=== PATIENT | male | born 1940 | race Caucasian/White ===

== ENCOUNTER 2023-10-25 20:20 | Inpatient (IN) ==
[2023-10-25 21:14] LABS: Basophils # (auto) 0.01 K/uL (0.00-0.20); Basophils % (auto) 0.2 %; Eosinophils # (auto) 0.01 K/uL (0.00-0.50); Eosinophils % (auto) 0.2 %; Hematocrit (blood only) 31.2 % (42.0-52.0); Hemoglobin 10.2 g/dl (14.0-18.0); Immature Granulocytes # (auto) 0.02 K/uL (0.01-0.20); Immature Granulocytes % (auto) 0.4 %; Lymphocytes # (auto) 0.16 K/uL (1.20-3.40); Lymphocytes % (auto) 3.1 %; Mean Corpuscular Hemoglobin 27.6 pg (25.0-34.0); Mean Corpuscular Hgb Conc 32.7 g/dL (32.0-36.0); Mean Corpuscular Volume 84.6 fL (80.0-100.0); Mean Platelet Volume 9.1 fL (9.4-12.4); Monocytes # (auto) 0.36 K/uL (0.11-0.59); Monocytes % (auto) 7.1 %; Neutrophils # (auto) 4.54 K/uL (1.40-6.50); Platelet Count 143 K/uL (130-400); RDW Coefficient of Variation 15.5 % (11.5-14.5); RDW Standard Deviation 48.1 fL (36.4-46.3); Red Blood Count 3.69 M/uL (4.70-6.10)
[2023-10-25 21:24] LABS: Base Excess VBG 3.4 mEq/L; HCO3 VBG 30 mmol/L; Oxygen Saturation VBG < 60.0 %; PCO2 VBG 50 mmHg (38-50); PO2 VBG 34 mmHg; pH VBG 7.38 (7.36-7.41)
[2023-10-25 21:31] LABS: Albumin Globulin Ratio 1.3 (0.9-2); Albumin Level 3.2 gm/dl (3.4-5.0); BUN Creatinine Ratio 23.8 (10-20); Bilirubin,Total 0.4 mg/dl (0.2-1.0); Calcium 7.8 mg/dl (8.6-10.3); Creatinine Clr Calc Pharmacy 32.1 ml/min; Est GFR (African American) 45.2 ml/min; Globulin 2.4 gm/dl (2.5-4.0); Magnesium 2.1 mg/dl (1.7-2.4); Potassium 4.7 mmol/L (3.5-5.1); Total Protein 5.6 gm/dl (6.0-8.3)
[2023-10-25 21:38] LABS: Troponin I High Sensitivity 35.2 pg/ml (0-20)
[2023-10-25 21:39] LABS: Adenovirus PCR Not Detected (NotDetected); Bordetella parapertussis PCR Not Detected (NotDetected); Bordetella pertussis PCR Not Detected (NotDetected); Chlamydia pneumoniae PCR Not Detected (NotDetected); Coronavirus 229E PCR Not Detected (NotDetected); Coronavirus CoV-2 (COVID19)PCR Not Detected (NotDetected); Coronavirus HKU1 PCR Not Detected (NotDetected); Coronavirus NL63 PCR Not Detected (NotDetected); Coronavirus OC43PCR Not Detected (NotDetected); Human Metapneumovirus PCR Not Detected (NotDetected); Influenza A PCR Not Detected (NotDetected); Influenza B PCR Not Detected (NotDetected); Mycoplasma pneumoniae PCR Not Detected (NotDetected); Parainfluenza Virus 1 PCR DETECTED (NotDetected); Parainfluenza Virus 2 PCR Not Detected (NotDetected); Parainfluenza Virus 3 PCR Not Detected (NotDetected); Parainfluenza Virus 4 PCR Not Detected (NotDetected); Respiratory Syncytial VirusPCR Not Detected (NotDetected); Rhinovirus/Enterovirus PCR Not Detected (NotDetected)
[2023-10-25 21:42] LABS: INR 1.1 (0.9-1.1); Prothrombin Time 11.6 Seconds (9.0-12.0)
--- NOTE | 2023-10-25 21:44 | Emergency Department Note ---
Impression & Plan Acute dyspnea, Non-ST elevation VT (NSTEMI), Elevated brain natriuretic peptide (BNP) level, Fever ED Provider Note HISTORY OF PRESENT ILLNESS: Patient is an 83-year-old male presenting with shortness of breath. Patient has history of lung cancer and is currently undergoing immunotherapy. He gets his immunotherapy every month and is scheduled for his next dose in 2 days. He denies any recent fevers. He uses his at home oxygen level as needed, but states that his oxygen level got into the low 80s earlier today and he has been wearing it for a couple hours. Reports a cough productive of white sputum. He has had a chronic cough. Denies any DVT or PE history. He is on Eliquis for history of A-fib. No reported recent sick contact exposures. Patient denies any significant chest pain. ROS: as above PHYSICAL EXAM: Constitutional: Patient appears in no acute distress. HENT: Head: Normocephalic and atraumatic. Eyes: EOMI, PERRL Mouth/Throat: Mucous membranes moist. Neck: Trachea midline. Neck supple. Cardiovascular: Irregular rhythm. No murmurs, rubs or gallops. Intact distal pulses. Pulmonary/Chest: No respiratory distress. Breath sounds clear and equal bilaterally. Coarse breath sounds bilaterally. Abdominal: Abdomen soft, no tenderness, rebound or guarding. Musculoskeletal: No tenderness or deformity noted. +2 edema bilaterally Skin: Warm and dry. No rash, erythema, pallor or cyanosis Psychiatric: Appropriate mood and affect for situation. Neurological: Alert and keenly responsive. CN II-XII grossly intact, moving all extremities equally and fully. MDM: - Vitals signs showed hypertension, fever and hypoxia. - History obtained via patient. History as above. - Chronic conditions affecting care: metastatic lung cancer; COPD; Afib - Differential diagnoses include, but are not limited to: Congestive heart failure; acute coronary syndrome; COPD/asthma exacerbation; pulmonary edema; pulmonary embolism; pneumonia; pneumothorax; viral syndrome - Order placed for continuous cardiac monitoring. At this time, monitor showed rate of 82 bpm with irregular rhythm, per my interpretation. - External medical records reviewed. Discharge summary dated 08/10/2023 was reviewed. Patient was admitted at that time for right-sided pleural effusion and thoracentesis was performed - EKG interpreted by myself showed atrial fibrillation. Rate 82 bpm. QT 382. Noted to have some ST depressions in V5 and V6. - Laboratory workup interpreted by myself showed normal WBC; anemia (Hgb 10.2); normal PT/INR; hyponatremia (Na 132); normal lactate; EL (Cr 1.6); elevated troponin (35.2); elevated BNP (282); normal procalcionin - Repeat troponin rising (53.6) - Viral respiratory panel positive for parainfluenza type 1. - CXR shows what appears to be a right lower lobe pneumonia, per my interpretation - Patient given 1g IV tylenol, as he developed a fever in the ER. - Blood cultures obtained. - Given 2g IV cefepime in ER. - Discussion was had with counter caser about patient's case and need for admission - Hospitalist consulted for admission - [facility] ASSESSMENT AND PLAN: Diagnosis: acute dyspnea; NSTEMI; elevated BNP; fever Plan: admit Past Med/Surg History Problem List (Updated 10/25/23 @ 23:17 by Rihannon Perez MD) Fever (Acute) Elevated brain natriuretic peptide (BNP) level (Acute) Non-ST elevation VT (NSTEMI) (Acute) Acute dyspnea (Acute) Palliative care by specialist Advanced care planning/counseling discussion Small cell lung cancer, right upper lobe Weakness generalized Dyspnea and respiratory abnormalities Shortness of breath on exertion Leg swelling (Acute) A-fib (Acute) COPD (chronic obstructive pulmonary disease) (Acute) Pleural effusion (Acute) Breathlessness (Acute) Primary cancer of right upper lobe of lung (Chronic 02/10/23) Metastatic primary lung cancer NSCC Lumbar stenosis with neurogenic claudication Medical History (Updated 10/25/23 @ 23:17 by Rhiannon Perez MD) Acute hypoxic respiratory failure Chronic kidney disease Atrial fibrillation Insomnia Diastolic CHF COPD (chronic obstructive pulmonary disease) Carotid artery stenosis Hypertension BPH (benign prostatic hyperplasia) Coronary artery disease DDD (degenerative disc disease), lumbar Edema, lower extremity Dyslipidemia Hyponatremia Hypothyroidism Lumbar radiculopathy Osteoarthritis Peripheral vascular disease Surgical History (Updated 03/11/23 @ 10:47 by Arin Aparicio RN) History of surgery Right ankle surgery History of carpal tunnel surgery Left History of surgery Lumbar spine surgery History of cataract surgery Bilateral S/P CABG x 5 S/P bronchoscopy 02/10/23 Family History (Updated 03/11/23 @ 10:15 by Arin Aparicio RN) Mother , in her 50s MVA (motor vehicle accident) Depression Anxiety Father , 46yo Myocardial infarction Brother Heart disease during stress test Sister No problems noted. Sister Diabetes Sister Diabetes Sister Heart disease Son No problems noted. Son Stroke Son No problems noted. 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 How many Children do You have: 3 Feels Safe at Home: Yes Diet: regular caffeine: Yes (4 cups/day) during the past year weight has: remained stable Assistive Devices: Cane and Walker Allergies Allergies Allergy/AdvReac Type Severity Reaction Status Date / Time No Known Allergies Allergy Unverified 08/06/23 19:19 Home Meds Home Medications Medication Instructions Recorded Confirmed albuterol sulfate 90 mcg/actuation 2 puff inhalation Q6H PRN 03/11/23 08/06/23 aerosol inhaler Shortness Of Breath Or Wheezing dutasteride 0.5 mg capsule 0.5 mg PO DAILY 03/11/23 08/06/23 ferrous sulfate 325 mg (65 mg 325 mg PO DAILY 03/11/23 08/06/23 iron) tablet (FeroSul) ipratropium 0.5 mg-albuterol 3 mg 3 ml inhalation Q6H PRN Shortness 03/11/23 08/06/23 (2.5 mg base)/3 mL nebulization Of Breath Or Wheezing soln levothyroxine 112 mcg capsule 112 mcg PO DAILY 03/11/23 08/06/23 mecobalamin (vitamin B12) 10,000 1,000 mcg IM MONTHLY 03/11/23 08/06/23 mcg solution for injection ondansetron HCl 8 mg tablet 8 mg PO Q8H PRN Nausea 03/11/23 08/06/23 prochlorperazine maleate 10 mg 10 mg PO Q6H PRN Nausea 03/11/23 08/06/23 tablet (Compazine) tamsulosin 0.4 mg capsule 0.4 mg PO BID 03/11/23 08/06/23 torsemide 20 mg tablet 20 mg PO DAILY 03/11/23 08/06/23 amlodipine 5 mg tablet 5 mg PO [facility] 08/06/23 08/06/23 apixaban 2.5 mg tablet (Eliquis) 2.5 mg PO BID 08/06/23 08/06/23 aspirin 81 mg tablet,delayed 81 mg PO MOWEFR 08/06/23 08/06/23 release baclofen 10 mg tablet 10 mg PO HS 08/06/23 08/06/23 hydrocodone 10 mg-acetaminophen 1 tab PO Q4 PRN .severe pain 08/06/23 08/06/23 325 mg tablet mirtazapine 30 mg tablet 30 mg PO HS 08/06/23 08/06/23 nitroglycerin 0.4 mg sublingual 0.4 mg sublingual DIRECTED PRN 08/06/23 08/06/23 tablet (Nitrostat) .Ccest pain ropinirole 0.5 mg tablet 0.5 mg PO HS 08/06/23 08/06/23 sennosides 8.6 mg-docusate sodium 1 tab-cap PO 08/06/23 08/06/23 50 mg tablet (Senna with Docusate Sodium) simvastatin 40 mg tablet 40 mg PO DAILY 08/06/23 08/06/23 umeclidinium 62.5 mcg/actuation 1 inh inhalation [facility] 08/06/23 08/06/23 blister powder for inhalation (Incruse Ellipta) Results & Data (ED) Vital Signs Vital Signs - 24 hr 10/25/23 20:29 10/25/23 20:34 10/25/23 20:36 Temperature 39.4 C H Temperature Source Oral Pulse Rate 78 81 Pulse Rhythm Irregular Respiratory Rate 20 20 Respiratory Effort / Characteristics Pursed Lip Short of Breath SOB on Exertion Pursed Lip Short of Breath SOB on Exertion Respiratory Depth Normal Respiratory Pattern Tachypnea Blood Pressure 166/61 H Blood Pressure Mean 96 Pulse Oximetry 90 90 Oxygen Delivery Method Nasal Cannula Nasal Cannula Nasal Cannula Oxygen Flow Rate 2 2 2 Sepsis Recent Fever Within 48 Hours Yes Sepsis New/Unexplained Change in Mental Status N/A Sepsis Action Taken by Nursing No Action Required 10/25/23 20:36 10/25/23 21:53 Temperature 37.0 C Temperature Source Oral Pulse Rate 82 Pulse Rhythm Respiratory Rate Respiratory Effort / Characteristics Respiratory Depth Respiratory Pattern Blood Pressure Blood Pressure Mean Pulse Oximetry Oxygen Delivery Method Oxygen Flow Rate Sepsis Recent Fever Within 48 Hours Sepsis New/Unexplained Change in Mental Status Sepsis Action Taken by Nursing Laboratory Data 10/25/23 20:40 10/25/23 20:40 Lab Results 10/25/23 10/25/23 10/25/23 Range/Units 20:40 21:12 22:31 WBC 5.10 (4.8-10.8) K/ul RBC 3.69 L (4.70-6.10) M/uL Hgb 10.2 L (14.0-18.0) g/dl Hct 31.2 L (42.0-52.0) % MCV 84.6 (80.0-100.0) fL MCH 27.6 (25.0-34.0) pg MCHC 32.7 (32.0-36.0) g/dL RDW Std Deviation 48.1 H (36.4-46.3) fL RDW Coeff of [place] 15.5 H (11.5-14.5) % Plt Count 143 (130-400) K/uL MPV 9.1 L (9.4-12.4) fL Immature Gran % (Auto) 0.4 % Neut % (Auto) 89.0 % Lymph % (Auto) 3.1 % [place] % (Auto) 7.1 % Eos % (Auto) 0.2 % Baso % (Auto) 0.2 % Neut # (Auto) 4.54 (1.40-6.50) K/uL Lymph # (Auto) 0.16 L (1.20-3.40) K/uL [place] # (Auto) 0.36 (0.11-0.59) K/uL Eos # (Auto) 0.01 (0.00-0.50) K/uL Baso # (Auto) 0.01 (0.00-0.20) K/uL Immature Gran # (Auto) 0.02 (0.01-0.20) K/uL PT 11.6 (9.0-12.0) Seconds INR 1.1 (0.9-1.1) VBG pH 7.38 (7.36-7.41) VBG pCO2 50 (38-50) mmHg VBG pO2 34 mmHg VBG HCO3 30 mmol/L VBG O2 Saturation < 60.0 % VBG Base Excess 3.4 mEq/L Sodium 132 L (136-145) mmol/L Potassium 4.7 (3.5-5.1) mmol/L Chloride 98 (98-107) mmol/L Carbon Dioxide 29 (21-32) mmol/L Anion Gap 5 (3-11) BUN 38 H (6-23) mg/dl Creatinine 1.60 H (0.6-1.4) mg/dl Est Cr Clr Drug Dosing 32.1 ml/min Est GFR ( Amer) 45.2 ml/min Est GFR (Non-Af Amer) 39.0 ml/min BUN/Creatinine Ratio 23.8 H (10-20) Glucose 125 H (70-99(Fasting)) mg/dl Lactate 0.9 (0.4-2.0) mmol/L Calcium 7.8 L (8.6-10.3) mg/dl Magnesium 2.1 (1.7-2.4) mg/dl Total Bilirubin 0.4 (0.2-1.0) mg/dl AST 19 (13-39) U/L ALT 13 (7-52) U/L Alkaline Phosphatase 83 (34-104) U/L Troponin I High Sens 35.2 H 53.6 H* D (0-20) pg/ml B-Natriuretic Peptide 282 H (0-100) pg/ml Total Protein 5.6 L (6.0-8.3) gm/dl Albumin 3.2 L (3.4-5.0) gm/dl Globulin 2.4 L (2.5-4.0) gm/dl Albumin/Globulin Ratio 1.3 (0.9-2) Procalcitonin 0.33 (0-0.5) ng/ml Adenovirus (PCR) (NotDetected) B. pertussis DNA (PCR) (NotDetected) B.parapertussis DNA PCR (NotDetected) C. pneumoniae DNA (PCR) (NotDetected) Coronavirus OC43 (PCR) (NotDetected) Coronavirus HKU1 (PCR) (NotDetected) Coronavirus 229E (PCR) (NotDetected) SARS-CoV-2 (PCR) (NotDetected) Coronavirus NL63 (PCR) (NotDetected) Human Metapneumovir PCR (NotDetected) Influenza Type A (PCR) (NotDetected) Influenza Type B (PCR) (NotDetected) M. pneumoniae (PCR) (NotDetected) Parainfluenza 1 (PCR) (NotDetected) Parainfluenza 2 (PCR) (NotDetected) Parainfluenza 3 (PCR) (NotDetected) Parainfluenza 4 (PCR) (NotDetected) RSV (PCR) (NotDetected) Entero/Rhino (PCR) (NotDetected) 10/25/23 Range/Units Unknown WBC (4.8-10.8) K/ul RBC (4.70-6.10) M/uL Hgb (14.0-18.0) g/dl Hct (42.0-52.0) % MCV (80.0-100.0) fL MCH (25.0-34.0) pg MCHC (32.0-36.0) g/dL RDW Std Deviation (36.4-46.3) fL RDW Coeff of [place] (11.5-14.5) % Plt Count (130-400) K/uL MPV (9.4-12.4) fL Immature Gran % (Auto) % Neut % (Auto) % Lymph % (Auto) % [place] % (Auto) % Eos % (Auto) % Baso % (Auto) % Neut # (Auto) (1.40-6.50) K/uL Lymph # (Auto) (1.20-3.40) K/uL [place] # (Auto) (0.11-0.59) K/uL Eos # (Auto) (0.00-0.50) K/uL Baso # (Auto) (0.00-0.20) K/uL Immature Gran # (Auto) (0.01-0.20) K/uL PT (9.0-12.0) Seconds INR (0.9-1.1) VBG pH (7.36-7.41) VBG pCO2 (38-50) mmHg VBG pO2 mmHg VBG HCO3 mmol/L VBG O2 Saturation % VBG Base Excess mEq/L Sodium (136-145) mmol/L Potassium (3.5-5.1) mmol/L Chloride (98-107) mmol/L Carbon Dioxide (21-32) mmol/L Anion Gap (3-11) BUN (6-23) mg/dl Creatinine (0.6-1.4) mg/dl Est Cr Clr Drug Dosing ml/min Est GFR ( Amer) ml/min Est GFR (Non-Af Amer) ml/min BUN/Creatinine Ratio (10-20) Glucose (70-99(Fasting)) mg/dl Lactate (0.4-2.0) mmol/L Calcium (8.6-10.3) mg/dl Magnesium (1.7-2.4) mg/dl Total Bilirubin (0.2-1.0) mg/dl AST (13-39) U/L ALT (7-52) U/L Alkaline Phosphatase (34-104) U/L Troponin I High Sens (0-20) pg/ml B-Natriuretic Peptide (0-100) pg/ml Total Protein (6.0-8.3) gm/dl Albumin (3.4-5.0) gm/dl Globulin (2.5-4.0) gm/dl Albumin/Globulin Ratio (0.9-2) Procalcitonin (0-0.5) ng/ml Adenovirus (PCR) Not Detected (NotDetected) B. pertussis DNA (PCR) Not Detected (NotDetected) B.parapertussis DNA PCR Not Detected (NotDetected) C. pneumoniae DNA (PCR) Not Detected (NotDetected) Coronavirus OC43 (PCR) Not Detected (NotDetected) Coronavirus HKU1 (PCR) Not Detected (NotDetected) Coronavirus 229E (PCR) Not Detected (NotDetected) SARS-CoV-2 (PCR) Not Detected (NotDetected) Coronavirus NL63 (PCR) Not Detected (NotDetected) Human Metapneumovir PCR Not Detected (NotDetected) Influenza Type A (PCR) Not Detected (NotDetected) Influenza Type B (PCR) Not Detected (NotDetected) M. pneumoniae (PCR) Not Detected (NotDetected) Parainfluenza 1 (PCR) DETECTED A (NotDetected) Parainfluenza 2 (PCR) Not Detected (NotDetected) Parainfluenza 3 (PCR) Not Detected (NotDetected) Parainfluenza 4 (PCR) Not Detected (NotDetected) RSV (PCR) Not Detected (NotDetected) Entero/Rhino (PCR) Not Detected (NotDetected) Administered Medications Discontinued Medications Cefepime HCl (Maxipime) 2,000 mg in 20 mls @ 5 mls/min IV NOW STA; Protocol Stop: 10/25/23 21:47 Last Admin: 10/25/23 22:56 Dose: 5 mls/min Documented By: HERMAN Acetaminophen (Ofirmev) 1,000 mg in 100 mls @ 400 mls/hr IV NOW STA Stop: 10/25/23 21:58 Last Infusion: 10/25/23 22:15 Dose: Infused Documented By: Admin: 10/25/23 22:00 Dose: 400 mls/hr Documented By: HERMAN Discharge Plan Visit Data Chief Complaint: Shortness of Breath/Dyspnea Stated Complaint: SHORTNESS OF BREATH ED Provider: Rhiannon Perez Discharge Problem: Acute dyspnea, Non-ST elevation VT (NSTEMI), Elevated brain natriuretic peptide (BNP) level, Fever Forms Stand Alone Forms: My [facility] Prescriptions Prescriptions: No Action levothyroxine 112 mcg capsule 112 mcg PO DAILY albuterol sulfate 90 mcg/actuation HFA aerosol inhaler 2 puff inhalation Q6H PRN (Reason: Shortness Of Breath Or Wheezing) tamsulosin 0.4 mg capsule 0.4 mg PO BID torsemide 20 mg tablet 20 mg PO DAILY ferrous sulfate [FeroSul] 325 mg (65 mg iron) tablet 325 mg PO DAILY dutasteride 0.5 mg capsule 0.5 mg PO DAILY ipratropium-albuterol 0.5 mg-3 mg(2.5 mg base)/3 mL solution for nebulization 3 ml inhalation Q6H PRN (Reason: Shortness Of Breath Or Wheezing) mecobalamin (vitamin B12) 10,000 mcg recon soln 1,000 mcg IM MONTHLY prochlorperazine maleate [Compazine] 10 mg tablet 10 mg PO Q6H PRN (Reason: Nausea) ondansetron HCl 8 mg tablet 8 mg PO Q8H PRN (Reason: Nausea) sennosides-docusate sodium [Senna with Docusate Sodium] 8.6-50 mg Tablet 1 tab-cap PO HS hydrocodone-acetaminophen 10-325 mg tablet 1 tab PO Q4 PRN (Reason: .severe pain) aspirin 81 mg Tablet,Delayed Release (Dr/Ec) 81 mg PO MOWEFR simvastatin 40 mg tablet 40 mg PO DAILY mirtazapine 30 mg tablet 30 mg PO HS nitroglycerin [Nitrostat] 0.4 mg Tablet, Sublingual 0.4 mg sublingual DIRECTED PRN (Reason: .Ccest pain) Incruse Ellipta 62.5 mcg/actuation blister with device 1 inh INHALATION QAM amlodipine 5 mg tablet 5 mg PO QAM ropinirole 0.5 mg tablet 0.5 mg PO HS Eliquis 2.5 mg tablet 2.5 mg PO BID baclofen 10 mg tablet 10 mg PO HS Referrals Referrals: Pepe Chiang MD [Primary Care Provider] -
[2023-10-25] MEDS: ACETAMINOPHEN 1,000 MG/100 ML VIAL IV STA (22:00)
[2023-10-25] MEDS: CEFEPIME 2,000 MG/20 ML VIAL IV STA (22:56)
[2023-10-25 23:10] LABS: Troponin I High Sensitivity 53.6 pg/ml (0-20)
[2023-10-26] MEDS: DOXYCYCLINE HYCLATE 100 MG in DEXTROSE 5% MINI-B 100 ML IV STA (00:06)
[2023-10-26] MEDS: SODIUM CHLORIDE 0.9% 1,000 ML IV ONE (00:08)
--- NOTE | 2023-10-26 01:20 | History & Physical Report ---
Date of Service October 26, 2023 Assessment & Plan (1) Acute hypoxemic respiratory failure: Plan: Secondary to COPD/RLD exacerbation secondary to HCAP History recurrent right pleural effusion Underlying pulm hypertension Immunocompromised patient hx NSCLC sp chemoradiation ongoing immunotherapy No sepsis for now Asymptomatic bradycardia noted at the ER Slow A-fib, on Eliquis Troponin elevation secondary to illness Hyponatremia, ARF secondary to illness chronic diastolic heart failure, equivocal volume status, some congestion on x- ray, patient clinically dry hx CAD status post CABG valvular heart disease (moderate to severe MR, mild to moderate MR, TTE 2021) hx PVD status post surgery hyperlipidemia on statin Rx hypothyroidism, TSH elevated with normal free T4 chronic anemia, hemoglobin at baseline Hyperglycemia ro DM past tobacco abuse PCU given bradycardic episode Atropine as needed symptomatic bradycardia Cardiology consult if with recurrence CS, cefepime, doxycycline for HCAP Nebs RTC, prednisone Rx for COPD exacerbation Pulmonary consult if without improvement Hyponatremia workup Baseline UA, monitor creatinine response to IVF Hold losartan and home diuretic until creatinine back to baseline Check hemoglobin A1c DVT prophylaxis with Eliquis Full code Total critical care time was 45 minutes. Text document was generated using [employer] voice recognition software. It may contain grammatical or spelling errors. Kindly contact undersigned for clarification of any documentation item in question. History of Present Illness Chief Complaint: Cough, shortness of breath Primary Care Provider: Pepe Chiang MD History obtained from patient and records. Medical history significant for chronic diastolic heart failure (55 to 59%, TTE 2021), CAD status post CABG, valvular heart disease (moderate to severe MR, mild to moderate MR, TTE 2021), PVD status post surgery, A-fib on Eliquis, pulmonary hypertension, hyperlipidemia, COPD/RLD as per records, non-small cell lung cancer status post chemoradiation ongoing immunotherapy, recurrent right pleural effusion, pancreatic tumor, hypothyroidism, BPH, chronic anemia (baseline hemoglobin 9-10), mood disorder, past tobacco abuse. Recent confinement August 2023 for right pleural effusion status post th oracentesis. Pleural fluid negative for malignancy. Few days history of worsening junky cough symptoms with shortness of breath. Denies aspiration. Not sure about sick contacts. Denies fluid retention. No headache or abdominal pain. Patient brought by family to ER. IV cefepime administered at the ER. Bradycardic episode noted at the ER. Heart rate 30s. Patient asymptomatic during event. 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 Allergies Allergy/AdvReac Type Severity Reaction Status Date / Time No Known Allergies Allergy Unverified 10/26/23 00:36 Home Medications Medication Instructions Recorded Confirmed Type albuterol sulfate 90 mcg/actuation 2 puff inhalation Q6H PRN 03/11/23 10/26/23 History aerosol inhaler Shortness Of Breath Or Wheezing dutasteride 0.5 mg capsule 0.5 mg PO DAILY 03/11/23 10/26/23 History ipratropium 0.5 mg-albuterol 3 mg 3 ml inhalation Q6H PRN Shortness 03/11/23 10/26/23 History (2.5 mg base)/3 mL nebulization Of Breath Or Wheezing soln levothyroxine 112 mcg capsule 112 mcg PO DAILY 03/11/23 10/26/23 History mecobalamin (vitamin B12) 10,000 1,000 mcg IM MONTHLY 03/11/23 10/26/23 History mcg solution for injection ondansetron HCl 8 mg tablet 8 mg PO Q8H PRN Nausea 03/11/23 10/26/23 History prochlorperazine maleate 10 mg 10 mg PO Q6H PRN Nausea 03/11/23 10/26/23 History tablet (Compazine) tamsulosin 0.4 mg capsule 0.4 mg PO BID 03/11/23 10/26/23 History torsemide 20 mg tablet 20 mg PO DAILY 03/11/23 10/26/23 History amlodipine 5 mg tablet 5 mg PO QAM 08/06/23 10/26/23 History apixaban 2.5 mg tablet (Eliquis) 2.5 mg PO BID 08/06/23 10/26/23 History aspirin 81 mg tablet,delayed 81 mg PO MOWEFR 08/06/23 10/26/23 History release baclofen 10 mg tablet 10 mg PO HS 08/06/23 10/26/23 History mirtazapine 30 mg tablet 45 mg PO HS 08/06/23 10/26/23 History nitroglycerin 0.4 mg sublingual 0.4 mg sublingual DIRECTED PRN 08/06/23 10/26/23 History tablet (Nitrostat) .Ccest pain ropinirole 0.5 mg tablet 0.5 mg PO HS 08/06/23 10/26/23 History sennosides 8.6 mg-docusate sodium 1 tab-cap PO HS 08/06/23 10/26/23 History 50 mg tablet (Senna with Docusate Sodium) umeclidinium 62.5 mcg/actuation 1 inh inhalation QAM 08/06/23 10/26/23 History blister powder for inhalation (Incruse Ellipta) dexamethasone 4 mg tablet 4 mg PO DIRECTED .when gets 10/26/23 10/26/23 History chemo duloxetine 30 mg capsule,delayed 30 mg PO QAM 10/26/23 10/26/23 History release losartan 50 mg tablet 50 mg PO QAM 10/26/23 10/26/23 History oxycodone 5 mg tablet 5 mg PO Q4 PRN .severe pain 10/26/23 10/26/23 History pantoprazole 40 mg tablet,delayed 40 mg PO DAILY 10/26/23 10/26/23 History release rosuvastatin 20 mg tablet 20 mg PO QAM 10/26/23 10/26/23 History Past Med/Surg History Problem List (Updated 10/26/23 @ 10:01 by Neeraj Camacho MD) Acute hypoxemic respiratory failure Fever (Acute) Elevated brain natriuretic peptide (BNP) level (Acute) Non-ST elevation [place] (NSTEMI) (Acute) Acute dyspnea (Acute) Palliative care by specialist Advanced care planning/counseling discussion Small cell lung cancer, right upper lobe Weakness generalized Dyspnea and respiratory abnormalities Shortness of breath on exertion Leg swelling (Acute) A-fib (Acute) COPD (chronic obstructive pulmonary disease) (Acute) Pleural effusion (Acute) Breathlessness (Acute) Primary cancer of right upper lobe of lung (Chronic 02/10/23) Metastatic primary lung cancer NSCC Lumbar stenosis with neurogenic claudication Medical History (Updated 10/26/23 @ 10:01 by Neeraj Camacho MD) Acute hypoxic respiratory failure Chronic kidney disease Atrial fibrillation Insomnia Diastolic CHF COPD (chronic obstructive pulmonary disease) Carotid artery stenosis Hypertension BPH (benign prostatic hyperplasia) Coronary artery disease DDD (degenerative disc disease), lumbar Edema, lower extremity Dyslipidemia Hyponatremia Hypothyroidism Lumbar radiculopathy Osteoarthritis Peripheral vascular disease Surgical History (Updated 03/11/23 @ 10:47 by Arin Aparicio RN) History of surgery Right ankle surgery History of carpal tunnel surgery Left History of surgery Lumbar spine surgery History of cataract surgery Bilateral S/P CABG x 5 S/P bronchoscopy 02/10/23 Family History (Updated 03/11/23 @ 10:15 by Arin Aparicio RN) Mother , in her 50s MVA (motor vehicle accident) Depression Anxiety Father , 46yo Myocardial infarction Brother Heart disease during stress test Sister No problems noted. Sister Diabetes Sister Diabetes Sister Heart disease Son No problems noted. Son Stroke Son No problems noted. 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 How many Children do You have: 3 Feels Safe at Home: Yes Safety Concerns: Feels Safe At This Time Diet: regular caffeine: Yes (4 cups/day) during the past year weight has: remained stable Assistive Devices: Cane, Denture - Upper and Denture - Lower Review of Systems Review of Systems: As per HPI, all other systems reviewed and negative Physical Exam Physical Exam: GENERAL: Comfortable, slightly hard of hearing, no respiratory distress SKIN: Pallor, warm HEENT: Alopecia, pale palpebral conjunctivae, no ptosis, dry buccal mucosa, nasal cannula in place NECK : Supple, no tenderness CHEST : Decreased breath sounds, scattered expiratory wheezes, no tenderness HEART : Bradycardic, irregular, systolic murmur ABDOMEN: Some distention, nontender EXTREMITIES : Minimal LE swelling, no LE tenderness, no other conspicuous deformities noted NEUROLOGIC : Coherent, no facial asymmetry, slightly hard of hearing, gait and stance not assessed Results & Data Results & Data Vital Signs (Past 12 Hours) Vital Signs Temp Pulse Resp BP Pulse Ox O2 Del Method O2 Flow Rate 10/26/23 00:30 117/48 L 93 Nasal Cannula 1 10/26/23 00:00 14 112/46 L 93 Nasal Cannula 1 10/26/23 00:00 92 Nasal Cannula 2 10/25/23 21:53 37.0 C 10/25/23 20:36 82 10/25/23 20:36 81 20 90 Nasal Cannula 2 10/25/23 20:34 Nasal Cannula 2 10/25/23 20:29 39.4 C H 78 20 166/61 H 90 Nasal Cannula 2 Laboratory Results Laboratory Results WBC 5.10 K/ul (4.8-10.8) 10/25/23 20:40 RBC 3.69 M/uL (4.70-6.10) L 10/25/23 20:40 Hgb 10.2 g/dl (14.0-18.0) L 10/25/23 20:40 Hct 31.2 % (42.0-52.0) L 10/25/23 20:40 MCV 84.6 fL (80.0-100.0) 10/25/23 20:40 MCH 27.6 pg (25.0-34.0) 10/25/23 20:40 MCHC 32.7 g/dL (32.0-36.0) 10/25/23 20:40 RDW Std Deviation 48.1 fL (36.4-46.3) H 10/25/23 20:40 RDW Coeff of Carlitos 15.5 % (11.5-14.5) H 10/25/23 20:40 Plt Count 143 K/uL (130-400) 10/25/23 20:40 MPV 9.1 fL (9.4-12.4) L 10/25/23 20:40 Immature Gran % (Auto) 0.4 % 10/25/23 20:40 Neut % (Auto) 89.0 % 10/25/23 20:40 Lymph % (Auto) 3.1 % 10/25/23 20:40 [place] % (Auto) 7.1 % 10/25/23 20:40 Eos % (Auto) 0.2 % 10/25/23 20:40 Baso % (Auto) 0.2 % 10/25/23 20:40 Neut # (Auto) 4.54 K/uL (1.40-6.50) 10/25/23 20:40 Lymph # (Auto) 0.16 K/uL (1.20-3.40) L 10/25/23 20:40 [place] # (Auto) 0.36 K/uL (0.11-0.59) 10/25/23 20:40 Eos # (Auto) 0.01 K/uL (0.00-0.50) 10/25/23 20:40 Baso # (Auto) 0.01 K/uL (0.00-0.20) 10/25/23 20:40 Immature Gran # (Auto) 0.02 K/uL (0.01-0.20) 10/25/23 20:40 PT 11.6 Seconds (9.0-12.0) 10/25/23 20:40 INR 1.1 (0.9-1.1) 10/25/23 20:40 VBG pH 7.38 (7.36-7.41) 10/25/23 21:12 VBG pCO2 50 mmHg (38-50) 10/25/23 21:12 VBG pO2 34 mmHg 10/25/23 21:12 VBG HCO3 30 mmol/L 10/25/23 21:12 VBG O2 Saturation < 60.0 % 10/25/23 21:12 VBG Base Excess 3.4 mEq/L 10/25/23 21:12 Sodium 132 mmol/L (136-145) L 10/25/23 20:40 Potassium 4.7 mmol/L (3.5-5.1) 10/25/23 20:40 Chloride 98 mmol/L (98-107) 10/25/23 20:40 Carbon Dioxide 29 mmol/L (21-32) 10/25/23 20:40 Anion Gap 5 (3-11) 10/25/23 20:40 BUN 38 mg/dl (6-23) H 10/25/23 20:40 Creatinine 1.60 mg/dl (0.6-1.4) H 10/25/23 20:40 Est Cr Clr Drug Dosing 32.1 ml/min 10/25/23 20:40 Est GFR ( Amer) 45.2 ml/min 10/25/23 20:40 Est GFR (Non-Af Amer) 39.0 ml/min 10/25/23 20:40 BUN/Creatinine Ratio 23.8 (10-20) H 10/25/23 20:40 Glucose 125 mg/dl (70-99(Fasting)) H 10/25/23 20:40 Lactate 0.9 mmol/L (0.4-2.0) 10/25/23 22:31 Calcium 7.8 mg/dl (8.6-10.3) L 10/25/23 20:40 Magnesium 2.1 mg/dl (1.7-2.4) 10/25/23 20:40 Total Bilirubin 0.4 mg/dl (0.2-1.0) 10/25/23 20:40 AST 19 U/L (13-39) 10/25/23 20:40 ALT 13 U/L (7-52) 10/25/23 20:40 Alkaline Phosphatase 83 U/L (34-104) 10/25/23 20:40 Troponin I High Sens 53.6 pg/ml (0-20) H* D 10/25/23 22:31 B-Natriuretic Peptide 282 pg/ml (0-100) H 10/25/23 20:40 Total Protein 5.6 gm/dl (6.0-8.3) L 10/25/23 20:40 Albumin 3.2 gm/dl (3.4-5.0) L 10/25/23 20:40 Globulin 2.4 gm/dl (2.5-4.0) L 10/25/23 20:40 Albumin/Globulin Ratio 1.3 (0.9-2) 10/25/23 20:40 Procalcitonin 0.33 ng/ml (0-0.5) 10/25/23 20:40 Adenovirus (PCR) Not Detected (NotDetected) 10/25/23 Unknown B. pertussis DNA (PCR) Not Detected (NotDetected) 10/25/23 Unknown B.parapertussis DNA PCR Not Detected (NotDetected) 10/25/23 Unknown C. pneumoniae DNA (PCR) Not Detected (NotDetected) 10/25/23 Unknown Coronavirus OC43 (PCR) Not Detected (NotDetected) 10/25/23 Unknown Coronavirus HKU1 (PCR) Not Detected (NotDetected) 10/25/23 Unknown Coronavirus 229E (PCR) Not Detected (NotDetected) 10/25/23 Unknown SARS-CoV-2 (PCR) Not Detected (NotDetected) 10/25/23 Unknown Coronavirus NL63 (PCR) Not Detected (NotDetected) 10/25/23 Unknown Human Metapneumovir PCR Not Detected (NotDetected) 10/25/23 Unknown Influenza Type A (PCR) Not Detected (NotDetected) 10/25/23 Unknown Influenza Type B (PCR) Not Detected (NotDetected) 10/25/23 Unknown M. pneumoniae (PCR) Not Detected (NotDetected) 10/25/23 Unknown Parainfluenza 1 (PCR) DETECTED (NotDetected) A 10/25/23 Unknown Parainfluenza 2 (PCR) Not Detected (NotDetected) 10/25/23 Unknown Parainfluenza 3 (PCR) Not Detected (NotDetected) 10/25/23 Unknown Parainfluenza 4 (PCR) Not Detected (NotDetected) 10/25/23 Unknown RSV (PCR) Not Detected (NotDetected) 10/25/23 Unknown Entero/Rhino (PCR) Not Detected (NotDetected) 10/25/23 Unknown Diagnostic Findings Chest x-ray as per my interpretation cardiomegaly, minimal congestion, infi ltrates right greater than the left EKG as per my interpretation : Rate 80, A-fib, normal axis, T wave inversion lateral leads
[2023-10-26] MEDS ORDERED: ATROPINE SULFATE 0.1 MG/ML 10ML SYR IV PRN (01:35)
[2023-10-26] MEDS: amLODIPine BESYLATE 5 MG TAB PO ONE (01:36)
[2023-10-26] MEDS: methylPREDNISolone 125 MG/2 ML VIAL IV STA (01:38)
[2023-10-26] MEDS: ALBUT/IPRATROP 3MG/0.5MG NEB 3 ML VIAL NEB STA (01:39)
[2023-10-26 02:14] LABS: Thyroid Stimulating Hormone 16.1 uIu/ml (0.300-4.500)
[2023-10-26 03:12] LABS: T4 Free Thyroxine 0.93 ng/dl (0.61-1.60)
[2023-10-26] MEDS: LEVOTHYROXINE SODIUM 125 MCG TABLET PO SCH (06:29)
--- NOTE | 2023-10-26 06:49 | XRay Report ---
XR chest 1V portable CLINICAL HISTORY: Dyspnea. COMPARISON STUDY: Chest CT August 06, 2023. Chest radiograph August 10, 2023. FINDINGS: There are median sternotomy wires. An irregular opacity within the right upper lobe with vo lume loss is again noted. Bilateral mid and lower lung airspace opacities have developed. Cardiomegal y is unchanged. There is mild interstitial thickening. No pneumothorax. There is a small right pleura l effusion. IMPRESSION: 1. Interval development of bilateral mid and lower lung airspace opacities which favor pneumonia or a spiration pneumonitis. 2. Cardiomegaly with mild interstitial pulmonary edema. 3. Irregular right upper lobe masslike opacity, as shown on prior exams. 4. Small right pleural effusion. ACT 112: Negative or not required by law. Electronically signed by: Inocencio Villareal M.D. 10/26/2023 6:48 AM
[2023-10-26] MEDS: ALBUT/IPRATROP 3MG/0.5MG NEB 3 ML VIAL NEB SCH (07:06)
[2023-10-26 07:10] LABS: Hematocrit (blood only) 29.4 % (42.0-52.0); Hemoglobin 9.4 g/dl (14.0-18.0); Mean Corpuscular Hemoglobin 27.4 pg (25.0-34.0); Mean Corpuscular Volume 85.7 fL (80.0-100.0); Mean Platelet Volume 9.5 fL (9.4-12.4); Platelet Count 114 K/uL (130-400); RDW Coefficient of Variation 15.8 % (11.5-14.5); RDW Standard Deviation 49.3 fL (36.4-46.3); Red Blood Count 3.43 M/uL (4.70-6.10); White Blood Count 7.47 K/ul (4.8-10.8)
[2023-10-26 07:27] LABS: Calcium 7.9 mg/dl (8.6-10.3); Est GFR (African American) 46.6 ml/min; Est GFR (Non-African American) 40.2 ml/min; Potassium 4.6 mmol/L (3.5-5.1)
[2023-10-26 07:45] LABS: Basophils # (auto) 0.01 K/uL (0.00-0.20); Basophils % (auto) 0.1 %; Immature Granulocytes # (auto) 0.06 K/uL (0.01-0.20); Immature Granulocytes % (auto) 0.8 %; Lymphocytes # (auto) 0.28 K/uL (1.20-3.40); Lymphocytes % (auto) 3.7 %; Monocytes # (auto) 0.28 K/uL (0.11-0.59); Monocytes % (auto) 3.7 %; Neutrophils # (auto) 6.84 K/uL (1.40-6.50); Neutrophils % (auto) 91.7 %; Ovalocytes 1+
[2023-10-26 07:48] LABS: Estimated Average Glucose 111 mg/dl; Hemoglobin A1C 5.5 % (4.5-5.6)
[2023-10-26] MEDS: FINASTERIDE 5 MG TAB PO SCH (09:05)
[2023-10-26] MEDS: TAMSULOSIN HCL 0.4 MG CAP PO SCH (09:05)
[2023-10-26] MEDS: APIXABAN 2.5 MG TAB PO SCH (09:05)
[2023-10-26] MEDS: DULoxetine HCL 30 MG CAP PO SCH (09:05)
[2023-10-26] MEDS: amLODIPine BESYLATE 5 MG TAB PO SCH (09:05)
[2023-10-26] MEDS: PANTOprazole 40 MG TAB PO SCH (09:05)
[2023-10-26] MEDS: ROSUVASTATIN CALCIUM 20 MG TAB PO SCH (09:05)
--- OUTSIDE RECORDS SUMMARY | 2023-10-26 09:50 | External Medical Summary | Summary of Care ---
Author Name Unknown Organization [facility] Address [address] [place] [address] Phone [phone] Care Team Providers Care [employer] Name Role Phone Pepe Beck MD Primary Care P rovider Reason for Visit * Reason Onset Date Comments Test Results Imaging Study 10/19/2023 Encounter Details Date Type Department Care Team (Late st Contact Info) Description 10/19/2023 Telephone Hematology/Oncology [facility] [address] [facility] [place] [place] [address] Pearl Oviedo CRNP [address] [place] [address] Test Results Imaging Study Allergies No known active allergiesdocumented as of this encounter (statuses as of 10/20/2023) Medications Medication Sig Dispensed Refills Start Date End Date Status Aspirin 81 MG Oral Tablet Delayed Release Take 1 Tablet by mouth every other day. 0 Active Albuterol Sulfate HFA 108 (90 Base) MCG/ACT Inhalation Aerosol Solution INHALE 2 PUFFS BY MOUTH EVERY 6 HOURS NEEDED 18 g 3 12/18/2021 Active Torsemide 20 MG Oral Tablet (Demadex)Indications :Atherosclerosis of kiowa tribe artery of right lower extremity with intermittent claudication (HCC),Persistent atrial fibrillation (HCC),BROWNE (dyspnea on exertion) TAKE 1 TABLET BY MOUTH ONCE DAILY IN THE MORNING 34 Tablet 11 12/10/2022 Active Dutasteride 0.5 MG Oral Capsule (Avodart) Take 1 Capsule by mouth in the morning. 90 Capsule 3 01/15/2023 Active Ondansetron HCl 8 MG Oral Tablet (Zofran)Indications: Cancer of upper lobe of right lung (HCC) Take 1 Tablet by mouth every 8 hours as needed for Nausea. 30 Tablet 2 03/02/2023 Active Prochlorperazine Maleate 10 MG Oral Tablet (Compazine)Indicatio ns:Cancer of upper lobe of right lung (HCC) Take 1 Tablet by mouth every 6 hours as needed for Nausea. 30 Tablet 2 03/02/2023 Active Tamsulosin HCl 0.4 MG Oral Capsule (Flomax) TAKE 1 CAPSULE BY MOUTH TWICE DAILY 180 Capsule 1 03/17/2023 Active dexAMETHasone 4 MG Oral Tablet (Decadron)Indication s:Cancer of upper lobe of right lung (HCC) Take 12mg (3 tablets) the night before and morning of each chemotherapy appointment 6 Tablet 0 05/07/2023 Active Pantoprazole Sodium 40 MG Oral Tablet Delayed Release (Protonix) Take 1 Tablet by mouth in the morning and 1 Tablet before bedtime. 60 Tablet 3 05/18/2023 Active Rosuvastatin Calcium 20 MG Oral Tablet (Crestor)Indications :Dyslipidemia, goal LDL below 70 Take 1 Tablet by mouth in the morning. 90 Tablet 3 05/28/2023 Active Losartan Potassium 100 MG Oral Tablet (Cozaar)Indications: Coronary artery disease involving kiowa tribe coronary artery of kiowa tribe heart without angina pectoris Take 0.5 Tablets by mouth in the morning. 0 06/04/2023 Active Apixaban 2.5 MG Oral Tablet (Eliquis)Indications :Persistent atrial fibrillation (HCC) Take 1 Tablet by mouth in the morning and 1 Tablet before bedtime. 60 Tablet 5 06/04/2023 Active Vitamin B-12 1000 MCG Sublingual Tablet Sublingual every 30 days. 0 03/11/2023 Act keely amLODIPine Besylate 5 MG Oral Tablet (Norvasc)Indications :HTN, goal below 140/90 Take 1 Tablet by mouth in the morning. 30 Tablet 5 07/08/2023 Active rOPINIRole HCl 0.5 MG Oral Tablet (Requip) TAKE 1 TABLET BY MOUTH ONCE DAILY AT BEDTIME 90 Tablet 1 07/12/2023 Active Nitroglycerin 0.4 MG Sublingual Tablet Sublingual (Nitrostat) 1 Tablet. 0 08/06/2023 Active Sennosides-Docusate Sodium 8.6-50 MG Oral Tablet (Senokot-S) at bedtime. 0 08/06/2023 Active Incruse Ellipta 62.5 MCG/ACT Inhalation Aerosol Powder Breath ActivatedIndications :COPD, group C, by GOLD 2017 classification ([facility]) Inhale 1 Puff by mouth every evening. 30 Each 2 08/23/2023 Active Ipratropium-Albutero l 0.5-2.5 (3) MG/3ML Inhalation Solution (Duoneb) Inhale 3 mL via nebulizer every 6 hours as needed for Cough, Shortness of Breath or Wheezing. 360 mL 5 08/26/2023 Active Mirtazapine 45 MG Oral Tablet (Remeron)Indications :Insomnia due to medical condition Take 1 Tablet by mouth at bedtime. 30 Tablet 5 09/03/2023 Active HYDROcodone-Acetamin ophen 10-325 MG Oral TabletIndications:Ac rodney left-sided low back pain without sciatica,Cancer of upper lobe of right lung ([facility]) Take 1 Tablet by mouth every 4 hours as needed for Pain, Severe. 60 Tablet 0 09/09/2023 Active Levothyroxine Sodium 112 MCG Oral Tablet (Levoxyl) TAKE 1 TABLET BY MOUTH ONCE DAILY AT LEAST 30 MINUTES PRIOR TO BREAKFAST AND OTHER MEDS 90 Tablet 1 09/13/2023 Active Baclofen 10 MG Oral Tablet (Lioresal)Indication s:Acute left-sided low back pain without sciatica TAKE 1 TABLET BY MOUTH ONCE DAILY AT BEDTIME 30 Tablet 2 09/29/2023 Active Clotrimazole 10 MG Mouth/Throat Amilcar (Mycelex Amilcar)Indications:T hrush Take 1 Lozenge by mouth 5 times a day. 70 Lozenge 0 09/29/2023 Active Hospital, Clinic, or Other Facility Administered Medication Ordered Dose Route Frequency Start Date End Date Status vitamin b-12 (Cyanocobalamin) inj 1,000 mcgIndications:B12 deficiency 1000 mcg IM [id number] 05/06/2023 04/06/2024 Active sodium chloride 0.9 % flush/inj 10 mL 10 mL IV PUSH ONCE 10/19/2023 10/19/2023 Ended documented as of this encounter (statuses as of 10/20/2023) Active Problems Problem Noted Date Diagnosed Date Moderate episode of recurrent major depressive d isorder 08/11/2023 Hypertensive kidney disease with stage 3a chronic kidney disease 08/11/2023 Pancytopenia 08/11/2023 Metastatic primary lung cancer 06/04/2023 Lumbar stenosis with neurogenic claudication Bradycardia 05/17/2023 PVC (premature ventricular contraction) 05/17/20 Metabolic encephalopathy 05/14/2023 Neutropenic fever 05/13/2023 Immunocompromised 05/13/2023 Infectious encephalopathy 05/13/2023 Cancer of upper lobe of right lung 03/02/2023 Encounter for antineoplastic chemotherapy 2022 B12 deficiency 02/05/2023 AAA (abdominal aortic aneurysm) 02/04/2023 Overview: 3.3 cm AAA noted on CT Chest 02/02/23 Restrictive lung disease 07/06/2022 Chronic kidney disease, stage 3a 03/16/2022 Overview: Per CKD protocol Osteoarthritis of acromioclavicular joint 2021 Chronic diastolic congestive heart failure 12/11 Persistent atrial fibrillation 12/11/2021 HTN, goal below 140/90 12/11/2021 Sleep disorder 12/09/2021 COPD, group C, by GOLD 2017 classification 11/17 Overview: Per COPD GOLD Classification 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 Atherosclerosis of kiowa tribe ar erick of right lower extremity with intermittent claudication 10/23/2019 Hypothyroidism 03/28/2018 Hyponatremia 03/28/2018 Dyslipidemia, goal LDL below 70 03/28/2018 Edema of lower extremity 03/28/2018 Degeneration of lumbar intervertebral disc 03/28 Coronary artery disease invo lving kiowa tribe coronary artery of kiowa tribe heart without angina pectoris 03/28/2018 Benign prostatic hyperplasia 03/28/2018 Benign essential hypertension 03/28/2018 Carotid artery stenosis 03/28/2018 Osteoarthritis of ankle 03/29/2017 Peripheral vascular disease 11/03/2016 documented as of this encounter (statuses as of 10/20/2023) Resolved Problems Problem Noted Date Diagnosed Date Resolved Date EL (acute kidney injury) 05/17/2023 Lumbar radiculopathy 03/28/2018 023 Chronic obstructive pulmonary disease 03/28/2018 11/20/2021 Overview: Per COPD GOLD Classification documented as of this encounter (statuses as of 10/20/2023) Immunizations Name Administration Dates Next Due COVID-19 mRNA, LNP-s, No Pre serve, 2-Dose Series ([employer] [place]) 05/05/2021,08/28/2020,08/07/2020 Covid-19, Mrna, Lnp-s, Pf, B ivalent, 30 Mcg, IM, 12 yrs and above ([employer] [place]) 02/24/2022 Pneumococcal Conjugate Vacci ne, 20-valent ([id number]) 09/03/2023,12/09/2021(Deferred: Had Clinical Disease) Pneumococcal Polysaccharide PPV23 (Pneumovax) 02/15/2020 Seasonal Influenza, Quadriva lent Hd (Fluzone Hd) 02/05/2023,03/04/2022 Seasonal Influenza, Recombin ant, RIV4, PF, (Flublock) 04/07/2021 Seasonal Influenza, Split, I IV3, With Preserve, Inj 03/13/2020,04/12/2019,03/21/2018,03/29,03/31/2016,04/30/2014,03/13/2013 ,05/14/2012,05/11/2012,04/24/2008,06/2005 documented as of this encounter Social History Tobacco Use Types Packs/Day Years Used Date Smoking Tobacco: Every Day Cigarettes 1 37.4 Started: 06/07/1986 Smokeless Tobacco: Never Alcohol Use Standard Drinks/Week Comments Never 0 (1 standard drink = 0.6 oz pur e alcohol) PHQ-2 Answer Date Recorded PHQ Adult Total Score 1 05/10/2023 Sex and Gender Information Value Date Recorded Sex Assigned at Not on file Gender Identity Not on file Sexual Orientation Not on file Job Start Date Occupation Industry Not on file Not on file Not on file documented as of this encounter Functional Status Functional Status Response Date of Assess ment Are you deaf or do you have serious difficulty h earing? No 05/13/2023 Are you blind or do you have serious difficulty seeing, even when wearing glasses? No 05/13/2023 Do you have serious difficul ty walking or climbing stairs? (5 years old or older) No 05/13/2023 Do you have difficulty dress ing or bathing? (5 years old or older) No 05/13/2023 Because of a physical, menta l, or emotional condition, do you have difficulty doing errands alone such as visiting a doctor s office or shopping? (15 years old or older) No 05/13/20 23 Cognitive Status Response Date of Assessm ent Because of a physical, menta l, or emotional condition, do you have serious difficulty concentrating, remembering, or making decisions? (5 years old or older) No 05/13/2023 documented as of this encounter Miscellaneous Notes * Telephone Encounter - Kendra Aden OSA - 10/20/2023 12:18 PM EDT Reason for call: Returning call from staff to schedule appts Caller was transferred to Cielo at the clinic. * Telephone Encounter - Cielo Rene OSA - 10/20/2023 9:37 AM EDT Left message * Telephone Encounter - Keiko Garcia RN - 10/20/2023 7:49 AM EDT Scheduling: please call patient to schedule - labs "CBCd, CMP, TSH/ T4"- ok to do day prior if patient prefers - 2 hour appt "[id number] imfinzi" (Ivan) Thanks! * Telephone Encounter - Pearl Oviedo CRNP - 10/19/2023 4:[address] Chest 10/19/23: IMPRESSION 1. Previously reported right perihilar/suprahilar mass is not well delineated due to adjacent consolidative changes but appears to measure approximately 3.0 x 2.2 cm, difficult to compare to the mostrecent noncontrast exam but slightly decreased in size compared to 08/06/2023 when it measured 3.2 x 2.6 cm. 2. Previously occluded right upper lobe bronchus is now patent. There is associated overall improved aeration of the right upper lobe compared to the prior exam, with mild residual right upper lobe ground-glass densities and mild interlobular septal thickening in the aerated portion of the right upper lobe. Additionally, there is persistent consolidation in the anterior right upper lobe. 3. Bandlike consolidative changes in the right upper and lower lobes with associated bronchiectasisare similar to the prior exam, likely reflecting post treatment changes per in 4. A few sub 6 mm pulmonary nodules are not significantly changed compared to the prior exam. 5. Small to moderate partially loculated right pleural effusion, decreased in size compared to the prior exam. 6. A few prominent to mildly enlarged right upper paratracheal lymph nodes measure up to 12 millimeters in short axis, not significantly changed. 7. A cystic pancreatic neck lesion measures 1 cm, not significantly changed dating back to 05/13/2023 when it measured approximately 0.8 cm. 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 Follow-up pancreas protocol CT or MR abdomen with and without contrast is recommended in 2 years for further evaluation. Patient feeling overall well. Does have upcoming appointment with PCP to discuss increased arthritis pain in his shoulders. Has previously received injections. Reviewed with Dr. Love. Ok to resume Durvalumab. Please reach out to patient to reschedule. documented in this encounter Plan of Treatment Upcoming Encounters Date Type Department Care Team ([facility] st Contact Info) Description 10/21/2023 11:10 AM EDT Office Visit [address] [place] [phone] Pepe Beck MD [address] [place], [place] [address] [id number] 10/29/2023 10:00 AM EDT Nurse Only Ancillary [address] [place] [phone] Alysia, Nurse [address] [address] 12/02/2023 9:15 AM EDT Office Visit Hematology/Oncology [facility] [address] [place] [address] Bear Love MD [address] [place] [address] 12/20/2023 10:00 AM EDT Office Visit [facility] [address] [place] [phone] Pepe Beck MD [address] [place] [address] 12/23/2023 10:00 AM EDT Office Visit Pulmonary Medicine, [facility] [address] [facility] [place] [phone] Vu [facility] [address] [facility] [phone] Health Maintenance Due Date Last Done Comments DTaP,Tdap,and Td Vaccines (1 - Tdap) 08[birth year]08/1959 Zoster Vaccines (1 of 2) 08/08/1959 *ADVANCE DIRECTIVE NOT ON FILE 03/13/2022 COVID-19 Vaccine ( season) 2023 02/24/2022, 05/05/2021, 08/28/2020, Additional history exists O2 ASSESSMENT COMPLETED IN PAST YEAR FOR COPD 02/11/2024 02/10/2023 GFR 04/12/2024 10/11/2023, 040 01/2024, 08/16/2023, Additional history exists Albumin/Creatinine Ratio 06/01/2024 06/01/2023, 02/06 CKD PHOS USE SMARTSET 84870 06/01/2024 06/01/2023, 0 03/04/2022 DISCUSS TOBACCO CESSATION (REFER TO SMARTSET #1101) 09/02/2024 09/03/2023 CKD HGB USE SMARTSET 77530 10/10/202410/10, 10/11/2023, 09/13/2023, Additional history exists TSH 10/10/2024 10/11/2023, 04/0 01/2024, 08/16/2023, Additional history exists Alpha-1 Antitrypsin Completed 03/04/2022 Influenza Vaccine (FLU shot) Completed 06/2022, 03/04/2022, 04/07/2021, Additional history exists Pneumococcal Vaccine: 65+ Years Completed 09/03/2023, 02/15/2020 GARDASIL-HPV IMMUNIZATION SERIES Aged Out No longer eligible based on patient's age to complete this topic Hepatitis B Aged Out No longer eligi ble based on patient's age to complete this topic MENINGOCOCCAL (MENACTRA/MENVEO) Aged Out No longer eligible based on patient's age to complete this topic documented as of this encounter Medical Devices Not on filedocumented as of this encounter Advance Directives Latest Code Status on File Code Status Date Activated Date Inactivated Comments Full Code 05/13/2023 2:31 PM 05/18/2023 6:24 PM This order reflects the patients wishes and were consensually agreed upon. Question Answer Comments Discussion of Advance Directives occurred with: Patient Does the patient have a Living Will? No Does the patient have Health Care Power of Rabies Inspector? No Care Teams [employer] Relationship Specialty Start Date End Date Pepe Beck MD [address] [place] [id number] PCP - General Family Medicine 11/07/21 documented as of this encounter
--- OUTSIDE RECORDS SUMMARY | 2023-10-26 09:50 | External Medical Summary | Summary of Care ---
Author Name Unknown Organization [facility] Address [address] [place] [facility] [place] [address] Phone [phone] Care Team Providers Care Kaitara Taraka Name Role Phone Pepe Beck MD Primary Care P rovider Reason for Visit * Reason Onset Date Comments Medication Refill 10/22/2023 Encounter Details Date Type Department Care Team ([facility] Contact Info) Description 07/15/2023 Refill Family Practice [address] [phone] Pepe Beck MD [address] [place] [phone] Acute left-sided low back pain without sciatica; Cancer of upper lobe of right lung (HCC) Allergies No known active allergiesdocumented as of this encounter (statuses as of 10/22/2023) Medications Medication Sig Dispensed Refills Start Date End Date Status Aspirin 81 MG Oral Tablet Delayed Release Take 1 Tablet by mouth every other day. 0 Active Albuterol Sulfate HFA 108 (90 Base) MCG/ACT Inhalation Aerosol Solution INHALE 2 PUFFS BY MOUTH EVERY 6 HOURS NEEDED 18 g 3 2 Active Torsemide 20 MG Oral Tablet (Demadex)Indicat ions:Atheroscler osis of kashia artery of right lower extremity with intermittent claudication (HCC),Persistent atrial fibrillation (HCC),BROWNE (dyspnea on exertion) TAKE 1 TABLET BY MOUTH ONCE DAILY IN THE MORNING 34 Tablet 11 3 Active Dutasteride 0.5 MG Oral Capsule (Avodart) Take 1 Capsule by mouth in the morning. 90 Capsule 3 3 Active Ondansetron HCl 8 MG Oral Tablet (Zofran)Indicati ons:Cancer of upper lobe of right lung (HCC) Take 1 Tablet by mouth every 8 hours as needed for Nausea. 30 Tablet 2 3 Active Prochlorperazine Maleate 10 MG Oral Tablet (Compazine)Indic ations:Cancer of upper lobe of right lung (HCC) Take 1 Tablet by mouth every 6 hours as needed for Nausea. 30 Tablet 2 3 Active Tamsulosin HCl 0.4 MG Oral Capsule (Flomax) TAKE 1 CAPSULE BY MOUTH TWICE DAILY 180 Capsule 1 3 Active dexAMETHasone 4 MG Oral Tablet (Decadron)Indica tions:Cancer of upper lobe of right lung (HCC) Take 12mg (3 tablets) the night before and morning of each chemotherapy appointment 6 Tablet 0 3 Active Pantoprazole Sodium 40 MG Oral Tablet Delayed Release (Protonix) Take 1 Tablet by mouth in the morning and 1 Tablet before bedtime. 60 Tablet 3 3 Active Apixaban 2.5 MG Oral Tablet (Eliquis)Indicat ions:Persistent atrial fibrillation (HCC) Take 1 Tablet by mouth in the morning and 1 Tablet before bedtime. 60 Tablet 5 3 Active Vitamin B-12 1000 MCG Sublingual Tablet Sublingual every 30 days. 0 3 Active amLODIPine Besylate 5 MG Oral Tablet (Norvasc)Indicat ions:HTN, goal below 140/90 Take 1 Tablet by mouth in the morning. 30 Tablet 5 4 Active rOPINIRole HCl 0.5 MG Oral Tablet (Requip) TAKE 1 TABLET BY MOUTH ONCE DAILY AT BEDTIME 90 Tablet 1 4 Active Rosuvastatin Calcium 20 MG Oral Tablet (Crestor)Indicat ions:Dyslipidemi a, goal LDL below 70 Take 1 Tablet by mouth in the morning. 90 Tablet 3 3 10/21/19 24 Discontinued(Re fill) Losartan Potassium 100 MG Oral Tablet (Cozaar)Indicati ons:Coronary artery disease involving kashia coronary artery of kashia heart without angina pectoris Take 0.5 Tablets by mouth in the morning. 0 3 10/21/19 24 Discontinued(Me dication/Dose Changed) Baclofen 10 MG Oral Tablet (Lioresal)Indica tions:Acute left-sided low back pain without sciatica Take 1 Tablet by mouth every night at bedtime. 30 Tablet 2 4 09/29/19 24 Discontinued Clotrimazole 10 MG Mouth/Throat Amilcar (Mycelex Amilcar)Indicatio ns:Thrush Take 1 Lozenge by mouth 5 times a day for 14 days. 70 Lozenge 0 4 09/29/19 24 Discontinued(Re fill) Hospital, Clinic, or Other Facility Administered Medication Ordered Dose Route Frequency Start Date End Date Status vitamin b-12 (Cyanocobalamin) inj 1,000 mcgIndications:B12 deficiency 1000 mcg IM [id number] 05/06/2023 04/06/2024 Active documented as of this encounter (statuses as of 10/22/2023) Active Problems Problem Noted Date Diagnosed Date Moderate episode of recurrent major depressive d isorder 08/11/2023 Hypertensive kidney disease with stage 3a chronic kidney disease 08/11/2023 Metastatic primary lung cancer 06/04/2023 Lumbar stenosis with neurogenic claudication Bradycardia 05/17/2023 PVC (premature ventricular contraction) 05/17/20 Neutropenic fever 05/13/2023 Immunocompromised 05/13/2023 Infectious encephalopathy [...] 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 Atherosclerosis of kashia ar erick of right lower extremity with intermittent claudication 10/23/2019 Hypothyroidism 03/28/2018 Dyslipidemia, goal LDL below 70 03/28/2018 Edema of lower extremity 03/28/2018 Degeneration of lumbar intervertebral disc 03/28 Coronary artery disease invo lving kashia coronary artery of kashia heart without angina pectoris 03/28/2018 Benign prostatic hyperplasia 03/28/2018 Benign essential hypertension 03/28/2018 Carotid artery stenosis 03/28/2018 Osteoarthritis of ankle 03/29/2017 Peripheral vascular disease 11/03/2016 documented as of this encounter (statuses as of 10/22/2023) Resolved Problems Problem Noted Date Diagnosed Date Resolved Date Pancytopenia 08/11/2023 10/21/2023 EL (acute kidney injury) 05/17/2023 Metabolic encephalopathy 05/14/2023 Lumbar radiculopathy 03/28/2018 023 Hyponatremia 03/28/2018 10/21/2023 Chronic obstructive pulmonary disease 03/28/2018 11/20/2021 Overview: Per COPD GOLD Classification documented as of this encounter (statuses as of 10/22/2023) Immunizations Name Administration Dates Next Due COVID-19 mRNA, LNP-s, No Pre serve, 2-Dose Series ([employer] 05/05/2021,08/28/2020,08/07/2020 Covid-19, Mrna, Lnp-s, Pf, B ivalent, 30 Mcg, IM, 12 yrs and above ([employer] 02/24/2022 Pneumococcal Conjugate Vacci ne, 20-valent ([id number]) 12/09/2021(Deferred: Had Clinical Disease) Pneumococcal Polysaccharide PPV23 (Pneumovax) 02/15/2020 Seasonal Influenza, Quadriva lent Hd (Fluzone Hd) 02/05/2023,03/04/2022 Seasonal Influenza, Recombin ant, RIV4, PF, (Flublock) 04/07/2021 Seasonal Influenza, Split, I IV3, With Preserve, Inj 03/13/2020,04/12/2019,03/21/2018,03/29,03/31/2016,04/30/2014,03/13/2013 ,05/14/2012,05/11/2012,04/24/2008,06/2005 documented as of this encounter Social History Tobacco Use Types Packs/Day Years Used Date Smoking Tobacco: Former Cigarettes 1 45 1 942 - 1987 Smokeless Tobacco: Never Alcohol Use Standard Drinks/Week [...] (15 years old or older) No 05/13/20 Cognitive Status Response Date of Assessm ent Because of a physical, menta l, or emotional condition, do you have serious difficulty concentrating, remembering, or making decisions? (5 years old or older) No 05/13/2023 documented as of this encounter Miscellaneous Notes * Telephone Encounter - Ramon Renee LPN - 07/15/2023 10:44 AM EST Pending Prescriptions: Disp Refills HYDROcodone-Acetaminophen 10-325 MG Oral *60 Tab*0 Sig: Take 1 Tablet by mouth every 4 hours as needed for Pain, Severe. 06/04/2023 (in office), Visit date not found (telemedicine) 08/11/2023 documented in this encounter Plan of Treatment Upcoming Encounters Date Type Department Care Team ([facility] st Contact Info) Description 10/27/2023 9:50 AM EDT Laboratory Laboratory [facility] Juliet [place] [address] [place] [phone] [place], Lab [facility] [address] [place] [address] 10/27/2023 11:00 AM EDT Hem/Onc Treatment Hematology/Oncology Treatment, [place] [address] [place] [phone] [place], Chair 5 Hem Onc [facility] [address] [facility] [place] [address] 10/29/2023 10:00 AM EDT Nurse Only Ancillary [address] [phone] [place], Nurse [address] [address] 11/17/2023 11:10 AM EDT Office Visit [address] [phone] Pepe Bekc MD [address] [place] [id number] 12/02/2023 9:15 AM EDT Office Visit Hematology/Oncology [facility] [place] [address] [place] [phone] Bear Love MD [address] [place], [place] [address] 12/20/2023 10:00 AM EDT Office Visit [address] [phone] Pepe Beck MD [address] [place] [address] 12/23/2023 10:00 AM EDT Office Visit Pulmonary Medicine, [facility] [address] [place] [address] Vu Tapia MD [address] [place] [phone] Health Maintenance Due Date Last Done Comments DTaP,Tdap,and Td Vaccines (1 - Tdap) [birth year]08/1959 Zoster Vaccines (1 of 2) 08/08/1959 *ADVANCE DIRECTIVE NOT ON FILE 03/13/2022 COVID-19 Vaccine ( season) 2023 02/24/2022, 05/05/2021, 08/28/2020, Additional history exists O2 ASSESSMENT COMPLETED IN PAST YEAR FOR COPD 02/11/2024 02/10/2023 GFR 04/12/2024 10/11/2023, 04/0 01/2024, 08/16/2023, Additional history exists Albumin/Creatinine Ratio 06/01/2024 06/01/2023, 02/06 CKD PHOS USE SMARTSET 32525 06/01/2024 06/01/2023, 0 03/04/2022 DISCUSS TOBACCO CESSATION (REFER TO SMARTSET #3291) 09/02/2024 09/03/2023 CKD HGB USE SMARTSET 89387 10/10/202410/10, 10/11/2023, 09/13/2023, Additional history exists TSH [...] Not on filedocumented as of this encounter Visit Diagnoses Diagnosis Acute left-sided low back pain without sciatica Cancer of upper lobe of right lung (HCC) documented in this encounter Advance Directives Latest Code Status on File Code Status Date Activated Date Inactivated Comments Full Code 05/13/2023 2:31 PM 05/18/2023 6:24 PM This order reflects the patients wishes and were consensually agreed upon. Question Answer Comments Discussion of Advance Directives occurred with: Patient Does the patient have a Living Will? No Does the patient have Health Care Power of Supervisor Coil Winding? No Care Teams Kaitara Taraka Relationship Specialty Start Date End Date Pepe Beck MD [address] [place] [phone] PCP - General Family Medicine 11/07/21 documented as of this encounter
--- OUTSIDE RECORDS SUMMARY | 2023-10-26 09:50 | External Medical Summary | Summary of Care ---
Author Name Unknown Organization [facility] Address [address] [place] [facility] [place] [address] Phone [phone] Care Team Providers Care Framing Manager Name Role Phone Pepe Beck MD Primary Care P rovider Reason for Visit * Reason Onset Date Comments Test Results Imaging Study 10/19/2023 Encounter Details Date Type Department Care Team (Late st Contact Info) Description 10/19/2023 Telephone Hematology/Oncology [facility] [address] [facility] [place] [address] Pearl Oviedo CRNP [address] [place] [address] Test Results Imaging Study Allergies [...] 20 MG Oral Tablet (Demadex)Indications :Atherosclerosis of mi'kmaq artery of right lower extremity with intermittent [...] Oral Tablet (Cozaar)Indications: Coronary artery disease involving mi'kmaq coronary artery of mi'kmaq heart without angina pectoris Take 0.5 Tablets [...] :COPD, group C, by GOLD 2017 classification ([facility]) Inhale 1 Puff by mouth every evening. 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 10/23/2019 Hypothyroidism 03/28/2018 Hyponatremia 03/28/2018 Dyslipidemia, goal LDL below 70 03/28/2018 Edema of lower extremity 03/28/2018 Degeneration of lumbar intervertebral disc 03/28 Coronary artery disease invo lving mi'kmaq coronary artery of mi'kmaq heart without angina pectoris 03/28/2018 Benign prostatic [...] mRNA, LNP-s, No Pre serve, 2-Dose Series ([employer]) 05/05/2021,08/28/2020,08/07/2020 Covid-19, Mrna, Lnp-s, Pf, B ivalent, 30 Mcg, IM, 12 yrs and above ([employer]) 02/24/2022 Pneumococcal Conjugate Vacci ne, 20-valent ([id number]) 09/03/2023,12/09/2021(Deferred: Had Clinical Disease) Pneumococcal Polysaccharide PPV23 [...] encounter Miscellaneous Notes * Telephone Encounter - Cielo Rene OSA - 10/20/2023 1:01 PM EDT Pt is scheduled and aware * Telephone Encounter - Kendra Aden OSA [...] Upcoming Encounters Date Type Department Care Team ([facility] st Contact Info) Description 10/21/2023 11:10 AM EDT Office Visit [address] [phone] Pepe Beck MD [address] [place] [phone] 10/27/2023 9:50 AM EDT Laboratory Laboratory [facility] [address] [place] [phone] [place], Lab [address] [place] [id number] 10/27/2023 11:00 AM EDT Hem/Onc Treatment Hematology/Oncology Treatment, [place] [address] [place] [address] [place], Chair 5 Hem Onc [facility] [address] [facility] [place] [phone] 10/29/2023 10:00 AM EDT Nurse Only Ancillary [address] [phone] [place], Nurse [address] [address] 12/02/2023 9:15 AM EDT Office Visit Hematology/Oncology [facility] [address] [place], [place] [phone] Bear Love MD [address] [place], [place] [address] 12/20/2023 10:00 AM EDT Office Visit [facility] [address] [place] [phone] Pepe Beck MD [address] [place] [address] 12/23/2023 10:00 AM EDT Office Visit Pulmonary Medicine, [facility] [address] [facility] [place] [address] Vu Tapia MD [address] [facility] [place] [phone] Health Maintenance Due Date Last Done Comments DTaP,Tdap,and Td Vaccines (1 - Tdap) 08[birth year]08/1959 Zoster Vaccines (1 of 2) 08/08/1959 *ADVANCE DIRECTIVE NOT ON FILE 03/13/2022 COVID-19 Vaccine (5 - season) 2023 02/24/2022, 05/05/2021, 08/28/2020, Additional history exists O2 ASSESSMENT COMPLETED IN PAST YEAR FOR COPD 02/11/2024 02/10/2023 GFR 04/12/2024 10/11/2023, 04/0 01/2024, 08/16/2023, Additional history exists Albumin/Creatinine Ratio 06/01/2024 06/01/2023, 02/06 CKD PHOS USE SMARTSET 97736 06/01/2024 06/01/2023, 0 03/04/2022 DISCUSS TOBACCO CESSATION (REFER TO SMARTSET #3291) 09/02/2024 09/03/2023 CKD HGB USE SMARTSET 88180 10/10/202410/10, 10/11/2023, 09/13/2023, Additional history exists TSH [...] the patient have Health Care Power of Public Affairs Specialist? No Care Teams Framing Manager Relationship Specialty Start Date End Date Pepe Beck MD [address] [place] [phone] PCP - General Family Medicine 11/07/21 documented as of this encounter
--- OUTSIDE RECORDS SUMMARY | 2023-10-26 09:50 | External Medical Summary | Summary of Care ---
Author Name Unknown Organization [facility] Address [address] [place] [address] Phone [phone] Care Team Providers Care Medical Superintendent Name Role Phone Pepe Beck MD Primary Care P rovider Reason for Visit * Reason Comments Acute Joint Pain Pt is present today with son for bilateral shoulder pain that radiates down arms into hands. Pt states he is getting numbness and tingling in fingers. Pt is having neck pain as well. Pt has been seen for this before. Encounter Details Date Type Department Care Team (Late st Contact Info) Description 10/21/2023 11:10 AM EDT Office Visit [address] [phone] Pepe Beck MD [address] [place] [phone] Chronic neck pain*; Cervical spinal stenosis; Dyslipidemia, goal LDL below 70; Coronary artery disease involving table mountain coronary artery of table mountain heart without angina pectoris; Benign essential hypertension; Cancer of upper lobe of right lung (HCC); IPMN (intraductal papillary mucinous neoplasm) Allergies No known active allergiesdocumented as of this encounter (statuses as of 10/21/2023) Medications Medication Sig Dispensed Refills Start Date End Date Status Aspirin 81 MG Oral Tablet Delayed Release Take 1 Tablet by mouth every other day. 0 Active Albuterol Sulfate HFA 108 (90 Base) MCG/ACT Inhalation Aerosol Solution INHALE 2 PUFFS BY MOUTH EVERY 6 HOURS NEEDED 18 g 3 2 Active Torsemide 20 MG Oral Tablet (Demadex)Indication s:Atherosclerosis of table mountain artery of right lower extremity with intermittent claudication (HCC),Persistent atrial fibrillation (HCC),BROWNE (dyspnea on exertion) TAKE 1 TABLET BY MOUTH ONCE DAILY IN THE MORNING 34 Tablet 11 3 Active Dutasteride 0.5 MG Oral Capsule (Avodart) Take 1 Capsule by mouth in the morning. 90 Capsule 3 3 Active Ondansetron HCl 8 MG Oral Tablet (Zofran)Indications :Cancer of upper lobe of right lung (HCC) Take 1 Tablet by mouth every 8 hours as needed for Nausea. 30 Tablet 2 3 Active Prochlorperazine Maleate 10 MG Oral Tablet (Compazine)Indicati ons:Cancer of upper lobe of right lung (HCC) Take 1 Tablet by mouth every 6 hours as needed for Nausea. 30 Tablet 2 3 Active Tamsulosin HCl 0.4 MG Oral Capsule (Flomax) TAKE 1 CAPSULE BY MOUTH TWICE DAILY 180 Capsule 1 3 Active dexAMETHasone 4 MG Oral Tablet (Decadron)Indicatio ns:Cancer of upper lobe of right lung (HCC) Take 12mg (3 tablets) the night before and morning of each chemotherapy appointment 6 Tablet 0 3 Active Pantoprazole Sodium 40 MG Oral Tablet Delayed Release (Protonix) Take 1 Tablet by mouth in the morning and 1 Tablet before bedtime. 60 Tablet 3 3 Active Apixaban 2.5 MG Oral Tablet (Eliquis)Indication s:Persistent atrial fibrillation (HCC) Take 1 Tablet by mouth in the morning and 1 Tablet before bedtime. 60 Tablet 5 3 Active Vitamin B-12 1000 MCG Sublingual Tablet Sublingual every 30 days. 0 3 Active amLODIPine Besylate 5 MG Oral Tablet (Norvasc)Indication s:HTN, goal below 140/90 Take 1 Tablet by mouth in the morning. 30 Tablet 5 4 Active rOPINIRole HCl 0.5 MG Oral Tablet (Requip) TAKE 1 TABLET BY MOUTH ONCE DAILY AT BEDTIME 90 Tablet 1 4 Active Nitroglycerin 0.4 MG Sublingual Tablet Sublingual (Nitrostat) 1 Tablet. 0 4 Active Sennosides-Docusate Sodium 8.6-50 MG Oral Tablet (Senokot-S) at bedtime. 0 4 Active Incruse Ellipta 62.5 MCG/ACT Inhalation Aerosol Powder Breath ActivatedIndication s:COPD, group C, by GOLD 2017 classification ([facility]) Inhale 1 Puff by mouth every evening. 30 Each 2 4 11/21/19 24 Active Ipratropium-Albuter ol 0.5-2.5 (3) MG/3ML Inhalation Solution (Duoneb) Inhale 3 mL via nebulizer every 6 hours as needed for Cough, Shortness of Breath or Wheezing. 360 mL 5 4 Active Mirtazapine 45 MG Oral Tablet (Remeron)Indication s:Insomnia due to medical condition Take 1 Tablet by mouth at bedtime. 30 Tablet 5 4 Active HYDROcodone-Acetami nophen 10-325 MG Oral TabletIndications:A cute left-sided low back pain without sciatica,Cancer of upper lobe of right lung ([facility]) Take 1 Tablet by mouth every 4 hours as needed for Pain, Severe. 60 Tablet 0 4 Active Levothyroxine Sodium 112 MCG Oral Tablet (Levoxyl) TAKE 1 TABLET BY MOUTH ONCE DAILY AT LEAST 30 MINUTES PRIOR TO BREAKFAST AND OTHER MEDS 90 Tablet 1 4 Active Baclofen 10 MG Oral Tablet (Lioresal)Indicatio ns:Acute left-sided low back pain without sciatica TAKE 1 TABLET BY MOUTH ONCE DAILY AT BEDTIME 30 Tablet 2 4 Active Clotrimazole 10 MG Mouth/Throat Amilcar (Mycelex Amilcar)Indications: Thrush Take 1 Lozenge by mouth 5 times a day. 70 Lozenge 0 4 Active Rosuvastatin Calcium 20 MG Oral Tablet (Crestor)Indication s:Dyslipidemia, goal LDL below 70 Take 1 Tablet by mouth in the morning. 90 Tablet 3 4 Active Losartan Potassium 50 MG Oral Tablet (Cozaar)Indications :Coronary artery disease involving table [place] coronary artery of table [place] heart without angina pectoris,Benign essential hypertension Take 1 Tablet by mouth in the morning. 90 Tablet 3 4 Active DULoxetine HCl 30 MG Oral Capsule Delayed Release Particles (Cymbalta)Indicatio ns:Chronic neck pain Take 1 Capsule by mouth in the morning. Do not cut, crush or chew. 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 90 Tablet 0 4 Active Rosuvastatin Calcium 20 MG Oral Tablet (Crestor)Indication s:Dyslipidemia, goal LDL below 70 Take 1 Tablet by mouth in the morning. 90 Tablet 3 3 10/21/19 24 Discontinu ed(Refill) Losartan Potassium 100 MG Oral Tablet (Cozaar)Indications :Coronary artery disease involving table mountain coronary artery of table [place] heart without angina pectoris Take 0.5 Tablets by mouth in the morning. 0 3 10/21/19 24 Discontinu ed(Medicat ion/Dose Changed) Hospital, Clinic, or Other Facility Administered Medication Ordered Dose Route Frequency Start Date End Date Status vitamin b-12 (Cyanocobalamin) inj 1,000 mcgIndications:B12 deficiency 1000 mcg IM [id number] 05/06/2023 04/06/2024 Active documented as of this encounter (statuses as of 10/21/2023) Active Problems Problem Noted Date Diagnosed Date [...] 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 Atherosclerosis of table [place] ar erick of right lower extremity with intermittent claudication 10/23/2019 Hypothyroidism 03/28/2018 Dyslipidemia, goal LDL below 70 03/28/2018 Edema of lower extremity 03/28/2018 Degeneration of lumbar intervertebral disc 03/28 Coronary artery disease invo lving table mountain coronary artery of table [place] heart without angina pectoris 03/28/2018 Benign prostatic hyperplasia 03/28/2018 Benign essential hypertension 03/28/2018 Carotid artery stenosis 03/28/2018 Osteoarthritis of ankle 03/29/2017 Peripheral vascular disease 11/03/2016 documented as of this encounter (statuses as of 10/21/2023) Resolved Problems Problem Noted Date Diagnosed Date Resolved Date Pancytopenia 08/11/2023 10/21/2023 EL (acute kidney injury) 05/17/2023 Metabolic encephalopathy 05/14/2023 Lumbar radiculopathy 03/28/2018 023 Hyponatremia 03/28/2018 10/21/2023 Chronic obstructive pulmonary disease 03/28/2018 11/20/2021 Overview: Per COPD GOLD Classification documented as of this encounter (statuses as of 10/21/2023) Immunizations Name Administration Dates Next Due COVID-19 mRNA, LNP-s, No Pre serve, 2-Dose Series (Gone!) 05/05/2021,08/28/2020,08/07/2020 Covid-19, Mrna, Lnp-s, Pf, B ivalent, 30 Mcg, IM, 12 yrs and above (Gone!) 02/24/2022 Pneumococcal Conjugate Vacci ne, 20-valent ([id number]) 09/03/2023,12/09/2021(Deferred: Had Clinical Disease) Pneumococcal Polysaccharide PPV23 (Pneumovax) 02/15/2020 Seasonal Influenza, Quadriva lent Hd (Fluzone Hd) 02/05/2023,03/04/2022 Seasonal Influenza, Recombin ant, RIV4, PF, (Flublock) 04/07/2021 Seasonal Influenza, Split, I IV3, With Preserve, Inj 03/13/2020,04/12/2019,03/21/2018,03/29,03/31/2016,04/30/2014,03/13/2013 ,05/14/2012,05/11/2012,04/24/2008,/06/2005 documented as of this encounter Social History [...] on file documented as of this encounter Last Filed Vital Signs Vital Sign Reading Time Taken Comments Blood Pressure 149/67 10/21/2023 11:06 AM EDT Pulse 58 10/21/2023 11:06 AM EDT Temperature 35.7 C (96.2 F) 10/21/2023 11:06 AM E DT Respiratory Rate 18 10/21/2023 11:06 AM EDT Oxygen Saturation 97% 10/21/2023 11:06 AM EDT Inhaled Oxygen Concentration - - Weight 64.5 kg (142 lb 3.2 oz) 10/21/2023 11:06 AM EDT Height - - Body Mass Index 22.27 09/23/2023 10:06 AM EDT documented in this encounter Functional Status Functional Status Response [...] No 05/13/2023 documented as of this encounter Patient Instructions * Patient Instructions* Pepe Beck MD - 10/21/2023 11:43 AM EDT Stop Hydrocodone. Start Oxycodone 5 mg every 4 hrs as needed for pain. Start Duloxetine 30 mg every morning with a meal. Restart Losartan 50 mg daily in the morning (high blood pressure) and Rosuvastatin 20 mg daily (cholesterol) documented in this encounter Progress Notes * Pepe Beck MD - 10/21/2023 11:20 AM EDT Subjective: Manuel Yarbrough is a 83 year old male. Chief Complaint Patient presents with Acute Joint Pain Pt is present today with son for bilateral shoulder pain that radiates down arms into hands. Pt states he is getting numbness and tingling in fingers. Pt is having neck pain as well. Pt has been seenfor this before. HPI: Patient comes to the office complaining of bilateral shoulder pain that radiates down his arm into his hands. He is getting numbness and tingling in his finger. Also complains of neck pain. Using hydrocodone 10/325 every 4 hours as needed for pain. Usually takes twice daily. Taking baclofen 10 mg at bedtime. Has been taking meds q 4h. Avg pain in last week 01/14 with meds on board. Feelspain on neck, shoulder and hands. 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 Sleeps in a chair. Pain does not wake him at night, worse upon awakening. Takers Dulcolax and stool softener. Uses MOM q 2 days. Goes to BR qod. Stool is shard to pass. Has had left leg swelling. Weight has increased to 142 lb. Labs 10 days ago showed serum creatinine 1.2, GFR 60. Glucose 107. LFTs within normal limits. H&H 11.3 and 36.1. Platelets are normal. TSH 19.4, elevated nonetheless free T4 remains normal at 1.3. Currently taking levothyroxine 112 mcg daily. Losartan and rosuvastatin were stopped at hospital. PMH: Patient Active Problem List Diagnosis Code Peripheral vascular disease ([facility]) I73.9 Osteoarthritis of ankle M19.079 Hypothyroidism E03.9 Dyslipidemia, goal LDL below 70 E78.5 Edema of lower extremity R60.0 Degeneration of lumbar intervertebral disc M51.36 Coronary artery disease involving table [place] coronary artery of table [place] heart without angina pectoris I25.10 Benign prostatic hyperplasia N40.0 Benign essential hypertension I10 Carotid artery stenosis I65.29 Atherosclerosis of [place] artery of right lower extremity with intermittent claudication ([facility]) I70.211 S/P CABG x 5 Z95.1 COPD, group C, by GOLD 2017 classification ([facility]) J44.9 Sleep disorder G47.9 Chronic diastolic congestive heart failure ([facility]) I50.32 Persistent atrial fibrillation ([facility]) I48.19 HTN, goal below 140/90 I10 Osteoarthritis of acromioclavicular joint M19.019 Chronic kidney disease, stage 3a ([facility]) N18.31 Restrictive lung disease J98.4 AAA (abdominal aortic aneurysm) ([facility]) I71.40 B12 deficiency E53.8 Cancer of upper lobe of right lung ([facility]) C34.11 Encounter for antineoplastic chemotherapy Z51.11 Neutropenic fever ([facility]) D70.9, R50.81 Immunocompromised ([facility]) D84.9 Infectious encephalopathy G93.49, B99.9 Bradycardia R00.1 PVC (premature ventricular contraction) I49.3 Metastatic primary lung cancer ([facility]) C34.90 Lumbar stenosis with neurogenic claudication M48.062 Moderate episode of recurrent major depressive disorder ([facility]) F33.1 Hypertensive kidney disease with stage 3a chronic kidney disease ([facility]) I12.9, N18.31 Current Outpatient Medications Medication Sig Dispense Refill Aspirin 81 MG Oral Tablet Delayed Release Take 1 Tablet by mouth every other day. Albuterol Sulfate HFA 108 (90 Base) MCG/ACT Inhalation Aerosol Solution INHALE 2 PUFFS BY MOUTH EVERY 6 HOURS NEEDED 18 g 3 Torsemide 20 MG Oral Tablet (Demadex) TAKE 1 TABLET BY MOUTH ONCE DAILY IN THE MORNING 34 Tablet 11 Dutasteride 0.5 MG Oral Capsule (Avodart) Take 1 Capsule by mouth in the morning. 90 Capsule 3 Prochlorperazine Maleate 10 MG Oral Tablet (Compazine) Take 1 Tablet by mouth every 6 hours as needed for Nausea. 30 Tablet 2 Tamsulosin HCl 0.4 MG Oral Capsule (Flomax) TAKE 1 CAPSULE BY MOUTH TWICE DAILY 180 Capsule 1 dexAMETHasone 4 MG Oral Tablet (Decadron) Take 12mg (3 tablets) the night before and morning of each chemotherapy appointment 6 Tablet 0 Pantoprazole Sodium 40 MG Oral Tablet Delayed Release (Protonix) Take 1 Tablet by mouth in the morning and 1 Tablet before bedtime. 60 Tablet 3 Apixaban 2.5 MG Oral Tablet (Eliquis) Take 1 Tablet by mouth in the morning and 1 Tablet before bedtime. 60 Tablet 5 Vitamin B-12 1000 MCG Sublingual Tablet Sublingual every 30 days. amLODIPine Besylate 5 MG Oral Tablet (Norvasc) Take 1 Tablet by mouth in the morning. 30 Tablet 5 rOPINIRole HCl 0.5 MG Oral Tablet (Requip) TAKE 1 TABLET BY MOUTH ONCE DAILY AT BEDTIME 90 Tablet 1 Sennosides-Docusate Sodium 8.6-50 MG Oral Tablet (Senokot-S) at bedtime. Incruse Ellipta 62.5 MCG/ACT Inhalation Aerosol Powder Breath Activated Inhale 1 Puff by mouth every evening. 30 Each 2 Ipratropium-Albuterol 0.5-2.5 (3) MG/3ML Inhalation Solution (Duoneb) Inhale 3 mL via nebulizer every 6 hours as needed for Cough, Shortness of Breath or Wheezing. 360 mL 5 Mirtazapine 45 MG Oral Tablet (Remeron) Take 1 Tablet by mouth at bedtime. 30 Tablet 5 HYDROcodone-Acetaminophen 10-325 MG Oral Tablet Take 1 Tablet by mouth every 4 hours as needed for Pain, Severe. 60 Tablet 0 Levothyroxine Sodium 112 MCG Oral Tablet (Levoxyl) TAKE 1 TABLET BY MOUTH ONCE DAILY AT LEAST 30 MINUTES PRIOR TO BREAKFAST AND OTHER MEDS 90 Tablet 1 Baclofen 10 MG Oral Tablet (Lioresal) TAKE 1 TABLET BY MOUTH ONCE DAILY AT BEDTIME 30 Tablet 2 Clotrimazole 10 MG Mouth/Throat Amilcar (Mycelex Amilcar) Take 1 Lozenge by mouth 5 times a day. 70 Lozenge 0 Rosuvastatin Calcium 20 MG Oral Tablet (Crestor) Take 1 Tablet by mouth in the morning. 90 Tablet 3 Losartan Potassium 50 MG Oral Tablet (Cozaar) Take 1 Tablet by mouth in the morning. 90 Tablet 3 DULoxetine HCl 30 MG Oral Capsule Delayed Release Particles (Cymbalta) Take 1 Capsule by mouth in the morning. Do not cut, crush or chew. 30 Capsule 1 oxyCODONE HCl 5 MG Oral Tablet (Oxy IR) Take 1 Tablet by mouth every 4 hours as needed for Pain, Severe. 90 Tablet 0 Ondansetron HCl 8 MG Oral Tablet (Zofran) Take 1 Tablet by mouth every 8 hours as needed for Nausea. 30 Tablet 2 Nitroglycerin 0.4 MG Sublingual Tablet Sublingual (Nitrostat) 1 Tablet. (Patient not taking: Reported on 09/03/2023) Current Facility-Administered Medications Medication Dose Route Frequency Provider Last Rate Last Admin vitamin b-12 (Cyanocobalamin) inj 1,000 mcg 1,000 mcg Intramuscular Q4 Weeks Shiraz Beck MD 1,000 mcg at 09/29/23 0847 No past medical history on file. Past Surgical History: Procedure Laterality Date BRONCHOSCOPY, DIAGNOSTIC N/A 02/10/2023 BRONCHOSCOPY DIAGNOSTIC WITH OR WITHOUT WASHING performed by Madyson Alcala MD at ENDOSCOPY [facility] Review of patient's allergies indicates: No Known Allergies Family History Problem Relation Age of Onset Heart failure Brother Family Status Relation Status Mo Fa Sis Alive Sis Sis Bro Son Alive Son Alive Son Alive Social History Socioeconomic History Marital status: Spouse name: Not on file Number of children: Not on file Years of education: Not on file Highest education level: Not on file Occupational History Not on file Tobacco Use Smoking status: Every Day Current packs/day: 1.00 Average packs/day: 1 pack/day for 37.4 years (37.4 ttl pk-yrs) Types: Cigarettes Start date: 06/07/1986 Smokeless tobacco: Never Vaping Use Vaping Use: Never used Substance and Sexual Activity Alcohol use: Never Drug use: Never Sexual activity: Not on file Other Topics Concern Not on file Social History Narrative Not on file Social Determinants of Health Financial Resource Strain: Not on file Food Insecurity: Not on file Transportation Needs: Not on file Physical Activity: Not on file Stress: Not on file Social Connections: Not on file Intimate Partner Violence: Not on file Housing Stability: Not on file Objective: BP 149/67 | Pulse 58 | Temp 35.7 C (96.2 F) (Tympanic) | Resp 18 | Wt 64.5 kg (142 lb 3.2 oz) |SpO2 97% | BMI 22.27 kg/m | BSA 1.75 m ASSESSMENT: Chronic neck pain (Primary) - DULoxetine HCl 30 MG Oral Capsule Delayed Release Particles (Cymbalta); Take 1 Capsule by mouth in the morning. Do not cut, crush or chew. - oxyCODONE HCl 5 MG Oral Tablet (Oxy IR); Take 1 Tablet by mouth every 4 hours as needed for Pain,Severe. Cervical spinal stenosis - oxyCODONE HCl 5 MG Oral Tablet (Oxy IR); Take 1 Tablet by mouth every 4 hours as needed for Pain,Severe. Dyslipidemia, goal LDL below 70 - Rosuvastatin Calcium 20 MG Oral Tablet (Crestor); Take 1 Tablet by mouth in the morning. Coronary artery disease involving [place] coronary artery of [place] heart without angina pectoris - Losartan Potassium 50 MG Oral Tablet (Cozaar); Take 1 Tablet by mouth in the morning. Benign essential hypertension - Losartan Potassium 50 MG Oral Tablet (Cozaar); Take 1 Tablet by mouth in the morning. Cancer of upper lobe of right lung (HCC) IPMN (intraductal papillary mucinous neoplasm) Discontinue hydrocodone since patient is not getting relief from it. Will switch to oxycodone 5 mg every 4 hours as needed for severe pain. Also start duloxetine 30 mg daily to modulate arthritis pain. Can upgrade bowel regimen by adding Metamucil 1 heaping tsp in 8 oz of water daily and drink at least 48 oz of fluids daily. Appropriate medication use and potential medication side effects discussed with patient and patient's son that organizes medicines for patient. Restart losartan 50 mg daily and restart rosuvastatin 20 mg daily. Follow Up: Return in about 4 weeks (around 11/18/2023), or if symptoms worsen or fail to improve, for follow up neck pain in 4 weeks. keep appt December. | For: follow up neck pain in 4 weeks. keep appt December Pepe Chiang MD documented in this encounter Nursing Notes * Veronika Ross CCMA - 10/21/2023 11:11 AM EDT The patient has been properly identified by confirmation of name and date of . Chief Complaint Patient presents with Acute Joint Pain Pt is present today with son for bilateral shoulder pain that radiates down arms into hands. Pt states he is getting numbness and tingling in fingers. Pt is having neck pain as well. Pt has been seenfor this before. Can pt get his B-12 injection today and cancel NV? Please go over meds and speak with Meryl on which he has and doesn't have. Please advise on other due BPAs documented in this encounter Plan of Treatment Upcoming Encounters Date Type Department Care Team (Late st Contact Info) Description 10/27/2023 9:50 AM EDT Laboratory Laboratory [facility] [address] [place] [phone] [place], Lab Scenery [address] [facility] [place] [address] 10/27/2023 11:00 AM EDT Hem/Onc Treatment Hematology/Oncology Treatment, [place] [address] [place] [phone] [place], Chair 5 Hem Onc [facility] [address] [facility] [place] [address] 10/29/2023 10:00 AM EDT Nurse Only Ancillary [facility] [address] [place] [address] [place], Nurse g [address] [place] [address] 11/17/2023 11:10 AM EDT Office Visit [facility] [address] [facility] [place] [phone] Pepe Beck MD [address] [place] [address] 12/02/2023 9:15 AM EDT Office Visit Hematology/Oncology [facility] [address] [facility] [place], [place] [phone] Bear Love MD [address] [facility] [place] [address] 12/20/2023 10:00 AM EDT Office Visit [facility] [address] [place] [phone] Pepe Beck MD [address] [place] [address] 12/23/2023 10:00 AM EDT Office Visit Pulmonary Medicine, [facility] [address] [facility] [place] [address] Vu Tapia MD [address] [facility] [place] [id number] Health Maintenance Due Date Last Done Comments DTaP,Tdap,and Td Vaccines (1 - Tdap) 08/08/1959 Zoster Vaccines (1 of 2) [birth year]08/1959 *ADVANCE DIRECTIVE NOT ON FILE 03/13/2022 COVID-19 Vaccine ( season) 2023 02/24/2022, 05/05/2021, 08/28/2020, Additional history exists O2 ASSESSMENT COMPLETED IN PAST YEAR FOR COPD 02/11/2024 02/10/2023 GFR 04/12/2024 10/11/2023, 04/0 01/2024, 08/16/2023, Additional history exists Albumin/Creatinine Ratio 06/01/2024 06/01/2023, 2 01/2022 CKD PHOS USE SMARTSET 55857 06/01/2024 06/01/2023, 0 03/04/2022 DISCUSS TOBACCO CESSATION (REFER TO SMARTSET #[id number]) 09/02/2024 09/03/2023 CKD HGB USE SMARTSET 37722 10/10/202410/10, 10/11/2023, 09/13/2023, Additional history exists TSH [...] as of this encounter Visit Diagnoses Diagnosis Chronic neck pain- Primary Cervicalgia Cervical spinal stenosis Spinal stenosis in cervical region Dyslipidemia, goal LDL below 70 Other and unspecified hyperlipidemia Coronary artery disease involving [place] coronary artery of [place] heart without angina pectoris Benign essential hypertension Essential hypertension, benign Cancer of upper lobe of right lung (HCC) IPMN (intraductal papillary mucinous neoplasm) Neoplasm of unspecified nature of digestive system documented in this encounter Advance Directives Latest Code Status on File Code Status Date Activated Date Inactivated Comments Full Code 05/13/2023 2:31 PM 05/18/2023 6:24 PM This order reflects the patients wishes and were consensually agreed upon. Question Answer Comments Discussion of Advance Directives occurred with: Patient Does the patient have a Living Will? No Does the patient have Health Care Power of Benzene Washer? No Care Teams Medical Superintendent Relationship Specialty Start Date End Date Pepe Beck MD [address] [place] [phone] PCP - General Family Medicine 11/07/21 documented as of this encounter"
--- OUTSIDE RECORDS SUMMARY | 2023-10-26 09:50 | External Medical Summary | Summary of Care ---
Author Name Unknown Organization [facility] Address [address] [place] [facility] [place] [address] Phone [phone] Care Team Providers Care Inspecting Machine Adjuster Name Role Phone Pepe Beck MD Primary Care P rovider Reason for Visit * Reason Onset Date Comments Test Results Imaging Study 10/19/2023 Encounter Details Date Type Department Care Team (Late st Contact Info) Description 10/19/2023 Telephone Hematology/Oncology [facility] 200 [facility] [place] [facility] [phone] Pearl Oviedo CRNP [address] [place] [address] Test Results Imaging Study Allergies [...] 20 MG Oral Tablet (Demadex)Indications :Atherosclerosis of asa'carsarmi[place] artery of right lower extremity with intermittent [...] Oral Tablet (Cozaar)Indications: Coronary artery disease involving asa'carsarmiut coronary artery of asa'carsarmiut heart without angina pectoris Take 0.5 Tablets [...] C, by GOLD 2017 classification ([facility]) Inhale 1 Puff by mouth every evening. 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 10/23/2019 Hypothyroidism 03/28/2018 Hyponatremia 03/28/2018 Dyslipidemia, goal LDL below 70 03/28/2018 Edema of lower extremity 03/28/2018 Degeneration of lumbar intervertebral disc 03/28 Coronary artery disease invo lving asa'carsarmiut coronary artery of asa'carsarmi[place] heart without angina pectoris 03/28/2018 Benign prostatic [...] mRNA, LNP-s, No Pre serve, 2-Dose Series ([employer]) 05/05/2021,08/28/2020,08/07/2020 Covid-19, Mrna, Lnp-s, Pf, B ivalent, 30 Mcg, IM, 12 yrs and above ([employer]) 02/24/2022 Pneumococcal Conjugate Vacci ne, 20-valent ([id number]) 09/03/2023,12/09/2021(Deferred: Had Clinical Disease) Pneumococcal Polysaccharide PPV23 [...] Upcoming Encounters Date Type Department Care Team ([facility] st Contact Info) Description 10/21/2023 11:10 AM EDT Office Visit [address] [place] [phone] Pepe Beck MD [address] [place], [place] [address] [address] 10/29/2023 10:00 AM EDT Nurse Only Ancillary [address] [place] [phone] [place], Nurse [address] [address] 12/02/2023 9:15 AM EDT Office Visit Hematology/Oncology [facility] 200 [facility] [place] [address] Bear Love MD 200 [facility] [place] [address] 12/20/2023 10:00 AM EDT Office Visit [facility] [address] [place] [phone] Pepe Beck MD [address] [place] [address] 12/23/2023 10:00 AM EDT Office Visit Pulmonary Medicine, [facility] 132 [facility] [place] [phone] Vu Tapia MD [address] [facility] [phone] Health Maintenance Due Date Last Done Comments [...] 06/01/2024 06/01/2023, 02/06 CKD PHOS USE SMARTSET 49502 06/01/2024 06/01/2023, 0 03/04/2022 DISCUSS TOBACCO CESSATION (REFER TO SMARTSET #8351) 09/02/2024 09/03/2023 CKD HGB USE SMARTSET 39520 10/10/202410/10, 10/11/2023, 09/13/2023, Additional history exists TSH [...] the patient have Health Care Power of Pig Machine Supervisor? No Care Teams Inspecting Machine Adjuster Relationship Specialty Start Date End Date Pepe Beck MD [address] [place] [phone] PCP - General Family Medicine 11/07/21 documented as of this encounter
--- OUTSIDE RECORDS SUMMARY | 2023-10-26 09:51 | External Medical Summary | Summary of Care ---
Author Name Unknown Organization [facility] Address [address] [facility] [place] [address] Phone [phone] Care Team Providers Care Worship Director Name Role Phone Pepe Beck MD Primary Care P rovider Reason for Visit * Reason Onset Date Comments Test Results Imaging Study 10/19/2023 Encounter Details Date Type Department Care Team (Late st Contact Info) Description 10/19/2023 Telephone Hematology/Oncology [facility] 200 [facility] [place] [address] Pearl Oviedo CRNP [address] [place] [address] Test Results Imaging Study Allergies No known active allergiesdocumented as of this encounter (statuses as of 10/19/2023) Medications Medication Sig Dispensed Refills Start Date End Date Status Aspirin 81 MG Oral Tablet Delayed Release Take 1 Tablet by mouth every other day. 0 Active Albuterol Sulfate HFA 108 (90 Base) MCG/ACT Inhalation Aerosol Solution INHALE 2 PUFFS BY MOUTH EVERY 6 HOURS NEEDED 18 g 3 12/18/2021 Active Torsemide 20 MG Oral Tablet (Demadex)Indications :Atherosclerosis of [place] artery of right lower extremity with intermittent [...] Oral Tablet (Cozaar)Indications: Coronary artery disease involving [place] coronary artery of [place] heart without angina pectoris Take 0.5 Tablets [...] :COPD, group C, by GOLD 2017 classification ([facility]) Inhale 1 Puff by mouth every evening. 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 Atherosclerosis of [place] ar erick of right lower extremity with intermittent claudication 10/23/2019 Hypothyroidism 03/28/2018 Hyponatremia 03/28/2018 Dyslipidemia, goal LDL below 70 03/28/2018 Edema of lower extremity 03/28/2018 Degeneration of lumbar intervertebral disc 03/28 Coronary artery disease invo lving [place] coronary artery of [place] heart without angina pectoris 03/28/2018 Benign prostatic hyperplasia 03/28/2018 Benign essential hypertension 03/28/2018 Carotid artery stenosis 03/28/2018 Osteoarthritis of ankle 03/29/2017 Peripheral vascular disease 11/03/2016 documented as of this encounter (statuses as of 10/19/2023) Resolved Problems Problem Noted Date Diagnosed Date Resolved Date EL (acute kidney injury) 05/17/2023 Lumbar radiculopathy 03/28/2018 023 Chronic obstructive pulmonary disease 03/28/2018 11/20/2021 Overview: Per COPD GOLD Classification documented as of this encounter (statuses as of 10/19/2023) Immunizations Name Administration Dates Next Due COVID-19 mRNA, LNP-s, No Pre serve, 2-Dose Series ([employer]) 05/05/2021,08/28/2020,08/07/2020 Covid-19, Mrna, Lnp-s, Pf, B ivalent, 30 Mcg, IM, 12 yrs and above ([employer]) 02/24/2022 Pneumococcal Conjugate Vacci ne, 20-valent ([id number]) 09/03/2023,12/09/2021(Deferred: Had Clinical Disease) Pneumococcal Polysaccharide PPV23 [...] encounter Miscellaneous Notes * Telephone Encounter - Pearl Oviedo CRNP [...] Upcoming Encounters Date Type Department Care Team ([facility] st Contact Info) Description 10/21/2023 11:10 AM EDT Office Visit [address] [phone] Pepe Beck MD [address] [place] [address] 10/29/2023 10:00 AM EDT Nurse Only Ancillary [address] [phone] [place], Nurse g [address] [address] 12/02/2023 9:15 AM EDT Office Visit Hematology/Oncology [facility] 200 [place] [phone] Bear Love MD 200 [place] [address] 12/20/2023 10:00 AM EDT Office Visit [address] [phone] Pepe Beck MD [address] [place] [address] 12/23/2023 10:00 AM EDT Office Visit Pulmonary Medicine, [facility] 132 [facility] [place] [address] Vu Tapia MD [address] [place] [address] Health Maintenance Due Date Last Done Comments [...] 06/01/2024 06/01/2023, 02/06 CKD PHOS USE SMARTSET 28728 06/01/2024 06/01/2023, 0 03/04/2022 DISCUSS TOBACCO CESSATION (REFER TO SMARTSET #3291) 09/02/2024 09/03/2023 CKD HGB USE SMARTSET 59075 10/10/202410/10, 10/11/2023, 09/13/2023, Additional history exists TSH [...] the patient have Health Care Power of Artificial Flowers Dyer? No Care Teams Worship Director Relationship Specialty Start Date End Date Pepe Beck MD [address] [place] [address] PCP - General Family Medicine 11/07/21 documented as of this encounter
--- OUTSIDE RECORDS SUMMARY | 2023-10-26 09:51 | External Medical Summary | Summary of Care ---
Author Name Unknown Organization [facility] Address [address] [place] [address] Phone [phone] Care Team Providers Care Actuarial Science Teacher Name Role Phone Pepe Beck MD Primary Care P rovider Reason for Visit * Reason Comments Nurse Documentation Imfinzi- hold treatm ent. Encounter Details Date Type Department Care Team (Late st Contact Info) Description 10/11/2023 9:30 AM EDT Hem/Onc Treatment Hematology/Oncology Treatment, [place] [address] [place] [address] Arrived Allergies No known active allergiesdocumented as of this encounter (statuses as of 10/11/2023) Medications Medication Sig Dispensed Refills Start Date End Date Status Aspirin 81 MG Oral Tablet Delayed Release Take 1 Tablet by mouth every other day. 0 Active Albuterol Sulfate HFA 108 (90 Base) MCG/ACT Inhalation Aerosol Solution INHALE 2 PUFFS BY MOUTH EVERY 6 HOURS NEEDED 18 g 3 12/18/2021 Active Torsemide 20 MG Oral Tablet (Demadex)Indications :Atherosclerosis of [place] artery of right lower extremity with intermittent [...] Oral Tablet (Cozaar)Indications: Coronary artery disease involving [place] coronary artery of [place] heart without angina pectoris Take 0.5 Tablets [...] :COPD, group C, by GOLD 2017 classification ([facility]) Inhale 1 Puff by mouth every evening. 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 of [place] ar erick of right lower extremity with intermittent claudication 10/23/2019 Hypothyroidism 03/28/2018 Hyponatremia 03/28/2018 Dyslipidemia, goal LDL below 70 03/28/2018 Edema of lower extremity 03/28/2018 Degeneration of lumbar intervertebral disc 03/28 Coronary artery disease invo lving modoc coronary artery of modoc heart without angina pectoris 03/28/2018 Benign prostatic hyperplasia 03/28/2018 Benign essential hypertension 03/28/2018 Carotid artery stenosis 03/28/2018 Osteoarthritis of ankle 03/29/2017 Peripheral vascular disease 11/03/2016 documented as of this encounter (statuses as of 10/11/2023) Resolved Problems Problem Noted Date Diagnosed Date Resolved Date EL (acute kidney injury) 05/17/2023 Lumbar radiculopathy 03/28/2018 023 Chronic obstructive pulmonary disease 03/28/2018 11/20/2021 Overview: Per COPD GOLD Classification documented as of this encounter (statuses as of 10/11/2023) Immunizations Name Administration Dates Next Due COVID-19 mRNA, LNP-s, No Pre serve, 2-Dose Series ([employer]) 05/05/2021,08/28/2020,08/07/2020 Covid-19, Mrna, Lnp-s, Pf, B ivalent, 30 Mcg, IM, 12 yrs and above ([employer]) 02/24/2022 Pneumococcal Conjugate Vacci ne, 20-valent ([id number]) 09/03/2023,12/09/2021(Deferred: Had Clinical Disease) Pneumococcal Polysaccharide PPV23 (Pneumovax) 02/15/2020 Seasonal Influenza, Quadriva lent Hd (Fluzone Hd) 02/05/2023,03/04/2022 Seasonal Influenza, Recombin ant, RIV4, PF, (Flublock) 04/07/2021 Seasonal Influenza, Split, I IV3, With Preserve, Inj 03/13/2020,04/12/2019,03/21/2018,03/29,03/31/2016,04/30/2014,03/13/2013 ,05/14/2012,05/11/2012,04/24/2008,06/2005 documented as of this encounter Social History Tobacco Use Types Packs/Day Years Used Date Smoking Tobacco: Every Day Cigarettes 1 37.3 Started: 06/07/1986 Smokeless Tobacco: Never Alcohol Use [...] No 05/13/2023 documented as of this encounter Nursing Notes * Estefanía Harrison RN - 10/11/2023 10:12 AM EDT Patient was seen by PEMA Aguilar today (see office notes). Per Pearl going to defer treatment today, Pearl is ordering CT scan on patient. documented in this encounter Plan of Treatment Upcoming Encounters Date Type Department Care Team (Late st Contact Info) Description 10/19/2023 12:00 PM EDT Imaging Radiology [address] [place] [address] 10/29/2023 10:00 AM EDT Nurse Only Ancillary [facility] [address] [place] [phone] [place], Nurse [address] [address] 12/02/2023 9:15 AM EDT Office Visit Hematology/Oncology [facility] 200 [facility] [place] [phone] Bear Love MD 200 [facility] [place] [address] 12/20/2023 10:00 AM EDT Office Visit Family Practice [facility] [address] [place] [phone] Pepe Beck MD [address] [place] [address] 12/23/2023 10:00 AM EDT Office Visit Pulmonary Medicine, [facility] [place] [address] Vu Tapia MD [address] [place] [address] Health Maintenance Due Date Last Done Comments DTaP,Tdap,and Td Vaccines (1 - Tdap) 08[birth year]08/1959 Zoster Vaccines (1 of 2) 08/08/1959 *ADVANCE DIRECTIVE NOT ON FILE 03/13/2022 COVID-19 Vaccine ( season) 2023 02/24/2022, 05/05/2021, 08/28/2020, Additional history exists O2 ASSESSMENT COMPLETED IN PAST YEAR FOR COPD 02/11/2024 02/10/2023 GFR 04/12/2024 10/11/2023, 01/2024, 08/16/2023, Additional history exists Albumin/Creatinine Ratio 06/01/2024 06/01/2023, 02/06 CKD PHOS USE SMARTSET 96077 06/01/2024 06/01/2023, 0 03/04/2022 DISCUSS TOBACCO CESSATION (REFER TO SMARTSET #3291) 09/02/2024 09/03/2023 TSH 09/12/2024 09/13/2023, 08/05, 08/04/2023, Additional history exists CKD HGB USE SMARTSET 00041 10/10/202410/10, 10/11/2023, 09/13/2023, Additional history exists Alpha-1 Antitrypsin Completed 03/04/2022 [...] the patient have Health Care Power of Sawmill Supervisor? No Care Teams Actuarial Science Teacher Relationship Specialty Start Date End Date Pepe Beck MD [address] [place] [address] PCP - General Family Medicine 11/07/21 documented as of this encounter
--- OUTSIDE RECORDS SUMMARY | 2023-10-26 09:51 | External Medical Summary | Summary of Care ---
Author Name Unknown Organization [facility] Address [address] [facility] [place] [address] Phone [phone] Care Team Providers Care Parks Recreation Director Name Role Phone Pepe Beck MD Primary Care P [facility] Reason for Referral * Precert (Within 24 hrs (call dept; emergent)) - Authorized Specialty Diagnoses / Procedures Referred By Contac t Referred To Contact Radiology Diagnoses Cancer of upper lobe of right lung (HCC) SOB (shortness of breath) Pleural effusion on right Procedures CT CHEST W CONTRAST Pearl Oviedo CRNP [address] [place] [address] Referral ID Status Reason Start Date Expiration Date V isits Requested Visits Authorized [id number] Authorized Precert 10/11/2023 04/08/2024 999 999 Reason for Visit * Reason Comments Chemotherapy Chemo/recheck Encounter Details Date Type Department Care Team (Late st Contact Info) Description 10/11/2023 9:00 AM EDT Office Visit Hematology/Oncology [facility]ung [place] [address] [facility] [id number] Pearl Oviedo CRNP [address] [place] [address] Cancer of upper lobe of right lung (HCC)*; Pleural effusion on right; SOB (shortness of breath); Encounter for antineoplastic immunotherapy Allergies No known active allergiesdocumented as of [...] 20 MG Oral Tablet (Demadex)Indications :Atherosclerosis of [place] artery of right lower extremity with [...] Oral Tablet (Cozaar)Indications: Coronary artery disease involving [place] coronary artery of [place] mountain heart without angina pectoris Take 0.5 [...] C, by GOLD 2017 classification ([facility]) Inhale 1 Puff by mouth [...] Active HYDROcodone-Acetamin ophen 10-325 MG Oral TabletIndications:Ac igiugig left-sided low back pain without sciatica,Cancer of upper lobe of right lung (HCC) Take 1 Tablet by mouth every 4 [...] inj 1,000 mcgIndications:B12 deficiency 1000 mcg IM [id number] 05/06/2023 04/06/2024 Active documented as of this [...] 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 Atherosclerosis of turtle mountain ar erick of right lower extremity with intermittent claudication 10/23/2019 Hypothyroidism 03/28/2018 Hyponatremia 03/28/2018 Dyslipidemia, goal LDL below 70 03/28/2018 Edema of lower extremity 03/28/2018 Degeneration of lumbar intervertebral disc 03/28 Coronary artery disease invo lving turtle mountain coronary artery of [place] mountain heart without angina pectoris 03/28/2018 Benign [...] mRNA, LNP-s, No Pre serve, 2-Dose Series ([employer]) 05/05/2021,08/28/2020,08/07/2020 Covid-19, Mrna, Lnp-s, Pf, B ivalent, 30 Mcg, IM, 12 yrs and above ([employer]) 02/24/2022 Pneumococcal Conjugate Vacci ne, 20-valent ([id number]) 09/03/2023,12/09/2021(Deferred: Had Clinical Disease) Pneumococcal Polysaccharide PPV23 (Pneumovax) 02/15/2020 Seasonal Influenza, Quadriva lent Hd (Fluzone Hd) 02/05/2023,03/04/2022 Seasonal Influenza, Recombin ant, RIV4, PF, (Flublock) 04/07/2021 Seasonal Influenza, Split, I IV3, With Preserve, Inj 03/13/2020,04/12/2019,03/21/2018,03/29,03/31/2016,04/30/2014,03/13/2013 ,05/14/2012,05/11/2012,04/24/2008,10/06/2005 documented as of this encounter Social History Tobacco Use Types Packs/Day Years Used Date Smoking Tobacco: Every Day Cigarettes 1 37.3 Started: 06/07/1986 Smokeless Tobacco: Never Tobacco Cessation:Ready to Q uit: Not Asked; Counseling Given: Not Answered Alcohol Use Standard Drinks/Week Comments Never 0 [...] Sign Reading Time Taken Comments Blood Pressure 154/68 10/11/2023 9:00 AM EDT Pulse 56 10/11/2023 9:00 AM EDT Temperature 36.3 C (97.4 F) 10/11/2023 9:00 AM ED T Respiratory Rate - - Oxygen Saturation 94% 10/11/2023 9:00 AM EDT Inhaled Oxygen Concentration - - Weight 64.5 kg (142 lb 1.6 oz) 10/11/2023 9:00 A M EDT Height - - Body Mass Index 22.26 09/23/2023 10:06 AM EDT documented in this [...] No 05/13/2023 documented as of this encounter Progress Notes * Pearl Oviedo CRNP - 10/11/2023 9:00 AM EDT Hematology/Oncology Outpatient Clinic note [facility] [address] [place] [address] Name: Manuel Yarbrough Date: 10/10/2023 CHIEF COMPLAINT: Manuel Yarbrough is a 83 year old male here today for f/u visit today. Patient of Dr. Bear Love. From Patient chart confirmed with patient. 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 Cancer Staging T2 N2 DATE OF DIAGNOSIS: 02/10/23 TREATMENT HISTORY: Combined chemotherapy with weekly Paclitaxel and carboplatin along with radiation treatment ( 04/01/2023-- 06/02/23) CURRENT TREATMENT: Durvalumab 1500 mg every 4 weekly for 1 year duration (06/08/23 - ) DIAGNOSTIC WORKUP: Right carotid bruit, has been followed by vascular surgeon in [place]. CTA of the neck on 01/13/2023 showed 1. Irregular mixed (calcific and noncalcific) plaque at the right carotid bulb resulting in 45-50% % luminal compromise, while along the proximal right ICA results in approximately 50% luminal compromise. 2. Focal limited dissection proximal left ICA. No perivascular inflammation/infiltration/extravasation. 3. Dense, heterogeneously enhancing near complete collapse/atelectasis of the right upper lobe raising concern for a central obstructing process, neoplasm not excludable. He does complain of some nonspecific right scapular pain for the last 1 year or so, he would a rib x-ray which showed some fracture of the ribs at that time. He does recall some fall in the bathroom few years before that. Does complain of intermittent hemoptysis. Discontinued smoking habit several years back. CT chest without contrast (02/02/2023 ) -right upper lobe mass measuring 4 by 4.3 cm -enlarged mediastinal, right hilar and right supraclavicular lymph node -pulmonary emphysematous changes -several lung nodules, at least 1 nodule in the right lower lobe measuring 8 mm -small right pleural effusion -9 mm small dense lesion in the left kidney. -AAA measuring 3.3 cm. Right paratracheal FNA --> non-small cell lung cancer, favoring squamous cell carcinoma (02/10/2023). -PD-L1 less than 1%. PET-CT scan done on 02/25/2023: -7.5 x 3.6 x 5 cm metabolically active right upper lobe mass with complete right upper lobe collapse -suspect small malignant right pleural effusion -bulky right hilar lymphadenopathy which is inseparable from the right upper lobe mass No mediastinal lymphadenopathy. No bone metastasis. T2 N2 M0 OTHER IMPORTANT HISTORY: - BPH, hypertension -he takes oral iron every day -hyperlipidemia -he is on Eliquis -he takes Vitamin B12 injection every monthly -hypothyroidism. - Coronary artery disease, S/P CABG in the past Interval History: CT C/A/P 05/13/23: IMPRESSION Right hilar/upper lobe mass is smaller than previously. Secondary partial right upper lobe collapse, slightly more aerated than previously. Suspected lymphangitic spread of carcinoma in the right upper lobe. Decreased mediastinal lymphadenopathy. No metastatic disease is appreciated in the abdomen or pelvis. 3 cm abdominal aortic aneurysm. Extensive calcified atherosclerotic plaque as above. Bilateral renal cysts and probable proteinaceous cysts. A 9 mm left renal upper pole more solid-appearing nodule is not fully characterized on the current exam. Stable right lower lobe pulmonary nodule. Recently he was admitted at [facility] for the symptomatic right pleural effusion, I reviewed hospital records, S/P right thoracocentesis, improvement of the pulmonary symptoms noted, coughing present, no hemoptysis, currently he is on oxygen treatment at 2 liters/minute at home, did not bring oxygen with him in the office, O2 saturation around 88% at room air but he was comfortable. No chest pain, no chest tightness. No increasing leg edema, current weight around 147 lb. No fever. Ambulates well by himself. ECOG PS 2. No abdominal symptoms. Good appetite. Cytology negative for malignant cells. Now he is back on Eliquis 2.5 mg twice a day. I do not think current pulmonary symptoms are related to immunotherapy pneumonitis. I would like to resume durvalumab immunotherapy every 4 weekly as we planned next week and then every 4 weekly. If he is recurrence of pleural effusion, will consider for PleurX catheter placement. CT chest 08/24/23: IMPRESSION 1. Interval resolution of left pleural effusion and improved ground-glass changes in the left lung when compared to 08/06/2023 CT. 2. No significant interval change in right hilar/perihilar mass. 3. Consolidative changes in the right upper and lower lobes, stable from 08/06/2023 and worsened from 05/13/2023 CT. This may be related to underlying infectious/inflammatory process. Attention recommended on follow-up. 4. A few stable tiny left lung nodules. We would proceed with IR thoracentesis evaluation followed by repeat x-ray chest in 7 days. Currentbronchodilator regimen will be continued. Role of PleurX catheter placement was discussed in case recurrence of pleural effusion is noted requiring multiple episodes of thoracentesis. Completed repeat IR thoracentesis at [facility] on September 20, 2023, 500 mL of straw-colored fluid removed. We would proceed with scheduling a 6 week reassessment at [facility] outpatient procedure center for potential repeat right thoracentesis under ultrasound guidance to be performed by pulmonary service. Patient will hold Eliquis 48 hours prior to scheduled procedure day. Decision to remove additional fluid/performed thoracentesis will be based on ultrasound findings on the day of evaluation. HISTORY OF PRESENT ILLNESS: Manuel Yarbrough is a 83 year old male with a history as outlined above. Currently here for f/u visit today and consideration for C5D1 of treatment. Patient complaining of pain in his bilateral shoulders. This is chronic for him. Was previously getting injections in his shoulders for OA but no longer helping. Limits his ROM. The pain is keeping him awake at night as well at times. Also has a prescription for Hydrocodone through his PCP that does not seem to help much either anymore. Had a thoracentesis last month. Did not seem to have improvement in his breathing after this last one. Continues to have SOB with exertion significantly, even with walking around his house. Now has portable oxygen tank, not using it today. Having a productive cough, lopez sputum. This is at his baseline. Denies fevers, chills or night sweats. Using rescue inhaler more often during the day again. Using nebulizer every night. Has been taking increased mirtazipine. Has noticed some improvement in appetite. Also used lozenges for thrush with some improvement though not using these regularly. Feels he is eating and drinking better. Trying to increase fluid intake. Stopped iron supplement. Still having constipation. Only taking stool softener regularly. No past medical history on file. Past Surgical History: Procedure Laterality Date BRONCHOSCOPY, DIAGNOSTIC N/A 02/10/2023 BRONCHOSCOPY DIAGNOSTIC WITH OR WITHOUT WASHING performed by Madyson Alcala [place] [facility] [place] History Socioeconomic History Marital status: Spouse name: Not on file Number of children: Not on file Years of education: Not on file Highest education level: Not on file Occupational History Not on file Tobacco Use Smoking status: Every Day Current packs/day: 1.00 Average packs/day: 1 pack/day for 37.3 years (37.3 ttl pk-yrs) Types: Cigarettes Start date: 06/07/1986 [...] on file Housing Stability: Not on file Review of patient's allergies indicates: No Known Allergies Current Outpatient Medications Medication Sig Dispense Refill [...] mouth in the morning. 90 Capsule 3 Ondansetron HCl 8 MG Oral Tablet (Zofran) Take 1 Tablet by mouth every 8 hours as needed for Nausea. 30 Tablet 2 Prochlorperazine Maleate 10 MG Oral Tablet (Compazine) [...] 1 Tablet before bedtime. 60 Tablet 3 Rosuvastatin Calcium 20 MG Oral Tablet (Crestor) Take 1 Tablet by mouth in the morning. 90 Tablet 3 Losartan Potassium 100 MG Oral Tablet (Cozaar) Take 0.5 Tablets by mouth in the morning. Apixaban 2.5 MG Oral Tablet (Eliquis) Take [...] ONCE DAILY AT BEDTIME 90 Tablet 1 Nitroglycerin 0.4 MG Sublingual Tablet Sublingual (Nitrostat) 1 Tablet. (Patient not taking: Reported on 09/03/2023) Sennosides-Docusate Sodium 8.6-50 MG Oral Tablet (Senokot-S) [...] 5 times a day. 70 Lozenge 0 Current Facility-Administered Medications Medication Dose Route Frequency Provider Last Rate Last Admin vitamin b-12 (Cyanocobalamin) inj 1,000 mcg 1,000 mcg Intramuscular Q4 Weeks Shiraz Beck MD 1,000 mcg at 09/29/23 0847 REVIEW OF SYSTEMS: See HPI - otherwise negative OBJECTIVE: Filed Vitals: 10/11/23 0900 BP: 154/68 Pulse: 56 Temp: 36.3 C (97.4 F) TempSrc: Tympanic SpO2: 94% Weight: 64.5 kg (142 lb 1.6 oz) Wt Readings from Last 5 Encounters: 10/11/23 64.5 kg (142 lb 1.6 oz) 09/23/23 62.1 kg (137 lb) 09/14/23 62.4 kg (137 lb 8 oz) 09/03/23 66.3 kg (146 lb 3.2 oz) 08/26/23 66.2 kg (146 lb) PHYSICAL EXAM: ECOG: Performance Status 1 = 80-90% Symptoms but nearly ambulatory General Appearance: No acute distress HEENT: +oral thrush Lymph Nodes: Normal - No palpable lymph nodes in the neck or supraclavicular areas Lungs/Thorax: Diminished in lower lobes bilaterally, I+E wheezing throughout Heart: Regular rate, irregular rhythm, no appreciable murmurs Extremities: +trace BLE edema Neurologic: Normal - Grossly intact LABS: Results for orders placed or performed in visit on 10/11/23 COMPREHENSIVE METABOLIC PANEL Result Value Ref Range BUN 21 (H) 6 - 20 mg/dL Creatinine 1.2 0.6 - 1.2 mg/dL Estimated Glomerular Filtration Rate 60 >=60 mL/min Sodium 141 135 - 146 mmol/L Potassium 4.0 3.5 - 5.1 mmol/L Chloride 102 98 - 107 mmol/L CO2 29 22 - 32 mmol/L Anion Gap 10 7 - 15 mmol/L Glucose 107 70 - 120 mg/dL Albumin 3.7 (L) 3.8 - 5.0 g/dL AST 20 10 - 50 U/L Alkaline Phosphatase 108 35 - 130 U/L Bilirubin, Total 0.4 <=1.2 mg/dL Calcium 8.9 8.4 - 10.2 mg/dL Protein 6.2 6.0 - 8.3 g/dL ALT 8 (L) 10 - 50 U/L CBC Result Value Ref Range WBC 4.93 4.00 - 10.80 K/uL RBC 4.11 4.50 - 5.25 M/uL HGB 11.3 (L) 14.0 - 16.8 g/dL HCT 36.1 (L) 40.0 - 48.4 % MCV 87.8 82.0 - 99.5 fL MCH 27.5 27.0 - 34.0 pg MCHC 31.3 32.0 - 36.0 g/dL RDW 16.2 11.5 - 15.5 % PLT 141 140 - 400 K/uL MPV 8.7 6.6 - 11.1 fL DIFFERENTIAL, AUTOMATED Result Value Ref Range WBC 4.93 4.00 - 10.80 K/uL Neutrophils % 70.2 40.0 - 75.0 % Lymphocytes % 14.6 (L) 18.0 - 42.0 % Monocytes % 12.4 (H) 1.0 - 11.0 % Eosinophils % 2.6 0.0 - 6.0 % Basophils % 0.2 0.0 - 2.0 % Absolute Neutrophils 3.46 1.80 - 7.70 K/uL Absolute Lymphocytes 0.72 (L) 1.00 - 4.80 K/ul Absolute Monocytes 0.61 0.00 - 1.10 K/uL Absolute Eosinophils 0.13 0.00 - 0.70 K/uL Absolute Basophils 0.01 0.00 - 0.20 K/uL IMPRESSION/PLAN: 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 No new disease present. Has now started Durvalumab immunotherapy 1500 mg every 4 weeks for total 1 year duration. Has now resumed Eliquis 2.5 mg BID. Completed repeat IR thoracentesis at [facility] on September 20, 2023, 500 mL of straw-colored fluid removed. Cytology negative for malignant cells. May need to consider for PleurX catheter if need for multiple thoracentesis. Patient did not notice any clinical improvement after second thoracentesis. Reporting today SOB with minimal exertion. Requiring supplemental oxygen more frequently. Using rescue inhaler more often during the day again. Denies fevers or chills. I+E wheezing throughout on auscultation. CT Chest 08/24/23 significant for consolidative changes in the right upper and lower lobes. This may be related tounderlying infectious/inflammatory process. Attention recommended on follow-up. Lab results reviewed:unremarkable Reviewed case with Dr. 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 Will hold Durvalumab treatment today. Order placed for STAT repeat CT chest. Further recommendations based on results. May need to consider for ECHO. Continue to follow closely with pulmonary. Recommended follow up in six weeks for possible repeat thoracentesis. RTC in 5 weeks with physician for chemo return PEMA Gould documented in this encounter Nursing Notes * Licha Arguelles MED ASSIST - 10/11/2023 9:01 AM EDT Patient identifed by name and birthdate Do you have any concerns about pain management for today's visit? Yes. Patient instructed to discuss pain concerns with provider during the visit today Living Will or Advance Directive for Health Care as noted on the problem list. [facility] is a way you can talk to your provider on line through e-mail. Would you like to sign up? I can activate it for you? NO Filed Vitals: 10/11/23 0900 BP: 154/68 Pulse: 56 Temp: 36.3 C (97.4 F) TempSrc: Tympanic SpO2: 94% Weight: 64.5 kg (142 lb 1.6 oz) Patient was instructed to not get up on the exam table/exam chair until directed and assisted by their provider; patient is to remain seated in the chair/ wheelchair/ exam table/ exam chair for fall prevention and safety reasons. Patient is aware to have assistance to step down off exam table/exam chair with personnel. Patient voiced full comprehension of instructions. documented in this encounter Plan of Treatment Upcoming Encounters Date Type Department Care Team (Late st Contact Info) Description 10/19/2023 12:00 PM EDT Imaging Radiology [facility] [address] [facility] [address] [place] [address] 10/29/2023 10:00 AM EDT Nurse Only Ancillary [facility] [address] [place] [phone] [place], Nurse [facility] [address] [address] 12/02/2023 9:15 AM EDT Office Visit Hematology/Oncology [facility] [address] [place] [phone] Bear Love MD [address] [facility] [place] [address] 12/20/2023 10:00 AM EDT Office Visit Family Practice [facility] [address] [place] [phone] Pepe Beck MD [address] [place] [id number] 12/23/2023 10:00 AM EDT Office Visit Pulmonary Medicine, [facility] [address] [facility] [place] [address] Vu Tapia MD [address] [place] [facility] [place] [address] Scheduled Orders Name Type Priority Associated Diagnoses Orde r Schedule CT CHEST W CONTRAST Medical Imaging STAT Cancer of upper lobe of right lung (HCC) SOB (shortness of breath) Pleural effusion on right Ordered: 10/11/2023 Health Maintenance Due Date Last Done Comments DTaP,Tdap,and Td Vaccines (1 - Tdap) 08[birth year]08/1959 Zoster Vaccines (1 of 2) [birth year]08/1959 *ADVANCE DIRECTIVE NOT ON FILE 03/13/2022 COVID-19 Vaccine ( season) 2023 02/24/2022, 05/05/2021, 08/28/2020, Additional history exists O2 ASSESSMENT COMPLETED IN PAST YEAR FOR COPD 02/11/2024 02/10/2023 GFR 04/12/2024 10/11/2023, 04/0 01/2024, 08/16/2023, Additional history exists Albumin/Creatinine Ratio 06/01/2024 06/01/2023, 09/2 01/2022 CKD PHOS USE SMARTSET 80270 06/01/2024 06/01/2023, 0 03/04/2022 DISCUSS TOBACCO CESSATION (REFER TO SMARTSET #3291) 09/02/2024 09/03/2023 CKD HGB USE SMARTSET 80036 10/10/202410/10, 10/11/2023, 09/13/2023, Additional history exists TSH [...] as of this encounter Visit Diagnoses Diagnosis Cancer of upper lobe of right lung (HCC)- Primary Pleural effusion on right Unspecified pleural effusion SOB (shortness of breath) Shortness of breath Encounter for antineoplastic immunotherapy documented in this encounter Advance Directives Latest Code Status on File Code Status Date Activated Date Inactivated Comments Full Code 05/13/2023 2:31 PM 05/18/2023 6:24 PM This order reflects the patients wishes and were consensually agreed upon. Question Answer Comments Discussion of Advance Directives occurred with: Patient Does the patient have a Living Will? No Does the patient have Health Care Power of Tai Chi Instructor? No Care Teams Parks Recreation Director Relationship Specialty Start Date End Date Ppee Beck MD [place] [phone] PCP - General Family Medicine 11/07/21 documented as of this encounter
--- OUTSIDE RECORDS SUMMARY | 2023-10-26 09:51 | External Medical Summary | Summary of Care ---
Author Name Unknown Organization [facility] Address [address] [place] [address] Phone [phone] Care Team Providers Care Electronic Equipment Set Up Operator Name Role Phone Pepe Beck MD [facility] Encounter Details Date Type Department Care Team (Late st Contact Info) Description 10/11/2023 Telephone Hematology/Oncology, [facility] [address] [place] [address] Pearl Oviedo CRNP [address] [place], [place] [phone] Allergies No known active allergiesdocumented as of [...] 20 MG Oral Tablet (Demadex)Indications :Atherosclerosis of lower sioux artery of right lower extremity with intermittent [...] Oral Tablet (Cozaar)Indications: Coronary artery disease involving lower sioux coronary artery of lower sioux heart without angina pectoris Take 0.5 Tablets [...] :COPD, group C, by GOLD 2017 classification ([facility]) Inhale 1 Puff by mouth [...] Active HYDROcodone-Acetamin ophen 10-325 MG Oral TabletIndications:Ac [place] left-sided low back pain without sciatica,Cancer of upper lobe of right lung ([facility]) Take 1 Tablet by mouth [...] inj 1,000 mcgIndications:B12 deficiency 1000 mcg IM [id number] 05/06/2023 04/06/2024 Active documented as of this [...] 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 Atherosclerosis of lower sioux ar erick of right lower extremity with intermittent claudication 10/23/2019 Hypothyroidism 03/28/2018 Hyponatremia 03/28/2018 Dyslipidemia, goal LDL below 70 03/28/2018 Edema of lower extremity 03/28/2018 Degeneration of lumbar intervertebral disc 03/28 Coronary artery disease invo lving lower si[place] coronary artery of lower sioux heart without angina pectoris 03/28/2018 Benign prostatic [...] mRNA, LNP-s, No Pre serve, 2-Dose Series ([place]) 05/05/2021,08/28/2020,08/07/2020 Covid-19, Mrna, Lnp-s, Pf, B ivalent, 30 Mcg, IM, 12 yrs and above ([place]) 02/24/2022 Pneumococcal Conjugate Vacci ne, 20-valent ([id number]) 09/03/2023,12/09/2021(Deferred: Had Clinical Disease) Pneumococcal Polysaccharide PPV23 [...] Telephone Encounter - Cielo Rene OSA - 10/11/2023 10:35 AM EDT Pt is currently scheduled for 10/[address] documented in this encounter Plan of Treatment Upcoming Encounters Date Type Department Care Team ([facility] st Contact Info) Description 10/19/2023 12:00 PM EDT Imaging Radiology [facility] [address] [place] [address] 10/29/2023 10:00 AM EDT Nurse Only Ancillary [facility] [address] [place] [phone] Alysia, Nurse [address] [address] 12/02/2023 9:15 AM EDT Office Visit [facility]ology[facility] 200 [facility] [place] [phone] Bear Love MD 200 [facility] [place] [address] 12/20/2023 10:00 AM EDT Office Visit Family Practice [facility] [address] [place] [phone] Pepe Beck MD [address] [place] [address] 12/23/2023 10:00 AM EDT Office Visit Pulmonary Medicine, [facility] [address] [place] [address] Vu Tapia MD [address] [place] [address] Health Maintenance Due Date Last Done Comments DTaP,Tdap,and Td Vaccines (1 - Tdap) 08/08/1959 Zoster Vaccines (1 of 2) 08/08/1959 *ADVANCE DIRECTIVE NOT ON FILE 03/13/2022 COVID-19 Vaccine ( season) 2023 02/24/2022, 05/05/2021, 08/28/2020, Additional history exists O2 ASSESSMENT COMPLETED IN PAST YEAR FOR COPD 02/11/2024 02/10/2023 GFR 04/12/2024 10/11/2023, 0 01/2024, 08/16/2023, Additional history exists Albumin/Creatinine Ratio 06/01/2024 06/01/2023, 02/06 CKD PHOS USE SMARTSET 23290 06/01/2024 06/01/2023, 0 03/04/2022 DISCUSS TOBACCO CESSATION (REFER TO SMARTSET #3291) 09/02/2024 09/03/2023 TSH 09/12/2024 09/13/2023, 08/05, 08/04/2023, Additional history exists CKD HGB USE SMARTSET 88714 10/10/202410/10, 10/11/2023, 09/13/2023, Additional history exists Alpha-1 [...] the patient have Health Care Power of Package Sorter? No Care Teams Electronic Equipment Set Up Operator Relationship Specialty Start Date End Date Pepe Beck MD [address] [place] [phone] PCP - General Family Medicine 11/07/21 documented as of this encounter
--- OUTSIDE RECORDS SUMMARY | 2023-10-26 09:51 | External Medical Summary | Summary of Care ---
Author Name Unknown Organization [facility] Address [address] [place] [facility] [place] [address] Phone [phone] Care Team Providers Care Postal Support Employee Name Role Phone Pepe Beck MD Primary Care P rovider Reason for Visit * Reason Onset Date Comments Test Results Imaging Study 10/19/2023 Encounter Details Date Type Department Care Team (Late st Contact Info) Description 10/19/2023 Telephone Hematology/Oncology [facility] 200 [facility] [place] [address] Pearl Oviedo CRNP [address] [place] [address] Test Results Imaging Study Allergies [...] 20 MG Oral Tablet (Demadex)Indications :Atherosclerosis of [place] artery of right lower extremity with intermittent [...] Oral Tablet (Cozaar)Indications: Coronary artery disease involving [place] coronary artery of [place] heart without angina pectoris Take 0.5 Tablets [...] :COPD, group C, by GOLD 2017 classification ([facility]) Inhale 1 Puff by mouth every evening. [...] sciatica,Cancer of upper lobe of right lung ([facility]) Take 1 Tablet by mouth every 4 [...] 2 09/29/2023 Active Clotrimazole 10 MG Mouth/Throat Amlicar (Mycelex Amilcar)Indications:T hrush Take 1 Lozenge by mouth 5 times a day. 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 10/23/2019 Hypothyroidism 03/28/2018 Hyponatremia 03/28/2018 Dyslipidemia, goal LDL below 70 03/28/2018 Edema of lower extremity 03/28/2018 Degeneration of lumbar intervertebral disc 03/28 Coronary artery disease invo lving [place] coronary artery of [place] heart without angina pectoris 03/28/2018 Benign prostatic [...] mRNA, LNP-s, No Pre serve, 2-Dose Series ([place]) 05/05/2021,08/28/2020,08/07/2020 Covid-19, Mrna, Lnp-s, Pf, B ivalent, 30 Mcg, IM, 12 yrs and above ([place]) 02/24/2022 Pneumococcal Conjugate Vacci ne, 20-valent ([id number]) 09/03/2023,12/09/2021(Deferred: Had Clinical Disease) Pneumococcal Polysaccharide PPV23 [...] Upcoming Encounters Date Type Department Care Team ([facility] Contact Info) Description 10/21/2023 11:10 AM EDT Office Visit [address] [phone] Pepe eBck MD [address] [place] [address] 10/29/2023 10:00 AM EDT Nurse Only Ancillary [address] [phone] Alysia Nurse [address] [phone] 12/02/2023 9:15 AM EDT Office Visit Hematology/Oncology [facility] [place] [phone] Bear Love MD 200 [facility] [place] [address] 12/20/2023 10:00 AM EDT Office Visit [facility] [address] [place] [address] Pepe Beck MD [address] [place] [address] 12/23/2023 10:00 AM EDT Office Visit Pulmonary Medicine, [facility] [address] [facility] [place] [address] Vu Tapia MD [address] [place] [phone] Health Maintenance Due Date Last Done Comments [...] 06/01/2024 06/01/2023, 02/06 CKD PHOS USE SMARTSET 18708 06/01/2024 06/01/2023, 0 03/04/2022 DISCUSS TOBACCO CESSATION (REFER TO SMARTSET #3291) 09/02/2024 09/03/2023 CKD HGB USE SMARTSET 46730 10/10/202410/10, 10/11/2023, 09/13/2023, Additional history exists TSH [...] the patient have Health Care Power of Underground Miner? No Care Teams Postal Support Employee Relationship Specialty Start Date End Date Pepe Beck MD [address] [place] [address] PCP - General Family Medicine 11/07/21 documented as of this encounter
--- OUTSIDE RECORDS SUMMARY | 2023-10-26 09:51 | External Medical Summary | Summary of Care ---
Author Name Unknown Organization [facility] Address [address] [place] [facility] [place] [place] [address] Phone [phone] Care Team Providers Care In Classroom Tutor Name Role Phone Pepe Beck MD Primary Care P rovider Reason for Visit * Reason Onset Date Comments Test Results Imaging Study 10/19/2023 Encounter Details Date Type Department Care Team (Late st Contact Info) Description 10/19/2023 Telephone Hematology/Oncology [facility] 200 [facility] [place] [place] [address] Pearl Oviedo CRNP [address] [place] [address] Test Results Imaging Study Allergies [...] 20 MG Oral Tablet (Demadex)Indications :Atherosclerosis of galena artery of right lower extremity with intermittent [...] Oral Tablet (Cozaar)Indications: Coronary artery disease involving galena coronary artery of galena heart without angina pectoris Take 0.5 Tablets [...] group C, by GOLD 2017 classification ([facility]) Inhale 1 Puff by mouth every evening. 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 Atherosclerosis of galena ar erick of right lower extremity with intermittent claudication 10/23/2019 Hypothyroidism 03/28/2018 Hyponatremia 03/28/2018 Dyslipidemia, goal LDL below 70 03/28/2018 Edema of lower extremity 03/28/2018 Degeneration of lumbar intervertebral disc 03/28 Coronary artery disease invo lving gal[place] coronary artery of galena heart without angina pectoris 03/28/2018 Benign prostatic [...] mRNA, LNP-s, No Pre serve, 2-Dose Series ([place]) 05/05/2021,08/28/2020,08/07/2020 Covid-19, Mrna, Lnp-s, Pf, B ivalent, 30 Mcg, IM, 12 yrs and above ([place]) 02/24/2022 Pneumococcal Conjugate Vacci ne, 20-valent ([id number]) 09/03/2023,12/09/2021(Deferred: Had Clinical Disease) Pneumococcal Polysaccharide PPV23 [...] encounter Miscellaneous Notes * Telephone Encounter - Keiko Garcia RN - 10/20/2023 7:49 AM EDT Scheduling: please call patient to schedule - labs "CBCd, CMP, TSH/ T4"- ok to do day prior if patient prefers - 2 hour appt "C5D1 nelly" (Ivan) Thanks! * Telephone Encounter - Pearl [...] Upcoming Encounters Date Type Department Care Team ([facility] Contact Info) Description 10/21/2023 11:10 AM EDT Office Visit [address] [phone] Pepe Beck MD [address] [place] [address] 10/29/2023 10:00 AM EDT Nurse Only Ancillary [address] [phone] [place], Nurse [address] [address] 12/02/2023 9:15 AM EDT Office Visit Hematology/Oncology [facility] [place] 200 [facility] [place] [phone] Bear Love MD 200 [facility] [place] [address] 12/20/2023 10:00 AM EDT Office Visit [address] [phone] Pepe Beck MD 68 [place] [address] 12/23/2023 10:00 AM EDT Office Visit Pulmonary Medicine, [facility] [address] [place] [address] Vu Tapia MD [address] [facility] [place] [address] Health Maintenance Due Date Last Done [...] 06/01/2024 06/01/2023, 02/06 CKD PHOS USE SMARTSET 09889 06/01/2024 06/01/2023, 0 03/04/2022 DISCUSS TOBACCO CESSATION (REFER TO SMARTSET #8521) 09/02/2024 09/03/2023 CKD HGB USE SMARTSET 15927 10/10/202410/10, 10/11/2023, 09/13/2023, Additional history exists TSH [...] the patient have Health Care Power of Fish Bait Processing Supervisor? No Care Teams In Classroom Tutor Relationship Specialty Start Date End Date Pepe Beck MD [address] [place] [address] PCP - General Family Medicine 11/07/21 documented as of this encounter
--- OUTSIDE RECORDS SUMMARY | 2023-10-26 09:52 | External Medical Summary ---
Author Name Unknown Address Unknown Organization [facility] [place] [address] Laboratory Report Ordering Provider Test Date Status [place] 10/11/2023 08:26:41 Final Observation Date Value Abnormality Reference (Units ) Status SYNC LEUKOCYTES IN BLOOD BY AUTOMATED COUNT 10/11/2023 08:26:41 4.93 4.00-10.80 (K/uL) Final Segs 10/11/2023 08:26:41 70.2 40.0-75.0 (%) Final Lymphs % 10/11/2023 08:26:41 14.6 Below low normal 18.0-42.0 (%) Final Monos 10/11/2023 08:26:41 12.4 Above high normal 1.0-11.0 (%) Final Eosinophils 10/11/2023 08:26:41 2.6 0.0-6.0 (%) Final Basos 10/11/2023 08:26:41 0.2 0.0-2.0 (%) Final Absolute Segs 10/11/2023 08:26:41 3.46 1.80-7.70 (K/uL) Final Lymphs, absolute 10/11/2023 08:26:41 0.72 Below low normal 1.00-4.80 (K/ul) Final Monos, Abs 10/11/2023 08:26:41 0.61 0.00-1.10 (K/uL) Final Eos, Abs 10/11/2023 08:26:41 0.13 0.00-0.70 (K/uL) Final Basos, Abs 10/11/2023 08:26:41 0.01 0.00-0.20 (K/uL) Final Performing Location [facility] [place] [address]
--- OUTSIDE RECORDS SUMMARY | 2023-10-26 09:52 | External Medical Summary ---
Author Name Unknown Address Unknown Organization K01:[facility] - [address] [place] [address] Laboratory Report Ordering Provider Test Date Status [place] 10/11/2023 08:26:41 Final Observation Date Value Abnormality Reference (Units ) Status T4, Free 10/11/2023 08:26:41 1.3 0.9-1.7 (n g/dL) Final Performing Location [facility] [address] [place] [address]
--- OUTSIDE RECORDS SUMMARY | 2023-10-26 09:52 | External Medical Summary ---
Author Name Unknown Address Unknown Organization [facility] [address] [place] [address] Laboratory Report Ordering Provider Test Date Status [place] 10/11/2023 08:26:41 Final Observation Date Value Abnormality Reference (Units ) Status BUN 10/11/2023 08:26:41 21 Above high normal 6-20 (mg/dL) Final Creatinine 10/11/2023 08:26:41 1.2 0.6-1.2 (mg/dL) Final Glomerular filtration rate/1.73 sq M.predicted [Volume Rate/Area] in Serum, Plasma or Blood by Creatinine-based formula (CKD-EPI) 10/11/2023 08:26:41 60 >=60 (mL/min) Final eGFR is calculated based on the CKD-EPI 2020 equation Sodium 10/11/2023 08:26:41 141 135-146 (m mol/L) Final Potassium 10/11/2023 08:26:41 4.0 3.5-5.1 (m mol/L) Final Cl 10/11/2023 08:26:41 102 98-107 (mm ol/L) Final CO2 10/11/2023 08:26:41 29 22-32 (mmo l/L) Final Anion gap 10/11/2023 08:26:41 10 7-15 (mmol /L) Final Glucose 10/11/2023 08:26:41 107 70-120 (mg /dL) Final Albumin 10/11/2023 08:26:41 3.7 Below low normal 3.8 -5.0 (g/dL) Final AST (Aspartate aminotransferase) 10/11/2023 08:26:41 20 10-50 (U/L) Fin al Alk Phos 10/11/2023 08:26:41 108 35-130 (U/ L) Final Bilirubin, Total 10/11/2023 08:26:41 0.4 <=1 .2 (mg/dL) Final Calcium 10/11/2023 08:26:41 8.9 8.4-10.2 ( mg/dL) Final Protein 10/11/2023 08:26:41 6.2 6.0-8.3 (g /dL) Final ALT (Alanine aminotransferase) 10/11/2023 08:26:41 8 Below low normal 10-50 (U/L) Final Performing Location [facility] [address] [place] [address]
--- OUTSIDE RECORDS SUMMARY | 2023-10-26 09:52 | External Medical Summary | Summary of Care ---
Author Name Unknown Organization [facility] Address [address] [facility] [place] [address] Phone [phone] Care Team Providers Care Respiratory Therapy Aide Name Role Phone Pepe Beck MD Primary Care P rovider Reason for Visit * Reason Comments Outpatient Testing Encounter Details Date Type Department Care Team (Late st Contact Info) Description 10/11/2023 8:40 AM EDT Laboratory Laboratory [facility] [address] [place] [address] [place], Lab Scen[address] [place] [address] Cancer of upper lobe of right lung [...] 20 MG Oral Tablet (Demadex)Indications :Atherosclerosis of [place] artery of right lower extremity with intermittent [...] Oral Tablet (Cozaar)Indications: Coronary artery disease involving [place] coronary artery of [place] heart without angina pectoris Take 0.5 Tablets [...] inj 1,000 mcgIndications:B12 deficiency 1000 mcg IM [id number] 05/06/2023 04/06/2024 Active documented as of this [...] 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 10/23/2019 Hypothyroidism 03/28/2018 Hyponatremia 03/28/2018 Dyslipidemia, goal LDL below 70 03/28/2018 Edema of lower extremity 03/28/2018 Degeneration of lumbar intervertebral disc 03/28 Coronary artery disease invo lving [place] coronary artery of [place] heart without angina pectoris 03/28/2018 Benign prostatic [...] mRNA, LNP-s, No Pre serve, 2-Dose Series ([place]) 05/05/2021,08/28/2020,08/07/2020 Covid-19, Mrna, Lnp-s, Pf, B ivalent, 30 Mcg, IM, 12 yrs and above ([place]) 02/24/2022 Pneumococcal Conjugate Vacci ne, 20-valent ([id number]) 09/03/2023,12/09/2021(Deferred: Had Clinical Disease) Pneumococcal Polysaccharide PPV23 [...] No 05/13/2023 documented as of this encounter Plan of Treatment Upcoming Encounters Date Type Department Care Team (Latest Contact Info) Description 10/11/2023 9:00 AM EDT Office Visit Hematology/Oncology [facility] [phone] Pearl Oviedo CRNP 400 [facility] [place] [address] PENDING VISIT DRAFT 10/11/2023 9:30 AM EDT Hem/Onc Treatment [facility]ematology[facility], [facility] [phone] Arrived 10/29/2023 10:00 AM EDT Nurse Only Ancillary [address] [place] [address] [facility] [address] [address] 12/20/2023 10:00 AM EDT Office Visit [facility] [address] [place] [address] Pepe Beck MD [address] [place] [address] 12/23/2023 10:00 AM EDT Office Visit Pulmonary Medicine, [facility] 132 [facility] [place] [address] Vu Tapia MD [address] [facility] [place] [phone] Pending Results Name Type Priority Associated Diagnoses Date /Time COMPREHENSIVE METABOLIC PANEL Lab STAT Cancer of upper lobe of right lung (HCC) 10/11/2023 8:26 AM EDT TSH WITH FREE T4 IF INDICATED Lab STAT Cancer of upper lobe of right lung (HCC) 10/11/2023 8:26 AM EDT Health Maintenance Due Date Last Done Comments DTaP,Tdap,and Td Vaccines (1 - Tdap) 08/08/1959 Zoster Vaccines (1 of 2) 08/08/1959 *ADVANCE DIRECTIVE NOT ON FILE 03/13/2022 COVID-19 Vaccine ( season) 2023 02/24/2022, 05/05/2021, 08/28/2020, Additional history exists O2 ASSESSMENT COMPLETED IN PAST YEAR FOR COPD 02/11/2024 02/10/2023 GFR 03/14/2024 09/13/2023, 08/05, 08/04/2023, Additional history exists Albumin/Creatinine Ratio 06/01/2024 06/01/2023, 02/06 CKD PHOS USE SMARTSET 15039 06/01/2024 06/01/2023, 0 03/04/2022 DISCUSS TOBACCO CESSATION (REFER TO SMARTSET #3291) 09/02/2024 09/03/2023 TSH 09/12/2024 09/13/2023, 08/05, 08/04/2023, Additional history exists CKD HGB USE SMARTSET 33998 10/10/202410/10, 10/11/2023, 09/13/2023, Additional history exists Alpha-1 [...] Not on filedocumented as of this encounter Procedures Procedure Name Priority Date/Time Associated Diagnosis Comments DIFFERENTIAL, AUTOMATED STAT 10/11/2023 8:26 AM EDT Cancer of upper lobe of right lung (HCC) CBC STAT 10/11/2023 8:26 AM EDT Cancer of upper lobe of right lung (HCC) CBC STAT 10/11/2023 8:26 AM EDT Cancer of upper lobe of right lung (HCC) documented in this encounter Results * (ABNORMAL) DIFFERENTIAL, AUTOMATED (10/11/2023 8:26 AM EDT) WBC 4.93 4.00 - 10.80 K/uL 10/11/2023 8:35 AM EDT [facility]02 Neutrophils % 70.2 40.0 - 75.0 % 10/11/2023 8:35 AM EDT [facility]02 Lymphocytes % 14.6(L) 18.0 - 42.0 % 10/11/2023 8:35 AM EDT [facility]02 Monocytes % 12.4(H) 1.0 - 11.0 % 10/11/2023 8:35 AM EDT [facility]-02 Eosinophils % 2.6 0.0 - 6.0 % 10/11/2023 8:35 AM EDT [facility]02 Basophils % 0.2 0.0 - 2.0 % 10/11/2023 8:35 AM EDT [facility]02 Absolute Neutrophils 3.46 1.80 - 7.70 K/uL 10/11/2023 8:35 AM EDT [facility]-02 Absolute Lymphocytes 0.72(L) 1.00 - 4.80 K/ul 10/11/2023 8:35 AM EDT [facility]02 Absolute Monocytes 0.61 0.00 - 1.10 K/uL 10/11/2023 8:35 AM EDT [facility]-02 Absolute Eosinophils 0.13 0.00 - 0.70 K/uL 10/11/2023 8:35 AM EDT [facility]- Absolute Basophils 0.01 0.00 - 0.20 K/uL 10/11/2023 8:35 AM EDT [facility] 56 Blood Venous blood specimen / Unknown Venipuncture / Unknown 10/11/2023 8:26 AM EDT 10/11/2023 8:26 AM EDT Bear Love MD LAB BLOOD ORDERABLES [address] [place], [place] [phone] * (ABNORMAL) CBC (10/11/2023 8:26 AM EDT) WBC 4.93 4.00 - 10.80 K/uL 10/11/2023 8:[address]T [address] RBC 4.11 4.50 - 5.25 M/uL 10/11/2023 8:35 AM T [address] HGB 11.3(L) 14.0 - 16.8 g/dL 10/11/2023 8:35 AM T [facility] HCT 36.1(L) 40.0 - 48.4 % 10/11/2023 8:35 AM T [facility] MCV 87.8 82.0 - 99.5 fL 10/11/2023 8:35 AM EDT [address] MCH 27.5 27.0 - 34.0 pg 10/11/2023 8:35 AM EDT [address] MCHC 31.3 32.0 - 36.0 g/dL 10/11/2023 8:35 AM EDT [facility] 56 RDW 16.2 11.5 - 15.5 % 10/11/2023 8:35 AM EDT [facility] 56 PLT 141 140 - 400 K/uL 10/11/2023 8:35 AM EDT [facility] 56 MPV 8.7 6.6 - 11.1 fL 10/11/2023 8:35 AM EDT [facility] 56 Blood Venous blood specimen / Unknown Venipuncture / Unknown 10/11/2023 8:26 AM EDT 10/11/2023 8:26 AM EDT Bear Love MD LAB BLOOD ORDERABLES [facility]-[address] [place] [address] documented in this encounter Visit Diagnoses Diagnosis Cancer of [...] the patient have Health Care Power of Tennis Ball Coverer Hand? No Care Teams Respiratory Therapy Aide Relationship Specialty Start Date End Date Pepe Beck MD [address] [place] [address] [place] [address] PCP - General Family Medicine 11/07/21 documented as of this encounter
--- OUTSIDE RECORDS SUMMARY | 2023-10-26 09:52 | External Medical Summary ---
Author Name Unknown Address Unknown Organization K09:[facility] [place] [address] Laboratory Report Ordering Provider Test Date Status [place] 10/11/2023 08:26:41 Final Observation Date Value Abnormality Reference (Units ) Status WBC, Total 10/11/2023 08:26:41 4.93 4.00-10.8 0 (K/uL) Final RBC 10/11/2023 08:26:41 4.11 4.50-5.25 (M/uL) Final Hemoglobin 10/11/2023 08:26:41 11.3 Below low normal 14 .0-16.8 (g/dL) Final HCT 10/11/2023 08:26:41 36.1 Below low normal 40. 0-48.4 (%) Final MCV 10/11/2023 08:26:41 87.8 82.0-99.5 (fL) Final MCH 10/11/2023 08:26:41 27.5 27.0-34.0 (pg) Final MCHC 10/11/2023 08:26:41 31.3 32.0-36.0 (g/dL) Final RDW 10/11/2023 08:26:41 16.2 11.5-15.5 (%) Final Platelets 10/11/2023 08:26:41 141 140-400 (K /uL) Final MPV 10/11/2023 08:26:41 8.7 6.6-11.1 ( fL) Final Performing Location [place] [address]
--- OUTSIDE RECORDS SUMMARY | 2023-10-26 09:52 | External Medical Summary ---
Author Name Unknown Address Unknown Organization K01:[facility] - [address] [place] [address] Laboratory Report Ordering Provider Test Date Status [place] 10/11/2023 08:26:41 Final Observation Date Value Abnormality Reference (Units ) Status TSH 10/11/2023 08:26:41 19.40 Above high normal 0. 27-4.20 (uIU/mL) Final Performing Location [facility] - [address] [place] [address]
--- OUTSIDE RECORDS SUMMARY | 2023-10-26 09:52 | External Medical Summary | Summary of Care ---
Author Name Unknown Organization [facility] Address [address] [place] [address] Phone [phone] Care Team Providers Care Financial Wellness Coach Name Role Phone Pepe Beck MD [facility] Reason for Visit * Reason Onset Date Comments Med Request 09/29/2023 Encounter Details Date Type Department Care Team (Late st Contact Info) Description 09/29/2023 Telephone Hematology/Oncology, [facility] [address] [place] [address] Pearl Oviedo CRNP [address] [place] [address] Med Request Allergies No known active allergiesdocumented as of this encounter (statuses as of 09/29/2023) Medications Medication Sig Dispensed Refills Start Date End Date Status Aspirin 81 MG Oral Tablet Delayed Release Take 1 Tablet by mouth every other day. 0 Active Albuterol Sulfate HFA 108 (90 Base) MCG/ACT Inhalation Aerosol Solution INHALE 2 PUFFS BY MOUTH EVERY 6 HOURS NEEDED 18 g 3 2 Active Torsemide 20 MG Oral Tablet (Demadex)Indication s:Atherosclerosis of [place] artery of right lower extremity with intermittent [...] before bedtime. 60 Tablet 3 3 Active Rosuvastatin Calcium 20 MG Oral Tablet (Crestor)Indication s:Dyslipidemia, goal LDL below 70 Take 1 Tablet by mouth in the morning. 90 Tablet 3 3 Active Losartan Potassium 100 MG Oral Tablet (Cozaar)Indications :Coronary artery disease involving [place] coronary artery of [place] heart without angina pectoris Take 0.5 Tablets by mouth in the morning. 0 3 Active Apixaban 2.5 MG Oral Tablet [...] s:COPD, group C, by GOLD 2017 classification ([facility]) Inhale 1 Puff by mouth [...] sciatica,Cancer of upper lobe of right lung ([facility]) Take 1 Tablet by mouth [...] a day. 70 Lozenge 0 4 Active Clotrimazole 10 MG Mouth/Throat Amilcar (Mycelex Amilcar)Indications: Thrush Take 1 Lozenge by mouth 5 times a day for 14 days. 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 10/23/2019 Hypothyroidism 03/28/2018 Hyponatremia 03/28/2018 Dyslipidemia, goal LDL below 70 03/28/2018 Edema of lower extremity 03/28/2018 Degeneration of lumbar intervertebral disc 03/28 Coronary artery disease invo lving [place] coronary artery of [place] heart without angina pectoris 03/28/2018 Benign prostatic hyperplasia 03/28/2018 Benign essential hypertension 03/28/2018 Carotid artery stenosis 03/28/2018 Osteoarthritis of ankle 03/29/2017 Peripheral vascular disease 11/03/2016 documented as of this encounter (statuses as of 09/29/2023) Resolved Problems Problem Noted Date Diagnosed Date Resolved Date EL (acute kidney injury) 05/17/2023 Lumbar radiculopathy 03/28/2018 023 Chronic obstructive pulmonary disease 03/28/2018 11/20/2021 Overview: Per COPD GOLD Classification documented as of this encounter (statuses as of 09/29/2023) Immunizations Name Administration Dates Next Due COVID-19 mRNA, LNP-s, No Pre serve, 2-Dose Series (Pfizer) 05/05/2021,08/28/2020,08/07/2020 Covid-19, Mrna, Lnp-s, Pf, B ivalent, 30 Mcg, IM, 12 yrs and above (Plantiga) 02/24/2022 Pneumococcal Conjugate Vacci ne, 20-valent ([id number]) 09/03/2023,12/09/2021(Deferred: Had Clinical Disease) Pneumococcal Polysaccharide PPV23 [...] Telephone Encounter - Pearl Oviedo CRNP - 09/29/2023 9:30 AM EDT E prescribed. * Telephone Encounter - Eva Moran LPN - 09/29/2023 9:00 AM EDT Pending Prescriptions: Disp Refills Clotrimazole 10 MG Mouth/Throat Amilcar (M [address] [place] 0 Sig: Take 1 Lozenge by mouth 5 times a day. Patient was seen in our office today for monthly B-12 injection. C/o oral thrush again. Asking for a refill. Patient is also using OTC Biotene. Please let patient know if meds can be refilled. Thanks. documented in this encounter Plan of Treatment Upcoming Encounters Date Type Department Care Team (Late st Contact Info) Description 10/11/2023 8:40 AM EDT Laboratory Laboratory [facility] [place] [address] [place] [phone] [facility] [address] [place] [address] 10/11/2023 9:00 AM EDT Office Visit Hematology/Oncology [facility] [address] [place] [address] Pearl Oviedo CRNP [address] [facility] [place] [address] 10/11/2023 9:30 AM EDT Hem/Onc Treatment Hematology/Oncology Treatment, [place] 200 [place] [address] 10/29/2023 10:00 AM EDT Nurse Only Ancillary [facility] [address] [place] [address] [facility] [address] [address] 12/20/2023 10:00 AM EDT Office Visit Family [facility] [address] [place] [phone] Pepe Beck MD [address] [place] [address] 12/23/2023 10:00 AM EDT Office Visit Pulmonary Medicine, [facility] [address] [facility] [place] [address] Vu Tapia [facility] [address] [facility] [address] Health Maintenance Due Date Last Done [...] 06/01/2024 06/01/2023, 02/06 CKD PHOS USE SMARTSET 75033 06/01/2024 06/01/2023, 0 03/04/2022 DISCUSS TOBACCO CESSATION (REFER TO SMARTSET #3291) 09/02/2024 09/03/2023 CKD HGB USE SMARTSET 27092 09/12/202409/12, 09/13/2023, 08/16/2023, Additional history exists TSH 09/12/2024 09/13/2023, 08/05, 08/04/2023, Additional history exists Alpha-1 Antitrypsin Completed 03/04/2022 [...] as of this encounter Visit Diagnoses Diagnosis Thrush Candidiasis of mouth documented in this encounter Advance Directives Latest Code Status on File Code Status Date Activated Date Inactivated Comments Full Code 05/13/2023 2:31 PM 05/18/2023 6:24 PM This order reflects the patients wishes and were consensually agreed upon. Question Answer Comments Discussion of Advance Directives occurred with: Patient Does the patient have a Living Will? No Does the patient have Health Care Power of Tankage Grinder Operator? No Care Teams Financial Wellness Coach Relationship Specialty Start Date End Date Pepe Beck MD [address] [place] [id number] PCP - General Family Medicine 11/07/21 documented as of this encounter
--- OUTSIDE RECORDS SUMMARY | 2023-10-26 09:52 | External Medical Summary | Summary of Care ---
Author Name Unknown Organization [facility] Address [address] [place] [address] Phone [phone] Care Team Providers Care Camp Boss Name Role Phone Pepe Starks MD Primary Care P rovider Reason for Visit * Reason Comments eRx-Medication Refill Encounter Details Date Type Department Care Team ([facility] st Contact Info) Description 09/27/2023 Refill Family Practice [address] [phone] Pepe Starks MD [address] [place] [id number] Acute left-sided low back pain without sciatica Allergies No known active allergiesdocumented as of [...] 2 Active Torsemide 20 MG Oral Tablet (Demadex)Indicatio ns: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 90 Capsule 3 3 Active Ondansetron HCl 8 MG Oral Tablet (Zofran)Indication s:Cancer of upper lobe of right lung (HCC) Take 1 Tablet by mouth every 8 hours as needed for Nausea. 30 Tablet 2 3 Active Prochlorperazine Maleate 10 MG Oral Tablet (Compazine)Indicat ions:Cancer of upper lobe of right lung (HCC) Take 1 Tablet by mouth every 6 hours as needed for Nausea. 30 Tablet 2 3 Active Tamsulosin HCl 0.4 MG Oral Capsule (Flomax) TAKE 1 CAPSULE BY MOUTH TWICE DAILY 180 Capsule 1 3 Active dexAMETHasone 4 MG Oral Tablet (Decadron)Indicati ons:Cancer of upper lobe of right lung (HCC) Take 12mg (3 tablets) the night before and morning of each chemotherapy appointment 6 Tablet 0 3 Active Pantoprazole Sodium 40 MG Oral Tablet Delayed Release (Protonix) Take 1 Tablet by mouth in the morning and 1 Tablet before bedtime. 60 Tablet 3 3 Active Rosuvastatin Calcium 20 MG Oral Tablet (Crestor)Indicatio ns:Dyslipidemia, goal LDL below 70 Take 1 Tablet by mouth in the morning. 90 Tablet 3 3 Active Losartan Potassium 100 MG Oral Tablet (Cozaar)Indication s:Coronary artery disease involving [place] coronary artery of [place] heart without angina pectoris Take 0.5 Tablets by mouth in the morning. 0 3 Active Apixaban 2.5 MG Oral Tablet (Eliquis)Indicatio ns:Persistent atrial fibrillation (HCC) Take 1 Tablet by mouth in the morning and 1 Tablet before bedtime. 60 Tablet 5 3 Active Vitamin B-12 1000 MCG Sublingual Tablet Sublingual every 30 days. 0 3 Active amLODIPine Besylate 5 MG Oral Tablet (Norvasc)Indicatio ns:HTN, goal below 140/90 Take 1 Tablet by mouth in the morning. 30 Tablet 5 4 Active rOPINIRole HCl 0.5 MG Oral Tablet (Requip) TAKE 1 TABLET BY MOUTH ONCE DAILY AT BEDTIME 90 Tablet 1 4 Active Nitroglycerin 0.4 MG Sublingual Tablet Sublingual (Nitrostat) 1 Tablet. 0 4 Active Sennosides-Docusat e Sodium 8.6-50 MG Oral Tablet (Senokot-S) at bedtime. 0 4 Active Incruse Ellipta 62.5 MCG/ACT Inhalation Aerosol Powder Breath ActivatedIndicatio ns:COPD, group C, by GOLD 2017 classification ([facility]) Inhale 1 Puff by mouth every evening. 30 Each 2 4 11/21/19 24 Active Ipratropium-Albute rol 0.5-2.5 (3) MG/3ML Inhalation Solution (Duoneb) Inhale 3 mL via nebulizer every 6 hours as needed for Cough, Shortness of Breath or Wheezing. 360 mL 5 4 Active Mirtazapine 45 MG Oral Tablet (Remeron)Indicatio ns:Insomnia due to medical condition Take 1 Tablet by mouth at bedtime. 30 Tablet 5 4 Active HYDROcodone-Acetam inophen 10-325 MG Oral TabletIndications: Acute left-sided low back pain without sciatica,Cancer of upper lobe of right lung ([facility]) Take 1 Tablet by mouth every 4 hours as needed for Pain, Severe. 60 Tablet 0 4 Active Levothyroxine Sodium 112 MCG Oral Tablet (Levoxyl) TAKE 1 TABLET BY MOUTH ONCE DAILY AT LEAST 30 MINUTES PRIOR TO BREAKFAST AND OTHER MEDS 90 Tablet 1 4 Active Baclofen 10 MG Oral Tablet (Lioresal)Indicati ons:Acute left-sided low back pain without sciatica TAKE 1 TABLET BY MOUTH ONCE DAILY AT BEDTIME 30 Tablet 2 4 Active Baclofen 10 MG Oral Tablet (Lioresal)Indicati ons:Acute left-sided low back pain without sciatica Take 1 Tablet by mouth every night at bedtime. 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 Atherosclerosis of [place] ar erick of right lower extremity with intermittent claudication 10/23/2019 Hypothyroidism 03/28/2018 Hyponatremia 03/28/2018 Dyslipidemia, goal LDL below 70 03/28/2018 Edema of lower extremity 03/28/2018 Degeneration of lumbar intervertebral disc 03/28 Coronary artery disease invo lving [place] coronary artery of [place] heart without angina pectoris 03/28/2018 Benign prostatic [...] mRNA, LNP-s, No Pre serve, 2-Dose Series (Twitch) 05/05/2021,08/28/2020,08/07/2020 Covid-19, Mrna, Lnp-s, Pf, B ivalent, 30 Mcg, IM, 12 yrs and above (Twitch) 02/24/2022 Pneumococcal Conjugate Vacci ne, 20-valent ([id number]) 09/03/2023,12/09/2021(Deferred: Had Clinical Disease) Pneumococcal Polysaccharide PPV23 [...] encounter Miscellaneous Notes * Telephone Encounter - Pepe Starks MD - 09/29/2023 8:12 AM EDTSigned Prescriptions: Disp Refills Baclofen 10 MG Oral Tablet (Lioresal) 30 Tab*2 Sig: TAKE 1 TABLET BY MOUTH ONCE DAILY AT BEDTIME Authorizing Provider: PEPE STARKS * Telephone Encounter - Kelsey Wise LPN - 09/28/2023 8:10 AM EDTPending Prescriptions: Disp Refills Baclofen 10 MG Oral Tablet [Pharmacy Med N*30 Tab*2 Sig: TAKE 1 TABLET BY MOUTH ONCE DAILY AT BEDTIME * Telephone Encounter - Abhilash Desir - 09/28/2023 7:05 AM EDTPending Prescriptions: Disp Refills Baclofen 10 MG Oral Tablet [Pharmacy Med N*30 Tab*2 Sig: TAKE 1TABLET BY MOUTH ONCE DAILY AT BEDTIME documented in this encounter Plan of Treatment Upcoming Encounters Date Type Department Care Team ([facility] st Contact Info) Description 09/29/2023 9:00 AM EDT Immunization/Injecti on Ancillary [address] [phone] [place] Nurse [address] [address] 10/11/2023 8:40 AM EDT Laboratory Laboratory [address] [place] [address] [facility] [address] [place] [address] 10/11/2023 9:00 AM EDT Office Visit Hematology/Oncology [address] [place] [phone] Pearl Oviedo CRNP [address] [place] [phone] 10/11/2023 9:30 AM EDT Hem/Onc Treatment Hematology/Oncology Treatment, [place] 200 [facility], [place] [address] 12/20/2023 10:00 AM EDT Office Visit [facility] [address] [place] [phone] Pepe Starks MD [address] [place] [address] 12/23/2023 10:00 AM EDT Office Visit Pulmonary Medicine, [facility] [address] [place] [address] [...] 06/01/2024 06/01/2023, 02/06 CKD PHOS USE SMARTSET 36545 06/01/2024 06/01/2023, 0 03/04/2022 DISCUSS TOBACCO CESSATION (REFER TO SMARTSET #3291) 09/02/2024 09/03/2023 CKD HGB USE SMARTSET 19893 09/12/202409/12, 09/13/2023, 08/16/2023, Additional history exists TSH [...] Acute left-sided low back pain without sciatica documented in this encounter Advance Directives Latest Code Status on File Code Status Date Activated Date Inactivated Comments Full Code 05/13/2023 2:31 PM 05/18/2023 6:24 PM This order reflects the patients wishes and were consensually agreed upon. Question Answer Comments Discussion of Advance Directives occurred with: Patient Does the patient have a Living Will? No Does the patient have Health Care Power of Field Supervisor Seed Production? No Care Teams Camp Boss Relationship Specialty Start Date End Date Pepe Starks MD [address] [place] [address] PCP - General Family Medicine 11/07/21 documented as of this encounter
--- OUTSIDE RECORDS SUMMARY | 2023-10-26 09:52 | External Medical Summary | Summary of Care ---
Author Name Unknown Organization [facility] Address [address] [place] [address] Phone [phone] Care Team Providers Care Bed Spring Maker Name Role Phone Pepe Beck MD [facility] Reason for Visit * Reason Onset Date Comments Med Request 09/29/2023 Encounter Details Date Type Department Care Team (Late st Contact Info) Description 09/29/2023 Telephone Hematology/Oncology, [facility] [address] [place] [address] Pearl Oviedo CRNP [address] [place] [address] Med Request Allergies No known [...] 20 MG Oral Tablet (Demadex)Indication s:Atherosclerosis of [place] artery of right lower extremity with intermittent [...] Oral Tablet (Cozaar)Indications :Coronary artery disease involving [place] coronary artery of [place] heart without angina pectoris Take 0.5 Tablets [...] upper lobe of right lung ([facility]) Take 1 Tablet by mouth [...] inj 1,000 mcgIndications:B12 deficiency 1000 mcg IM [id number] 05/06/2023 04/06/2024 Active documented as of this [...] 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 Atherosclerosis of [place] ar erick of right lower extremity with intermittent claudication 10/23/2019 Hypothyroidism 03/28/2018 Hyponatremia 03/28/2018 Dyslipidemia, goal LDL below 70 03/28/2018 Edema of lower extremity 03/28/2018 Degeneration of lumbar intervertebral disc 03/28 Coronary artery disease invo lving [place] coronary artery of [place] heart without angina pectoris 03/28/2018 Benign prostatic [...] 30 Mcg, IM, 12 yrs and above ([employer]) 02/24/2022 Pneumococcal Conjugate Vacci ne, 20-valent ([id number]) 09/03/2023,12/09/2021(Deferred: Had Clinical Disease) Pneumococcal Polysaccharide PPV23 [...] Telephone Encounter - Keiko Garcia RN - 09/29/2023 10:43 AM EDT Called patient, he verbalized understanding of rx. * Telephone Encounter - Pearl Oviedo CRNP [...] Description 10/11/2023 8:40 AM EDT Laboratory Laboratory [facility] [address] [facility] [place] [phone] [facility] [address] [facility] [place] [address] 10/11/2023 9:00 AM EDT Office Visit Hematology/Oncology [facility] [address] [facility] [place] [phone] Pearl Oviedo CRNP [address] [facility] [place] [address] 10/11/2023 9:30 AM EDT Hem/Onc Treatment Hematology[facility]Oncology Treatment, [place] [address] [facility] [phone] 10/29/2023 10:00 AM EDT Nurse Only Ancillary [facility] [address] [place] [address] [facility] [address] [address] 12/20/2023 10:00 AM EDT Office Visit [facility] [address] [place] [address] Pepe Beck MD [address] [place] [address] 12/23/2023 10:00 AM EDT Office Visit Pulmonary Medicine, [facility] 132 [facility] [place] [address] Vu Tapia MD [address] [place] [phone] Health Maintenance Due Date Last Done Comments [...] 06/01/2024 06/01/2023, 02/06 CKD PHOS USE SMARTSET 03042 06/01/2024 06/01/2023, 0 03/04/2022 DISCUSS TOBACCO CESSATION (REFER TO SMARTSET #3291) 09/02/2024 09/03/2023 CKD HGB USE SMARTSET 80144 09/12/202409/12, 09/13/2023, 08/16/2023, Additional history exists TSH [...] the patient have Health Care Power of Hydraulic Jack Operator? No Care Teams Bed Spring Maker Relationship Specialty Start Date End Date Pepe Beck MD [facility] [place] [address] PCP - General Family Medicine 11/07/21 documented as of this encounter
--- OUTSIDE RECORDS SUMMARY | 2023-10-26 09:52 | External Medical Summary | Summary of Care ---
Author Name Unknown Organization [facility] Address [address] [place] [address] Phone [phone] Care Team Providers Care Typing Pool Supervisor Name Role Phone Pepe Beck MD Primary Care P samuelder Reason for Visit * Reason Comments Medication Administration Encounter Details Date Type Department Care Team ([facility] Contact Info) Description 09/29/2023 9:00 AM EDT Immunization/Inj ection Ancillary [address] [phone] [place], Nurse [facility] [address] [phone] Allergies No known active allergiesdocumented as of [...] 20 MG Oral Tablet (Demadex)Indications :Atherosclerosis of [place] artery of right lower extremity with intermittent [...] Oral Tablet (Cozaar)Indications: Coronary artery disease involving [place] coronary artery of [place] heart without angina pectoris Take 0.5 Tablets [...] C, by GOLD 2017 classification ([facility]) Inhale 1 Puff by mouth [...] Active HYDROcodone-Acetamin ophen 10-325 MG Oral TabletIndications:Ac [place] left-sided low back pain without sciatica,Cancer of [...] AT BEDTIME 30 Tablet 2 09/29/2023 Active Hospital, Clinic, or Other Facility Administered Medication Ordered Dose Route Frequency Start Date End Date Status vitamin b-12 (Cyanocobalamin) inj 1,000 mcgIndications:B12 deficiency 1000 mcg IM [id number] 05/06/2023 04/06/2024 Active documented as of this encounter (statuses as of 09/29/2023) Active Problems Problem Noted Date Diagnosed Date Moderate episode of recurrent major depressive d isorder 08/11/2023 Hypertensive kidney disease with stage 3a chronic kidney disease 08/11/2023 Pancytopenia 08/11/2023 Metastatic primary lung cancer 06/04/2023 Lumbar stenosis with neurogenic claudication Bradycardia 05/17/2023 PVC (premature ventricular contraction) 05/17/20 23 Metabolic encephalopathy 05/14/2023 Neutropenic fever 05/13/2023 Immunocompromised [...] 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 Atherosclerosis of [place] ar erick of right lower extremity with intermittent claudication 10/23/2019 Hypothyroidism 03/28/2018 Hyponatremia 03/28/2018 Dyslipidemia, goal LDL below 70 03/28/2018 Edema of lower extremity 03/28/2018 Degeneration of lumbar intervertebral disc 03/28 Coronary artery disease invo lving [place] coronary artery of [place] heart without angina pectoris 03/28/2018 Benign prostatic [...] mRNA, LNP-s, No Pre serve, 2-Dose Series ([employer]) 05/05/2021,08/28/2020,08/07/2020 Covid-19, Mrna, Lnp-s, Pf, B ivalent, 30 Mcg, IM, 12 yrs and above (Pfizer) 02/24/2022 Pneumococcal Conjugate Vacci ne, 20-valent ([id number]) 09/03/2023,12/09/2021(Deferred: Had Clinical Disease) Pneumococcal Polysaccharide PPV23 [...] shopping? (15 years old or older) No 12/07/20 23 Cognitive Status Response Date of Assessm ent Because of a physical, menta l, or emotional condition, do you have serious difficulty concentrating, remembering, or making decisions? (5 years old or older) No 05/13/2023 documented as of this encounter Nursing Notes * Eva Moran LPN - 09/29/2023 8:50 AM EDT The patient has been properly identified by confirmation of name and date of . B-12 Pre-Administration Time Out Procedure Performed: Yes Patient Identified (Ask Name/Date of ): Yes Does the patient have a fever greater than 101 degrees today? No Patient allergic to latex? No Has the patient ever fainted after receiving an injection? No VFC Stock: No Immunization(s) verified: Yes, Immunization Name: B-12 VIS Sheet(s) given: No Verified Side and Site: Yes Verified Shot(s) with Parent(s)/Patient: Yes documented in this encounter Plan of Treatment Upcoming Encounters Date Type Department Care Team ([facility] st Contact Info) Description 10/11/2023 8:40 AM EDT Laboratory Laboratory [address] [place] [phone] [address] [facility] [place] [address] 10/11/2023 9:00 AM EDT Office Visit Hematology/Oncology [facility] [address] [place] [phone] Pearl Oviedo CRNP [address] [facility] [place] [address] 10/11/2023 9:30 AM EDT Hem/Onc Treatment Hematology/Oncology [address] [place] [phone] 10/29/2023 10:00 AM EDT Nurse Only [address] [phone] [place], Nurse g [address] [address] 12/20/2023 10:00 AM EDT Office Visit [facility] [place] [phone] Pepe Beck MD [address] [place] [address] 12/23/2023 10:00 AM EDT Office Visit Pulmonary Medicine, [facility] [address] [place] [address] Vu Tapia MD [address] [place] [phone] Health Maintenance Due Date Last Done Comments [...] 06/01/2024 06/01/2023, 02/06 CKD PHOS USE SMARTSET 84334 06/01/2024 06/01/2023, 0 03/04/2022 DISCUSS TOBACCO CESSATION (REFER TO SMARTSET #3291) 09/02/2024 09/03/2023 CKD HGB USE SMARTSET 98536 09/12/202409/12, 09/13/2023, 08/16/2023, Additional history exists TSH [...] Not on filedocumented as of this encounter Administered Medications Active Administered Medications - up to 3 most recent administrations Medication Order MAR Action Action Date Dose Rate Site vitamin b-12 (Cyanocobalamin) inj 1,000 mcg 1,000 mcg, Intramuscular, [id number], First dose on [place] 05/06/23 at 1330, Last dose on [place] 03/09/24 at 1330, For 12 doses Given 09/29/2023 8:47 AM EDT 1,000 mcg Deltoid Right Upper Given 09/01/2023 9:02 AM EDT 1,000 mcg De ltoid Right Upper Given 08/02/2023 8:51 AM EST 1,000 mcg De ltoid Left Upper documented in this encounter Advance Directives Latest Code Status on File Code Status Date Activated Date Inactivated Comments Full Code 05/13/2023 2:31 PM 05/18/2023 6:24 PM This order reflects the patients wishes and were consensually agreed upon. Question Answer Comments Discussion of Advance Directives occurred with: Patient Does the patient have a Living Will? No Does the patient have Health Care Power of City Dispatch Supervisor? No Care Teams Typing Pool Supervisor Relationship Specialty Start Date End Date Pepe Beck MD [address] [place] [phone] PCP - General Family Medicine 11/07/21 documented as of this encounter
--- OUTSIDE RECORDS SUMMARY | 2023-10-26 09:53 | External Medical Summary | Summary of Care ---
Author Name Unknown Organization [facility] Address [address] [place] [address] Phone [phone] Care Team Providers Care Specialty Food Products Supervisor Name Role Phone Pepe Beck MD Primary Care P rovider Reason for Visit * Reason Onset Date Comments Order Request 09/23/2023 Encounter Details Date Type Department Care Team ([facility] Contact Info) Description 09/23/2023 Telephone Family Practice [address] [phone] Pepe Beck MD [address] [place] [phone] Order Request Allergies No known active allergiesdocumented as of this encounter (statuses as of 09/27/2023) Medications Medication Sig Dispensed Refills Start Date End Date Status Aspirin 81 MG Oral Tablet Delayed Release Take 1 Tablet by mouth every other day. 0 Active Albuterol Sulfate HFA 108 (90 Base) MCG/ACT Inhalation Aerosol Solution INHALE 2 PUFFS BY MOUTH EVERY 6 HOURS NEEDED 18 g 3 12/18/2021 Active Torsemide 20 MG Oral Tablet (Demadex)Indications :Atherosclerosis of [place] artery of right lower extremity with intermittent [...] Oral Tablet (Cozaar)Indications: Coronary artery disease involving [place] coronary artery of [place] heart without angina pectoris Take 0.5 Tablets by mouth in the morning. 0 06/04/2023 Active Apixaban 2.5 MG Oral Tablet (Eliquis)Indications :Persistent atrial fibrillation (HCC) Take 1 Tablet by mouth in the morning and 1 Tablet before bedtime. 60 Tablet 5 06/04/2023 Active Vitamin B-12 1000 MCG Sublingual Tablet Sublingual every 30 days. 0 03/11/2023 Act keely Baclofen 10 MG Oral Tablet (Lioresal)Indication s:Acute left-sided low back pain without sciatica Take 1 Tablet by mouth every night at bedtime. 30 Tablet 2 06/17/2023 Active amLODIPine Besylate 5 MG Oral Tablet (Norvasc)Indications [...] 2017 classification ([facility]) Inhale 1 Puff by mouth every evening. [...] Active HYDROcodone-Acetamin ophen 10-325 MG Oral TabletIndications:Ac [place] left-sided low back pain without sciatica,Cancer of upper lobe of right lung (HCC) Take 1 Tablet by mouth every 4 hours as needed for Pain, Severe. 60 Tablet 0 09/09/2023 Active Levothyroxine Sodium 112 MCG Oral Tablet (Levoxyl) TAKE 1 TABLET BY MOUTH ONCE DAILY AT LEAST 30 MINUTES PRIOR TO BREAKFAST AND OTHER MEDS 90 Tablet 1 09/13/2023 Active Hospital, Clinic, or Other Facility Administered Medication Ordered Dose Route Frequency Start Date End Date Status vitamin b-12 (Cyanocobalamin) inj 1,000 mcgIndications:B12 deficiency 1000 mcg IM [id number] 05/06/2023 04/06/2024 Active documented as of this encounter (statuses as of 09/27/2023) Active Problems Problem Noted Date Diagnosed Date [...] 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 Atherosclerosis of [place] ar erick of right lower extremity with intermittent claudication 10/23/2019 Hypothyroidism 03/28/2018 Hyponatremia 03/28/2018 Dyslipidemia, goal LDL below 70 03/28/2018 Edema of lower extremity 03/28/2018 Degeneration of lumbar intervertebral disc 03/28 Coronary artery disease invo lving [place] coronary artery of [place] heart without angina pectoris 03/28/2018 Benign prostatic hyperplasia 03/28/2018 Benign essential hypertension 03/28/2018 Carotid artery stenosis 03/28/2018 Osteoarthritis of ankle 03/29/2017 Peripheral vascular disease 11/03/2016 documented as of this encounter (statuses as of 09/27/2023) Resolved Problems Problem Noted Date Diagnosed Date Resolved Date EL (acute kidney injury) 05/17/2023 Lumbar radiculopathy 03/28/2018 023 Chronic obstructive pulmonary disease 03/28/2018 11/20/2021 Overview: Per COPD GOLD Classification documented as of this encounter (statuses as of 09/27/2023) Immunizations Name Administration Dates Next Due COVID-19 mRNA, LNP-s, No Pre serve, 2-Dose Series ([employer]) 05/05/2021,08/28/2020,08/07/2020 Covid-19, Mrna, Lnp-s, Pf, B ivalent, 30 Mcg, IM, 12 yrs and above (Pfizer) 02/24/2022 Pneumococcal Conjugate Vacci ne, 20-valent ([id number]) 09/03/2023,12/09/2021(Deferred: Had Clinical Disease) Pneumococcal Polysaccharide PPV23 [...] encounter Miscellaneous Notes * Telephone Encounter - Eva Moran LPN - 09/27/2023 12:46 PM EDT faxed * Telephone Encounter - Pepe Beck MD - 09/23/2023 8:17 PM EDT DME order generated. * Telephone Encounter - Eva Moran LPN - 09/23/2023 11:39 AM EDT [facility]-- Patient needs order for portable oxygen concentrator. Patient was in yesterday for oxygen qualifier test: O2 on room air at rest: 84% O2 on room air while ambulatin% O2 on oxygen while ambulatin% Also needed on order: Diagnosis Liter griselda Frequency N/C Length of need Physician signature and date. Please give to Molly as she has the other required information. Thanks. documented in this encounter Plan of Treatment Upcoming Encounters Date Type Department Care Team ([facility] st Contact Info) Description 09/29/2023 9:00 AM EDT Immunization/Injecti on Ancillary [facility] [place] [address] [place], [place] [address] [phone] [place] Nurse Rula [address] [phone] 10/11/2023 8:40 AM EDT Laboratory Laboratory Jamin Chung [place] [address] [facility] [place] [phone] Gaurav Chung [facility] [address] [facility] [place] [address] 10/11/2023 9:00 AM EDT Office Visit Hematology/Oncology [facility] [phone] Pearl Oviedo CRNP [address] [facility] [place] [address] 10/11/2023 9:30 AM EDT Hem/Onc Treatment Hematology/Oncology Treatment, [place] [address] [facility], [place] [phone] 12/20/2023 10:00 AM EDT Office Visit [facility] [address] [place] [address] Pepe Beck MD [address] [place] [address] 12/23/2023 10:00 AM EDT Office Visit Pulmonary Medicine, [facility] [address] [facility] [place] [address] Vu Tapia MD [address] [place] [phone] Health Maintenance Due Date Last Done Comments [...] 06/01/2024 06/01/2023, 02/06 CKD PHOS USE SMARTSET [id number] 06/01/2024 06/01/2023, 0 03/04/2022 DISCUSS TOBACCO CESSATION (REFER TO SMARTSET #3291) 09/02/2024 09/03/2023 CKD HGB USE SMARTSET 47024 09/12/202409/12, 09/13/2023, 08/16/2023, Additional history exists TSH [...] upper lobe of right lung (HCC)- Primary COPD, group C, by GOLD 2017 classification (HCC) Restrictive lung disease Other diseases of lung, not elsewhere classified documented in this encounter Advance Directives Latest Code Status on File Code Status Date Activated Date Inactivated Comments Full Code 05/13/2023 2:31 PM 05/18/2023 6:24 PM This order reflects the patients wishes and were consensually agreed upon. Question Answer Comments Discussion of Advance Directives occurred with: Patient Does the patient have a Living Will? No Does the patient have Health Care Power of Cargo Inspector? No Care Teams Specialty Food Products Supervisor Relationship Specialty Start Date End Date Pepe Beck MD [address] [place] [phone] PCP - General Family Medicine 11/07/21 documented as of this encounter
--- OUTSIDE RECORDS SUMMARY | 2023-10-26 09:53 | External Medical Summary | Summary of Care ---
Author Name Unknown Organization [facility] Address [address] [place] [address] Phone [phone] Care Team Providers Care Internal Medicine Specialist Name Role Phone Pepe Beck MD Primary Care P rovider Reason for Visit * Precert (Within 10 days (routine)) - Authorized Specialty Diagnoses / Procedures Referred By Contac t Referred To Contact Radiology Diagnoses Pleural effusion, not elsewhere classified Procedures ME THORACENTESIS NEEDLE/CATH PLEURA W/IMAGING Vu Tapia MD [address] [place] [address] Referral ID Status Reason Start Date Expiration Date V isits Requested Visits Authorized [id number] Authorized Precert 09/17/2023 06/12/2026 [id number] Encounter Details Date Type Department Care Team (Latest Contact Info) Description 09/20/2023 11:20 AM EDT - 09/20/2023 1:27 PM EDT Hospital En[facility] [address] [address] [place] [address] Yadiel Mccloud MD [address] [place] [address] Arrived Discharge Disposition: Home - Self Care Allergies No known active allergiesdocumented as of this encounter (statuses as of 09/21/2023) Medications Medication Sig Dispensed Refills Start Date End Date Status Aspirin 81 MG Oral Tablet Delayed Release Take 1 Tablet by mouth every other day. 0 Active Albuterol Sulfate HFA 108 (90 Base) MCG/ACT Inhalation Aerosol Solution INHALE 2 PUFFS BY MOUTH EVERY 6 HOURS NEEDED 18 g 3 12/18/2021 Active Torsemide 20 MG Oral Tablet (Demadex)Indications :Atherosclerosis of [place] artery of right lower extremity with intermittent [...] Oral Tablet (Cozaar)Indications: Coronary artery disease involving [place] coronary artery of [place] heart without angina pectoris Take 0.5 Tablets [...] :COPD, group C, by GOLD 2017 classification (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 10/23/2019 Hypothyroidism 03/28/2018 Hyponatremia 03/28/2018 Dyslipidemia, goal LDL below 70 03/28/2018 Edema of lower extremity 03/28/2018 Degeneration of lumbar intervertebral disc 03/28 Coronary artery disease invo lving [place] coronary artery of [place] heart without angina pectoris 03/28/2018 Benign prostatic hyperplasia 03/28/2018 Benign essential hypertension 03/28/2018 Carotid artery stenosis 03/28/2018 Osteoarthritis of ankle 03/29/2017 Peripheral vascular disease 11/03/2016 documented as of this encounter (statuses as of 09/21/2023) Resolved Problems Problem Noted Date Diagnosed Date Resolved Date EL (acute kidney injury) 05/17/2023 Lumbar radiculopathy 03/28/2018 023 Chronic obstructive pulmonary disease 03/28/2018 11/20/2021 Overview: Per COPD GOLD Classification documented as of this encounter (statuses as of 09/21/2023) Immunizations Name Administration Dates Next Due COVID-19 mRNA, LNP-s, No Pre serve, 2-Dose Series ([employer]) 05/05/2021,08/28/2020,08/07/2020 Covid-19, Mrna, Lnp-s, Pf, B ivalent, 30 Mcg, IM, 12 yrs and above ([employer]) 02/24/2022 Pneumococcal Conjugate Vacci ne, 20-valent ([id number]) 09/03/2023,12/09/2021(Deferred: Had Clinical Disease) Pneumococcal Polysaccharide PPV23 [...] Sign Reading Time Taken Comments Blood Pressure 146/122 09/20/2023 1:20 PM EDT Pulse 53 09/20/2023 1:20 PM EDT Temperature 35.5 C (95.9 F) 09/20/2023 1:20 PM ED T Respiratory Rate 16 09/20/2023 1:20 PM EDT Oxygen Saturation 100% 09/20/2023 1:20 PM EDT Inhaled Oxygen Concentration - - Weight - - Height - - Body Mass Index - - documented in this encounter Functional Status Functional [...] No 05/13/2023 documented as of this encounter Discharge Instructions * Discharge Instr - AVS* Rhiannon Gracia CRNP - 09/20/2023 1:19 PM EDT Discharge Date: 09/20/2023 Provider: Rhiannon MCADAMS If you are experiencing any problems related to your procedure, please contact Interventional Radiology at [phone] during normal business hours: Wednesday - Wednesday, 8:00 am - 4:00 pm. If a problem occurs outside of normal business hours, please call the hospital solder deposit operator at [phone] and ask for the Interventional Radiologist personal banker. Contact scheduling for Interventional Radiology at [phone] during normal business hours: Wednesday - Wednesday, 8:00 am - 4:00 pm. The information below provides you with the instructions and the list of medications you need to betaking following discharge from the hospital. If you have any questions, please ask before leaving.Please carry this letter with you when you see your doctor in the clinic. If you have questions, you can reach us at the numbers above. SPECIAL INSTRUCTIONS THORACENTESIS: Home Care Avoid strenuous activity for 24 to 48 hours after the procedure. Do not lift anything heavier than 10 pounds for 3 days after the procedure. Gradually increase your activity after 24 to 48 hours after the procedure. Keep the dressing clean and dry; change as needed. Dressing can be removed in 24 hours. You may shower after 24 hours. Gently wash the area and pat it dry. Please DO NOT take a bath, soak in a hot tub, or swim until the wound is completely healed. When to Call Interventional Radiology Call Interventional Radiology right away if you have any of the following: Fever above 100 degrees Fahrenheit Increased bleeding, redness, swelling, warmth, or discharge at the incision site. Constant or increasing pain, numbness, coldness, or tingling around the incision area. Vomiting or nausea that does not go away If at any time you feel you have a medical emergency, call 911 for emergency assistance. Symptoms may include: Chest Pain Sudden, severe shortness of breath Rapid heart rate Sudden onset of weakness See your referring physician for follow-up appointment. Do not smoke or use tobacco products in any way! If you feel suicidal or homicidal, please call the crisis hotline at [phone]-ZUMK ([phone]). Driving: You may resume driving immediately . Diet: You may resume your current diet as tolerated. Return to work or school: You may return to school or work 2 hours after the procedure, unless otherwise instructed by the physician. documented in this encounter Nursing Notes * Yolis Rollins RN - 09/20/2023 1:24 PM EDT DISCHARGE - POST INTERVENTIONAL RADIOLOGY PROCEDURE Patient meets discharge criteria for Interventional Radiology. Vital signs stable. Dressing clean, dry, and intact. Patient awake and oriented to pre procedure baseline. Discharge instructions given,no questions at this time. Patient tolerating liquids, with no nausea/vomiting. All belongings sentwith patient. Discharged to home. Vital Signs: BP: (!) 146/122 (09/20/23 1320) Temp: 35.5 C (95.9 F) (09/20/23 132) Pulse: 53 (09/20/23 132) Resp: 16 (09/20/23 132) SpO2: 100 % (09/20/23 132) Neurological: Jazmine Coma Scale Eyes Open: Spontaneous (09/20/23 132) Best Verbal Response: Verbally appropriate for age (09/20/23 132) Best Motor Response: Obeys commands appropriate for age (09/20/23 132) Coma Score: 15 (09/20/23 132) Activity: Four Extremities LOC: Fully Awake or Pre-Anesthetic Level of Consciousness BP: Less than (+/-) 20% Resp: Deep Breathe and Cough Freely (09/19 130) Respiratory: Pain Assessment Flowsheet Row Most Recent Value Pain Assessment Scale [facility] Adult Scale 0-10 Pain Score 0 (no pain) * Rhea Bloom RN - 09/20/2023 12:22 PM EDT trade analyst note Name: Manuel Yarbrough Procedure: Right Thoracentesis Patient ID band checked using two identifiers. Patient assisted into sitting position with comfort measures intact. Hemodynamic monitoring initiated. Patient denies any complaints at current time. RTstaff preparing patient for procedure. 12:36 PM Timeout performed by Rhiannon MCADAMS 12:38 PM Procedure started by Rhiannon MCADAMS and Jurgen Blanco, scrubbed RT. Ultrasound utilized for anatomical analysis of patient and access needle guidance. 1% buffered lidocaine being given at the right back. 12:39 PM Access obtained, attached to vacuum container. Imaging obtained. 12:46 PM Access removed and manual pressure to site. 12:47 PM Hemostasis obtained. Area cleaned. Xeroform, Gauze and Tegaderm dressing applied. 500 mL pleural fluid removed. Description: clear, yellow Specimens taken to Microbiology Lab and Cytology Lab. All wires, catheters, sheaths and other devices have been inspected prior to the procedure for damage. This has been confirmed by the scrubbed RT and the operating physician. All items not intended to remain in the patient have been inspected, accounted for and have been removed from the patient atthe end of the procedure. This has been confirmed by the scrubbed RT and the operating physician. Pt did not receive conscious sedation for their procedure. Total Medications 1% buffered lidocaine: 10 mL Please see doctor's operative note for additional details. documented in this encounter Miscellaneous Notes * Progress Notes - Non-Billable - Rhiannon Gracia CRNP - 09/20/2023 1:20 PM EDT PROCEDURE NOTE - Interventional Radiology [facility] [phone] Name: Manuel Yarbrough Location: RADIOLOGY WAITING ROOM/IR Date: 09/20/2023 Time: 1:20 PM PROCEDURE: US-guided paracentesis FIRE INVESTIGATION LIEUTENANT: Rhiannon MCADAMS ASSISTANTS: RT Reynaldo ANESTHESIA: local COMPLICATIONS: none SPECIMEN: fluid to laboratory ESTIMATED BLOOD LOSS: negligible FINDINGS: Successful US-guided right sided thoracentesis. Please see PACS imaging for details. documented in this encounter Plan of Treatment Upcoming Encounters Date Type Department Care Team (Late st Contact Info) Description 09/23/2023 10:20 AM EDT Office Visit Pulmonary Medicine, [facility] [address] [facility] [place] [id number] Vu Tapia MD [address] [facility] [place] [id number] 09/29/2023 9:00 AM EDT Immunization/Injecti on [address] [phone] [place], Nurse [address] [address] 10/11/2023 8:40 AM EDT Laboratory Laboratory [facility] [place] [address] [place] [phone] [place], Lab [facility] [address] [facility] [place] [address] 10/11/2023 9:00 AM EDT Office Visit Hematology/Oncology [facility] [place] [address] [facility] [place] [phone] Pearl Oviedo [facility] [place] [address] 10/11/2023 9:30 AM EDT Hem/Onc Treatment Hematology/Oncology [facility] [address] [facility] [phone] 12/20/2023 10:00 AM EDT Office Visit [address] [phone] Pepe Beck MD [address] [place] [phone] Pending Results Name Type Priority Associated Diagnoses Date /Time CYTOLOGY Pathology Routine 09/20/2023 12: 46 PM EDT Scheduled Orders Name Type Priority Associated Diagnoses Order Schedule CYTOLOGY Pathology Routine One Time for 1 Occurrences starting 09/20/2023 until 09/20/2023, 1 completed CYTOLOGY Pathology Routine One Time for 1 Occurrences starting 09/20/2023 until 09/20/2023 IR CHEST THORACENTESIS Medical Imaging Routine Pleural effusion on right 999 Occurrences starting 09/20/2023 until 10/19/2024 BODY FLUID INTERPRETATION Lab Routine 09/20/2023 until discontinued, 1 completed Health Maintenance Due Date Last Done Comments [...] 06/01/2024 06/01/2023, 02/06 CKD PHOS USE SMARTSET 53542 06/01/2024 06/01/2023, 0 03/04/2022 DISCUSS TOBACCO CESSATION (REFER TO SMARTSET #3291) 09/02/2024 09/03/2023 CKD HGB USE SMARTSET 34935 09/12/202409/12, 09/13/2023, 08/16/2023, Additional history exists TSH [...] Procedure Name Priority Date/Time Associated Diagnosis Comments BODY FLUID INTERPRETATION Routine 09/20/2023 12:24 PM EDT MANUAL DIFFERENTIAL, BODY FLUID Routine 09/20/2023 12:24 PM EDT ALBUMIN, BODY FLUID Routine 09/20/2023 1 2:24 PM EDT PROTEIN, BODY FLUID Routine 09/20/2023 1 2:24 PM EDT GLUCOSE, BODY FLUID Routine 09/20/2023 1 2:24 PM EDT LD, BODY FLUID Routine 09/20/2023 12:24 PM EDT CELL COUNT WITH DIFFERENTIAL, BODY FLUID Routine 09/20/2023 12:24 PM EDT CELL COUNT, BODY FLUID Routine 12:24 PM EDT documented in this encounter Results * BODY FLUID INTERPRETATION (09/20/2023 12:24 PM EDT) Body Fluid Interpretation Scant mixed WBC including vacuolated macrophages. Negative for obvious malignant cells. Correlate with cytology specimen. 09/20/2023 3:35 PM EDT [facility] Body Fluid Right pleural fluid / Unknown 09/20/2023 12:24 PM EDT 09/20/2023 1:25 PM EDT Vu Tapia MD LAB FLUID AND STOOL ORDERABLES [facility] [address] [place] [address] * (ABNORMAL) MANUAL DIFFERENTIAL, BODY FLUID (09/20/2023 12:24 PM EDT) Total Nucleated Cell Count, Fluid 506 cells/uL 09/20/2023 3:35 PM EDT [facility] Neutrophils % 12(H) 0 - 1 % 09/20/2023 3:35 PM EDT [facility] Lymphocytes % 58(H) 18 - 36 % 09/20/2023 3:35 PM EDT [facility] Monocytes % 27(L) 64 - 80 % 09/20/2023 3:35 PM EDT [facility] Eosinophils % 1 % 09/20/2023 3:35 PM EDT [facility] Basophils % 1 % 09/20/2023 3:35 PM EDT [facility] Lining Cells % 3(H) 0 - 2 % 09/20/2023 3:35 PM EDT [facility] Absolute Neutrophils 60.72 cells/uL 09/20/2023 3:35 PM EDT [facility] Absolute Lymphocytes 293.48 cells/uL 09/20/2023 3:35 PM EDT [facility] Absolute Monocytes 136.62 cells/uL 09/20/2023 3:35 PM EDT [facility] Absolute Eosinophils 5.06 cells/uL 09/20/2023 3:35 PM EDT [facility] Absolute Basophils 5.06 cells/uL 09/20/2023 3:35 PM EDT [facility] Absolute Lining Cells 15.18 cells/uL 09/20/2023 3:35 PM EDT [facility] Body Fluid Right pleural fluid / Unknown 09/20/2023 12:24 PM EDT 09/20/2023 1:25 PM EDT Narrative [facility] - 09/20/2023 3:35 PM EDT Some reference ranges and other method performance specifications have not been established for this fluid. The test results must be integrated into the clinical context for interpretation. Vu Tapia MD LAB FLUID AND STOOL ORDERABLES LABORATORY [facility] [address] [place] [address] * CELL COUNT, BODY FLUID (09/20/2023 12:24 PM EDT) Clarity, Fluid Clear Clear 09/20/2023 2:30 PM EDT [facility] Color, Fluid Yellow Straw, Yellow, Colorless 09/20/2023 2:30 PM EDT [facility] Total Nucleated Cell Count, Fluid 506 <3,800 cells/uL 09/20/2023 2:30 PM EDT [facility] RBC, Fluid 2,053 cells/uL 09/20/2023 2:30 PM EDT [facility] Body Fluid Right pleural fluid / Unknown 09/20/2023 12:24 PM EDT 09/20/2023 1:25 PM EDT Narrative [facility] - 09/20/2023 2:30 PM EDT Some reference ranges and other method performance specifications have not been established for this fluid. The test results must be integrated into the clinical context for interpretation. Vu Tapia MD LAB FLUID AND STOOL ORDERABLES Performing Organization Address [facility] Co de Phone Number [facility] [address] [place] [address] * GLUCOSE, BODY FLUID (09/20/2023 12:24 PM EDT) Glucose, Body Fluid 110 mg/dL 09/19 1:59 PM EDT LABORATORY [facility] Comment: The reference interval(s) and other method performance specifications may not be available for this body fluid. Comparison of this result with the concentration in the blood, serum, or plasma is recommended. The test result must be integrated into the clinical context for interpretation. Please refer to test catalog (https://www.[employer]/catalog/body_fluids.cfm) for additional interpretive information. This test was developed and its performance characteristics determined by [employer]. It has not been cleared or approved by the [place] Food and Drug Administration. Body Fluid Right pleural fluid / Unknown 09/20/2023 12:24 PM EDT 09/20/2023 1:25 PM EDT Vu Tapia MD LAB FLUID AND STOOL ORDERABLES Performing Organization Address [facility] de Phone Number [place] [address] [place] [address] * ALBUMIN, BODY FLUID (09/20/2023 12:24 PM EDT) Albumin, Body Fluid 2.0 g/dL 09/19 1:59 PM EDT LABORATORY [facility] Comment: The reference interval(s) and other method performance specifications may not be available for this body fluid. Comparison of this result with the concentration in the blood, serum, or plasma is recommended. The test result must be integrated into the clinical context for interpretation. Please refer to test catalog (https://www.[employer]/catalog/body_fluids.cfm) for additional interpretive information. This test was developed and its performance characteristics determined by [employer]. It has not been cleared or approved by the [place] Food and Drug Administration. Body Fluid Right pleural fluid / Unknown 09/20/2023 12:24 PM EDT 09/20/2023 1:25 PM EDT Vu Tapia MD LAB FLUID AND STOOL ORDERABLES Performing Organization Address [facility] de Phone Number [place] [address] [place] [address] * PROTEIN, BODY FLUID (09/20/2023 12:24 PM EDT) Protein, Body Fluid 2.7 g/dL 09/19 1:59 PM EDT LABORATORY [facility] Comment: The reference interval(s) and other method performance specifications may not be available for this body fluid. Comparison of this result with the concentration in the blood, serum, or plasma is recommended. The test result must be integrated into the clinical context for interpretation. Please refer to test catalog (https://www.[employer]/catalog/body_fluids.cfm) for additional interpretive information. This test was developed and its performance characteristics determined by [employer]. It has not been cleared or approved by the [place] Food and Drug Administration. Body Fluid Right pleural fluid / Unknown 09/20/2023 12:24 PM EDT 09/20/2023 1:25 PM EDT Vu Tapia MD LAB FLUID AND STOOL ORDERABLES Performing Organization Address [facility] de Phone Number LABORATORY [address] [address] * LD, BODY FLUID (09/20/2023 12:24 PM EDT) LD, Body Fluid 105 U/L 09/20/2023 1:59 PM EDT LABORATORY [facility] Comment: The reference interval(s) and other method performance specifications may not be available for this body fluid. Comparison of this result with the concentration in the blood, serum, or plasma is recommended. The test result must be integrated into the clinical context for interpretation. Please refer to test catalog (https://www.[employer]/catalog/body_fluids.cfm) for additional interpretive information. This test was developed and its performance characteristics determined by [employer]. It has not been cleared or approved by the [place] Food and Drug Administration. Body Fluid Right pleural fluid / Unknown 09/20/2023 12:24 PM EDT 09/20/2023 1:25 PM EDT Vu Tapia MD LAB FLUID AND STOOL ORDERABLES LABORATORY [facility] [address] [place] [address] documented in this encounter Visit Diagnoses Diagnosis Pleural effusion on right- Primary Unspecified pleural effusion documented in this encounter Administered Medications Inactive Administered Medications - up to 3 most recent administrations Medication Order MAR Action Action Date Dose Rate Site buffered lidocaine 1 % inj Intradermal, ONCE PRN INTRA PROCEDURE, Starting on Wed09/20/23 at 1238, Until Wed09/20/23 at 1238, Intra-Op Given 09/20/2023 12:38 PM EDT 10 mL documented in this encounter Active and Recently Administered Medications Times are shown in EDT. PRN Medication Order 09/18/2023 09/19/2023 09/20/2023 buffered lidocaine 1 % inj (COMPLETED) Intradermal, ONCE PRN INTRA PROCEDURE, Starting on Wed09/20/23 at 1238, Until Wed09/20/23 at 1238, Intra-Op 1238 (Given - Provid er: PEMA Mandujano - Comment: total administered during IR procedure) documented in this encounter Advance Directives Latest Code Status on File Code Status Date Activated Date Inactivated Comments Full Code 05/13/2023 2:31 PM 05/18/2023 6:24 PM This order reflects the patients wishes and were consensually agreed upon. Question Answer Comments Discussion of Advance Directives occurred with: Patient Does the patient have a Living Will? No Does the patient have Health Care Power of Performance Improvement Specialist? No Care Teams Internal Medicine Specialist Relationship Specialty Start Date End Date Pepe Beck MD [address] [place] [id number] PCP - General Family Medicine 11/07/21 documented as of this encounter
--- OUTSIDE RECORDS SUMMARY | 2023-10-26 09:53 | External Medical Summary | Summary of Care ---
Author Name Unknown Organization [facility] Address [address] [facility] [place] [address] Phone [phone] Care Team Providers Care Cutter First Name Role Phone Pepe Beck MD Primary Care P rovider Reason for Visit * Reason Comments Follow Up COPD Lung Ca Restrictive Lung Dis ease Encounter Details Date Type Department Care Team (Late st Contact Info) Description 09/23/2023 10:20 AM EDT Office Visit Pulmonary Medicine, [facility] [address] [facility] [place] [id number] Vu Tapia MD [address] [facility] [phone] Pleural effusion* Allergies No known active allergiesdocumented as of this encounter (statuses as of 09/23/2023) Medications Medication Sig Dispensed Refills Start Date End Date Status Aspirin 81 MG Oral Tablet Delayed Release Take 1 Tablet by mouth every other day. 0 Active Albuterol Sulfate HFA 108 (90 Base) MCG/ACT Inhalation Aerosol Solution INHALE 2 PUFFS BY MOUTH EVERY 6 HOURS NEEDED 18 g 3 12/18/2021 Active Torsemide 20 MG Oral Tablet (Demadex)Indications :Atherosclerosis of [place] artery of right lower extremity with intermittent [...] Oral Tablet (Cozaar)Indications: Coronary artery disease involving [place] coronary artery of [place] heart without angina pectoris Take 0.5 Tablets [...] C, by GOLD 2017 classification ([facility]) Inhale 1 Puff by mouth every [...] Active HYDROcodone-Acetamin ophen 10-325 MG Oral TabletIndications:Ac reno-sparks left-sided low back pain without sciatica,Cancer of [...] inj 1,000 mcgIndications:B12 deficiency 1000 mcg IM [id number] 05/06/2023 04/06/2024 Active documented as of this encounter (statuses as of 09/23/2023) Active Problems Problem Noted Date Diagnosed Date [...] 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 10/23/2019 Hypothyroidism 03/28/2018 Hyponatremia 03/28/2018 Dyslipidemia, goal LDL below 70 03/28/2018 Edema of lower extremity 03/28/2018 Degeneration of lumbar intervertebral disc 03/28 Coronary artery disease invo lving [place] coronary artery of [place] heart without angina pectoris 03/28/2018 Benign prostatic hyperplasia 03/28/2018 Benign essential hypertension 03/28/2018 Carotid artery stenosis 03/28/2018 Osteoarthritis of ankle 03/29/2017 Peripheral vascular disease 11/03/2016 documented as of this encounter (statuses as of 09/23/2023) Resolved Problems Problem Noted Date Diagnosed Date Resolved Date EL (acute kidney injury) 05/17/2023 Lumbar radiculopathy 03/28/2018 023 Chronic obstructive pulmonary disease 03/28/2018 11/20/2021 Overview: Per COPD GOLD Classification documented as of this encounter (statuses as of 09/23/2023) Immunizations Name Administration Dates Next Due COVID-19 mRNA, LNP-s, No Pre serve, 2-Dose Series (TWINLINX) 05/05/2021,08/28/2020,08/07/2020 Covid-19, Mrna, Lnp-s, Pf, B ivalent, 30 Mcg, IM, 12 yrs and above (TWINLINX) 02/24/2022 Pneumococcal Conjugate Vacci ne, 20-valent ([id number]) 09/03/2023,12/09/2021(Deferred: Had Clinical Disease) Pneumococcal Polysaccharide PPV23 [...] Sign Reading Time Taken Comments Blood Pressure 132/64 09/23/2023 10:06 AM EDT Pulse 68 09/23/2023 10:06 AM EDT Temperature 35.8 C (96.5 F) 09/23/2023 10:06 AM E DT Respiratory Rate 16 09/23/2023 10:06 AM EDT Oxygen Saturation 97% 09/23/2023 10:06 AM EDT Inhaled Oxygen Concentration - - Weight 62.1 kg (137 lb) 09/23/2023 10:06 AM EDT Height 170.2 cm (5' 7") 09/23/2023 10:06 AM EDT Body Mass Index 21.46 09/23/2023 10:06 AM EDT documented in this [...] as of this encounter Progress Notes * Vu Tapia MD - 09/23/2023 10:43 AM EDT 09/23/2023 Pulmonary Medicine, [address] [place] [address] [id number] Manuel Roberto Carlos Shepherd 1940 male 83 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 Since last evaluation, patient completed repeat IR thoracentesis at [facility] on September, 500 mL of straw-colored fluid removed. [facility] Patient describes stable respiratory status with episodic productive cough. Current bronchodilator regimen includes DuoNeb therapy. 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 Denies recent changes in weight or appetite. Physical examination significant for class 2 throat, coarse decreased breath sounds with dullness noted on right lung base along with scattered coarse wheezing on left lung without dullness, regular cardiac rhythm, 1+ pitting lower extremity edema and nonlateralizing Neuro examination. Chest x-ray and historical CT scans were reviewed. Slow recurrence of right pleural effusion is noted. Family requesting evaluation for local thoracentesis procedure. We would proceed with scheduling a 6 week reassessment at [facility] outpatient procedure center for potential repeat right thoracentesis under ultrasound guidance to be performed by pulmonary service. Patient will hold Eliquis 48 hours prior to scheduled procedure day. Decision to remove additional fluid/performed thoracentesis will be based on ultrasound findings on the day of evaluation. Current bronchodilator regimen will be continued. Role of PleurX catheter placement was discussed in case recurrence of pleural effusion is noted requiring multiple additional episodes of thoracentesis. Pulmonary clinic follow-up recommended in 3 months. Patient was advised to contact the office with any change in respiratory symptoms status. Assessment Hx of Ca lung RUL COPD Rt Pleural effusion, s/p RT THX at [facility] RUL scarring elevated Rt Dome of diaphragm Chemo/Immunotherapy sytatus Current BD RX: DuoNeb, Albuterol Apixaban Therapy status Plan: Repeat THX eval 11/04/23 at [facility] by Dr Regina Call Nov 02 2023 C/w current DuoNeb Rx F/u in office in 3 months Pleural effusion (Primary) - THORACENTESIS SP ONLY; Future; Expected date: 11/04/2023 Follow Up: Return in about 3 months (around 12/23/2023) for Clinic Visit. | For: Clinic Visit | Check-out note: Hx of Ca lung RUL COPD Rt Pleural effusion, s/p RT THX at [facility] RUL scarring elevated Rt Dome of diaphragm Chemo/Immunotherapy sytatus Current BD RX: DuoNeb, Albuterol Apixaban Therapy status Plan: Repeat THX eval 11/04/23 at [facility] by Dr Regina Call Nov 02 2023 C/w current DuoNeb Rx F/u in office in 3 months Vu Tapia MD Subjective CC: Chief Complaint Patient presents with Follow Up COPD Lung Ca Restrictive Lung Disease HPI: Nursing Notes: Lupe Palumbo LPN 09/23/23 1018 Sign at exiting of workspace Chief Complaint Patient presents with Follow Up COPD Lung Ca Restrictive Lung Disease Interm History/Respiratory Symptoms Cough: daily-productive white -brown Hemoptysis: not recently Sinus Symptoms: occ Hospitalizations: August 2023 ED Trips: August 2023 Triggers: pollen,exertion Nocturnal: coughing-recliner CPAP/BiPAP/O2: Occ O2 @ 2 lpm [facility] Cat Question 09/23/2023 10:12 AM EDT - Filed by Lupe Palumbo LPN When do you become breathless? (2) On level ground, I walk slower than people of the same age because of breathlessness or have to stop for breath when walking at my own pace How frequently do you cough? (5) - I cough all the time Do you have phlegm in your chest? (5) - My chest is completely full of phlegm Is your chest tight? (0) - My chest does not feel tight at all How breathless do you become when walking up a hill or steps? (5) - When I walk up a hill or one flight of stairs I am very breathless How limited are you doing activities at home? (5) - I am very limited doing activities at home How confident are you leaving home with your lung condition? (0) - I am confident leaving my home despite my condition How soundly do you sleep? (4) How much energy do you have? (3) Total MMRC Score (range: 0 - 4) 2 Total CAT Score (range: 0 - 40) 27 Objective Filed Vitals: 09/23/23 1006 BP: 132/64 Pulse: 68 Resp: 16 Temp: 35.8 C (96.5 F) TempSrc: Tympanic SpO2: 97% Weight: 62.1 kg (137 lb) Height: 1.702 m (5' 7") Exam: Const: No signs of acute distress present. Head/Face: Normal on inspection. Eyes: Conjunctivae clear. Pupils equal round and reactive to light. ENMT: Oropharynx: No erythema, exudate or masses. Posterior pharynx is normal. Neck: Supple and symmetric. Resp: Respiratory examination as outlined above CV: Rate is regular. Rhythm is regular. No heart murmur appreciated. Extremities: No edema of the lower limbs bilaterally. Skin: Skin is warm and dry. Neuro: Coordination normal. No involuntary movement. Psych: Patient's attitude is cooperative. Mood is normal. Affect is normal. Tests reviewed with the patient: IR CHEST THORACENTESIS Result Date: 09/21/2023 IMPRESSION: Successful ultrasound-guided right thoracentesis. PLAN: Fluid sent to lab for analysis.Final results pending. Follow-up as needed for repeat thoracentesis for symptom management. CT CHEST WO CONTRAST Result Date: 08/26/2023 IMPRESSION 1. Interval resolution of left pleural effusion and improved ground- glass changes in theleft lung when compared to 08/06/2023 CT. 2. No significant interval change in right hilar/perihilar mass. 3. Consolidative changes in the right upper and lower lobes, stable from 08/06/2023 and worsened from 05/13/2023 CT. This may be related to underlying infectious/inflammatory process. Attention recommended on follow-up. 4. A few stable tiny left lung nodules. CT CHEST W CONTRAST Addendum Date: 08/06/2023 Addendum:COMMENT: THIS REPORT CONTAINS FINDINGS THAT MAY BE CRITICAL TO PATIENT CARE. The exam findings were verbally communicated by me to Dr. Love via telephone conference at 3:41 PM EST on 08/06/2023. The findings were acknowledged and understood. THIS DOCUMENT HAS BEEN ELECTRONICALLY SIGNED BY ABEL GARCIA MD Result Date: 08/06/2023 IMPRESSION: 1. Interval developing large layering right pleural effusion and trace layering left pleural effusion. Consider diagnostic/therapeutic right thoracentesis if patient is dyspneic. 2. Worsening right upper lobe consolidation, consider lymphangitic spread. 3. Interval development patchy and somewhat consolidative right middle lobe and lower lobe infiltrates. Lesser geographic infiltratesleft upper lobe. Findings may be infectious, immunotherapy related pneumonitis, lymphangitic spreadof tumor, or combination. Atypical location for aspiration. 4. Multiple right paratracheal lymph nodes were previously not FDG-avid but are concerning for regional adenopathy. 5. The central tumor right hilar/suprahilar is difficult to assess due to the post obstructive consolidation but appears slightly smaller when compared with the previous, measuring approximately 2.6 x 3.2 cm on the current exam. 6. Right upper lobe pulmonary artery is narrowed by the right upper lobe and right suprahilar pathology. No acute pulmonary embolus at the level of the narrowing. Limited assessment distally. 7.Biatrial dilatation, slightly worsened compared with previous. Consider ECHO if there has been a change in cardiac function clinically. 8. Right lower lobe pulmonary nodule obscured by the interval de veloping pneumonitis. 9. Mild developing splenomegaly. 10. A critical call report is pending. COMMENTS: Consistent with the [employer]'s Incidental Findings Committee white paper (J Am Radha Radiol 2018): Any incidental renal lesion less than 1 cm or classified as too small to lázaro acterize, or any incidental cystic renal lesion characterized as simple- appearing, is likely benign. No follow-up imaging is recommended for these lesions per consensus recommendations based on imaging criteria. THIS DOCUMENT HAS BEEN ELECTRONICALLY SIGNED BY ABEL GARCIA MD XR CHEST 2 VIEWS Result Date: 08/03/2023 IMPRESSION: Increased right upper lobe masslike consolidation and new probable right sub pulmonic effusion (versus right hemidiaphragm elevation). US RENAL Result Date: 05/17/2023 IMPRESSION 1. Bilateral renal cysts. No hydronephrosis. 2. Infrarenal abdominal aortic aneurysm 3.1cm. MRI C SPINE W WO CONTRAST Result Date: 05/14/2023 IMPRESSION 1. No acute abnormality of the cervical spine detected by MRI without and with contrast.2. Chronic appearing degenerative disc and bony changes of the mid cervical spine with [id number] spinal stenosis and neural foraminal narrowing as described above. MRI BRAIN W WO CONTRAST Result Date: 05/14/2023 IMPRESSION 1. No acute intracranial abnormality detected. 2. There are scattered foci of T2 hyperintensity in the cerebral white matter bilaterally, without restricted diffusion, a non-specific finding. This pattern most commonly reflects chronic small vessel ischemic change (if the patient has appropriate risk factors). Otherwise, inflammatory, embolic, vasospastic and traumatic processes are also in the differential diagnosis. Cerebral volume loss is also noted. CT CHEST/ABDOMEN/PELVIS WITH IV CONTRAST WITHOUT ORAL CONTRAST Result Date: 05/13/2023 IMPRESSION Right hilar/upper lobe mass is smaller [...] exam. Stable right lower lobe pulmonary nodule. Other chronic and incidental findings as above. CT HEAD/BRAIN WO CONTRAST Result Date: 05/13/2023 IMPRESSION 1. No acute intracranial abnormality. MRI is more sensitive for detecting subtle findings. XR CHEST 1 VIEW Result Date: 05/13/2023 IMPRESSION: 1. Unchanged right hilar region adenopathy versus mass with improved residual right upper lobe postobstructive atelectasis/consolidation. 2. No active disease or other change. THIS DOCUMENT HAS BEEN ELECTRONICALLY SIGNED BY FLORIN BELL MD Available Radiologic data was reviewed by me in PACS. The images were shown to the patient and findings were discussed with the patient. HOME MEDICATIONS: Levothyroxine Sodium 112 MCG Oral Tablet (Levoxyl) HYDROcodone-Acetaminophen 10-325 MG Oral Tablet Mirtazapine 45 MG Oral Tablet (Remeron) Ipratropium-Albuterol 0.5-2.5 (3) MG/3ML Inhalation Solution (Duoneb) Incruse Ellipta 62.5 MCG/ACT Inhalation Aerosol Powder Breath Activated Nitroglycerin 0.4 MG Sublingual Tablet Sublingual (Nitrostat) Sennosides-Docusate Sodium 8.6-50 MG Oral Tablet (Senokot-S) rOPINIRole HCl 0.5 MG Oral Tablet (Requip) amLODIPine Besylate 5 MG Oral Tablet (Norvasc) Baclofen 10 MG Oral Tablet (Lioresal) Apixaban 2.5 MG Oral Tablet (Eliquis) Losartan Potassium 100 MG Oral Tablet (Cozaar) Vitamin B-12 1000 MCG Sublingual Tablet Sublingual Rosuvastatin Calcium 20 MG Oral Tablet (Crestor) Pantoprazole Sodium 40 MG Oral Tablet Delayed Release (Protonix) dexAMETHasone 4 MG Oral Tablet (Decadron) Tamsulosin HCl 0.4 MG Oral Capsule (Flomax) Ondansetron HCl 8 MG Oral Tablet (Zofran) Prochlorperazine Maleate 10 MG Oral Tablet (Compazine) Dutasteride 0.5 MG Oral Capsule (Avodart) Torsemide 20 MG Oral Tablet (Demadex) Albuterol Sulfate HFA 108 (90 Base) MCG/ACT Inhalation Aerosol Solution Aspirin 81 MG Oral Tablet Delayed Release vitamin b-12 (Cyanocobalamin) inj 1,000 mcg ROS: No reported history of Hemoptysis, Hematemesis, Melena No reported history of Dysuria, Hematuria, Flank Pain No reported history of chronic headache, seizures No reported history of Fall or trauma . No reported history of recent change in weight or appetite. No past medical history on file. Past Surgical History: Procedure Laterality Date BRONCHOSCOPY, DIAGNOSTIC N/A 02/10/2023 BRONCHOSCOPY DIAGNOSTIC WITH OR WITHOUT WASHING performed by Madyson Alcala MD at ENDOSCOPY [facility] Social History Socioeconomic History Marital status: Tobacco Use Smoking status: Every Day Current packs/day: 1.00 Average packs/day: 1 pack/day for 37.3 years (37.3 ttl pk-yrs) Types: Cigarettes Start date: 06/07/1986 Smokeless tobacco: Never Vaping Use Vaping Use: Never used Substance and Sexual Activity Alcohol use: Never Drug use: Never Family History Problem Relation Age of Onset Heart failure Brother Review of patient's allergies indicates: No Known Allergies documented in this encounter Nursing Notes * Lupe Palumbo LPN - 09/23/2023 10:12 AM EDT Chief Complaint Patient presents with Follow Up COPD Lung Ca Restrictive Lung Disease Interm History/Respiratory Symptoms Cough: daily-productive white -brown Hemoptysis: not recently Sinus Symptoms: occ Hospitalizations: August 2023 ED Trips: August 2023 Triggers: pollen,exertion Nocturnal: coughing-recliner CPAP/BiPAP/O2: Occ O2 @ 2 lpm [facility] Cat Question 09/23/2023 10:12 AM EDT - Filed by Lupe Palumbo LPN When do you become breathless? (2) On level ground, I walk slower than people of the same age because of breathlessness or have to stop for breath when walking at my own pace How frequently do you cough? (5) - I cough all the time Do you have phlegm in your chest? (5) - My chest is completely full of phlegm Is your chest tight? (0) - My chest does not feel tight at all How breathless do you become when walking up a hill or steps? (5) - When I walk up a hill or one flight of stairs I am very breathless How limited are you doing activities at home? (5) - I am very limited doing activities at home How confident are you leaving home with your lung condition? (0) - I am confident leaving my home despite my condition How soundly do you sleep? (4) How much energy do you have? (3) Total MMRC Score (range: 0 - 4) 2 Total CAT Score (range: 0 - 40) 27 documented in this encounter Plan of Treatment Upcoming Encounters Date Type Department Care Team ([facility] Contact Info) Description 09/29/2023 9:00 AM EDT Immunization/Injecti on [address] [phone] [place], Nurse [address] [address] 10/11/2023 8:40 AM EDT Laboratory Laboratory [facility] [address] [facility] [place] [phone] [place] [address] 10/11/2023 9:00 AM EDT Office Visit Hematology/Oncology [facility] [address] [place] [phone] Abel Oviedo CRNP [address] [place] [address] [place] [id number] 10/11/2023 9:30 AM EDT Hem/Onc Treatment Hematology/Oncology Treatment, [place] [facility] [phone] 12/20/2023 10:00 AM EDT Office Visit [address] [phone] Pepe Beck MD [address] [place] [id number] 12/23/2023 10:00 AM EDT Office Visit Pulmonary Medicine, [facility] [address] [facility] [place] [address] Vu Tapia MD [address] [place] [id number] Scheduled Orders Name Type Priority Associated Diagnoses Orde r Schedule THORACENTESIS SP ONLY Procedures Routine Pleural effusion Expected: 11/04/2023, Expires: 10/22/2024 Health Maintenance Due Date Last Done Comments [...] 06/01/2024 06/01/2023, 02/06 CKD PHOS USE SMARTSET 33795 06/01/2024 06/01/2023, 0 03/04/2022 DISCUSS TOBACCO CESSATION (REFER TO SMARTSET #[id number]) 09/02/2024 09/03/2023 CKD HGB USE SMARTSET 16297 09/12/202409/12, 09/13/2023, 08/16/2023, Additional history exists TSH [...] as of this encounter Visit Diagnoses Diagnosis Pleural effusion- Primary Unspecified pleural effusion documented in this encounter Advance Directives Latest Code Status on File Code Status Date Activated Date Inactivated Comments Full Code 05/13/2023 2:31 PM 05/18/2023 6:24 PM This order reflects the patients wishes and were consensually agreed upon. Question Answer Comments Discussion of Advance Directives occurred with: Patient Does the patient have a Living Will? No Does the patient have Health Care Power of Pipe Stripper? No Care Teams Cutter First Relationship Specialty Start Date End Date Pepe Beck MD [address] [place] [phone] PCP - General Family Medicine 11/07/21 documented as of this encounter
--- OUTSIDE RECORDS SUMMARY | 2023-10-26 09:53 | External Medical Summary | Summary of Care ---
Author Name Unknown Organization [facility] Address [address] [place] [address] Phone [phone] Care Team Providers Care Tire Cord Weaver Name Role Phone Pepe Beck MD Primary Care P rovider Reason for Visit * Reason Onset Date Comments Order Request 09/16/2023 Encounter Details Date Type Department Care Team ([facility] Contact Info) Description 09/16/2023 Telephone Family Practice [address] [address] Pepe Beck MD [address] [place] [id number] Order Request Allergies No known active allergiesdocumented as of this encounter (statuses as of 09/22/2023) Medications Medication Sig Dispensed Refills Start Date End Date Status Aspirin 81 MG Oral Tablet Delayed Release Take 1 Tablet by mouth every other day. 0 Active Albuterol Sulfate HFA 108 (90 Base) MCG/ACT Inhalation Aerosol Solution INHALE 2 PUFFS BY MOUTH EVERY 6 HOURS NEEDED 18 g 3 12/18/2021 Active Torsemide 20 MG Oral Tablet (Demadex)Indications :Atherosclerosis of [place] artery of right lower extremity with intermittent [...] Oral Tablet (Cozaar)Indications: Coronary artery disease involving [place] coronary artery of [place] heart without angina pectoris Take 0.5 Tablets [...] C, by GOLD 2017 classification ([facility]) Inhale 1 Puff by mouth [...] Active HYDROcodone-Acetamin ophen 10-325 MG Oral TabletIndications:Ac [place] left-sided low back pain without sciatica,Cancer of [...] inj 1,000 mcgIndications:B12 deficiency 1000 mcg IM [id number] 05/06/2023 04/06/2024 Active documented as of this encounter (statuses as of 09/22/2023) Active Problems Problem Noted Date Diagnosed Date [...] 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 10/23/2019 Hypothyroidism 03/28/2018 Hyponatremia 03/28/2018 Dyslipidemia, goal LDL below 70 03/28/2018 Edema of lower extremity 03/28/2018 Degeneration of lumbar intervertebral disc 03/28 Coronary artery disease invo lving [place] coronary artery of [place] heart without angina pectoris 03/28/2018 Benign prostatic hyperplasia 03/28/2018 Benign essential hypertension 03/28/2018 Carotid artery stenosis 03/28/2018 Osteoarthritis of ankle 03/29/2017 Peripheral vascular disease 11/03/2016 documented as of this encounter (statuses as of 09/22/2023) Resolved Problems Problem Noted Date Diagnosed Date Resolved Date EL (acute kidney injury) 05/17/2023 Lumbar radiculopathy 03/28/2018 023 Chronic obstructive pulmonary disease 03/28/2018 11/20/2021 Overview: Per COPD GOLD Classification documented as of this encounter (statuses as of 09/22/2023) Immunizations Name Administration Dates Next Due COVID-19 mRNA, LNP-s, No Pre serve, 2-Dose Series ([employer]) 05/05/2021,08/28/2020,08/07/2020 Covid-19, Mrna, Lnp-s, Pf, B ivalent, 30 Mcg, IM, 12 yrs and above (Pfizer) 02/24/2022 Pneumococcal Conjugate Vacci ne, 20-valent ([id number]) 09/03/2023,12/09/2021(Deferred: Had Clinical Disease) Pneumococcal Polysaccharide PPV23 [...] encounter Miscellaneous Notes * Telephone Encounter - Connie Nick OSA - 09/22/2023 12:33 PM EDT [employer] says date of test needs to be filled in on form. Please correct and fax back * Telephone Encounter - Eva Moran LPN - 09/17/2023 7:44 AM EDT Faxed to [employer]. * Telephone Encounter - Pepe Beck MD - 09/16/2023 8:22 PM EDT DME order for portable oxygen generated. * Telephone Encounter - Deysi Aponte MED ASSIST - 09/16/2023 5:25 PM EDT Patient is in need of portable oxygen. He has large oxygen tank at home that was ordered at his last hospital admission to [facility] in August. Breathing is becoming worse and would like oxygen canister so he is able to leave the house. Please see scanned discharge summary from 08/10/2023. Oxygen that patient has at home came from [employer]. Thanks. documented in this encounter Plan of Treatment Upcoming Encounters Date Type Department Care Team (Late st Contact Info) Description 09/23/2023 10:20 AM EDT Office Visit Pulmonary Medicine, [address] [place] [address] Vu Tapia MD [address] [place] [address] 09/29/2023 9:00 AM EDT Immunization/Injecti on [facility] [address] [place] [address] [place], Nurse Gmg [address] [address] 10/11/2023 8:40 AM EDT Laboratory Laboratory [facility] [address] [place] [address] [place] [address] 10/11/2023 9:00 AM EDT Office Visit Hematology/Oncology [facility] [address] [facility] [address] Pearl Oviedo CRNP [address] [place] [address] 10/11/2023 9:30 AM EDT [facility] [address] [place] [place] [address] 12/20/2023 10:00 AM EDT Office Visit [address] [address] Pepe Beck MD [address] [place] [phone] Health Maintenance Due Date Last Done Comments [...] 06/01/2024 06/01/2023, 02/06 CKD PHOS USE SMARTSET 10911 06/01/2024 06/01/2023, 0 03/04/2022 DISCUSS TOBACCO CESSATION (REFER TO SMARTSET #3291) 09/02/2024 09/03/2023 CKD HGB USE SMARTSET 22833 09/12/202409/12, 09/13/2023, 08/16/2023, Additional history exists TSH [...] as of this encounter Visit Diagnoses Diagnosis COPD, group C, by GOLD 2017 classification (HCC)- Primary Cancer of upper lobe of right lung (HCC) Hypoxia Hypoxemia documented in this encounter Advance Directives Latest Code Status on File Code Status Date Activated Date Inactivated Comments Full Code 05/13/2023 2:31 PM 05/18/2023 6:24 PM This order reflects the patients wishes and were consensually agreed upon. Question Answer Comments Discussion of Advance Directives occurred with: Patient Does the patient have a Living Will? No Does the patient have Health Care Power of Heel Washer Stringing Machine Operator? No Care Teams Tire Cord Weaver Relationship Specialty Start Date End Date Pepe Beck MD [address] [place] [phone] PCP - General Family Medicine 11/07/21 documented as of this encounter
--- OUTSIDE RECORDS SUMMARY | 2023-10-26 09:53 | External Medical Summary | Summary of Care ---
Author Name Unknown Organization [facility] Address [address] [place] [address] Phone [phone] Care Team Providers Care Soil Field Technician Name Role Phone Pepe Beck MD Primary Care P rovider Reason for Visit * Reason Comments Other Oxygen Qualifier Rosana t Encounter Details Date Type Department Care Team ([facility] Contact Info) Description 09/22/2023 11:20 AM EDT Nurse Only Ancillary [address] [address] [place], Nurse Gmg [address] [address] Other (Oxygen Qualifier Test ) Allergies No known active allergiesdocumented as of [...] 20 MG Oral Tablet (Demadex)Indications :Atherosclerosis of [place] artery of right lower extremity with intermittent [...] Oral Tablet (Cozaar)Indications: Coronary artery disease involving [place] coronary artery of [place] heart without angina pectoris Take 0.5 Tablets [...] :COPD, group C, by GOLD 2017 classification (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 10/23/2019 Hypothyroidism 03/28/2018 Hyponatremia 03/28/2018 Dyslipidemia, goal LDL below 70 03/28/2018 Edema of lower extremity 03/28/2018 Degeneration of lumbar intervertebral disc 03/28 Coronary artery disease invo lving [place] coronary artery of [place] heart without angina pectoris 03/28/2018 Benign prostatic [...] mRNA, LNP-s, No Pre serve, 2-Dose Series ([employer]) 05/05/2021,08/28/2020,08/07/2020 Covid-19, Mrna, Lnp-s, Pf, B ivalent, 30 Mcg, IM, 12 yrs and above ([employer]) 02/24/2022 Pneumococcal Conjugate Vacci ne, 20-valent ([id number]) 09/03/2023,12/09/2021(Deferred: Had Clinical Disease) Pneumococcal Polysaccharide PPV23 [...] as of this encounter Nursing Notes * Ramon Renee LPN - 09/22/2023 11:17 AM EDT The patient has been properly identified by confirmation of name and date of . Chief Complaint Patient presents with Other Oxygen Qualifier Test SaO2 on room air at rest = 84% SaO2 on room air while ambulating = 86 Sao2 on oxygen air while ambulating= 96 at 2LPM. Form completed and faxed to [facility]. documented in this encounter Plan of Treatment Upcoming Encounters Date Type Department Care Team ([facility] st Contact Info) Description 09/23/2023 10:20 AM EDT Office Visit Pulmonary Medicine, [facility] [address] [facility] [place] [address] Vu Tapia MD [address] [facility] [address] 09/29/2023 9:00 AM EDT Immunization/Injecti on [address] [phone] [place], Nurse [address] [address] 10/11/2023 8:40 AM EDT Laboratory Laboratory [facility] [place] [address] [place] [address] [phone] Gaurav Chung [address] [place] [address] [address] 10/11/2023 9:00 AM EDT Office Visit Hematology/Oncology [facility] [place] [address] [phone] Pearl Oviedo CRNP [address] [facility] [place] [address] 10/11/2023 9:30 AM EDT Hem/Onc Treatment Hematology/Oncology Treatment, [place] [address] [place] [phone] 12/20/2023 10:00 AM EDT Office Visit [facility] [address] [facility] [place] [address] Pepe Beck MD [address] [place] [address] Health Maintenance Due Date Last Done Comments [...] 06/01/2024 06/01/2023, 02/06 CKD PHOS USE SMARTSET 89015 06/01/2024 06/01/2023, 0 03/04/2022 DISCUSS TOBACCO CESSATION (REFER TO SMARTSET #3291) 09/02/2024 09/03/2023 CKD HGB USE SMARTSET 60885 09/12/202409/12, 09/13/2023, 08/16/2023, Additional history exists TSH [...] the patient have Health Care Power of Block Placer? No Care Teams Soil Field Technician Relationship Specialty Start Date End Date Pepe Beck MD [address] [place] [address] PCP - General Family Medicine 11/07/21 documented as of this encounter
--- OUTSIDE RECORDS SUMMARY | 2023-10-26 09:54 | External Medical Summary ---
Author Name Unknown Address Unknown Organization K01:[facility] [place] [address] [facility] [address] Laboratory Report Ordering Provider Test Date Status IRMA CORLEY 09/20/2023 12:24:00 Final Some reference ranges and ot her method performance specifications have not been established for this fluid. The test results must be integrated into the clinical context for interpretation. Observation Date Value Abnormality Reference (Units ) Status SYNC TOTAL NUCLEATED CELLS FLUID 09/20/2023 12:24:00 506 (cells/uL) Final Neutrophils/100 leukocytes in Body fluid by Manual count 09/20/2023 12:24:00 12 Above high normal 0-1 (%) Final Lymphocytes, Body Fluid 09/20/2023 12:24:00 58 Above high normal 18-36 (%) Final Monocytes/100 leukocytes in Body fluid by Manual count 09/20/2023 12:24:00 27 Below low normal 64-80 (%) Final Eosinophils/100 leukocytes in Body fluid by Manual count 09/20/2023 12:24:00 1 (%) Final Basos, Body Fluid 09/20/2023 12:24:00 1 (%) Final LINING CELLS/100 NUCLEATED CELLS IN BODY FLUID 09/20/2023 12:24:00 3 Above high normal 0-2 (%) Final SEGMENTED NEUTROPHILS (1000/UG) IN BODY FLUID ABS 09/20/2023 12:24:00 60.72 (cells/uL) Final LYMPHOCYTES (1000/UG) IN BODY FLUID ABS 09/20/2023 12:24:00 293.48 (cells/uL) Final MONOCYTES(1000/UG) IN BODY FLUID ABS 09/20/2023 12:24:00 136.62 (cells/uL) Final EOSINOPHILS (1000/UG) IN BODY FLUID ABS 09/20/2023 12:24:00 5.06 (cells/uL) Final BASOPHILS (1000/UG) IN BODY FLUID ABS 09/20/2023 12:24:00 5.06 (cells/uL) Final LINING CELLS IN BODY FLUID ABS 09/20/2023 12:24:00 15.18 (cells/uL) Final Performing Location [facility] [place] [address] [facility] [address]
--- OUTSIDE RECORDS SUMMARY | 2023-10-26 09:54 | External Medical Summary | Summary of Care ---
Author Name Unknown Organization [facility] Address [address] [place] [address] Phone [phone] Care Team Providers Care Parts Specialist Name Role Phone Pepe Beck MD Primary Care P rovider Encounter Details Date Type Department Care Team (Late st Contact Info) Description 09/15/2023 Telephone Hematology/Oncology [facility] 200 [facility] [place] [address] Pearl Oviedo CRNP [address] [place] [address] Allergies No known active allergiesdocumented as of this encounter (statuses as of 09/15/2023) Medications Medication Sig Dispensed Refills Start Date End Date Status Aspirin 81 MG Oral Tablet Delayed Release Take 1 Tablet by mouth every other day. 0 Active Albuterol Sulfate HFA 108 (90 Base) MCG/ACT Inhalation Aerosol Solution INHALE 2 PUFFS BY MOUTH EVERY 6 HOURS NEEDED 18 g 3 12/18/2021 Active Torsemide 20 MG Oral Tablet (Demadex)Indications :Atherosclerosis of [place] artery of right lower extremity with intermittent [...] Oral Tablet (Cozaar)Indications: Coronary artery disease involving [place] coronary artery of [place] heart without angina pectoris Take 0.5 Tablets [...] inj 1,000 mcgIndications:B12 deficiency 1000 mcg IM [id number] 05/06/2023 04/06/2024 Active documented as of this encounter (statuses as of 09/15/2023) Active Problems Problem Noted Date Diagnosed Date [...] 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 10/23/2019 Hypothyroidism 03/28/2018 Hyponatremia 03/28/2018 Dyslipidemia, goal LDL below 70 03/28/2018 Edema of lower extremity 03/28/2018 Degeneration of lumbar intervertebral disc 03/28 Coronary artery disease invo lving [place] coronary artery of [place] heart without angina pectoris 03/28/2018 Benign prostatic hyperplasia 03/28/2018 Benign essential hypertension 03/28/2018 Carotid artery stenosis 03/28/2018 Osteoarthritis of ankle 03/29/2017 Peripheral vascular disease 11/03/2016 documented as of this encounter (statuses as of 09/15/2023) Resolved Problems Problem Noted Date Diagnosed Date Resolved Date EL (acute kidney injury) 05/17/2023 Lumbar radiculopathy 03/28/2018 023 Chronic obstructive pulmonary disease 03/28/2018 11/20/2021 Overview: Per COPD GOLD Classification documented as of this encounter (statuses as of 09/15/2023) Immunizations Name Administration Dates Next Due COVID-19 mRNA, LNP-s, No Pre serve, 2-Dose Series ([employer]) 05/05/2021,08/28/2020,08/07/2020 Covid-19, Mrna, Lnp-s, Pf, B ivalent, 30 Mcg, IM, 12 yrs and above (Pfizer) 02/24/2022 Pneumococcal Conjugate Vacci ne, 20-valent ([id number]) 09/03/2023,12/09/2021(Deferred: Had Clinical Disease) Pneumococcal Polysaccharide PPV23 [...] Miscellaneous Notes * Telephone Encounter - Cielo Archer OSA - 09/15/2023 3:17 PM EDT Good Afternoon, The pulmonary receptionist secretary left me know she reached out to you guys about doing this patients carey [place]. Patient is not yet scheduled. Can you please tell me how we go about getting this done for the patient. Thank you * Telephone Encounter - Pearl Oviedo CRNP - 09/15/2023 1:29 PM EDT Met with patient in office yesterday prior to immunotherapy treatment. Patient is concerned as he has not yet been contacted to schedule IR thoracentesis recommended per pulmonary office note on 08/26/23. Please reach out to patient to follow up and assist with scheduling. Thank you! documented in this encounter Plan of Treatment Upcoming Encounters Date Type Department Care Team (Late st Contact Info) Description 09/23/2023 10:20 AM EDT Office Visit Pulmonary Medicine, [facility] [address] [facility] [place] [address] Vu Tapia MD [facility] [address] 09/29/2023 9:00 AM EDT Immunization/Injecti on [facility], [address] [phone] [place], Nurse [address] [address] 10/11/2023 8:40 AM EDT Laboratory Laboratory [facility] [address] [facility] [place] [phone] Gaurav Chung [facility] [address] [facility] [place] [address] 10/11/2023 9:00 AM EDT Office Visit Hematology/Oncology [facility] 200 [facility] [place] [phone] Pearl Oviedo CRNP [address] [facility] [address] 10/11/2023 9:30 AM EDT Hem/Onc Treatment Hematology/Oncology [facility] 200 [facility] [place] [phone] 12/20/2023 10:00 AM EDT Office Visit [address] [address] Pepe Beck MD [address] [place] [address] Health Maintenance Due Date Last Done Comments DTaP,Tdap,and Td Vaccines (1 - Tdap) 08/08/1959 Zoster Vaccines (1 of 2) 08/08/1959 *ADVANCE DIRECTIVE NOT ON FILE 03/13/2022 COVID-19 Vaccine (2022- season) 2023 02/24/2022, 05/05/2021, 08/28/2020, Additional history exists O2 ASSESSMENT COMPLETED IN PAST YEAR FOR COPD 02/11/2024 02/10/2023 GFR 03/14/2024 09/13/2023, 08/05, 08/04/2023, Additional history exists Albumin/Creatinine Ratio 06/01/2024 06/01/2023, 02/06 CKD PHOS USE SMARTSET 40711 06/01/2024 06/01/2023, 0 03/04/2022 DISCUSS TOBACCO CESSATION (REFER TO SMARTSET #9581) 09/02/2024 09/03/2023 CKD HGB USE SMARTSET 64552 09/12/202409/12, 09/13/2023, 08/16/2023, Additional history exists TSH [...] the patient have Health Care Power of Bicycle Inspector? No Care Teams Parts Specialist Relationship Specialty Start Date End Date Pepe Beck MD [address] [place] [phone] PCP - General Family Medicine 11/07/21 documented as of this encounter
--- OUTSIDE RECORDS SUMMARY | 2023-10-26 09:54 | External Medical Summary ---
Author Name Unknown Address Unknown Organization K01:LABORATORY [place] [address] [facility] [address] Laboratory Report Ordering Provider Test Date Status IRMA CORLEY 09/20/2023 12:24:00 Final Observation Date Value Abnormality Reference (Units ) Status Lactate dehydrogenase [Enzymatic activity/volume] in Body fluid by Lactate to pyruvate reaction 09/20/2023 12:24:00 105 (U/L) Final The reference interval(s) an d other method performance specifications may not be available for this body fluid. Comparison of this result with the concentration in the blood, serum, or plasma is recommended. The test result must be integrated into the clinical context for interpretation.

Please refer to test catalog ([email or web address]/body_[email or web address]) for additional interpretive information.

This test was developed and its performance characteristics determined by [employer] It has not been cleared or approved by the US Food and Drug Administration. Performing Location [facility] [place] [facility] [address] [facility] [address]
--- OUTSIDE RECORDS SUMMARY | 2023-10-26 09:54 | External Medical Summary ---
Author Name Unknown Address Unknown Organization K01:[facility] [place] [facility] [address] [facility] [address] [facility] [address] Laboratory Report Ordering Provider Test Date Status IRMA CORLEY 09/20/2023 12:24:00 Final Observation Date Value Abnormality Reference (Units ) Status Glucose, Body Fluid 09/20/2023 12:24:00 110 (mg/dL) Final The reference interval(s) an d other method performance specifications may not be available for this body fluid. Comparison of this result with the concentration in the blood, serum, or plasma is recommended. The test result must be integrated into the clinical context for interpretation.

Please refer to test catalog ([email or web address]/body_fluids.cfm) for additional interpretive information.

This test was developed and its performance characteristics determined by [employer]. It has not been cleared or approved by the [place] Food and Drug Administration. Performing Location [facility] [place] [facility] [address] [facility] [address]
--- OUTSIDE RECORDS SUMMARY | 2023-10-26 09:54 | External Medical Summary | Summary of Care ---
Author Name Unknown Organization [facility] Address [address] [place] [place] [address] Phone [phone] Care Team Providers Care Police Shift Commander Name Role Phone Pepe Beck MD Primary Care P rovider Reason for Visit * Reason Onset Date Comments Procedure 09/15/2023 Thoracentesis Encounter Details Date Type Department Care Team (Late st Contact Info) Description 09/15/2023 Telephone Hematology/Oncology [facility] [address] [facility] [place] [address] Pearl Oviedo CRNP [address] [place] [address] Procedure (Thoracentesis ) Allergies No known active allergiesdocumented as of this encounter (statuses as of 09/20/2023) Medications Medication Sig Dispensed Refills Start Date End Date Status Aspirin 81 MG Oral Tablet Delayed Release Take 1 Tablet by mouth every other day. 0 Active Albuterol Sulfate HFA 108 (90 Base) MCG/ACT Inhalation Aerosol Solution INHALE 2 PUFFS BY MOUTH EVERY 6 HOURS NEEDED 18 g 3 12/18/2021 Active Torsemide 20 MG Oral Tablet (Demadex)Indications :Atherosclerosis of [place] artery of right lower extremity with intermittent [...] Oral Tablet (Cozaar)Indications: Coronary artery disease involving [place] coronary artery of [place] heart without angina pectoris Take 0.5 Tablets [...] sciatica,Cancer of upper lobe of right lung ([facility]) Take 1 Tablet by mouth every [...] inj 1,000 mcgIndications:B12 deficiency 1000 mcg IM [id number] 05/06/2023 04/06/2024 Active documented as of this encounter (statuses as of 09/20/2023) Active Problems Problem Noted Date Diagnosed Date Moderate episode of recurrent major depressive d isorder 08/11/2023 Hypertensive kidney disease with stage 3a chronic kidney disease 08/11/2023 Pancytopenia 08/11/2023 Metastatic primary lung cancer 06/04/2023 Lumbar stenosis with neurogenic claudication Bradycardia 05/17/2023 PVC (premature ventricular contraction) 12/11/20 23 Metabolic encephalopathy 05/14/2023 Neutropenic fever 05/13/2023 [...] 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 10/23/2019 Hypothyroidism 03/28/2018 Hyponatremia 03/28/2018 Dyslipidemia, goal LDL below 70 03/28/2018 Edema of lower extremity 03/28/2018 Degeneration of lumbar intervertebral disc 03/28 Coronary artery disease invo lving [place] coronary artery of [place] heart without angina pectoris 03/28/2018 Benign prostatic hyperplasia 03/28/2018 Benign essential hypertension 03/28/2018 Carotid artery stenosis 03/28/2018 Osteoarthritis of ankle 03/29/2017 Peripheral vascular disease 11/03/2016 documented as of this encounter (statuses as of 09/20/2023) Resolved Problems Problem Noted Date Diagnosed Date Resolved Date EL (acute kidney injury) 05/17/2023 Lumbar radiculopathy 03/28/2018 023 Chronic obstructive pulmonary disease 03/28/2018 11/20/2021 Overview: Per COPD GOLD Classification documented as of this encounter (statuses as of 09/20/2023) Immunizations Name Administration Dates Next Due COVID-19 mRNA, LNP-s, No Pre serve, 2-Dose Series ([employer]) 05/05/2021,08/28/2020,08/07/2020 Covid-19, Mrna, Lnp-s, Pf, B ivalent, 30 Mcg, IM, 12 yrs and above ([employer]) 02/24/2022 Pneumococcal Conjugate Vacci ne, 20-valent ([id number]) 09/03/2023,12/09/2021(Deferred: Had Clinical Disease) Pneumococcal Polysaccharide PPV23 [...] Telephone Encounter - Cielo Archer OSA - 09/20/2023 9:07 AM EDT Patient is scheduled today 09/20/2023 in [place] * Telephone Encounter - Cielo Archer OSA - 09/17/2023 7:37 AM EDT Can you please help with getting patient scheduled for the thoro in [place]. * Telephone Encounter - Kylee Farrar OSA - 09/16/2023 4:00 PM EDT Patient's son Aaron stated, that he would like his father scheduled in [place]. Patient's son Aaron said we could call him anytime after 7:30 am tomorrow to schedule. Just making you aware. Thank you. * Telephone Encounter - Cielo Archer OSA - 09/16/2023 10:47 AM EDT Called and left a message for patient to please call the office back. To see if he would like to come [place] the [facility] because we do not do them at [facility] at this time. * Telephone Encounter - Cielo Archer OSA - 09/15/2023 3:17 PM EDT Good Afternoon, The pulmonary paralegal legal secretary left me know she reached out [...] Care Team (Late st Contact Info) Description 09/20/2023 12:00 PM EDT Appointment Interventional Radiology [facility], [facility] 1st Floor [address] [place] [address] 09/23/2023 10:20 AM EDT Office Visit Pulmonary Medicine, [facility] [address] [facility] [place] [address] Vu Tapia MD [address] [facility] [address] 09/29/2023 9:00 AM EDT Immunization/Injectio n [address] [phone] [place], Nurse [address] [address] 10/11/2023 8:40 AM EDT Laboratory Laboratory [facility] [place] [address] [place] [address] [place], Lab Scenery [address] [place] [address] 10/11/2023 9:00 AM EDT Office Visit Hematology/Oncology [facility] 200 [place] [address] Pearl Oviedo CRNP [address] [place] [address] 10/11/2023 9:30 AM EDT Hem/Onc Treatment Hematology/Oncology Treatment, [place] [address] [facility] [address] 12/20/2023 10:00 AM EDT Office Visit [facility] [address] [place] [address] Pepe Beck MD [address] [place] [address] Health Maintenance Due Date Last Done Comments [...] 06/01/2024 06/01/2023, 02/06 CKD PHOS USE SMARTSET 80480 06/01/2024 06/01/2023, 0 03/04/2022 DISCUSS TOBACCO CESSATION (REFER TO SMARTSET #3291) 09/02/2024 09/03/2023 CKD HGB USE SMARTSET 16499 09/12/202409/12, 09/13/2023, 08/16/2023, Additional history exists TSH [...] the patient have Health Care Power of Automotive Machinist? No Care Teams Police Shift Commander Relationship Specialty Start Date End Date Pepe Beck MD [address] [place] [address] PCP - General Family Medicine 11/07/21 documented as of this encounter
--- OUTSIDE RECORDS SUMMARY | 2023-10-26 09:54 | External Medical Summary | Summary of Care ---
Author Name Unknown Organization [facility] Address [address] [facility] [place] [address] Phone [phone] Care Team Providers Care Investment Accounting Clerk Name Role Phone Pepe Beck MD Primary Care P rovider Reason for Visit * Reason Onset Date Comments Procedure 09/15/2023 Thoracentesis Encounter Details Date Type Department Care Team (Late st Contact Info) Description 09/15/2023 Telephone Hematology/Oncology [facility] [address] [facility] [place] [address] Pearl Oviedo CRNP [address] [place] [address] Procedure (Thoracentesis ) Allergies No known active allergiesdocumented as of this encounter (statuses as of 09/17/2023) Medications Medication Sig Dispensed Refills Start Date End Date Status Aspirin 81 MG Oral Tablet Delayed Release Take 1 Tablet by mouth every other day. 0 Active Albuterol Sulfate HFA 108 (90 Base) MCG/ACT Inhalation Aerosol Solution INHALE 2 PUFFS BY MOUTH EVERY 6 HOURS NEEDED 18 g 3 12/18/2021 Active Torsemide 20 MG Oral Tablet (Demadex)Indications :Atherosclerosis of [place] artery of right lower extremity with intermittent [...] Oral Tablet (Cozaar)Indications: Coronary artery disease involving [place] coronary artery of [place] heart without angina pectoris Take 0.5 Tablets [...] by GOLD 2017 classification ([facility]) Inhale 1 Puff by mouth every evening. 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 coronary artery of [place] heart without angina pectoris 03/28/2018 Benign prostatic hyperplasia 03/28/2018 Benign essential hypertension 03/28/2018 Carotid artery stenosis 03/28/2018 Osteoarthritis of ankle 03/29/2017 Peripheral vascular disease 11/03/2016 documented as of this encounter (statuses as of 09/17/2023) Resolved Problems Problem Noted Date Diagnosed Date Resolved Date EL (acute kidney injury) 05/17/2023 Lumbar radiculopathy 03/28/2018 023 Chronic obstructive pulmonary disease 03/28/2018 11/20/2021 Overview: Per COPD GOLD Classification documented as of this encounter (statuses as of 09/17/2023) Immunizations Name Administration Dates Next Due COVID-19 mRNA, LNP-s, No Pre serve, 2-Dose Series ([employer]) 05/05/2021,08/28/2020,08/07/2020 Covid-19, Mrna, Lnp-s, Pf, B ivalent, 30 Mcg, IM, 12 yrs and above ([employer]) 02/24/2022 Pneumococcal Conjugate Vacci ne, 20-valent ([id number]) 09/03/2023,12/09/2021(Deferred: Had Clinical Disease) Pneumococcal Polysaccharide PPV23 [...] getting patient scheduled for the thoro in [place]. * Telephone Encounter - Kylee Farrar OSA - 09/16/2023 4:00 PM EDT Patient's son Aaron stated, that he would like his father scheduled in [place]. Patient's son Aaron said we could call him anytime after 7:30 am tomorrow to schedule. Just making you aware. Thank you. * Telephone Encounter - Cielo Archer OSA - 09/16/2023 10:47 AM EDT Called and left a message for patient to please call the office back. To see if he would like to [facility] [place] [facility] at this time. * Telephone Encounter - Cielo Archer OSA - 09/15/2023 3:17 PM EDT Good Afternoon, The pulmonary private secretary left me know she reached out to you guys about doing this patients [facility]. Patient is not yet scheduled. Can you [...] [facility] Contact Info) Description 09/23/2023 10:20 AM EDT Office Visit Pulmonary Medicine, [facility] [address] [facility] [place] [id number] Vu Tapia MD [address] [place] [address] 09/29/2023 9:00 AM EDT Immunization/Injecti on [address] [phone] [place], Nurse [address] [address] 10/11/2023 8:40 AM EDT Laboratory Laboratory [facility] 200 [facility] [place] [address] [facility] [address] [facility] [place] [address] 10/11/2023 9:00 AM EDT Office Visit Hematology/Oncology [facility] 200 [facility] [place] [address] Pearl Oviedo CRNP [address] [facility] [place] [address] 10/11/2023 9:30 AM EDT Hem/Onc Treatment Hematology/Oncology Treatment, [place] [address] [facility] [place] [address] 12/20/2023 10:00 AM EDT Office Visit [facility] [address] [facility] [place] [address] Pepe Beck MD [address] [place] [address] [place] [address] Health Maintenance Due Date Last Done Comments [...] 06/01/2024 06/01/2023, 02/06 CKD PHOS USE SMARTSET 65663 06/01/2024 06/01/2023, 0 03/04/2022 DISCUSS TOBACCO CESSATION (REFER TO SMARTSET #3291) 09/02/2024 09/03/2023 CKD HGB USE SMARTSET 68043 09/12/202409/12, 09/13/2023, 08/16/2023, Additional history exists TSH [...] the patient have Health Care Power of Pit Laborer? No Care Teams Investment Accounting Clerk Relationship Specialty Start Date End Date Pepe Beck MD [address] [place] [address] PCP - General Family Medicine 11/07/21 documented as of this encounter
--- OUTSIDE RECORDS SUMMARY | 2023-10-26 09:54 | External Medical Summary ---
Author Name Unknown Address Unknown Organization K01:LABORATORY [facility] - [facility] [place] [address] [facility] [place] [address] Laboratory Report Ordering Provider Test Date Status IRMA CORLEY 09/20/2023 12:24:00 Final Observation Date Value Abnormality Reference (Units ) Status Albumin, Body Fluid 09/20/2023 12:24:00 2.0 (g/dL) Final The reference interval(s) an d other method performance specifications may not be available for this body fluid. Comparison of this result with the concentration in the blood, serum, or plasma is recommended. The test result must be integrated into the clinical context for interpretation.

Please refer to test catalog ([email or web address]/body_fluids.cfm) for additional interpretive information.

This test was developed and its performance characteristics determined by [employer]. It has not been cleared or approved by the [place] Food and Drug Administration. Performing Location LABORATORY [facility] - [address] [facility] [place] [address]
--- OUTSIDE RECORDS SUMMARY | 2023-10-26 09:54 | External Medical Summary ---
Author Name Unknown Address Unknown Organization K01:LABORATORY [facility] - [facility] [address] [place] [address] Laboratory Report Ordering Provider Test Date Status IRMA CORLEY 09/20/2023 12:24:00 Final Some reference ranges and ot her method performance specifications have not been established for this fluid. The test results must be integrated into the clinical context for interpretation. Observation Date Value Abnormality Reference (Units ) Status Clarity of Body fluid 09/20/2023 12:24:00 Clear Clear Final Color of Body fluid 09/20/2023 12:24:00 Yellow Straw, Yellow, Colorless Final Nucleated cells [#/volume] in Body fluid by Automated count 09/20/2023 12:24:00 506 <3800 (cells/uL) Final Erythrocytes [#/volume] in Body fluid by Automated count 09/20/2023 12:24:00 2053 (cells/uL) Final Performing Location LABORATORY [facility] - [facility] [place] [address]
--- OUTSIDE RECORDS SUMMARY | 2023-10-26 09:54 | External Medical Summary ---
Author Name Unknown Address Unknown Organization K01:[facility]ATORY [facility] - [facility] [address] [facility] [address] Laboratory Report Ordering Provider Test Date Status IRMA CORLEY 09/20/2023 12:24:00 Final Observation Date Value Abnormality Reference (Units ) Status Protein, Body Fluid 09/20/2023 12:24:00 2.7 (g/dL) Final The reference interval(s) an d other method performance specifications may not be available for this body fluid. Comparison of this result with the concentration in the blood, serum, or plasma is recommended. The test result must be integrated into the clinical context for interpretation.

Please refer to test catalog ([email or web address]/body_fluids.cfm) for additional interpretive information.

This test was developed and its performance characteristics determined by [employer]. It has not been cleared or approved by the US Food and Drug Administration. Performing Location LABORATORY [facility] - [address] [facility] [address]
--- OUTSIDE RECORDS SUMMARY | 2023-10-26 09:54 | External Medical Summary | Summary of Care ---
Author Name Unknown Organization [facility] Address [address] [facility] [place] [place] [address] Phone [phone] Care Team Providers Care Die Casting Machine Operator Name Role Phone Pepe Beck MD Primary Care P rovider Reason for Visit * Reason Onset Date Comments Procedure 09/15/2023 Thoracentesis Encounter Details Date Type Department Care Team (Late st Contact Info) Description 09/15/2023 Telephone Hematology/Oncology [facility] [address] [facility] [address] Pearl Oviedo CRNP [address] [place] [address] Procedure (Thoracentesis ) Allergies No [...] 20 MG Oral Tablet (Demadex)Indications :Atherosclerosis of [place] artery of right lower extremity with intermittent [...] Oral Tablet (Cozaar)Indications: Coronary artery disease involving [place] coronary artery of [place] heart without angina pectoris Take 0.5 Tablets [...] :COPD, group C, by GOLD 2017 classification ([facility]) Inhale 1 Puff by mouth every evening. 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 10/23/2019 Hypothyroidism 03/28/2018 Hyponatremia 03/28/2018 Dyslipidemia, goal LDL below 70 03/28/2018 Edema of lower extremity 03/28/2018 Degeneration of lumbar intervertebral disc 03/28 Coronary artery disease invo lving [place] coronary artery of [place] heart without angina pectoris 03/28/2018 Benign prostatic [...] mRNA, LNP-s, No Pre serve, 2-Dose Series ([employer]) 05/05/2021,08/28/2020,08/07/2020 Covid-19, Mrna, Lnp-s, Pf, B ivalent, 30 Mcg, IM, 12 yrs and above ([employer]) 02/24/2022 Pneumococcal Conjugate Vacci ne, 20-valent ([id number]) 09/03/2023,12/09/2021(Deferred: Had Clinical Disease) Pneumococcal Polysaccharide PPV23 [...] getting patient scheduled for the thoro in [place]. * Telephone Encounter - Kylee Farrar OSA - 09/16/2023 4:00 PM EDT Patient's son Aaron stated, that he would like his father scheduled in [place]. Patient's son Aaron said we could call him anytime after 7:30 am tomorrow to schedule. Just making you aware. Thank you. * Telephone Encounter - Cielo Archer OSA - 09/16/2023 10:47 AM EDT Called and left a message for patient to please call the office back. To see if he would like [facility] [place] [facility] at this time. * Telephone Encounter - Cielo Archer OSA - 09/15/2023 3:17 PM EDT Good Afternoon, The pulmonary loan secretary left me know she reached out to you guys about doing this patients [facility]. Patient is not yet scheduled. Can [...] Upcoming Encounters Date Type Department Care Team ([facility] st Contact Info) Description 09/23/2023 10:20 AM EDT Office Visit Pulmonary Medicine, [facility] 132 [facility] [place] [phone] Vu Tapia MD [address] [place] [address] 09/29/2023 9:00 AM EDT Immunization/Injecti on [address] [phone] [place], Nurse [address] [address] 10/11/2023 8:40 AM EDT Laboratory Laboratory [facility] 200 [facility] [place] [address] [facility] [address] [facility] [place] [address] 10/11/2023 9:00 AM EDT Office Visit Hematology/Oncology [facility] 200 [facility] [place] [address] Pearl Oviedo CRNP 400 [facility] [place] [address] 10/11/2023 9:30 AM EDT Hem/Onc Treatment Hematology/Oncology Treatment, [place] 200 [facility] [place] [address] 12/20/2023 10:00 AM EDT Office Visit [facility] 68 [place] [address] Pepe Beck MD [address] [place] [address] [place] [address] Health Maintenance Due Date Last Done Comments [...] 06/01/2024 06/01/2023, 02/06 CKD PHOS USE SMARTSET 41222 06/01/2024 06/01/2023, 0 03/04/2022 DISCUSS TOBACCO CESSATION (REFER TO SMARTSET #3291) 09/02/2024 09/03/2023 CKD HGB USE SMARTSET 32352 09/12/202409/12, 09/13/2023, 08/16/2023, Additional history exists TSH [...] the patient have Health Care Power of Coding Support Specialist? No Care Teams Die Casting Machine Operator Relationship Specialty Start Date End Date Pepe Beck MD [address] [place] [address] PCP - General Family Medicine 11/07/21 documented as of this encounter
--- OUTSIDE RECORDS SUMMARY | 2023-10-26 09:54 | External Medical Summary | Summary of Care ---
Author Name Unknown Organization [facility] Address [address] [facility] [place] [address] Phone [phone] Care Team Providers Care Electrician Supervisor Airplane Name Role Phone Pepe Beck MD Primary Care P rovider Reason for Visit * Reason Onset Date Comments Procedure 09/15/2023 Thoracentesis Encounter Details Date Type Department Care Team (Late st Contact Info) Description 09/15/2023 Telephone Hematology/Oncology [facility] 200 [place] [address] Pearl Oviedo CRNP [address] [place] [address] Procedure (Thoracentesis ) Allergies No known active allergiesdocumented as of this encounter (statuses as of 09/16/2023) Medications Medication Sig Dispensed Refills Start Date End Date Status Aspirin 81 MG Oral Tablet Delayed Release Take 1 Tablet by mouth every other day. 0 Active Albuterol Sulfate HFA 108 (90 Base) MCG/ACT Inhalation Aerosol Solution INHALE 2 PUFFS BY MOUTH EVERY 6 HOURS NEEDED 18 g 3 12/18/2021 Active Torsemide 20 MG Oral Tablet (Demadex)Indications :Atherosclerosis of [place] artery of right lower extremity with intermittent [...] Oral Tablet (Cozaar)Indications: Coronary artery disease involving [place] coronary artery of [place] heart without angina pectoris Take 0.5 Tablets [...] :COPD, group C, by GOLD 2017 classification ([facility]) Inhale 1 Puff by mouth every evening. 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 10/23/2019 Hypothyroidism 03/28/2018 Hyponatremia 03/28/2018 Dyslipidemia, goal LDL below 70 03/28/2018 Edema of lower extremity 03/28/2018 Degeneration of lumbar intervertebral disc 03/28 Coronary artery disease invo lving [place] coronary artery of [place] heart without angina pectoris 03/28/2018 Benign prostatic hyperplasia 03/28/2018 Benign essential hypertension 03/28/2018 Carotid artery stenosis 03/28/2018 Osteoarthritis of ankle 03/29/2017 Peripheral vascular disease 11/03/2016 documented as of this encounter (statuses as of 09/16/2023) Resolved Problems Problem Noted Date Diagnosed Date Resolved Date EL (acute kidney injury) 05/17/2023 Lumbar radiculopathy 03/28/2018 023 Chronic obstructive pulmonary disease 03/28/2018 11/20/2021 Overview: Per COPD GOLD Classification documented as of this encounter (statuses as of 09/16/2023) Immunizations Name Administration Dates Next Due COVID-19 mRNA, LNP-s, No Pre serve, 2-Dose Series ([employer]) 05/05/2021,08/28/2020,08/07/2020 Covid-19, Mrna, Lnp-s, Pf, B ivalent, 30 Mcg, IM, 12 yrs and above ([employer]) 02/24/2022 Pneumococcal Conjugate Vacci ne, 20-valent ([id number]) 09/03/2023,12/09/2021(Deferred: Had Clinical Disease) Pneumococcal Polysaccharide PPV23 [...] encounter Miscellaneous Notes * Telephone Encounter - Kylee Farrar OSA - 09/16/2023 4:00 PM EDT Patient's son Aaron stated, that he would like his father scheduled in [place]. Patient's son Aaron said we could call him anytime after 7:30 am tomorrow to schedule. Just making you aware. Thank you. * Telephone Encounter - Cielo Archer OSA - 09/16/2023 10:47 AM EDT Called and left a message for patient to please call the office back. To see if he would like [place] [facility] because we do not do them at [facility] at this time. * Telephone Encounter - Cielo Archer OSA - 09/15/2023 3:17 PM EDT Good Afternoon, The pulmonary escrow secretary left me know she reached out to you guys [facility]. Patient is not yet scheduled. Can [...] 10:20 AM EDT Office Visit Pulmonary Medicine, [facility] 132 [facility] [place] [phone] Vu Tapia MD [facility] [address] [place] [address] 09/29/2023 9:00 AM EDT Immunization/Injecti on [address] [address] Alysia, Nurse g [address] [address] 10/11/2023 8:40 AM EDT Laboratory Laboratory [facility] 200 [facility] [place] [phone] [place], Lab [address] [place] [address] 10/11/2023 9:00 AM EDT Office Visit Hematology/Oncology [facility] 200 [facility] [place] [phone] Pearl Oviedo CRNP [address] [place] [address] [place] [address] 10/11/2023 9:30 AM EDT Hem/Onc Treatment Hematology/Oncology Treatment, [place] [facility] [phone] 12/20/2023 10:00 AM EDT Office Visit [address] [phone] Pepe Beck MD [address] [place] [address] Health Maintenance Due Date Last Done Comments [...] 06/01/2024 06/01/2023, 02/06 CKD PHOS USE SMARTSET 76728 06/01/2024 06/01/2023, 0 03/04/2022 DISCUSS TOBACCO CESSATION (REFER TO SMARTSET #3291) 09/02/2024 09/03/2023 CKD HGB USE SMARTSET 04486 09/12/202409/12, 09/13/2023, 08/16/2023, Additional history exists TSH [...] the patient have Health Care Power of Bankruptcy Manager? No Care Teams Electrician Supervisor Airplane Relationship Specialty Start Date End Date Pepe Beck MD [address] [place] [phone] PCP - General Family Medicine 11/07/21 documented as of this encounter
--- OUTSIDE RECORDS SUMMARY | 2023-10-26 09:54 | External Medical Summary | Summary of Care ---
Author Name Unknown Organization [facility] Address [address] [place] [address] Phone [phone] Care Team Providers Care Manufacturer Agent Name Role Phone Pepe Beck MD Primary Care P rovider Encounter Details Date Type Department Care Team (Late st Contact Info) Description 09/15/2023 Telephone Hematology/Oncology [facility] 200 [facility] [place] [address] Pearl Oviedo CRNP [address] [place] [address] Allergies No known active allergiesdocumented [...] 20 MG Oral Tablet (Demadex)Indications :Atherosclerosis of [place] artery of right lower extremity with intermittent [...] Oral Tablet (Cozaar)Indications: Coronary artery disease involving [place] coronary artery of [place] heart without angina pectoris Take 0.5 Tablets [...] C, by GOLD 2017 classification ([facility]) Inhale 1 Puff by mouth every [...] inj 1,000 mcgIndications:B12 deficiency 1000 mcg IM [id number] 05/06/2023 04/06/2024 Active documented as of this [...] 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 10/23/2019 Hypothyroidism 03/28/2018 Hyponatremia 03/28/2018 Dyslipidemia, goal LDL below 70 03/28/2018 Edema of lower extremity 03/28/2018 Degeneration of lumbar intervertebral disc 03/28 Coronary artery disease invo lving [place] coronary artery of [place] heart without angina pectoris 03/28/2018 Benign prostatic [...] mRNA, LNP-s, No Pre serve, 2-Dose Series ([employer]) 05/05/2021,08/28/2020,08/07/2020 Covid-19, Mrna, Lnp-s, Pf, B ivalent, 30 Mcg, IM, 12 yrs and above (Pfizer) 02/24/2022 Pneumococcal Conjugate Vacci ne, 20-valent ([id number]) 09/03/2023,12/09/2021(Deferred: Had Clinical Disease) Pneumococcal Polysaccharide PPV23 [...] 10:20 AM EDT Office Visit Pulmonary Medicine, [facility] 132 [facility] [place] [address] Vu Tapia MD [facility] [place] [address] 09/29/2023 9:00 AM EDT Immunization/Injecti on [address] [phone] [place], Nurse [address] [address] 10/11/2023 8:40 AM EDT Laboratory Laboratory [facility] 200 [facility] [place] [phone] [place], Lab [address] [facility] [place] [address] 10/11/2023 9:00 AM EDT Office Visit Hematology/Oncology [facility] 200 [facility] [place] [phone] Pearl Oviedo CRNP [address] [place], [place] [address] [address] 10/11/2023 9:30 AM EDT Hem/Onc Treatment Hematology/Oncology Treatment, [place] [address] [place] [address] 12/20/2023 10:00 AM EDT Office Visit [facility] 68 [facility] [place] [address] Pepe Beck MD [address] [place] [address] [place] [address] Health Maintenance Due Date Last Done Comments [...] 06/01/2024 06/01/2023, 02/06 CKD PHOS USE SMARTSET 77150 06/01/2024 06/01/2023, 0 03/04/2022 DISCUSS TOBACCO CESSATION (REFER TO SMARTSET #3291) 09/02/2024 09/03/2023 CKD HGB USE SMARTSET 04169 09/12/202409/12, 09/13/2023, 08/16/2023, Additional history exists TSH [...] the patient have Health Care Power of Parts Person? No Care Teams Manufacturer Agent Relationship Specialty Start Date End Date Pepe Beck MD [address] [place] [address] [phone] PCP - General Family Medicine 11/07/21 documented as of this encounter
--- OUTSIDE RECORDS SUMMARY | 2023-10-26 09:54 | External Medical Summary | Summary of Care ---
Author Name Unknown Organization [facility] Address [address] [place] [address] Phone [phone] Care Team Providers Care Rn Shift Mgr Name Role Phone Pepe Beck MD Primary Care P rovider Reason for Visit * Reason Onset Date Comments Order Request 09/16/2023 Encounter Details Date Type Department Care Team ([facility] Contact Info) Description 09/16/2023 Telephone Family Practice [address] [phone] Pepe Beck MD [address] [place] [address] Order Request Allergies No known active [...] 20 MG Oral Tablet (Demadex)Indications :Atherosclerosis of [place] artery of right lower extremity with intermittent [...] Oral Tablet (Cozaar)Indications: Coronary artery disease involving [place] coronary artery of [place] heart without angina pectoris Take 0.5 Tablets [...] :COPD, group C, by GOLD 2017 classification ([facility]) Inhale 1 Puff by mouth every [...] Active HYDROcodone-Acetamin ophen 10-325 MG Oral TabletIndications:Ac [place] left-sided low back pain without sciatica,Cancer of [...] inj 1,000 mcgIndications:B12 deficiency 1000 mcg IM [id number] 05/06/2023 04/06/2024 Active documented as of this [...] 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 10/23/2019 Hypothyroidism 03/28/2018 Hyponatremia 03/28/2018 Dyslipidemia, goal LDL below 70 03/28/2018 Edema of lower extremity 03/28/2018 Degeneration of lumbar intervertebral disc 03/28 Coronary artery disease invo lving [place] coronary artery of [place] heart without angina pectoris 03/28/2018 Benign prostatic [...] mRNA, LNP-s, No Pre serve, 2-Dose Series ([employer]) 05/05/2021,08/28/2020,08/07/2020 Covid-19, Mrna, Lnp-s, Pf, B ivalent, 30 Mcg, IM, 12 yrs and above (Pfizer) 02/24/2022 Pneumococcal Conjugate Vacci ne, 20-valent ([id number]) 09/03/2023,12/09/2021(Deferred: Had Clinical Disease) Pneumococcal Polysaccharide PPV23 [...] - 09/17/2023 7:44 AM EDT Faxed to [facility]. * Telephone Encounter - Pepe Beck MD - 09/16/2023 8:22 PM EDT DME order for portable oxygen generated. * Telephone Encounter - Deysi Aponte MED ASSIST - 09/16/2023 5:25 PM EDT Patient is in need of portable oxygen. He has large oxygen tank at home that was ordered at his last hospital admission to [facility] in August. Breathing is becoming worse and would like oxygen canister so he is able to leave the house. Please see scanned discharge summary from 08/10/2023. Oxygen that patient has at home came from [employer]. Thanks. documented in this encounter Plan of Treatment Upcoming Encounters Date Type Department Care Team (Late st Contact Info) Description 09/23/2023 10:20 AM EDT Office Visit Pulmonary Medicine, [facility] 132 [facility] [place] [address] Vu Tapia MD [address] [place] [phone] 09/29/2023 9:00 AM EDT Immunization/Injecti on [address] [place] [phone] Alysia Nurse [address] [address] 10/11/2023 8:40 AM EDT Laboratory Laboratory [facility] [address] [place] [address] [place], [facility] 200 [facility] [place] [address] 10/11/2023 9:00 AM EDT Office Visit Hematology/Oncology [facility] 200 [facility] [place] [phone] Pearl Oviedo CRNP 400 [place] [address] 10/11/2023 9:30 AM EDT [facility] 200 [facility] [place] [address] 12/20/2023 10:00 AM EDT Office Visit [facility] 68 [place] [address] Pepe Beck MD [address] [place], [place] [phone] Health Maintenance Due Date Last Done Comments [...] 06/01/2024 06/01/2023, 02/06 CKD PHOS USE SMARTSET 18553 06/01/2024 06/01/2023, 0 03/04/2022 DISCUSS TOBACCO CESSATION (REFER TO SMARTSET #3291) 09/02/2024 09/03/2023 CKD HGB USE SMARTSET 31428 09/12/202409/12, 09/13/2023, 08/16/2023, Additional history exists TSH [...] the patient have Health Care Power of Durable Medical Equipment Repairer? No Care Teams Rn Shift Mgr Relationship Specialty Start Date End Date Pepe Beck MD [address] [place] [address] PCP - General Family Medicine 11/07/21 documented as of this encounter
--- OUTSIDE RECORDS SUMMARY | 2023-10-26 09:54 | External Medical Summary ---
Author Name Unknown Address Unknown Organization K01:[facility] - [address] [place] [address] Laboratory Report Ordering Provider Test Date Status IRMA CORLEY 09/20/2023 12:24:00 Final Observation Date Value Abnormality Reference (Units ) Status Pathologist review of results 09/20/2023 12:24:00 Scant mixed WBC including vacuolated macrophages. Negative for obvious malignant cells. Correlate with cytology specimen. Final Performing Location LABORATORY [facility] - [address] [place] [address]
--- OUTSIDE RECORDS SUMMARY | 2023-10-26 09:54 | External Medical Summary | Summary of Care ---
Author Name Unknown Organization [facility] Address [address] [place] [address] Phone [phone] Care Team Providers Care Seismic Survey Assistant Name Role Phone Pepe Beck MD Primary Care P rovider Encounter Details Date Type Department Care Team (Late st Contact Info) Description 09/15/2023 Telephone Hematology/Oncology [facility] 200 [facility] [place] [address] Pearl Oviedo CRNP [address] [place] [address] Allergies No known active allergiesdocumented [...] 20 MG Oral Tablet (Demadex)Indications :Atherosclerosis of [place] artery of right lower extremity with intermittent [...] Oral Tablet (Cozaar)Indications: Coronary artery disease involving [place] coronary artery of [place] heart without angina pectoris Take 0.5 Tablets [...] :COPD, group C, by GOLD 2017 classification ([facility]) Inhale 1 Puff by mouth every evening. 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 10/23/2019 Hypothyroidism 03/28/2018 Hyponatremia 03/28/2018 Dyslipidemia, goal LDL below 70 03/28/2018 Edema of lower extremity 03/28/2018 Degeneration of lumbar intervertebral disc 03/28 Coronary artery disease invo lving [place] coronary artery of [place] heart without angina pectoris 03/28/2018 Benign prostatic [...] mRNA, LNP-s, No Pre serve, 2-Dose Series ([employer]) 05/05/2021,08/28/2020,08/07/2020 Covid-19, Mrna, Lnp-s, Pf, B ivalent, 30 Mcg, IM, 12 yrs and above (Pfizer) 02/24/2022 Pneumococcal Conjugate Vacci ne, 20-valent ([id number]) 09/03/2023,12/09/2021(Deferred: Had Clinical Disease) Pneumococcal Polysaccharide PPV23 [...] if he would like [place] because we do not do them at [facility] at this time. * Telephone Encounter - Cielo Archer OSA - 09/15/2023 3:17 PM EDT Good Afternoon, The pulmonary sales secretary left me know she reached out to you [facility]. Patient is not yet scheduled. Can [...] 10:20 AM EDT Office Visit Pulmonary Medicine, [address] [place] [address] Vu Tapia MD [address] [facility] [place] [address] 09/29/2023 9:00 AM EDT Immunization/Injecti on [address] [address] Alysia, Nurse Gmg [address] [address] 10/11/2023 8:40 AM EDT Laboratory Laboratory [facility] 200 [place] [address] [place] [address] 10/11/2023 9:00 AM EDT Office Visit Hematology/Oncology [facility] 200 [place] [address] Pearl Oviedo CRNP [address] [place] [address] 10/11/2023 9:30 AM EDT [facility] 200 [place] [address] 12/20/2023 10:00 AM EDT Office Visit [address] [address] Pepe Beck MD [address] [place] [address] Health Maintenance Due Date Last Done Comments DTaP,Tdap,and Td Vaccines (1 - Tdap) 08[birth year]08/1959 Zoster Vaccines (1 of 2) [birth year]08/1959 *ADVANCE DIRECTIVE NOT ON FILE 03/13/2022 COVID-19 Vaccine ( - 2022- season) 2023 02/24/2022, 05/05/2021, 08/28/2020, Additional history exists O2 ASSESSMENT COMPLETED IN PAST YEAR FOR COPD 02/11/2024 02/10/2023 GFR 03/14/2024 09/13/2023, 08/05, 08/04/2023, Additional history exists Albumin/Creatinine Ratio 06/01/2024 06/01/2023, 02/06 CKD PHOS USE SMARTSET 87634 06/01/2024 06/01/2023, 0 03/04/2022 DISCUSS TOBACCO CESSATION (REFER TO SMARTSET #3291) 09/02/2024 09/03/2023 CKD HGB USE SMARTSET 06556 09/12/202409/12, 09/13/2023, 08/16/2023, Additional history exists TSH [...] the patient have Health Care Power of Risk And Insurance Consultant? No Care Teams Seismic Survey Assistant Relationship Specialty Start Date End Date Pepe Beck MD [address] [place] [address] PCP - General Family Medicine 11/07/21 documented as of this encounter
--- OUTSIDE RECORDS SUMMARY | 2023-10-26 09:55 | External Medical Summary | Summary of Care ---
Author Name Unknown Organization [facility] Address [address] [place] [address] Phone [phone] Care Team Providers Care Hardware Test Engineer Name Role Phone Pepe Beck MD Primary Care P rovider Encounter Details Date Type Department Care Team (Late st Contact Info) Description 09/15/2023 Telephone Hematology/Oncology [facility] 200 [facility] [place] [address] Pearl Oviedo CRNP 400 [place] [address] Allergies No known active allergiesdocumented [...] 20 MG Oral Tablet (Demadex)Indications :Atherosclerosis of [place] artery of right lower extremity with intermittent [...] Oral Tablet (Cozaar)Indications: Coronary artery disease involving [place] coronary artery of [place] heart without angina pectoris Take 0.5 Tablets [...] group C, by GOLD 2017 classification ([facility]) Inhale 1 Puff by mouth [...] inj 1,000 mcgIndications:B12 deficiency 1000 mcg IM [id number] 05/06/2023 04/06/2024 Active documented as of this [...] 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 10/23/2019 Hypothyroidism 03/28/2018 Hyponatremia 03/28/2018 Dyslipidemia, goal LDL below 70 03/28/2018 Edema of lower extremity 03/28/2018 Degeneration of lumbar intervertebral disc 03/28 Coronary artery disease invo lving [place] coronary artery of [place] heart without angina pectoris 03/28/2018 Benign prostatic [...] mRNA, LNP-s, No Pre serve, 2-Dose Series ([employer]) 05/05/2021,08/28/2020,08/07/2020 Covid-19, Mrna, Lnp-s, Pf, B ivalent, 30 Mcg, IM, 12 yrs and above (Pfizer) 02/24/2022 Pneumococcal Conjugate Vacci ne, 20-valent ([id number]) 09/03/2023,12/09/2021(Deferred: Had Clinical Disease) Pneumococcal Polysaccharide PPV23 [...] 10:20 AM EDT Office Visit Pulmonary Medicine, [facility] 132 [facility] [place] [address] Vu Tapia MD [facility] [place] [address] 09/29/2023 9:00 AM EDT Immunization/Injecti on [address] [phone] [place], Nurse [address] [address] 10/11/2023 8:40 AM EDT Laboratory Laboratory [facility] 200 [facility] [place] [phone] [place], Lab [address] [facility] [place] [address] 10/11/2023 9:00 AM EDT Office Visit Hematology/Oncology [facility] 200 [facility] [place] [phone] Pearl Oviedo CRNP [address] [place], [place] [address] [address] 10/11/2023 9:30 AM EDT Hem/Onc Treatment Hematology/Oncology Treatment, [place] [address] [place] [address] 12/20/2023 10:00 AM EDT Office Visit [facility] 68 [facility] [place] [address] Pepe Beck MD [address] [place] [address] [place] [address] Health Maintenance Due Date Last Done Comments [...] 06/01/2024 06/01/2023, 02/06 CKD PHOS USE SMARTSET 84820 06/01/2024 06/01/2023, 0 03/04/2022 DISCUSS TOBACCO CESSATION (REFER TO SMARTSET #3291) 09/02/2024 09/03/2023 CKD HGB USE SMARTSET 44465 09/12/202409/12, 09/13/2023, 08/16/2023, Additional history exists TSH [...] the patient have Health Care Power of Canvas Goods Supervisor? No Care Teams Hardware Test Engineer Relationship Specialty Start Date End Date Pepe Beck MD [address] [place] [phone] PCP - General Family Medicine 11/07/21 documented as of this encounter
--- OUTSIDE RECORDS SUMMARY | 2023-10-26 09:55 | External Medical Summary | Summary of Care ---
Author Name Unknown Organization [facility] Address [address] [place] [address] Phone [phone] Care Team Providers Care Pc Support Specialist Name Role Phone Pepe Beck MD Primary Care P rovider Encounter Details Date Type Department Care Team (Late st Contact Info) Description 09/15/2023 Telephone Hematology/Oncology [facility] 200 [facility] [place] [address] Pearl Oviedo CRNP [address] [place] [address] Allergies No known active allergiesdocumented [...] 20 MG Oral Tablet (Demadex)Indications :Atherosclerosis of platinum artery of right lower extremity with intermittent [...] Oral Tablet (Cozaar)Indications: Coronary artery disease involving platinum coronary artery of platinum heart without angina pectoris Take 0.5 Tablets [...] :COPD, group C, by GOLD 2017 classification ([facility]) Inhale 1 Puff by [...] inj 1,000 mcgIndications:B12 deficiency 1000 mcg IM [id number] 05/06/2023 04/06/2024 Active documented as of this [...] 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 Atherosclerosis of platinum ar erick of right lower extremity with intermittent claudication 10/23/2019 Hypothyroidism 03/28/2018 Hyponatremia 03/28/2018 Dyslipidemia, goal LDL below 70 03/28/2018 Edema of lower extremity 03/28/2018 Degeneration of lumbar intervertebral disc 03/28 Coronary artery disease invo lving platinum coronary artery of platinum heart without angina pectoris 03/28/2018 Benign prostatic [...] mRNA, LNP-s, No Pre serve, 2-Dose Series (Ravgen) 05/05/2021,08/28/2020,08/07/2020 Covid-19, Mrna, Lnp-s, Pf, B ivalent, 30 Mcg, IM, 12 yrs and above (Pfizer) 02/24/2022 Pneumococcal Conjugate Vacci ne, 20-valent ([id number]) 09/03/2023,12/09/2021(Deferred: Had Clinical Disease) Pneumococcal Polysaccharide PPV23 [...] 10:20 AM EDT Office Visit Pulmonary Medicine, [facility] 132 [facility] [place] [address] Vu Tapia MD [facility] S [facility] [place] [address] 09/29/2023 9:00 AM EDT Immunization/Injecti on [address] [phone] [place], Nurse [address] [address] 10/11/2023 8:40 AM EDT Laboratory Laboratory [facility] 200 [facility] [place] [phone] [place], Lab [address] [facility] [place] [address] 10/11/2023 9:00 AM EDT Office Visit Hematology/Oncology [facility] 200 [facility] [place] [phone] Pearl Oviedo CRNP [address] [place], [place] [address] [address] 10/11/2023 9:30 AM EDT Hem/Onc Treatment Hematology/Oncology Treatment, [place] [address] [place] [address] 12/20/2023 10:00 AM EDT Office Visit [facility] 68 [facility] [place] [address] Pepe Beck MD [address] [place] [address] [place] [address] Health Maintenance Due Date Last Done Comments [...] 06/01/2024 06/01/2023, 02/06 CKD PHOS USE SMARTSET 58589 06/01/2024 06/01/2023, 0 03/04/2022 DISCUSS TOBACCO CESSATION (REFER TO SMARTSET #3291) 09/02/2024 09/03/2023 CKD HGB USE SMARTSET 24056 09/12/202409/12, 09/13/2023, 08/16/2023, Additional history exists TSH [...] the patient have Health Care Power of Marine Engine Machinist? No Care Teams Pc Support Specialist Relationship Specialty Start Date End Date Pepe Beck MD [address] [place] [phone] PCP - General Family Medicine 11/07/21 documented as of this encounter
--- OUTSIDE RECORDS SUMMARY | 2023-10-26 09:55 | External Medical Summary | Summary of Care ---
Author Name Unknown Organization [facility] Address [address] [place] [address] Phone [phone] Care Team Providers Care Shot Polisher And Inspector Name Role Phone Pepe Beck MD Primary Care P rovider Reason for Visit * Reason Comments Follow Up Treatment Encounter Details Date Type Department Care Team (Late st Contact Info) Description 09/14/2023 9:30 AM EDT Office Visit Hematology/Oncology [facility] [place] 200 [facility] [place] [address] Pearl Oviedo CRNP [address] [place] [address] Cancer of upper lobe of right lung (HCC)*; Pleural effusion on right; Encounter for antineoplastic chemotherapy; Thrush Allergies No known active allergiesdocumented as of [...] 20 MG Oral Tablet (Demadex)Indication s:Atherosclerosis of [place] artery of right lower extremity with intermittent [...] Oral Tablet (Cozaar)Indications :Coronary artery disease involving [place] coronary artery of [place] heart without angina pectoris Take 0.5 Tablets by mouth in the morning. 0 3 Active Apixaban 2.5 MG Oral Tablet (Eliquis)Indication s:Persistent atrial fibrillation (HCC) Take 1 Tablet by mouth in the morning and 1 Tablet before bedtime. 60 Tablet 5 3 Active Vitamin B-12 1000 MCG Sublingual Tablet Sublingual every 30 days. 0 3 Active Baclofen 10 MG Oral Tablet (Lioresal)Indicatio ns:Acute left-sided low back pain without sciatica Take 1 Tablet by mouth every night at bedtime. 30 Tablet 2 4 Active amLODIPine Besylate 5 MG Oral Tablet [...] s:COPD, group C, by GOLD 2017 classification ([facility]) Inhale 1 Puff by mouth every [...] sciatica,Cancer of upper lobe of right lung ([facility]) Take 1 Tablet by mouth every 4 hours as needed for Pain, Severe. 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 10/23/2019 Hypothyroidism 03/28/2018 Hyponatremia 03/28/2018 Dyslipidemia, goal LDL below 70 03/28/2018 Edema of lower extremity 03/28/2018 Degeneration of lumbar intervertebral disc 03/28 Coronary artery disease invo lving [place] coronary artery of [place] heart without angina pectoris 03/28/2018 Benign prostatic [...] mRNA, LNP-s, No Pre serve, 2-Dose Series (CodeHS) 05/05/2021,08/28/2020,08/07/2020 Covid-19, Mrna, Lnp-s, Pf, B ivalent, 30 Mcg, IM, 12 yrs and above (Pfizer) 02/24/2022 Pneumococcal Conjugate Vacci ne, 20-valent ([id number]) 09/03/2023,12/09/2021(Deferred: Had Clinical Disease) Pneumococcal Polysaccharide PPV23 [...] Sign Reading Time Taken Comments Blood Pressure 136/69 09/14/2023 9:30 AM EDT Pulse 87 09/14/2023 9:30 AM EDT Temperature - - Respiratory Rate 17 09/14/2023 9:30 AM EDT Oxygen Saturation 94% 09/14/2023 9:30 AM EDT Inhaled Oxygen Concentration - - Weight 62.4 kg (137 lb 8 oz) 09/14/2023 9:30 AM EDT Height - - Body Mass Index 21.54 08/26/2023 9:56 AM EDT documented in this encounter Functional [...] Progress Notes * Pearl Oviedo CRNP - 09/14/2023 9:30 AM EDT Hematology/Oncology Outpatient Clinic note [address] [place] [address] Name: Manuel Yarbrough Date: 09/13/2023 CHIEF COMPLAINT: Manuel Yarbrough is a 83 [...] has been followed by vascular surgeon in [place]. CTA of the neck on 01/13/2023 showed [...] pulmonary nodule. Recently he [facility] for the symptomatic right pleural effusion, I [...] is noted requiring multiple episodes of thoracentesis. HISTORY OF PRESENT ILLNESS: Manuel Yarbrough is a 83 year old male with a history as outlined above. Currently here for f/u visit today and consideration for C4D1 of treatment. Patient is concerned today. He never heard about being scheduled for his thoracentesis after his last visit with pulmonary. Denies any SOB today. Feels much improved after first thoracentesis. Able to walk further distances. Did have an episode where his pulse ox dropped to the 60 percent range while walking at his summer home. Does not currently haveportable oxygen. Son plans to call company to check on this. Having a productive cough, lopez sputum.This is at his baseline. Denies fevers, chills or night sweats. Back to using rescue inhaler just once a day. Has been taking increased mirtazipine. Has noticed some improvement in appetite. Also used lozenges for thrush with some improvement though not using these regularly. Feels he is eating anddrinking better. Trying to increase fluid intake. Weight has declined again. Believes he is taking iron supplement once daily. Having some constipation. Taking dulcolax 1-2 tablets and mild of magnesi a with some relief. No past medical history on file. Past Surgical History: Procedure Laterality Date BRONCHOSCOPY, DIAGNOSTIC N/A 02/10/2023 BRONCHOSCOPY DIAGNOSTIC WITH OR WITHOUT WASHING performed by Madyson Alcala MD at [facility] Social History Socioeconomic History Marital status: Spouse [...] MCG Sublingual Tablet Sublingual every 30 days. Baclofen 10 MG Oral Tablet (Lioresal) Take 1 Tablet by mouth every night at bedtime. 30 Tablet 2 FeroSul 325 (65 Fe) MG Oral Tablet TAKE 1 TABLET BY MOUTH ONCE DAILY IN THE MORNING 90 Tablet 1 amLODIPine Besylate 5 MG Oral Tablet (Norvasc) [...] BREAKFAST AND OTHER MEDS 90 Tablet 1 Current Facility-Administered Medications Medication Dose Route Frequency Provider Last Rate Last Admin vitamin b-12 (Cyanocobalamin) inj 1,000 mcg 1,000 mcg Intramuscular Q4 Weeks Shiraz Beck MD 1,000 mcg at 09/01/23 0902 REVIEW OF SYSTEMS: See HPI - otherwise negative OBJECTIVE: Filed Vitals: 09/14/23 0930 BP: 136/69 Pulse: 87 Resp: 17 SpO2: 94% Weight: 62.4 kg (137 lb 8 oz) Wt Readings from Last 5 Encounters: 09/14/23 62.4 kg (137 lb 8 oz) 09/03/23 66.3 kg (146 lb 3.2 oz) 08/26/23 66.2 kg (146 lb) 08/24/23 65.4 kg (144 lb 2.9 oz) 08/17/23 67.2 kg (148 lb 3.2 oz) PHYSICAL EXAM: ECOG: Performance Status 1 = 80-90% Symptoms but nearly ambulatory General Appearance: No acute distress HEENT: +oral thrush Lymph Nodes: Normal - No palpable lymph nodes in the neck or supraclavicular areas Lungs/Thorax: Mildly diminished in RLL, otherwise CTA Heart: Regular rate, irregular rhythm, no appreciable murmurs Extremities: +trace RLE edema Neurologic: Normal - Grossly intact LABS: Results for orders placed or performed in visit on 09/13/23 COMPREHENSIVE METABOLIC PANEL Result Value Ref Range BUN 20 6 - 20 mg/dL Creatinine 1.2 0.6 - 1.2 mg/dL Estimated Glomerular Filtration Rate 61 >=60 mL/min Sodium 137 135 - 146 mmol/L Potassium 4.0 3.5 - 5.1 mmol/L Chloride 98 98 - 107 mmol/L CO2 29 22 - 32 mmol/L Anion Gap 10 7 - 15 mmol/L Glucose 113 70 - 120 mg/dL Albumin 4.0 3.8 - 5.0 g/dL AST 16 10 - 50 U/L Alkaline Phosphatase 108 35 - 130 U/L Bilirubin, Total 0.6 <=1.2 mg/dL Calcium 8.9 8.4 - 10.2 mg/dL Protein 5.8 (L) 6.0 - 8.3 g/dL ALT 15 10 - 50 U/L TSH WITH FREE T4 IF INDICATED Result Value Ref Range TSH 8.91 (H) 0.27 - 4.20 uIU/mL CBC Result Value Ref Range WBC 5.67 4.00 - 10.80 K/uL RBC 4.53 4.50 - 5.25 M/uL HGB 12.8 (L) 14.0 - 16.8 g/dL HCT 40.0 40.0 - 48.4 % MCV 88.3 82.0 - 99.5 fL MCH 28.3 27.0 - 34.0 pg MCHC 32.0 32.0 - 36.0 g/dL RDW 15.2 11.5 - 15.5 % PLT 166 140 - 400 K/uL MPV 9.7 6.6 - 11.1 fL nRBCs 0 <=0 /100 WBCs DIFFERENTIAL, AUTOMATED Result Value Ref Range WBC 5.67 4.00 - 10.80 K/uL Neutrophils % 75.5 (H) 40.0 - 75.0 % Lymphocytes % 11.1 (L) 18.0 - 42.0 % Monocytes % 10.8 1.0 - 11.0 % Eosinophils % 1.8 0.0 - 6.0 % Basophils % 0.4 0.0 - 2.0 % Immature Granulocytes % 0.4 0.0 - 2.0 % Absolute Neutrophils 4.29 1.80 - 7.70 K/uL Absolute Lymphocytes 0.63 (L) 1.00 - 4.80 K/ul Absolute Monocytes 0.61 0.00 - 1.10 K/uL Absolute Eosinophils 0.10 0.00 - 0.70 K/uL Absolute Basophils 0.02 0.00 - 0.20 K/uL Absolute Immature Granulocytes 0.02 0.00 - 0.20 K/uL T4, FREE Result Value Ref Range T4, Free 1.4 0.9 - 1.7 ng/dL IMPRESSION/PLAN: 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 No new disease present. Has now started Durvalumab immunotherapy 1500 mg every 4 weeks for total 1 year duration. Has now resumed Eliquis 2.5 mg BID. S/P thoracentesis for large right pleural effusion in early August. Patient feeling clinically improved today. Cytology negative for malignant cells. Repeat CT Chest 08/1923 showing partial re-accumulation of right pleural effusion. Was recommended repeat IR thoracentesis by pulmonary at last OV. This has not yet been scheduled. Will send message to pulmonary to follow up on this. May need to consider for PleurX catheter if need for multiple thoracentesis. Lab results reviewed:unremarkable Ok for Durvalumab treatment today as scheduled Thyroid supplement managed per PCP. Ok for patient to stop oral iron d/t constipation. Encouraged compliance with Mycelex lizabeth for treatment of thrush Recommended Biotene products for dry mouth. Encouraged good oral care and increased oral fluid intake. Continue Mirtazapine per PCP for treatment of depression and poor appetite. Encouraged small meals throughout the day and protein supplement at least daily. RTC in 4 weeks with provider for chemo return PEMA Gould documented in this encounter Nursing Notes * Pauline Vicente MED ASSIST - 09/14/2023 9:31 AM EDT Patient identifed by name and [...] activate it for you? NO Filed Vitals: 09/14/23 0930 BP: 136/69 Pulse: 87 Resp: 17 SpO2: 94% Weight: 62.4 kg (137 lb 8 oz) Patient was instructed to not get [...] Office Visit Pulmonary Medicine, [facility] 132 [facility] [place] [address] Vu Tapia MD [facility] [address] 09/29/2023 9:00 AM EDT Immunization/Injecti on [address] [phone] [place], Nurse [address] [address] 10/11/2023 8:40 AM EDT Laboratory Laboratory [facility] [address] [place] [phone] [place], Lab [facility] [address] [facility] [place] [address] 10/11/2023 9:00 AM EDT Office Visit Hematology/Oncology [facility] [address] [place] [phone] Pearl Oviedo CRNP [address] [place] [address] [place] [address] 10/11/2023 9:30 AM EDT Hem/Onc Treatment Hematology/Oncology Treatment, [place] [address] [place] [address] 12/20/2023 10:00 AM EDT Office Visit [facility] 68 [facility] [place] [address] Pepe Beck MD [address] [place] [address] [place] [address] Pending Results Name Type Priority Associated Diagnoses Date /Time MAGNESIUM Lab Routine Encounter for antineoplastic chemotherapy 09/13/2023 8:08 AM EDT Health Maintenance Due Date Last [...] 06/01/2024 06/01/2023, 02/06 CKD PHOS USE SMARTSET 84025 06/01/2024 06/01/2023, 0 03/04/2022 DISCUSS TOBACCO CESSATION (REFER TO SMARTSET #3291) 09/02/2024 09/03/2023 CKD HGB USE SMARTSET 92348 09/12/202409/12, 09/13/2023, 08/16/2023, Additional history exists TSH [...] Pleural effusion on right Unspecified pleural effusion Encounter for antineoplastic chemotherapy Thrush Candidiasis of mouth documented in this [...] the patient have Health Care Power of Maint Mechanic? No Care Teams Shot Polisher And Inspector Relationship Specialty Start Date End Date Pepe Beck MD [address] [place] [address] PCP - General Family Medicine 11/07/21 documented as of this encounter
--- OUTSIDE RECORDS SUMMARY | 2023-10-26 09:55 | External Medical Summary | Summary of Care ---
Author Name Unknown Organization [facility] Address [address] [place] [address] Phone [phone] Care Team Providers Care Schedule Manager Name Role Phone Pepe Beck MD Primary Care P rovider Encounter Details Date Type Department Care Team (Late st Contact Info) Description 09/15/2023 Telephone Hematology/Oncology [facility] 200 [facility] [place] [address] Pearl Oviedo CRNP [address] [place] [address] Allergies No known active allergiesdocumented [...] 20 MG Oral Tablet (Demadex)Indications :Atherosclerosis of [place] artery of right lower extremity with intermittent [...] Oral Tablet (Cozaar)Indications: Coronary artery disease involving [place] coronary artery of [place] heart without angina pectoris Take 0.5 Tablets [...] :COPD, group C, by GOLD 2017 classification ([facility]) Inhale 1 Puff by mouth every [...] inj 1,000 mcgIndications:B12 deficiency 1000 mcg IM [id number] 05/06/2023 04/06/2024 Active documented as of this [...] 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 erick of right lower extremity with intermittent claudication 10/23/2019 Hypothyroidism 03/28/2018 Hyponatremia 03/28/2018 Dyslipidemia, goal LDL below 70 03/28/2018 Edema of lower extremity 03/28/2018 Degeneration of lumbar intervertebral disc 03/28 Coronary artery disease invo lving [place] coronary artery of [place] heart without angina pectoris 03/28/2018 Benign prostatic [...] mRNA, LNP-s, No Pre serve, 2-Dose Series (Lumicity) 05/05/2021,08/28/2020,08/07/2020 Covid-19, Mrna, Lnp-s, Pf, B ivalent, 30 Mcg, IM, 12 yrs and above (Pfizer) 02/24/2022 Pneumococcal Conjugate Vacci ne, 20-valent ([id number]) 09/03/2023,12/09/2021(Deferred: Had Clinical Disease) Pneumococcal Polysaccharide PPV23 [...] 10:20 AM EDT Office Visit Pulmonary Medicine, [facility] 132 [facility] [place] [address] Vu Tapia MD [facility] S [facility] [place] [address] 09/29/2023 9:00 AM EDT Immunization/Injecti on [address] [phone] [place], Nurse [address] [address] 10/11/2023 8:40 AM EDT Laboratory Laboratory [facility] 200 [facility] [place] [phone] [place], Lab [address] [facility] [place] [address] 10/11/2023 9:00 AM EDT Office Visit Hematology/Oncology [facility] 200 [facility] [place] [phone] Pearl Oviedo CRNP [address] [place], [place] [address] [address] 10/11/2023 9:30 AM EDT Hem/Onc Treatment Hematology/Oncology Treatment, [place] [address] [place] [address] 12/20/2023 10:00 AM EDT Office Visit [facility] 68 [facility] [place] [phone] Pepe Beck MD [address] [place] [address] [place] [address] Health Maintenance Due Date Last Done Comments [...] 06/01/2024 06/01/2023, 02/06 CKD PHOS USE SMARTSET 39664 06/01/2024 06/01/2023, 0 03/04/2022 DISCUSS TOBACCO CESSATION (REFER TO SMARTSET #3291) 09/02/2024 09/03/2023 CKD HGB USE SMARTSET 55871 09/12/202409/12, 09/13/2023, 08/16/2023, Additional history exists TSH [...] the patient have Health Care Power of Certified Fraud Examiner? No Care Teams Schedule Manager Relationship Specialty Start Date End Date Pepe Beck MD [address] [place] [phone] PCP - General Family Medicine 11/07/21 documented as of this encounter
--- OUTSIDE RECORDS SUMMARY | 2023-10-26 09:56 | External Medical Summary | Summary of Care ---
Author Name Unknown Organization [facility] Address [address] [place] [address] Phone [phone] Care Team Providers Care Carbon Plant Grinder Name Role Phone Pepe Starks MD Primary Care P rovider Reason for Visit * Reason Comments eRx-Medication Refill Encounter Details Date Type Department Care Team ([facility] st Contact Info) Description 09/08/2023 Refill Family Practice [address] [address] Pepe Starks MD [address] [place] [phone] Acute left-sided low back pain without sciatica; Cancer of upper lobe of right lung (HCC) Allergies No known active allergiesdocumented as of this encounter (statuses as of 09/09/2023) Medications Medication Sig Dispensed Refills Start Date End Date Status Aspirin 81 MG Oral Tablet Delayed Release Take 1 Tablet by mouth every other day. 0 Active Albuterol Sulfate HFA 108 (90 Base) MCG/ACT Inhalation Aerosol Solution INHALE 2 PUFFS BY MOUTH EVERY 6 HOURS NEEDED 18 g 3 2 Active Torsemide 20 MG Oral Tablet (Demadex)Indicatio ns:Atherosclerosis of council artery of right lower extremity with intermittent [...] for Nausea. 30 Tablet 2 3 Active Levothyroxine Sodium 112 MCG Oral Tablet (Levoxyl) TAKE 1 TABLET BY MOUTH ONCE DAILY AT LEAST 30 MINUTES PRIOR TO BREAKFAST AND OTHER MEDS 90 Tablet 1 3 Active Tamsulosin HCl 0.4 MG Oral [...] Oral Tablet (Cozaar)Indication s:Coronary artery disease involving council coronary artery of council heart without angina pectoris Take 0.5 Tablets by mouth in the morning. 0 3 Active Apixaban 2.5 MG Oral Tablet (Eliquis)Indicatio ns:Persistent atrial fibrillation (HCC) Take 1 Tablet by mouth in the morning and 1 Tablet before bedtime. 60 Tablet 5 3 Active Vitamin B-12 1000 MCG Sublingual Tablet Sublingual every 30 days. 0 3 Active Baclofen 10 MG Oral Tablet (Lioresal)Indicati ons:Acute left-sided low back pain without sciatica Take 1 Tablet by mouth every night at bedtime. 30 Tablet 2 4 Active FeroSul 325 (65 Fe) MG Oral Tablet TAKE 1 TABLET BY MOUTH ONCE DAILY IN THE MORNING 90 Tablet 1 4 Active amLODIPine Besylate 5 MG Oral [...] ns:COPD, group C, by GOLD 2017 classification ([facility]) Inhale 1 Puff by mouth [...] Pain, Severe. 60 Tablet 0 4 Active HYDROcodone-Acetam inophen 10-325 MG Oral TabletIndications: Acute left-sided low back pain without sciatica,Cancer of upper lobe of right lung (HCC) Take 1 Tablet by mouth every 4 hours as needed for Pain, Severe. 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 Atherosclerosis of council ar erick of right lower extremity with intermittent claudication 10/23/2019 Hypothyroidism 03/28/2018 Hyponatremia 03/28/2018 Dyslipidemia, goal LDL below 70 03/28/2018 Edema of lower extremity 03/28/2018 Degeneration of lumbar intervertebral disc 03/28 Coronary artery disease invo lving council coronary artery of council heart without angina pectoris 03/28/2018 Benign prostatic hyperplasia 03/28/2018 Benign essential hypertension 03/28/2018 Carotid artery stenosis 03/28/2018 Osteoarthritis of ankle 03/29/2017 Peripheral vascular disease 11/03/2016 documented as of this encounter (statuses as of 09/09/2023) Resolved Problems Problem Noted Date Diagnosed Date Resolved Date EL (acute kidney injury) 05/17/2023 Lumbar radiculopathy 03/28/2018 023 Chronic obstructive pulmonary disease 03/28/2018 11/20/2021 Overview: Per COPD GOLD Classification documented as of this encounter (statuses as of 09/09/2023) Immunizations Name Administration Dates Next Due COVID-19 mRNA, LNP-s, No Pre serve, 2-Dose Series ([employer]) 05/05/2021,08/28/2020,08/07/2020 Covid-19, Mrna, Lnp-s, Pf, B ivalent, 30 Mcg, IM, 12 yrs and above (BaseTrace) 02/24/2022 Pneumococcal Conjugate Vacci ne, 20-valent ([id number]) 09/03/2023,12/09/2021(Deferred: Had Clinical Disease) Pneumococcal Polysaccharide PPV23 [...] Telephone Encounter - Pepe Starks MD - 09/09/2023 2:09 PM EDTSigned Prescriptions: Disp Refills HYDROcodone-Acetaminophen 10-325 MG Oral T*60 Tab*0 Sig: Take 1 Tablet by mouth every 4 hours as needed for Pain, Severe. Authorizing Provider: PEPE STARKS * Telephone Encounter - Jorge L Deal [facility] - 09/08/2023 6:59 PM EDTPending Prescriptions: Disp Refills HYDROcodone-Acetaminophen 10-325 MG Oral T*60 Tab*0 Sig: Take 1 Tablet by mouth every 4 hours as needed for Pain, Severe. * Telephone Encounter - Jorge L Deal RPh - 09/08/2023 6:57 PM EDT I have reviewed the patients controlled substance dispensing history in the Prescription Drug Monitoring Program in compliance with the [facility] regulations before prescribing a controlled substance. PDMP checked on 09/08/2023. Pending Prescriptions: Disp Refills HYDROcodone-Acetaminophen 10-325 MG Oral *60 Tab*0 Sig: Take 1 Tablet by mouth every 4 hours as needed for Pain, Severe. Last Visit: 09/03/2023 (in office), Visit date not found (telemedicine) Next Visit: 12/20/2023 Date medication was last filled: 07/16/2023 Date medication is due for refill: 07/25/2023 Pharmacy: [facility] [address] Is this request for a controlled substance? Yes and Urine Drug Screen Not completed Toxicology results: No results found for this or any previous visit. Please approve if appropriate. Thanks, Jorge L Deal, PharmD Clinical Pharmacist Telepharmacy [phone] 09/08/2023NOW@ documented in this encounter Plan of Treatment Upcoming Encounters Date Type Department Care Team (Late st Contact Info) Description 09/13/2023 8:30 AM EDT Laboratory Laboratory [facility] Service [address] [phone] [facility] [address] 09/14/2023 9:30 AM EDT Office Visit Hematology/Oncology Jamin Chung [place] [address] [place] [address] Pearl Oviedo CRNP [address] [place] [address] 09/14/2023 10:00 AM EDT Hem/Onc Treatment Hematology/Oncology Treatment, [place] [address] [place] [phone] [place], Chair 11 Hem Onc Scenery [address] [place] [address] 09/23/2023 10:20 AM EDT Office Visit Pulmonary Medicine, [facility] [address] [place] [address] Vu Tapia [facility] [address] [facility] [address] 09/29/2023 9:00 AM EDT Immunization/Injecti on [address] [address] [place], Nurse [address] [address] 12/20/2023 10:00 AM EDT Office Visit [facility] [address] [place] [address] Pepe Starks MD [address] [place] [address] Health Maintenance Due Date Last Done Comments DTaP,Tdap,and Td Vaccines (1 - Tdap) 08/08/1959 Zoster Vaccines (1 of 2) 08/08/1959 *ADVANCE DIRECTIVE NOT ON FILE 03/13/2022 COVID-19 Vaccine ( season) 2023 02/24/2022, 05/05/2021, 08/28/2020, Additional history exists O2 ASSESSMENT COMPLETED IN PAST YEAR FOR COPD 02/11/2024 02/10/2023 GFR 02/16/2024 08/16/2023, 07/09, 08/03/2023, Additional history exists Depression Screening 05/10/2024 05/10/2023 Albumin/Creatinine Ratio 06/01/2024 06/01/2023, 02/06 CKD PHOS USE SMARTSET 14675 06/01/2024 06/01/2023, 0 03/04/2022 CKD HGB USE SMARTSET 03243 08/15/202408/15, 08/16/2023, 08/04/2023, Additional history exists TSH 08/15/2024 08/16/2023, 07/09, 08/03/2023, Additional history exists DISCUSS TOBACCO CESSATION (REFER TO SMARTSET #3291) 09/02/2024 09/03/2023 Alpha-1 Antitrypsin Completed 03/04/2022 Influenza Vaccine (FLU [...] the patient have Health Care Power of Occupational Therapy Co Director? No Care Teams Carbon Plant Grinder Relationship Specialty Start Date End Date Pepe Starks MD [address] [place] [address] PCP - General Family Medicine 11/07/21 documented as of this encounter
--- OUTSIDE RECORDS SUMMARY | 2023-10-26 09:56 | External Medical Summary | Summary of Care ---
Author Name Unknown Organization [facility] Address [address] [place] [address] Phone [phone] Care Team Providers Care Cardroom Attendant Name Role Phone Pepe Beck MD Primary Care P rovider Encounter Details Date Type Department Care Team (Late st Contact Info) Description 09/15/2023 Telephone Hematology/Oncology [facility] [place] [address] Pearl Oviedo CRNP [address] [place] [address] Allergies No known active allergiesdocumented [...] 20 MG Oral Tablet (Demadex)Indications :Atherosclerosis of eagle artery of right lower extremity with intermittent [...] Oral Tablet (Cozaar)Indications: Coronary artery disease involving eagle coronary artery of eagle heart without angina pectoris Take 0.5 Tablets [...] C, by GOLD 2017 classification ([facility]) Inhale 1 Puff by mouth every evening. 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 10/23/2019 Hypothyroidism 03/28/2018 Hyponatremia 03/28/2018 Dyslipidemia, goal LDL below 70 03/28/2018 Edema of lower extremity 03/28/2018 Degeneration of lumbar intervertebral disc 03/28 Coronary artery disease invo lving eagle coronary artery of eagle heart without angina pectoris 03/28/2018 Benign prostatic [...] mRNA, LNP-s, No Pre serve, 2-Dose Series ([employer]) 05/05/2021,08/28/2020,08/07/2020 Covid-19, Mrna, Lnp-s, Pf, B ivalent, 30 Mcg, IM, 12 yrs and above (Pfizer) 02/24/2022 Pneumococcal Conjugate Vacci ne, 20-valent ([id number]) 09/03/2023,12/09/2021(Deferred: Had Clinical Disease) Pneumococcal Polysaccharide PPV23 [...] 10:20 AM EDT Office Visit Pulmonary Medicine, [facility] 132 [facility] [place] [address] Vu Tapia MD [facility] [place] [address] 09/29/2023 9:00 AM EDT Immunization/Injecti on [address] [phone] [place], Nurse [address] [address] 10/11/2023 8:40 AM EDT Laboratory Laboratory [facility] 200 [facility] [place] [phone] [place], Lab [address] [facility] [place] [address] 10/11/2023 9:00 AM EDT Office Visit Hematology/Oncology [facility] 200 [facility] [place] [phone] Pearl Oviedo CRNP [address] [place], [place] [address] [address] 10/11/2023 9:30 AM EDT Hem/Onc Treatment Hematology/Oncology Treatment, [place] [address] [place] [address] 12/20/2023 10:00 AM EDT Office Visit [facility] 68 [facility] [place] [address] Pepe Beck MD [address] [place] [address] [place] [address] Health Maintenance Due Date Last Done Comments [...] 06/01/2024 06/01/2023, 02/06 CKD PHOS USE SMARTSET 70490 06/01/2024 06/01/2023, 0 03/04/2022 DISCUSS TOBACCO CESSATION (REFER TO SMARTSET #3291) 09/02/2024 09/03/2023 CKD HGB USE SMARTSET 96874 09/12/202409/12, 09/13/2023, 08/16/2023, Additional history exists TSH [...] the patient have Health Care Power of Cab Supervisor? No Care Teams Cardroom Attendant Relationship Specialty Start Date End Date Pepe Beck MD [address] [place] [phone] PCP - General Family Medicine 11/07/21 documented as of this encounter
--- OUTSIDE RECORDS SUMMARY | 2023-10-26 09:56 | External Medical Summary ---
Author Name Unknown Address Unknown Organization K01:[facility] - [address] [facility] [place] [address] Laboratory Report Ordering Provider Test Date Status [place] 09/13/2023 08:08:45 Final Observation Date Value Abnormality Reference (Units ) Status SYNC LEUKOCYTES IN BLOOD BY AUTOMATED COUNT 09/13/2023 08:08:45 5.67 4.00-10.80 (K/uL) Final Segs 09/13/2023 08:08:45 75.5 Above high normal 40.0-75.0 (%) Final Lymphs % 09/13/2023 08:08:45 11.1 Below low normal 18.0-42.0 (%) Final Monos 09/13/2023 08:08:45 10.8 1.0-11.0 (%) Final Eosinophils 09/13/2023 08:08:45 1.8 0.0-6.0 (%) Final Basos 09/13/2023 08:08:45 0.4 0.0-2.0 (%) Final Immature Granulocyte, Percent 09/13/2023 08:08:45 0.4 0.0-2.0 (%) Final Absolute Segs 09/13/2023 08:08:45 4.29 1.80-7.70 (K/uL) Final Lymphs, absolute 09/13/2023 08:08:45 0.63 Below low normal 1.00-4.80 (K/ul) Final Monos, Abs 09/13/2023 08:08:45 0.61 0.00-1.10 (K/uL) Final Eos, Abs 09/13/2023 08:08:45 0.10 0.00-0.70 (K/uL) Final Basos, Abs 09/13/2023 08:08:45 0.02 0.00-0.20 (K/uL) Final Immature Granulocytes, Number 09/13/2023 08:08:45 0.02 0.00-0.20 (K/uL) Final Performing Location [facility] - [facility] [address]. [place] [address]
--- OUTSIDE RECORDS SUMMARY | 2023-10-26 09:56 | External Medical Summary | Summary of Care ---
Author Name Unknown Organization [facility] Address [address] [place] [address] Phone [phone] Care Team Providers Care Flatwork Finisher Hand Name Role Phone Pepe Starks MD Primary Care P rovider Reason for Visit * Reason Comments eRx-Medication Refill Encounter Details Date Type Department Care Team ([facility] st Contact Info) Description 09/11/2023 Refill Family Practice [address] [address] Pepe Starks MD [address] [place] [phone] Allergies No known active allergiesdocumented as of this encounter (statuses as of 09/13/2023) Medications Medication Sig Dispensed Refills Start Date End Date Status Aspirin 81 MG Oral Tablet Delayed Release Take 1 Tablet by mouth every other day. 0 Active Albuterol Sulfate HFA 108 (90 Base) MCG/ACT Inhalation Aerosol Solution INHALE 2 PUFFS BY MOUTH EVERY 6 HOURS NEEDED 18 g 3 2 Active Torsemide 20 MG Oral Tablet (Demadex)Indicatio ns:Atherosclerosis of [place] artery of right lower extremity with intermittent [...] Oral Tablet (Cozaar)Indication s:Coronary artery disease involving [place] coronary artery of [place] heart without angina pectoris Take 0.5 Tablets [...] ns:COPD, group C, by GOLD 2017 classification ([facility] [...] OTHER MEDS 90 Tablet 1 4 Active Levothyroxine Sodium 112 MCG Oral Tablet (Levoxyl) TAKE 1 TABLET BY MOUTH ONCE DAILY AT LEAST 30 MINUTES PRIOR TO BREAKFAST AND OTHER MEDS 90 Tablet 1 3 09/13/19 24 Discontinued Hospital, Clinic, or Other Facility Administered Medication Ordered Dose Route Frequency Start Date End Date Status vitamin b-12 (Cyanocobalamin) inj 1,000 mcgIndications:B12 deficiency 1000 mcg IM [id number] 05/06/2023 04/06/2024 Active documented as of this encounter (statuses as of 09/13/2023) Active Problems Problem Noted Date Diagnosed Date [...] 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 Atherosclerosis of [place] ar erick of right lower extremity with intermittent claudication 10/23/2019 Hypothyroidism 03/28/2018 Hyponatremia 03/28/2018 Dyslipidemia, goal LDL below 70 03/28/2018 Edema of lower extremity 03/28/2018 Degeneration of lumbar intervertebral disc 03/28 Coronary artery disease invo lving [place] coronary artery of [place] heart without angina pectoris 03/28/2018 Benign prostatic hyperplasia 03/28/2018 Benign essential hypertension 03/28/2018 Carotid artery stenosis 03/28/2018 Osteoarthritis of ankle 03/29/2017 Peripheral vascular disease 11/03/2016 documented as of this encounter (statuses as of 09/13/2023) Resolved Problems Problem Noted Date Diagnosed Date Resolved Date EL (acute kidney injury) 05/17/2023 12 / Lumbar radiculopathy 03/28/2018 023 Chronic obstructive pulmonary disease 03/28/2018 11/20/2021 Overview: Per COPD GOLD Classification documented as of this encounter (statuses as of 09/13/2023) Immunizations Name Administration Dates Next Due COVID-19 mRNA, LNP-s, No Pre serve, 2-Dose Series ([employer]) 05/05/2021,08/28/2020,08/07/2020 Covid-19, Mrna, Lnp-s, Pf, B ivalent, 30 Mcg, IM, 12 yrs and above ([employer]) 02/24/2022 Pneumococcal Conjugate Vacci ne, 20-valent ([id number]) 09/03/2023,12/09/2021(Deferred: Had Clinical Disease) Pneumococcal Polysaccharide PPV23 [...] encounter Miscellaneous Notes * Telephone Encounter - Rhiannon Ferrari RPh - 09/13/2023 9:25 AM EDTSigned Prescriptions: Disp Refills Levothyroxine Sodium 112 MCG Oral Tablet (*90 Tab*1 Sig: TAKE 1 TABLET BY MOUTH ONCE DAILY AT LEAST 30 MINUTES PRIOR TO BREAKFAST AND OTHER MEDS Authorizing Provider: PEPE STARKS Ordering User: RHIANNON FERRARI * Telephone Encounter - Rhiannon Ferrari RPh - 09/13/2023 9:25 AM EDT TSH slightly elevated; T4 normal. Refills approved. Rhiannon Herndon Clinical Pharmacist [facility] ([facility]) (Formerly [facility]pharm[facility]) [phone] 09/13/2023, 9:25 AM documented in this encounter Plan of Treatment Upcoming Encounters Date Type Department Care Team (Late st Contact Info) Description 09/14/2023 9:30 AM EDT Office Visit Hematology/Oncology Jamin Chung [place] [address] [place] [phone] Pearl Oviedo CRNP [address] [place] [phone] 09/14/2023 10:00 AM EDT Hem/Onc Treatment Hematology/Oncology Treatment, [place] [address] [place] [address] Park, Chair 11 Hem Onc Scenery [address] [place] [address] 09/23/2023 10:20 AM EDT Office Visit Pulmonary Medicine, [facility] 132 [facility] [place] [address] Vu Tapia MD [address] [facility] [place] [address] 09/29/2023 9:00 AM EDT Immunization/Injecti on [facility] [address] [place] [address] [place], Nurse [address] [address] 12/20/2023 10:00 AM EDT Office Visit [facility] [address] [place] [address] Pepe Starks MD [address] [place] [address] Health Maintenance Due Date Last Done [...] 06/01/2024 06/01/2023, 02/06 CKD PHOS USE SMARTSET 26054 06/01/2024 06/01/2023, 0 03/04/2022 CKD HGB USE SMARTSET 87661 08/15/202408/15, 08/16/2023, 08/04/2023, Additional history exists TSH 08/15/2024 08/16/2023, 07/09, 08/03/2023, Additional history exists DISCUSS TOBACCO CESSATION (REFER TO SMARTSET #1667) 09/02/2024 09/03/2023 Alpha-1 Antitrypsin Completed 03/04/2022 Influenza [...] the patient have Health Care Power of Tool And Production Planner? No Care Teams Flatwork Finisher Hand Relationship Specialty Start Date End Date Pepe Starks MD [address] [place] [address] PCP - General Family Medicine 11/07/21 documented as of this encounter
--- OUTSIDE RECORDS SUMMARY | 2023-10-26 09:56 | External Medical Summary | Summary of Care ---
Author Name Unknown Organization [facility] Address [address] [place] [address] Phone [phone] Care Team Providers Care Brush Finisher Name Role Phone Pepe Beck MD Primary Care P rovider Encounter Details Date Type Department Care Team (Late st Contact Info) Description 09/12/2023 Orders Only Hematology/Oncology, [facility] [address] [place] [address] Akhil Jones MD [address] [place] [address] Allergies No known active allergiesdocumented as of this encounter (statuses as of 09/12/2023) Medications Medication Sig Dispensed Refills Start Date End Date Status Aspirin 81 MG Oral Tablet Delayed Release Take 1 Tablet by mouth every other day. 0 Active Albuterol Sulfate HFA 108 (90 Base) MCG/ACT Inhalation Aerosol Solution INHALE 2 PUFFS BY MOUTH EVERY 6 HOURS NEEDED 18 g 3 12/18/2021 Active Torsemide 20 MG Oral Tablet (Demadex)Indications :Atherosclerosis of [place] artery of right lower extremity with intermittent [...] for Nausea. 30 Tablet 2 03/02/2023 Active Levothyroxine Sodium 112 MCG Oral Tablet (Levoxyl) TAKE 1 TABLET BY MOUTH ONCE DAILY AT LEAST 30 MINUTES PRIOR TO BREAKFAST AND OTHER MEDS 90 Tablet 1 03/04/2023 Active Tamsulosin HCl 0.4 MG Oral Capsule [...] Oral Tablet (Cozaar)Indications: Coronary artery disease involving [place] coronary artery of [place] heart without angina pectoris Take 0.5 Tablets [...] at bedtime. 30 Tablet 2 06/17/2023 Active FeroSul 325 (65 Fe) MG Oral Tablet TAKE 1 TABLET BY MOUTH ONCE DAILY IN THE MORNING 90 Tablet 1 07/01/2023 Active amLODIPine Besylate 5 MG Oral Tablet [...] :COPD, group C, by GOLD 2017 classification ([facility]) Inhale 1 Puff by mouth [...] sciatica,Cancer of upper lobe of right lung ([facility]) Take 1 Tablet by mouth every 4 hours as needed for Pain, Severe. 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 Atherosclerosis of [place] ar erick of right lower extremity with intermittent claudication 10/23/2019 Hypothyroidism 03/28/2018 Hyponatremia 03/28/2018 Dyslipidemia, goal LDL below 70 03/28/2018 Edema of lower extremity 03/28/2018 Degeneration of lumbar intervertebral disc 03/28 Coronary artery disease invo lving [place] coronary artery of [place] heart without angina pectoris 03/28/2018 Benign prostatic hyperplasia 03/28/2018 Benign essential hypertension 03/28/2018 Carotid artery stenosis 03/28/2018 Osteoarthritis of ankle 03/29/2017 Peripheral vascular disease 11/03/2016 documented as of this encounter (statuses as of 09/12/2023) Resolved Problems Problem Noted Date Diagnosed Date Resolved Date EL (acute kidney injury) 05/17/2023 Lumbar radiculopathy 03/28/2018 023 Chronic obstructive pulmonary disease 03/28/2018 11/20/2021 Overview: Per COPD GOLD Classification documented as of this encounter (statuses as of 09/12/2023) Immunizations Name Administration Dates Next Due COVID-19 mRNA, LNP-s, No Pre serve, 2-Dose Series ([employer]) 05/05/2021,08/28/2020,08/07/2020 Covid-19, Mrna, Lnp-s, Pf, B ivalent, 30 Mcg, IM, 12 yrs and above ([employer]) 02/24/2022 Pneumococcal Conjugate Vacci ne, 20-valent ([id number]) 09/03/2023,12/09/2021(Deferred: Had Clinical Disease) Pneumococcal Polysaccharide PPV23 [...] Upcoming Encounters Date Type Department Care Team ([facility] st Contact Info) Description 09/13/2023 8:30 AM EDT Laboratory Laboratory [facility], [address] [address] [place], Lab [place] [address] [place] [address] 09/14/2023 9:30 AM EDT Office Visit Hematology/Oncology [facility] [address] Pearl Oviedo CRNP 400 [facility] [place] [phone] 09/14/2023 10:00 AM EDT Hem/Onc Treatment Hematology/Oncology Treatment, [place] 200 [facility] [address] Juliet, Chair 11 Hem Onc [address] [address] 09/23/2023 10:20 AM EDT Office Visit Pulmonary Medicine, [facility] 132 [facility] [place] [address] Vu Tapia MD [address] [place] [phone] 09/29/2023 9:00 AM EDT Immunization/Injecti on [address] [address] [place], Nurse [address] [address] 12/20/2023 10:00 AM EDT Office Visit [facility] [address] [place] [address] Pepe Beck MD [address] [place], [place] [address], [place] [address] Health Maintenance Due Date Last Done Comments [...] 06/01/2024 06/01/2023, 02/06 CKD PHOS USE SMARTSET 22068 06/01/2024 06/01/2023, 0 03/04/2022 CKD HGB USE SMARTSET 57179 08/15/202408/15, 08/16/2023, 08/04/2023, Additional history exists TSH 08/15/2024 08/16/2023, 07/09, 08/03/2023, Additional history exists DISCUSS TOBACCO CESSATION (REFER TO SMARTSET #3582) 09/02/2024 09/03/2023 Alpha-1 Antitrypsin Completed 03/04/2022 Influenza [...] the patient have Health Care Power of Fund Development Manager? No Care Teams Brush Finisher Relationship Specialty Start Date End Date Pepe Beck MD [address] [place] [phone] PCP - General Family Medicine 11/07/21 documented as of this encounter
--- OUTSIDE RECORDS SUMMARY | 2023-10-26 09:56 | External Medical Summary ---
Author Name Unknown Address Unknown Organization K01:LABORATORY [facility] [place] - [address] [facility] [address] Laboratory Report Ordering Provider Test Date Status [place] 09/13/2023 08:08:45 Final Observation Date Value Abnormality Reference (Units ) Status WBC, Total 09/13/2023 08:08:45 5.67 4.00-10.80 (K/uL) Final RBC 09/13/2023 08:08:45 4.53 4.50-5.25 (M/uL) Final Hemoglobin 09/13/2023 08:08:45 12.8 Below low normal 14.0-16.8 (g/dL) Final HCT 09/13/2023 08:08:45 40.0 40.0-48.4 (%) Final MCV 09/13/2023 08:08:45 88.3 82.0-99.5 (fL) Final MCH 09/13/2023 08:08:45 28.3 27.0-34.0 (pg) Final MCHC 09/13/2023 08:08:45 32.0 32.0-36.0 (g/dL) Final RDW 09/13/2023 08:08:45 15.2 11.5-15.5 (%) Final Platelets 09/13/2023 08:08:45 166 140-400 (K/uL) Final MPV 09/13/2023 08:08:45 9.7 6.6-11.1 (fL) Final Nucleated erythrocytes/100 leukocytes [Ratio] in Blood by Automated count 09/13/2023 08:08:45 0 <=0 (/100 WBCs) Final Performing Location LABORATORY C - [address] [place] [address]
--- OUTSIDE RECORDS SUMMARY | 2023-10-26 09:56 | External Medical Summary ---
Author Name Unknown Address Unknown Organization K01:[facility]ATORY [facility] - [address] [place] [address] Laboratory Report Ordering Provider Test Date Status LUCA ROMAN 09/13/2023 08:08:45 Final Observation Date Value Abnormality Reference (Units ) Status Magnesium 09/13/2023 08:08:45 2.1 1.5-2.6 (m g/dL) Final Performing Location [facility] - [address] [place] [address]
--- OUTSIDE RECORDS SUMMARY | 2023-10-26 09:56 | External Medical Summary | Summary of Care ---
Author Name Unknown Organization [facility] Address [address] [place] [address] Phone [phone] Care Team Providers Care Leather Belt Shaper Name Role Phone Pepe Beck MD Primary Care P samuelder Reason for Visit * Reason Comments Outpatient Testing Encounter Details Date Type Department Care Team ([facility] st Contact Info) Description 09/13/2023 8:30 AM EDT Laboratory Laboratory Patient Service [address] [phone] [place], Lab [place] [address] [place] [id number] Cancer of upper lobe of right lung [...] 20 MG Oral Tablet (Demadex)Indications :Atherosclerosis of holy cross artery of right lower extremity with intermittent [...] Oral Tablet (Cozaar)Indications: Coronary artery disease involving holy cross coronary artery of holy cross heart without angina pectoris Take 0.5 Tablets [...] :COPD, group C, by GOLD 2017 classification ([facility]) Inhale 1 Puff by mouth [...] inj 1,000 mcgIndications:B12 deficiency 1000 mcg IM [id number] 05/06/2023 04/06/2024 Active documented as of this [...] 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 Atherosclerosis of holy cross ar erick of right lower extremity with intermittent claudication 10/23/2019 Hypothyroidism 03/28/2018 Hyponatremia 03/28/2018 Dyslipidemia, goal LDL below 70 03/28/2018 Edema of lower extremity 03/28/2018 Degeneration of lumbar intervertebral disc 03/28 Coronary artery disease invo lving holy cross coronary artery of holy cross heart without angina pectoris 03/28/2018 Benign prostatic [...] mRNA, LNP-s, No Pre serve, 2-Dose Series (Freedom2) 05/05/2021,08/28/2020,08/07/2020 Covid-19, Mrna, Lnp-s, Pf, B ivalent, 30 Mcg, IM, 12 yrs and above (Pfizer) 02/24/2022 Pneumococcal Conjugate Vacci ne, 20-valent ([id number]) 09/03/2023,12/09/2021(Deferred: Had Clinical Disease) Pneumococcal Polysaccharide PPV23 [...] 09/14/2023 9:30 AM EDT Office Visit Hematology/Oncology [facility] [address] [place] [phone] Pearl Oviedo CRNP [address] [facility] [place] [id number] 09/14/2023 10:00 AM EDT Hem/Onc Treatment Hematology/Oncology Treatment, [place] [address] [place] [address] Juliet, Chair 11 Hem [address]c [address] [address] 09/23/2023 10:20 AM EDT Office Visit Pulmonary Medicine, [facility] [address] [facility] [place] [address] Vu [facility] [address] [facility] [id number] 09/29/2023 9:00 AM EDT Immunization/Injecti on [facility] [address] [place] [address] Alysia, Nurse [address] [address] 12/20/2023 10:00 AM EDT Office Visit [facility] [place] [address] Pepe Beck MD [address] [place] [phone] Pending Results Name Type Priority Associated Diagnoses Date /Time CBC WITH WBC DIFFERENTIAL Lab STAT Cancer of upper lobe of right lung (HCC) 09/13/2023 8:08 AM EDT COMPREHENSIVE METABOLIC PANEL Lab STAT Cancer of upper lobe of right lung (HCC) 09/13/2023 8:08 AM EDT TSH WITH FREE T4 IF INDICATED Lab STAT Cancer of upper lobe of right lung (HCC) 09/13/2023 8:08 AM EDT CBC Lab STAT Cancer of upper lobe of right lung (HCC) 09/13/2023 8:08 AM EDT DIFFERENTIAL, AUTOMATED Lab STAT Cancer of upper lobe of right lung (HCC) 09/13/2023 8:08 AM EDT Health Maintenance Due [...] 06/01/2024 06/01/2023, 02/06 CKD PHOS USE SMARTSET 78976 06/01/2024 06/01/2023, 0 03/04/2022 CKD HGB USE SMARTSET 17307 08/15/202408/15, 08/16/2023, 08/04/2023, Additional history exists TSH 08/15/2024 08/16/2023, 07/09, 08/03/2023, Additional history exists DISCUSS TOBACCO CESSATION (REFER TO SMARTSET #6328) 09/02/2024 09/03/2023 Alpha-1 Antitrypsin Completed 03/04/2022 Influenza [...] the patient have Health Care Power of Sponsorship Coordinator? No Care Teams Leather Belt Shaper Relationship Specialty Start Date End Date Pepe Beck MD [address] [place] [phone] PCP - General Family Medicine 11/07/21 documented as of this encounter
--- OUTSIDE RECORDS SUMMARY | 2023-10-26 09:56 | External Medical Summary ---
Author Name Unknown Address Unknown Organization K01:[facility]ATORY [facility] [place] - [address] [place] [address] Laboratory Report Ordering Provider Test Date Status [place] 09/13/2023 08:08:45 Final Observation Date Value Abnormality Reference (Units ) Status TSH 09/13/2023 08:08:45 8.91 Above high normal 0. 27-4.20 (uIU/mL) Final Performing Location LABORATORY C - [address] [place] [place] [address]
--- OUTSIDE RECORDS SUMMARY | 2023-10-26 09:56 | External Medical Summary | Summary of Care ---
Author Name Unknown Organization [facility] Address [address] [facility] [address] Phone [phone] Care Team Providers Care Converter Supervisor Name Role Phone Pepe Beck MD Primary Care P rovider Reason for Visit * Reason Comments Chemotherapy Imfinzi * Episode Based Medications (Routine) - Authorized Specialty Diagnoses / Procedures Referred By Contac t Referred To Contact Diagnoses Cancer of upper lobe of right lung (HCC) Encounter for antineoplastic chemotherapy Procedures OR INJ., DURVALUMAB, 10 MG Bear Love MD [address] [place] [address] Anc Hem/Onc Jamin Chung DEPT CLOSED - 04/20/23 [address] [place] [address] Referral ID Status Reason Start Date Expiration Date V isits Requested Visits Authorized [id number] Authorized 05/05/2023 11/03/[phone] Encounter Details Date Type Department Care Team (Latest Contact Info) Description 09/14/2023 10:00 AM EDT Hem/Onc Treatment Hematology/Oncolog y Treatment, [place] [address] [place] [address] Juliet, Chair 11 Hem Onc [address] [place] [address] Cancer of upper lobe of right lung (HCC)*; Encounter for antineoplastic chemotherapy Allergies No known active allergiesdocumented as of this encounter (statuses as of 09/14/2023) Medications Medication Sig Dispensed Refills Start Date End Date Status Aspirin 81 MG Oral Tablet Delayed Release Take 1 Tablet by mouth every other day. 0 Active Albuterol Sulfate HFA 108 (90 Base) MCG/ACT Inhalation Aerosol Solution INHALE 2 PUFFS BY MOUTH EVERY 6 HOURS NEEDED 18 g 3 12/18/2021 Active Torsemide 20 MG Oral Tablet (Demadex)Indications :Atherosclerosis of [place] artery of right lower extremity with intermittent [...] Oral Tablet (Cozaar)Indications: Coronary artery disease involving [place] coronary artery of [place] heart without angina pectoris Take 0.5 Tablets [...] :COPD, group C, by GOLD 2017 classification ([facility]) Inhale 1 Puff by mouth every [...] Active HYDROcodone-Acetamin ophen 10-325 MG Oral TabletIndications:Ac [place] left-sided low back pain without sciatica,Cancer of [...] inj 1,000 mcgIndications:B12 deficiency 1000 mcg IM [id number] 05/06/2023 04/06/2024 Active documented as of this encounter (statuses as of 09/14/2023) Active Problems Problem Noted Date Diagnosed Date [...] 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 10/23/2019 Hypothyroidism 03/28/2018 Hyponatremia 03/28/2018 Dyslipidemia, goal LDL below 70 03/28/2018 Edema of lower extremity 03/28/2018 Degeneration of lumbar intervertebral disc 03/28 Coronary artery disease invo lving [place] coronary artery of [place] heart without angina pectoris 03/28/2018 Benign prostatic hyperplasia 03/28/2018 Benign essential hypertension 03/28/2018 Carotid artery stenosis 03/28/2018 Osteoarthritis of ankle 03/29/2017 Peripheral vascular disease 11/03/2016 documented as of this encounter (statuses as of 09/14/2023) Resolved Problems Problem Noted Date Diagnosed Date Resolved Date EL (acute kidney injury) 05/17/2023 Lumbar radiculopathy 03/28/2018 023 Chronic obstructive pulmonary disease 03/28/2018 11/20/2021 Overview: Per COPD GOLD Classification documented as of this encounter (statuses as of 09/14/2023) Immunizations Name Administration Dates Next Due COVID-19 mRNA, LNP-s, No Pre serve, 2-Dose Series ([employer]) 05/05/2021,08/28/2020,08/07/2020 Covid-19, Mrna, Lnp-s, Pf, B ivalent, 30 Mcg, IM, 12 yrs and above ([employer]) 02/24/2022 Pneumococcal Conjugate Vacci ne, 20-valent (Apruysu21) 09/03/2023,12/09/2021(Deferred: Had Clinical Disease) Pneumococcal Polysaccharide PPV23 [...] as of this encounter Nursing Notes * Eboni Wong RN - 09/14/2023 1:20 PM EDT Pt completed treatment without issues. IV removed. Goals: Pt will remain free from injury. Possible barriers to meeting goals: pt is a high fall risk Stability of the patient: Moderately stable - low risk of patient condition declining or worsening Summary regarding today's goals: Met: Pt remained free from injury during treatment today. Discharged in stable condition. Loren Campos LPN assisted. * Eboni Wong RN - 09/14/2023 11:22 AM EDT Chair 8 Chemotherapy/Immunotherapy agents: Cathy Consent for chemotherapy drug treatment complete, dated, and signed? yes, date - 05/21/23 Treatment lab parameters met? Yes Has treatment weight changed > than 10%? No Treatment preauthorized? Yes VITALS Filed Vitals: Urine protein: N/A Patient education completed for treatment? Yes Blood transfusion consent signed and complete? NA Return appointment scheduled? Yes Patient had provider visit today? Yes - Ok to release order and treat per provider PIV established; NSS infusing. Safety and Risk for Injury Patient will remain free from injury. Ensure appropriate safety devices are available. Provide and maintain safe environment. Functional Status: Functional status at today's visit: Restricted in physically strenuous activity but ambulatory and able to carry out work on a light orsedentary nature, e.g. light house work, office work The drug name, dose, infusion volume, rate and route of administration, expiration date and time, appearance and physical integrity of the drug and rate set on the pump and sequencing of drug administration (as applicable) were verified by me and second sign-in RN. Patient was assessed for symptoms or adverse side effects during treatment. documented in this encounter Plan of Treatment Upcoming Encounters Date Type Department Care Team ([facility] Contact Info) Description 09/23/2023 10:20 AM EDT Office Visit Pulmonary Medicine, [facility] [address] [facility] [place] [address] Vu Tapia [facility] [address] [facility] [address] 09/29/2023 9:00 AM EDT Immunization/Injecti on [address] [phone] [place], Nurse [address] [address] 10/11/2023 8:40 AM EDT Laboratory Laboratory [facility] [place] [address] [place] [place] [address] Gaurav Chung [place] [address] [place] [address] 10/11/2023 9:00 AM EDT Office Visit Hematology/Oncology [facility] [place] [address] [place] [phone] Pearl Oviedo CRNP [address] [place] [address] 10/11/2023 9:30 AM EDT Hem/Onc Treatment Hematology/Oncology Treatment, [place] [address] [place], [place] [phone] 12/20/2023 10:00 AM EDT Office Visit [facility] [place] [address] Pepe Beck MD [address] [facility] [place] [address] Health Maintenance Due Date Last Done Comments [...] 06/01/2024 06/01/2023, 02/06 CKD PHOS USE SMARTSET 53586 06/01/2024 06/01/2023, 0 03/04/2022 DISCUSS TOBACCO CESSATION (REFER TO SMARTSET #3291) 09/02/2024 09/03/2023 CKD HGB USE SMARTSET 01503 09/12/202409/12, 09/13/2023, 08/16/2023, Additional history exists TSH [...] upper lobe of right lung (HCC)- Primary Encounter for antineoplastic chemotherapy documented in this encounter Administered Medications Active Administered Medications - up to 3 most recent administrations Medication Order MAR Action Action Date Dose Rate Site diphenhydrAMINE (Benadryl) inj 50 mg 50 mg, IV Push, ONCE PRN Other, Hypersensitivity Reaction, Starting on Wed09/14/23 at 1029, Until Wed09/15/23 at 1028, For 24 hours EPINEPHrine 1 MG/ML inj 0.3 mg 0.3 mg, Intramuscular, ONCE PRN Other, Hypersensitivity Reaction or Anaphylaxis, Starting on Wed09/14/23 at 1029, Until Wed09/15/23 at 1028, For 24 hours hEParin 100 UNIT/ML Lock Flush inj 500 Units 500 Units (5 mL), IV Lock, PRN Other, IV Flush, Starting on Wed09/14/23 at 1029, Until Wed09/15/23 at 1028, For 24 hours, Do not flush if lock, PICC, or central line not in place; IV infusing or unable to flush. Hydrocortisone Sod Suc (PF) (Solu-Cortef) inj 100 mg 100 mg, IV Push, ONCE PRN Other, Hypersensitivity Reaction, Starting on Wed09/14/23 at 1029, Until Wed09/15/23 at 1028, For 24 hours NSS infusion Intravenous, at 50 mL/hr, PRN, Starting on Wed09/14/23 at 1130, Until Discontinued, Maintenance line Start Infusion 09/14/2023 10:45 AM EDT 50 mL/hr oxygen GAS Inhalation, OXYGEN, First dose on Wed09/14/23 at 1100, Until Discontinued, Device/Managed by: Low Flow Device, Goal SPO2 (%): 91-95, Starting Device: Nasal Cannula, Initial Flow Rate (LPM): 2, Lowest Support: Nasal Cannula: Flow 0-6 LPM. Titrate up/down by 1 LPM., Higher Support: Non-Rebreather (NRB) Mask: Minimum of 10 LPM. Titrate to maintain bag inflation., Titration Interval: Q2 minutes and as needed., Notify Provider: For sudden DECREASE in resting SPO2 to less than 85% and when escalating delivery device., Wean patient off Oxygen when the oxygen saturation is greater than or equal to 93% sodium chloride 0.9 % flush central line 10 mL 10 mL, IV Push, PRN Other, IV Flush, Starting on Wed09/14/23 at 1029, Until Wed09/15/23 at 1028, For 24 hours, Do not flush if lock, PICC, or central line not in place; IV infusing or unable to flush. Inactive Administered Medications - up to 3 most recent administrations Medication Order MAR Action Action Date Dose Rate Site Durvalumab (Imfinzi) 1,500 mg in NSS 250 mL infusion 1,500 mg, IV Piggyback, ONCE, 1 dose, On Wed09/14/23 at 1200, Administer over 60 Minutes, Administer through a 0.22 micron filter, final concentration between 1-15mg/mL Start Infusion 09/14/2023 11:09 AM EDT 1,500 mg 250 mL/hr documented in this encounter Advance Directives Latest Code Status on File Code Status Date Activated Date Inactivated Comments Full Code 05/13/2023 2:31 PM 05/18/2023 6:24 PM This order reflects the patients wishes and were consensually agreed upon. Question Answer Comments Discussion of Advance Directives occurred with: Patient Does the patient have a Living Will? No Does the patient have Health Care Power of Still Photographer? No Care Teams Converter Supervisor Relationship Specialty Start Date End Date Pepe Beck MD [address] [place] [phone] PCP - General Family Medicine 11/07/21 documented as of this encounter
--- OUTSIDE RECORDS SUMMARY | 2023-10-26 09:56 | External Medical Summary ---
Author Name Unknown Address Unknown Organization K01:LABORATORY C - [address] [place] [address] Laboratory Report Ordering Provider Test Date Status [place] 09/13/2023 08:08:45 Final Observation Date Value Abnormality Reference (Units ) Status T4, Free 09/13/2023 08:08:45 1.4 0.9-1.7 (n g/dL) Final Performing Location [facility] - [address] [place] [address]
--- OUTSIDE RECORDS SUMMARY | 2023-10-26 09:57 | External Medical Summary | Summary of Care ---
Author Name Unknown Organization [facility] Address [address] [place] [address] Phone [phone] Care Team Providers Care Cisco Certified Network Associate Name Role Phone Pepe Beck MD Primary Care P samuelder Reason for Visit * Reason Comments Medication Administration B-12 injection Encounter Details Date Type Department Care Team ([facility] Contact Info) Description 09/01/2023 9:00 AM EDT Nurse Only Ancillary [address] [phone] [place], Nurse Gmg [address] [phone] Medication Administration (B-12 injection) Allergies No known active allergiesdocumented as of this encounter (statuses as of 09/01/2023) Medications Medication Sig Dispensed Refills Start Date End Date Status Aspirin 81 MG Oral Tablet Delayed Release Take 1 Tablet by mouth every other day. 0 Active Albuterol Sulfate HFA 108 (90 Base) MCG/ACT Inhalation Aerosol Solution INHALE 2 PUFFS BY MOUTH EVERY 6 HOURS NEEDED 18 g 3 12/18/2021 Active Torsemide 20 MG Oral Tablet (Demadex)Indications :Atherosclerosis of [place] artery of right lower extremity with intermittent [...] Oral Tablet (Cozaar)Indications: Coronary artery disease involving [place] coronary artery of [place] heart without angina pectoris Take 0.5 Tablets [...] THE MORNING 90 Tablet 1 07/01/2023 Active Mirtazapine 30 MG Oral Tablet (Remeron)Indications :Moderate episode of recurrent major depressive disorder (HCC) Take 1 Tablet by mouth at bedtime. 30 Tablet 5 07/08/2023 Active amLODIPine Besylate 5 MG Oral Tablet (Norvasc)Indications :HTN, goal below 140/90 Take 1 Tablet by mouth in the morning. 30 Tablet 5 07/08/2023 Active rOPINIRole HCl 0.5 MG Oral Tablet (Requip) TAKE 1 TABLET BY MOUTH ONCE DAILY AT BEDTIME 90 Tablet 1 07/12/2023 Active HYDROcodone-Acetamin ophen 10-325 MG Oral TabletIndications:Ac [place] left-sided low back pain without sciatica,Cancer of upper lobe of right lung (HCC) Take 1 Tablet by mouth every 4 hours as needed for Pain, Severe. 60 Tablet 0 07/16/2023 Active Azithromycin 250 MG Oral Tablet (Zithromax Z-Isaias) Please take 500 mg by mouth on day one, followed by 250 mg by mouth for four days. 6 Tablet 0 08/05/2023 Active Nitroglycerin 0.4 MG Sublingual Tablet Sublingual (Nitrostat) 1 Tablet. 0 08/06/2023 Active Sennosides-Docusate Sodium 8.6-50 MG Oral Tablet (Senokot-S) at bedtime. 0 08/06/2023 Active Incruse Ellipta 62.5 MCG/ACT Inhalation Aerosol Powder Breath ActivatedIndications :COPD, group C, by GOLD 2017 classification ([facility]) Inhale 1 Puff by mouth every evening. 30 Each 2 08/23/2023 Active Ipratropium-Albutero l 0.5-2.5 (3) MG/3ML Inhalation Solution (Duoneb) Inhale 3 mL via nebulizer every 6 hours as needed for Cough, Shortness of Breath or Wheezing. 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 10/23/2019 Hypothyroidism 03/28/2018 Hyponatremia 03/28/2018 Dyslipidemia, goal LDL below 70 03/28/2018 Edema of lower extremity 03/28/2018 Degeneration of lumbar intervertebral disc 03/28 Coronary artery disease invo lving [place] coronary artery of [place] heart without angina pectoris 03/28/2018 Benign prostatic hyperplasia 03/28/2018 Benign essential hypertension 03/28/2018 Carotid artery stenosis 03/28/2018 Osteoarthritis of ankle 03/29/2017 Peripheral vascular disease 11/03/2016 documented as of this encounter (statuses as of 09/01/2023) Resolved Problems Problem Noted Date Diagnosed Date Resolved Date EL (acute kidney injury) 05/17/2023 Lumbar radiculopathy 03/28/2018 023 Chronic obstructive pulmonary disease 03/28/2018 11/20/2021 Overview: Per COPD GOLD Classification documented as of this encounter (statuses as of 09/01/2023) Immunizations Name Administration Dates Next Due COVID-19 mRNA, LNP-s, No Pre serve, 2-Dose Series ([employer]) 05/05/2021,08/28/2020,08/07/2020 Covid-19, Mrna, Lnp-s, Pf, B ivalent, 30 Mcg, IM, 12 yrs and above ([employer]) 02/24/2022 Pneumococcal Conjugate Vacci ne, 20-valent ([id number]) 12/09/2021(Deferred: Had Clinical Disease) Pneumococcal Polysaccharide PPV23 [...] as of this encounter Progress Notes * Nikki Stewart LPN - 09/01/2023 9:08 AM EDT The patient has been properly identified by confirmation of name and date of . Chief Complaint Patient presents with Medication Administration B-12 injection documented in this encounter Nursing Notes * Nikki Stewart LPN - 09/01/2023 9:00 AM EDT The patient has been properly identified by confirmation of name and date of . Chief Complaint Patient presents with Medication Administration B-12 injection documented in this encounter Plan of Treatment Upcoming Encounters Date Type Department Care Team ([facility] st Contact Info) Description 09/03/2023 11:30 AM EDT Office Visit [address] [phone] Pepe Beck MD [address] [place] [address] 09/13/2023 8:30 AM EDT Laboratory Laboratory Patient Service [address] [phone] [address] [address] 09/14/2023 9:30 AM EDT Office Visit Hematology/Oncology [facility] [address] [place] [phone] Pearl Oviedo CRNP [address] [facility] [place] [phone] 09/14/2023 10:00 AM EDT Hem/Onc Treatment Hematology/Oncology Treatment, [place] [address] [place] [address] Juliet, Chair 11 Hem Onc [facility] [address] [facility], [place] [address] 09/23/2023 10:20 AM EDT Office Visit Pulmonary Medicine, Health system [address] [facility] [place] [address] Vu Tapia MD [address] [facility] [phone] 09/29/2023 9:00 AM EDT Immunization/Injecti on [address] [address] [place], Nurse [address] [address] Health Maintenance Due Date Last Done Comments DTaP,Tdap,and Td Vaccines (1 - Tdap) 08/08/1959 Zoster Vaccines (1 of 2) 08/08/1959 Pneumococcal Vaccine: 65+ Years (2 of 2 - PCV) 02/14/2021 02/15/2020 *ADVANCE DIRECTIVE NOT ON FILE 03/13/2022 COVID-19 Vaccine ( season) 2023 02/24/2022, 05/05/2021, 08/28/2020, Additional history exists O2 ASSESSMENT COMPLETED IN PAST YEAR FOR COPD 02/11/2024 02/10/2023 GFR 02/16/2024 08/16/2023, 07/09, 08/03/2023, Additional history exists Depression Screening 05/10/2024 05/10/2023 Albumin/Creatinine Ratio 06/01/2024 06/01/2023, 02/06 CKD PHOS USE SMARTSET 79783 06/01/2024 06/01/2023, 0 03/04/2022 CKD HGB USE SMARTSET 08618 08/15/202408/15, 08/16/2023, 08/04/2023, Additional history exists TSH 08/15/2024 08/16/2023, 07/09, 08/03/2023, Additional history exists Alpha-1 Antitrypsin Completed 03/04/2022 Influenza Vaccine (FLU shot) Completed 06/2022, 03/04/2022, 04/07/2021, Additional history exists GARDASIL-HPV IMMUNIZATION SERIES Aged Out No longer [...] (Cyanocobalamin) inj 1,000 mcg 1,000 mcg, Intramuscular, [id number], First dose on [place] 05/06/23 at 1330, Last dose on [place] 03/09/24 at 1330, For 12 doses Given 09/01/2023 9:02 AM EDT 1,000 mcg Deltoid Right Upper Given 08/02/2023 8:51 AM EST 1,000 mcg De ltoid Left Upper Given 07/01/2023 9:49 AM EST 1,000 mcg De ltoid Right Upper documented in this encounter Advance Directives [...] the patient have Health Care Power of Reconciliation Accountant? No Care Teams Cisco Certified Network Associate Relationship Specialty Start Date End Date Pepe Beck MD [place] [phone] PCP - General Family Medicine 11/07/21 documented as of this encounter
--- OUTSIDE RECORDS SUMMARY | 2023-10-26 09:57 | External Medical Summary | Summary of Care ---
Author Name Unknown Organization [facility] Address [address] [facility] [place] [address] Phone [phone] Care Team Providers Care Wellness Nurse Name Role Phone Pepe Beck MD Primary Care P rovider Reason for Visit * Reason Comments Oxygen Assessment [address] Encounter Details Date Type Department Care Team (Latest Contact Info) Description 08/24/2023 9:30 AM EDT PulmDiagnostic Pulmonary Function Lab, [facility] [address] [facility] [place] [address] [place], [place] [address] [facility] [place] [address] Cancer of upper lobe of right lung (HCC)*; COPD, group C, by GOLD 2017 classification ([facility]) Allergies No known active allergiesdocumented as of this encounter (statuses as of 08/24/2023) Medications Medication Sig Dispensed Refills Start Date End Date Status Aspirin 81 MG Oral Tablet Delayed Release Take 1 Tablet by mouth every other day. 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 90 Capsule 3 01/15/2023 Active Ipratropium-Albutero l 0.5-2.5 (3) MG/3ML Inhalation Solution (Duoneb) Inhale 3 mL via nebulizer every 6 hours as needed for Cough, Shortness of Breath or Wheezing. 75 mL 5 02/05/2023 Active Ondansetron HCl 8 MG Oral Tablet [...] Oral Tablet (Cozaar)Indications: Coronary artery disease involving [place] coronary artery of [place] heart without angina pectoris Take 0.5 Tablets [...] :COPD, group C, by GOLD 2017 classification ([facility]) Inhale 1 Puff by mouth every evening. 30 Each 2 08/23/2023 Active Hospital, Clinic, or Other Facility Administered Medication Ordered Dose Route Frequency Start Date End Date Status vitamin b-12 (Cyanocobalamin) inj 1,000 mcgIndications:B12 deficiency 1000 mcg IM [id number] 05/06/2023 04/06/2024 Active documented as of this encounter (statuses as of 08/24/2023) Active Problems Problem Noted Date Diagnosed Date [...] 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 Atherosclerosis of [place] ar erick of right lower extremity with intermittent claudication 10/23/2019 Hypothyroidism 03/28/2018 Hyponatremia 03/28/2018 Dyslipidemia, goal LDL below 70 03/28/2018 Edema of lower extremity 03/28/2018 Degeneration of lumbar intervertebral disc 03/28 Coronary artery disease invo lving [place] coronary artery of [place] heart without angina pectoris 03/28/2018 Benign prostatic hyperplasia 03/28/2018 Benign essential hypertension 03/28/2018 Carotid artery stenosis 03/28/2018 Osteoarthritis of ankle 03/29/2017 Peripheral vascular disease 11/03/2016 documented as of this encounter (statuses as of 08/24/2023) Resolved Problems Problem Noted Date Diagnosed Date Resolved Date EL (acute kidney injury) 05/17/2023 Lumbar radiculopathy 03/28/2018 023 Chronic obstructive pulmonary disease 03/28/2018 11/20/2021 Overview: Per COPD GOLD Classification documented as of this encounter (statuses as of 08/24/2023) Immunizations Name Administration Dates Next Due COVID-19 mRNA, LNP-s, No Pre serve, 2-Dose Series ([employer]) 05/05/2021,08/28/2020,08/07/2020 Covid-19, Mrna, Lnp-s, Pf, B ivalent, 30 Mcg, IM, 12 yrs and above ([employer]) 02/24/2022 Pneumococcal Conjugate Vacci ne, 20-valent ([id number]) 12/09/2021(Deferred: Had Clinical Disease) Pneumococcal Polysaccharide PPV23 (Pneumovax) 02/15/2020 Seasonal Influenza, Quadriva lent Hd (Fluzone Hd) 02/05/2023,03/04/2022 Seasonal Influenza, Recombin ant, RIV4, PF, (Flublock) 04/07/2021 Seasonal Influenza, Split, I IV3, With Preserve, Inj 03/13/2020,04/12/2019,03/21/2018,03/29,03/31/2016,04/30/2014,03/13/2013 ,05/14/2012,05/11/2012,04/24/2008,06/2005 documented as of this encounter Social History Tobacco Use Types Packs/Day Years Used Date Smoking Tobacco: Former Cigarettes 1 45 1 942 - 1987 Smokeless Tobacco: Never Tobacco Cessation:Counseling Given: Not Answered Alcohol Use Standard Drinks/Week [...] Sign Reading Time Taken Comments Blood Pressure 126/60 08/24/2023 9:17 AM EDT Pulse 87 08/24/2023 9:17 AM EDT Temperature 35.9 C (96.7 F) 08/24/2023 9:17 AM ED T Respiratory Rate 16 08/24/2023 9:17 AM EDT Oxygen Saturation 91% 08/24/2023 9:17 AM EDT Inhaled Oxygen Concentration - - Weight 65.4 kg (144 lb 2.9 oz) 08/24/2023 9:17 A M EDT Height 165.5 cm (5' 5.16") 08/24/2023 9:17 AM ED T Body Mass Index 23.88 08/24/2023 9:17 AM EDT documented in this encounter Functional [...] as of this encounter Nursing Notes * Shima Siu RRT - 08/24/2023 9:24 AM EDT Manuel Yarbrough was identified by name, Date of : (1940), and . Vitals were obtained for testing. Body mass index is 23.88 kg/m. Exercise oximetry performed on room air x 6 minutes. Pt ambulated 1080 feet/ 329 meters. No rest periods were required. Lowest SPO2 on room air was 91%. documented in this encounter Plan of Treatment Upcoming Encounters Date Type Department Care Team (Latest Contact Info) Description 08/24/2023 10:15 AM EDT [facility] [place] [facility] [address] [facility] [place] [address] Cancer of upper lobe of right lung (HCC) 08/26/2023 10:00 AM EDT Office Visit Pulmonary Medicine, [facility] [address] [facility] [place] [address] Vu Tapia MD [address] [place] [address] 09/01/2023 9:00 AM EDT Nurse Only Ancillary [facility] [address] [place] [address] [facility] g [address] [address] 09/13/2023 8:30 AM EDT Laboratory Laboratory Patient Service Center, [place] [address] [place] [address] [place], Lab Lock [address] [place] [address] 09/14/2023 9:30 AM EDT Office Visit Hematology/Oncology [address] [place] [address] Pearl Oviedo CRNP [address] [place] [address] [place] [address] 09/14/2023 10:00 AM EDT Hem/Onc Treatment Hematology/Oncology Treatment, [place] [address] [facility] [place] [address] Juliet, Chair 11 Hem Onc [address] [place] [address] Health Maintenance Due Date Last Done Comments DTaP,Tdap,and Td Vaccines (1 - Tdap) 08[birth year]08/1959 Zoster Vaccines (1 of 2) 08[birth year]08/1959 Pneumococcal Vaccine: 65+ Years (2 of 2 - PCV) 02/14/2021 02/15/2020 *ADVANCE DIRECTIVE NOT ON FILE 03/13/2022 COVID-19 Vaccine ( season) 2023 02/24/2022, 05/05/2021, 08/28/2020, Additional history exists *NEPHROLOGY REFERRAL DUE TO RESISTANT HTN 08/15/2023 O2 ASSESSMENT COMPLETED IN PAST YEAR FOR COPD 02/11/2024 02/10/2023 GFR 02/16/2024 08/16/2023, 07/09, 08/03/2023, Additional history exists Depression Screening 05/10/2024 05/10/2023 Albumin/Creatinine Ratio 06/01/2024 06/01/2023, 02/06 CKD PHOS USE SMARTSET 15798 06/01/2024 06/01/2023, 0 03/04/2022 CKD HGB USE SMARTSET 42794 08/15/202408/15, 08/16/2023, 08/04/2023, Additional history exists TSH [...] group C, by GOLD 2017 classification (HCC) Cancer of upper lobe of right lung [...] the patient have Health Care Power of Distribution Designer? No Care Teams Wellness Nurse Relationship Specialty Start Date End Date Pepe Beck MD [address] [place] [address] PCP - General Family Medicine 11/07/21 documented as of this encounter
--- OUTSIDE RECORDS SUMMARY | 2023-10-26 09:57 | External Medical Summary | Summary of Care ---
Author Name Unknown Organization [facility] Address [address] [place] [address] Phone [phone] Care Team Providers Care Property Officer Name Role Phone Pepe Beck MD Primary Care P chino Encounter Details Date Type Department Care Team (Latest Contact Info) Description 08/10/2023 8:20 AM EST - 08/10/2023 11:59 PM EST Hospital Encounter Radiology Film File [address] [place] [address] Discharge Disposition: Home - Self Care Allergies No known active allergiesdocumented as of this encounter (statuses as of 08/25/2023) Medications Medication Sig Dispensed Refills Start Date End Date Status Aspirin 81 MG Oral Tablet Delayed Release Take 1 Tablet by mouth every other day. 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 90 Capsule 3 01/15/2023 Active Ipratropium-Albute rol 0.5-2.5 (3) MG/3ML Inhalation [...] 03/17/2023 Active dexAMETHasone 4 MG Oral Tablet (Decadron)Indicati [...] Oral Tablet (Cozaar)Indication s:Coronary artery disease involving [place] coronary artery of [place] heart without angina pectoris Take 0.5 Tablets by mouth in the morning. 0 06/04/2023 Active Apixaban 2.5 MG Oral Tablet (Eliquis)Indicatio ns:Persistent atrial fibrillation (HCC) Take 1 Tablet by mouth in the morning and 1 Tablet before bedtime. 60 Tablet 5 06/04/2023 Active Vitamin B-12 1000 MCG Sublingual Tablet Sublingual every 30 days. 0 03/11/2023 Act keely Baclofen 10 MG Oral Tablet (Lioresal)Indicati ons:Acute left-sided low back pain without sciatica Take 1 Tablet by mouth every night at bedtime. 30 Tablet 2 06/17/2023 Active FeroSul 325 (65 Fe) MG Oral Tablet TAKE 1 TABLET BY MOUTH ONCE DAILY IN THE MORNING 90 Tablet 1 07/01/2023 Active Mirtazapine 30 MG Oral Tablet (Remeron)Indicatio ns:Moderate episode of recurrent major depressive disorder (HCC) [...] AT BEDTIME 90 Tablet 1 07/12/2023 Active HYDROcodone-Acetam inophen 10-325 MG Oral TabletIndications: [...] four days. 6 Tablet 0 08/05/2023 Active Hospital, Clinic, or Other Facility Administered Medication Ordered Dose Route Frequency Start Date End Date Status vitamin b-12 (Cyanocobalamin) inj 1,000 mcgIndications:B12 deficiency 1000 mcg IM [id number] 05/06/2023 04/06/2024 Active documented as of this encounter (statuses as of 08/25/2023) Active Problems Problem Noted Date Diagnosed Date [...] 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 Atherosclerosis of [place] ar erick of right lower extremity with intermittent claudication 10/23/2019 Hypothyroidism 03/28/2018 Hyponatremia 03/28/2018 Dyslipidemia, goal LDL below 70 03/28/2018 Edema of lower extremity 03/28/2018 Degeneration of lumbar intervertebral disc 03/28 Coronary artery disease invo lving [place] coronary artery of [place] heart without angina pectoris 03/28/2018 Benign prostatic hyperplasia 03/28/2018 Benign essential hypertension 03/28/2018 Carotid artery stenosis 03/28/2018 Osteoarthritis of ankle 03/29/2017 Peripheral vascular disease 11/03/2016 documented as of this encounter (statuses as of 08/25/2023) Resolved Problems Problem Noted Date Diagnosed Date Resolved Date EL (acute kidney injury) 05/17/2023 Lumbar radiculopathy 03/28/2018 023 Chronic obstructive pulmonary disease 03/28/2018 11/20/2021 Overview: Per COPD GOLD Classification documented as of this encounter (statuses as of 08/25/2023) Immunizations Name Administration Dates Next Due COVID-19 mRNA, LNP-s, No Pre serve, 2-Dose Series ([employer]) 05/05/2021,08/28/2020,08/07/2020 Covid-19, Mrna, Lnp-s, Pf, B ivalent, 30 Mcg, IM, 12 yrs and above ([employer]) 02/24/2022 Pneumococcal Conjugate Vacci ne, 20-valent ([id number]) 12/09/2021(Deferred: Had Clinical Disease) Pneumococcal Polysaccharide PPV23 (Pneumovax) 02/15/2020 Seasonal Influenza, Quadriva lent Hd (Fluzone Hd) 02/05/2023,03/04/2022 Seasonal Influenza, Recombin ant, RIV4, PF, (Flublock) 04/07/2021 Seasonal Influenza, Split, I IV3, With Preserve, Inj 03/13/2020,04/12/2019,03/21/2018,03/29,03/31/2016,04/30/2014,03/13/2013 ,05/14/2012,05/11/2012,04/24/2008,06/2005 documented as of this encounter Social History Tobacco Use Types Packs/Day Years Used Date Smoking Tobacco: Former Cigarettes 1 45 1 942 - 1986 Smokeless Tobacco: Never Alcohol Use Standard Drinks/Week [...] Care Team (Late st Contact Info) Description 08/26/2023 10:00 AM EDT Office Visit Pulmonary Medicine, [facility] [address] [facility] [place] [address] Vu Tapia MD [address] [place] [address] 09/01/2023 9:00 AM EDT Nurse Only Ancillary [facility], [place] [address] [place] [address] [place], Nurse Gmg [address] [address] 09/13/2023 8:30 AM EDT Laboratory Laboratory Patient Service Center, [place] [address] [place] [address] [place], Lab Lock [address] [place] [address] 09/14/2023 9:30 AM EDT Office Visit Hematology/Oncology [address] [place] [address] Pearl [facility]iedo [facility] [address] [facility] [phone] 09/14/2023 10:00 AM EDT Hem/Onc Treatment Hematology/On[address], [address] [address] Juliet, Chair 11 Hem Onc [address] [address] Health Maintenance Due Date Last Done Comments [...] 06/01/2024 06/01/2023, 02/06 CKD PHOS USE SMARTSET 03599 06/01/2024 06/01/2023, 0 03/04/2022 CKD HGB USE SMARTSET 56082 08/15/202408/15, 08/16/2023, 08/04/2023, Additional history exists TSH [...] Procedure Name Priority Date/Time Associated Diagnosis Comments RADIOLOGY EXAM - US (IMAGES ONLY, NO REPORT) Routine 08/10/2023 8:20 AM EST documented in this encounter Results * RADIOLOGY EXAM - US (IMAGES ONLY, NO REPORT) (08/10/2023 8:20 AM EST) 08/10/2023 8:16 AM EST Narrative Scheduling, Silent - 08/24/2023 4:23 PM EDT This is an imaging study not interpreted or resulted by a [facility] or [facility] contracted radiologist. Pepe Fady Kiran MD RAD ULT RASOUND documented in this encounter Advance Directives Latest Code Status on File Code Status Date Activated Date Inactivated Comments Full Code 05/13/2023 2:31 PM 05/18/2023 6:24 PM This order reflects the patients wishes and were consensually agreed upon. Question Answer Comments Discussion of Advance Directives occurred with: Patient Does the patient have a Living Will? No Does the patient have Health Care Power of Golf Club Assembler? No Care Teams Property Officer Relationship Specialty Start Date End Date Pepe Beck MD [address] [place] [phone] PCP - General Family Medicine 11/07/21 documented as of this encounter
--- OUTSIDE RECORDS SUMMARY | 2023-10-26 09:57 | External Medical Summary | Summary of Care ---
Author Name Unknown Organization [facility] Address [address] [place] [address] Phone [phone] Care Team Providers Care Jboss Developer Name Role Phone Pepe Beck MD Primary Care P rovider Encounter Details Date Type Department Care Team ([facility] st Contact Info) Description 08/10/2023 Orders Only Family Practice [address] [phone] Pepe Beck MD [address] [place] [id number] Allergies No known active allergiesdocumented as of [...] 20 MG Oral Tablet (Demadex)Indicatio ns:Atherosclerosis of [place] artery of right lower extremity with intermittent [...] Oral Tablet (Cozaar)Indication s:Coronary artery disease involving [place] coronary artery of [place] heart without angina pectoris Take 0.5 Tablets [...] inj 1,000 mcgIndications:B12 deficiency 1000 mcg IM [id number] 05/06/2023 04/06/2024 Active documented as of this [...] 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 Atherosclerosis of [place] ar erick of right lower extremity with intermittent claudication 10/23/2019 Hypothyroidism 03/28/2018 Hyponatremia 03/28/2018 Dyslipidemia, goal LDL below 70 03/28/2018 Edema of lower extremity 03/28/2018 Degeneration of lumbar intervertebral disc 03/28 Coronary artery disease invo lving [place] coronary artery of [place] heart without angina pectoris 03/28/2018 Benign prostatic [...] mRNA, LNP-s, No Pre serve, 2-Dose Series (ContactPoint) 05/05/2021,08/28/2020,08/07/2020 Covid-19, Mrna, Lnp-s, Pf, B ivalent, 30 Mcg, IM, 12 yrs and above (Pfizer) 02/24/2022 Pneumococcal Conjugate Vacci ne, 20-valent ([id number]) 12/09/2021(Deferred: Had Clinical Disease) Pneumococcal Polysaccharide PPV23 (Pneumovax) 02/15/2020 Seasonal Influenza, Quadriva lent Hd (Fluzone Hd) 02/05/2023,03/04/2022 Seasonal Influenza, Recombin ant, RIV4, PF, (Flublock) 04/07/2021 Seasonal Influenza, Split, I IV3, With Preserve, Inj 03/13/2020,04/12/2019,03/21/2018,03/29,03/31/2016,04/30/2014,03/13/2013 ,05/14/2012,05/11/2012,04/24/2008,06/2005 documented as of this encounter Social History Tobacco Use Types Packs/Day Years Used Date Smoking Tobacco: Former Cigarettes 1 45 1 802 - 1987 Smokeless Tobacco: Never Alcohol Use [...] 10:00 AM EDT Office Visit Pulmonary Medicine, [facility] [address] [place] [address] Vu Tapia MD [address] [place] [id number] 09/01/2023 9:00 AM EDT Nurse Only Ancillary [facility] [address] [place] [address] [place] [address] [place] [address] 09/13/2023 8:30 AM EDT Laboratory [facility] [place] [address] [place] [address] [place], [facility] [address] [place] [address] 09/14/2023 9:30 AM EDT Office Visit Hematology/Oncology Ace [facility] [address] [place] [address] Pearl Oviedo CRNP [address] [facility] [place] [address] 09/14/2023 10:00 AM EDT Hem/Onc Treatment Hematology/Oncology Treatment, [place] [address] [facility] [place] [address] [place], Chair 11 Hem Onc [address] [place] [address] Health Maintenance Due Date Last Done Comments [...] 06/01/2024 06/01/2023, 02/06 CKD PHOS USE SMARTSET 86142 06/01/2024 06/01/2023, 0 03/04/2022 CKD HGB USE SMARTSET 64234 08/15/202408/15, 08/16/2023, 08/04/2023, Additional history exists TSH [...] study not interpreted or resulted by a [facility] or [facility] contracted radiologist. Pepe HODGES documented in this encounter Advance Directives Latest Code Status on File Code Status Date Activated Date Inactivated Comments Full Code 05/13/2023 2:31 PM 05/18/2023 6:24 PM This order reflects the patients wishes and were consensually agreed upon. Question Answer Comments Discussion of Advance Directives occurred with: Patient Does the patient have a Living Will? No Does the patient have Health Care Power of Actionscript Developer? No Care Teams Jboss Developer Relationship Specialty Start Date End Date Pepe Beck MD [address] [place] [address] PCP - General Family Medicine 11/07/21 documented as of this encounter
--- OUTSIDE RECORDS SUMMARY | 2023-10-26 09:57 | External Medical Summary | Summary of Care ---
Author Name Unknown Organization [facility] Address [address] [place] [address] Phone [phone] Care Team Providers Care Fast Food Fry Cook Name Role Phone Pepe Beck MD Primary Care P rovider Reason for Visit * Reason Comments Follow Up Pt. Is here today fo r routine follow up.Pt. Would like to discuss shoulder injections, if there is anything else he can do for that condition and that he needs fluid to be drained from his lung again. Encounter Details Date Type Department Care Team (Latest Contact Info) Description 09/03/2023 11:30 AM EDT Office Visit [address] [phone] Pepe Beck MD [address] [place] [phone] Chronic pain of both shoulders*; Cancer of upper lobe of right lung (HCC); Restrictive lung disease; COPD, group C, by GOLD 2017 classification (HCC); Acquired hypothyroidism; Dyslipidemia, goal LDL below 70; Chronic diastolic congestive heart failure (HCC); Coronary artery disease involving cap[place] band coronary artery of cap[place] grande band heart without angina pectoris; Persistent atrial fibrillation (HCC); Insomnia due to medical condition; Need for pneumococcal vaccination; Primary localized osteoarthrosis of shoulder region, unspecified laterality Allergies No known active allergiesdocumented as of this encounter (statuses as of 09/03/2023) Medications Medication Sig Dispensed Refills Start Date End Date Status Aspirin 81 MG Oral Tablet Delayed Release Take 1 Tablet by mouth every other day. 0 Active Albuterol Sulfate HFA 108 (90 Base) MCG/ACT Inhalation Aerosol Solution INHALE 2 PUFFS BY MOUTH EVERY 6 HOURS NEEDED 18 g 3 2 Active Torsemide 20 MG Oral Tablet (Demadex)Indication s:Atherosclerosis of [place] artery of right lower extremity with intermittent [...] Oral Tablet (Cozaar)Indications :Coronary artery disease involving cap[place] band coronary artery of cap[place] grande band heart without angina pectoris Take 0.5 Tablets [...] AT BEDTIME 90 Tablet 1 4 Active HYDROcodone-Acetami nophen 10-325 MG Oral TabletIndications:A cute left-sided low back pain without sciatica,Cancer of upper lobe of right lung (HCC) Take 1 Tablet by mouth every 4 hours as needed for Pain, Severe. 60 Tablet 0 4 Active Nitroglycerin 0.4 MG Sublingual Tablet Sublingual (Nitrostat) 1 Tablet. 0 4 Active Sennosides-Docusate Sodium 8.6-50 MG Oral Tablet (Senokot-S) at bedtime. 0 4 Active Incruse Ellipta 62.5 MCG/ACT Inhalation Aerosol Powder Breath ActivatedIndication s:COPD, group C, by GOLD 2017 classification ([facility]) Inhale 1 Puff by mouth every evening. [...] at bedtime. 30 Tablet 5 4 Active Mirtazapine 30 MG Oral Tablet (Remeron)Indication s:Moderate episode of recurrent major depressive disorder (HCC) Take 1 Tablet by mouth at bedtime. 30 Tablet 5 4 09/03/19 24 Discontinu ed(Medicat ion/Dose Changed) Azithromycin 250 MG Oral Tablet (Zithromax Z-Isaias) Please take 500 mg by mouth on day one, followed by 250 mg by mouth for four days. 6 Tablet 0 4 09/03/19 24 Discontinu ed(Patient preference /discontin uation) Hospital, Clinic, or Other Facility Administered Medication Ordered Dose Route Frequency Start Date End Date Status vitamin b-12 (Cyanocobalamin) inj 1,000 mcgIndications:B12 deficiency 1000 mcg IM [id number] 05/06/2023 04/06/2024 Active dexAMETHasone Sodium Phosphate (Decadron) 4 MG/ML inj 4 mgIndications:Chronic pain of both shoulders 4 mg IX ONCE 09/03/2023 09/03/2023 Ended lidocaine 1 % inj 10 mgIndications:Chronic pain of both shoulders 10 mg IX ONCE 09/03/2023 09/03/2023 Ended Triamcinolone Acetonide (Kenalog) 40 MG/ML inj 40 mgIndications:Chronic pain of both shoulders 40 mg IX ONCE 09/03/2023 09/03/2023 Ended dexAMETHasone Sodium Phosphate (Decadron) 4 MG/ML inj 4 mgIndications:Chronic pain of both shoulders 4 mg IX ONCE 09/03/2023 09/03/2023 Ended lidocaine 1 % inj 10 mgIndications:Chronic pain of both shoulders 10 mg IX ONCE 09/03/2023 09/03/2023 Ended Triamcinolone Acetonide (Kenalog) 40 MG/ML inj 40 mgIndications:Chronic pain of both shoulders 40 mg IX ONCE 09/03/2023 09/03/2023 Ended documented as of this encounter (statuses as of 09/03/2023) Active Problems Problem Noted Date Diagnosed Date [...] 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 Atherosclerosis of cap[place] band ar erick of right lower extremity with intermittent claudication 10/23/2019 Hypothyroidism 03/28/2018 Hyponatremia 03/28/2018 Dyslipidemia, goal LDL below 70 03/28/2018 Edema of lower extremity 03/28/2018 Degeneration of lumbar intervertebral disc 03/28 Coronary artery disease invo lving capitan grande band coronary artery of cap[place] grande band heart without angina pectoris 03/28/2018 Benign prostatic hyperplasia 03/28/2018 Benign essential hypertension 03/28/2018 Carotid artery stenosis 03/28/2018 Osteoarthritis of ankle 03/29/2017 Peripheral vascular disease 11/03/2016 documented as of this encounter (statuses as of 09/03/2023) Resolved Problems Problem Noted Date Diagnosed Date Resolved Date EL (acute kidney injury) 05/17/2023 Lumbar radiculopathy 03/28/2018 023 Chronic obstructive pulmonary disease 03/28/2018 11/20/2021 Overview: Per COPD GOLD Classification documented as of this encounter (statuses as of 09/03/2023) Immunizations Name Administration Dates Next Due COVID-19 mRNA, LNP-s, No Pre serve, 2-Dose Series (GiveGab) 05/05/2021,08/28/2020,08/07/2020 Covid-19, Mrna, Lnp-s, Pf, B ivalent, 30 Mcg, IM, 12 yrs and above (Pfizer) 02/24/2022 Pneumococcal Conjugate Vacci ne, 20-valent ([id number]) 09/03/2023,12/09/2021(Deferred: Had Clinical Disease) Pneumococcal Polysaccharide PPV23 (Pneumovax) 02/15/2020 Seasonal Influenza, Quadriva lent Hd (Fluzone Hd) 02/05/2023,03/04/2022 Seasonal Influenza, Recombin ant, RIV4, PF, (Flublock) 04/07/2021 Seasonal Influenza, Split, I IV3, With Preserve, Inj 03/13/2020,04/12/2019,03/21/2018,03/29,03/31/2016,04/30/2014,03/13/2013 ,05/14/2012,05/11/2012,04/24/2008,06/2005 documented as of this encounter Social History Tobacco Use Types Packs/Day Years Used Date Smoking Tobacco: Every Day Cigarettes 1 37.2 Started: 06/07/1986 Smokeless Tobacco: Never Tobacco Cessation:Ready [...] Sign Reading Time Taken Comments Blood Pressure 96/52 09/03/2023 11:52 AM EDT Pulse 78 09/03/2023 11:52 AM EDT Temperature 35.3 C (95.6 F) 09/03/2023 11:52 AM E DT Respiratory Rate 20 09/03/2023 11:52 AM EDT Oxygen Saturation - - Inhaled Oxygen Concentration - - Weight 66.3 kg (146 lb 3.2 oz) 09/03/2023 11:52 AM EDT Height - - Body Mass Index 22.9 08/26/2023 9:56 AM EDT documented in this [...] * Patient Instructions* Pepe Beck MD - 09/03/2023 12:16 PM EDT Increase Mirtazapine to 45 mg at bedtime. New Rx will be sent to pharmacy. documented in this encounter Progress Notes * Pepe Beck MD - 09/03/2023 11:55 AM EDT Subjective: Manuel Yarbrough is a 83 year old male. Chief Complaint Patient presents with Follow Up Pt. Is here today for routine follow up. Pt. Would like to discuss shoulder injections, if there is anything else he can do for that condition and that he needs fluid to be drained from his lung again. HPI: Patient is in the office to follow-up chronic medical problems. Concerned about shoulder pain. X-ray of the shoulder December 2021 show moderate osteoarthritis of the AC joint. Regarding lung cancer: T2 N2 M0 He has been evaluated by Dr. Love. Cytology done at [facility] was negative for cancer. Patient continues to receive Durvalumab 1500 mg every 4 weekly for 1 year duration (06/08/23 - ). Was evaluated by Pulmonary Medicine regarding right-sided pleural effusion.v awaiting thoracentesisper his report. Regarding hypothyroidism: On levothyroxine 112 mcg daily. Denies intolerance to cold or heat. Regarding COPD: Using Incruse Ellipta 62.51 inhalation daily. Also has albuterol/ipratropium nebs available for rescue at home.Reports increase phlegm production more at night. Phlegm is yellow w/o blood, nickel size. Not smoking. Anticoagulated with Eliquis 2.5 mg twice a day due to persistent AF. Denies any bleeding problems. Also takes aspirin 81 mg daily. Regarding hypertension: Taking losartan 50 mg daily and amlodipine 5 mg daily torsemide 20 mg dailyhas been put on hold. Serum creatinine 1.1, GFR 70 on 08/16/2023. Albumin 3.5. Protein 5.4. Random glucose 115. LFTs remain normal. Regarding dyslipidemia: On rosuvastatin 20 mg every day. Denies abdominal pain or myalgias. PMH: Patient Active Problem List Diagnosis Code Peripheral vascular disease (HCC) I73.9 Osteoarthritis of ankle M19.079 Hypothyroidism E03.9 Hyponatremia E87.1 Dyslipidemia, goal LDL below 70 E78.5 Edema of lower extremity R60.0 Degeneration of lumbar intervertebral disc M51.36 Coronary artery disease involving cap[place] grande band coronary artery of cap[place] grande band heart without angina pectoris I25.10 Benign prostatic hyperplasia N40.0 Benign essential hypertension I10 Carotid artery stenosis I65.29 Atherosclerosis of [place] band artery of right lower extremity with intermittent claudication ([facility]) I70.211 S/P CABG x 5 Z95.1 COPD, group C, by GOLD 2017 classification ([facility]) J44.9 Sleep disorder G47.9 Chronic diastolic congestive heart failure (HCC) I50.32 Persistent atrial fibrillation (HCC) I48.19 HTN, goal below 140/90 I10 Osteoarthritis of acromioclavicular joint M19.019 Chronic kidney disease, stage 3a (HCC) N18.31 Restrictive lung disease J98.4 AAA (abdominal aortic aneurysm) (HCC) I71.40 B12 deficiency E53.8 Cancer of upper lobe of right lung (HCC) C34.11 Encounter for antineoplastic chemotherapy Z51.11 Neutropenic fever (HCC) D70.9, R50.81 Immunocompromised (HCC) D84.9 Infectious encephalopathy G93.49, B99.9 Metabolic encephalopathy G93.41 Bradycardia R00.1 PVC (premature ventricular contraction) I49.3 Metastatic primary lung cancer (HCC) C34.90 Lumbar stenosis with neurogenic claudication M48.062 Moderate episode of recurrent major depressive disorder (HCC) F33.1 Hypertensive kidney disease with stage 3a chronic kidney disease (HCC) I12.9, N18.31 Pancytopenia (HCC) D61.818 Current Outpatient Medications Medication Sig Dispense Refill [...] as needed for Nausea. 30 Tablet 2 Levothyroxine Sodium 112 MCG Oral Tablet (Levoxyl) TAKE 1 TABLET BY MOUTH ONCE DAILY AT LEAST 30 MINUTES PRIOR TO BREAKFAST AND OTHER MEDS 90 Tablet 1 Tamsulosin HCl 0.4 MG Oral Capsule (Flomax) [...] ONCE DAILY AT BEDTIME 90 Tablet 1 HYDROcodone-Acetaminophen 10-325 MG Oral Tablet Take 1 Tablet by mouth every 4 hours as needed for Pain, Severe. 60 Tablet 0 Sennosides-Docusate Sodium 8.6-50 MG Oral Tablet (Senokot-S) [...] by mouth at bedtime. 30 Tablet 5 Nitroglycerin 0.4 MG Sublingual Tablet Sublingual (Nitrostat) 1 Tablet. (Patient not taking: Reported on 09/03/2023) Current Facility-Administered Medications Medication Dose Route Frequency Provider Last Rate Last Admin vitamin b-12 (Cyanocobalamin) inj 1,000 mcg 1,000 mcg Intramuscular Q4 Weeks Shiraz Beck MD 1,000 mcg at 09/01/23 0902 No past medical history on file. Past Surgical History: Procedure Laterality Date BRONCHOSCOPY, DIAGNOSTIC N/A 02/10/2023 BRONCHOSCOPY DIAGNOSTIC WITH OR WITHOUT WASHING performed by Madyson Alcala MD at ENDOSCOPY [facility] Review of patient's allergies indicates: No Known [...] packs/day: 1.00 Average packs/day: 1 pack/day for 37.2 years (37.2 ttl pk-yrs) Types: Cigarettes Start date: 06/07/1986 [...] Housing Stability: Not on file Objective: BP 96/52 | Pulse 78 | Temp 35.3 C (95.6 F) (Tympanic) | Resp 20 | Wt 66.3 kg (146 lb 3.2 oz) | BMI 22.90 kg/m | BSA 1.77 m Physical Exam Vitals and nursing note reviewed. Constitutional: General: He is not in acute distress. Appearance: Normal appearance. He is not ill-appearing. HENT: Head: Normocephalic and atraumatic. Right Ear: Tympanic membrane normal. Left Ear: Tympanic membrane normal. Nose: Nose normal. No congestion or rhinorrhea. Mouth/Throat: Mouth: Mucous membranes are dry. Eyes: General: No scleral icterus. Pupils: Pupils are equal, round, and reactive to light. Cardiovascular: Rate and Rhythm: Normal rate and regular rhythm. Heart sounds: No murmur heard. Pulmonary: Effort: Pulmonary effort is normal. Breath sounds: No wheezing, rhonchi or rales. Abdominal: General: Bowel sounds are normal. Palpations: Abdomen is soft. Tenderness: There is no abdominal tenderness. Musculoskeletal: Cervical back: Normal range of motion. Right lower leg: No edema. Left lower leg: No edema. Lymphadenopathy: Cervical: No cervical adenopathy. Skin: General: Skin is warm and dry. Capillary Refill: Capillary refill takes less than 2 seconds. Findings: No rash. Neurological: General: No focal deficit present. Mental Status: He is alert and oriented to person, place, and time. Psychiatric: Mood and Affect: Mood normal. Behavior: Behavior normal. Thought Content: Thought content normal. Judgment: Judgment normal. ASSESSMENT: Chronic pain of both shoulders (Primary) - ARTHROCENT ASP &/OR INJ MAJOR JX/BURSA W/O US - dexAMETHasone Sodium Phosphate (Decadron) 4 MG/ML inj 4 mg - lidocaine 1 % inj 10 mg - Triamcinolone Acetonide (Kenalog) 40 MG/ML inj 40 mg - dexAMETHasone Sodium Phosphate (Decadron) 4 MG/ML inj 4 mg - lidocaine 1 % inj 10 mg - Triamcinolone Acetonide (Kenalog) 40 MG/ML inj 40 mg Cancer of upper lobe of right lung (HCC) Restrictive lung disease COPD, group C, by GOLD 2017 classification (HCC) Acquired hypothyroidism Dyslipidemia, goal LDL below 70 Chronic diastolic congestive heart failure (HCC) Coronary artery disease involving cap[place] band coronary artery of cap[place] band heart without angina pectoris Persistent atrial fibrillation (HCC) Insomnia due to medical condition - Mirtazapine 45 MG Oral Tablet (Remeron); Take 1 Tablet by mouth at bedtime. Need for pneumococcal vaccination - PNEUMOCOCCAL VACC, PCV20, IM ([id number]) Primary localized osteoarthrosis of shoulder region, unspecified laterality Advised to increase mirtazapine to 45 mg at bedtime. Continue follow-up with Hematology-Oncology and Pulmonology. Prevnar 20 provided today. Bilateral shoulder injections provided today. Patient tolerated procedure well. Continue other medications. Follow Up: Return in about 3 months (around 12/04/2023), or if symptoms worsen or fail to improve, for f/u chronic problems. | For: f/u chronic problems Pepe Chiang MD Time Out Procedure: Correct patient identity (Ask Name/Date of ) - Yes Correct Procedure and Consent - Yes Verified Side and Site - Yes Correct patient position - Yes All necessary Equipment/Prior Studies Present - Yes Reviewed special requirements of this patient (i.e. Allergies) - Yes Pepe Chiang MD After reviewing the risks with the patient (including bleeding, infection and skin atrophy) - understerile conditions and preparing the site with isospropyl alcohol, the left and right shoulder joint was injected with lidocaine 1%, triamcinalone 40 mg, and dexamethasone 4 mg. The patient toleratedthe procedure well without complications and was instructed on subsequent follow-up care (local care and any necessary restrictions). Risks, benefits, and alternatives to the procedures were discussed with the patient and all questions were answered. Patient specific risk factors were reviewed and considered. Pepe Chiang MD documented in this encounter Nursing Notes * Kelsey Wise LPN - 09/03/2023 12:31 PM EDT Pre-Administration Time Out Procedure Performed: Yes Patient Identified (Ask Name/Date of ): Yes Does the patient have a fever greater than 101 degrees today? No Patient allergic to latex? No Has the patient ever fainted after receiving an injection? No VFC Stock: No Immunization(s) verified: Yes, Immunization Name: Prevnar 20 (PCV20), VIS Sheet(s) given: Yes Verified Side and Site: Yes Verified Shot(s) with Parent(s)/Patient: Yes * Kelsey Wise LPN - 09/03/2023 11:51 AM EDT The patient has been properly identified by confirmation of name and date of . Chief Complaint Patient presents with Follow Up Pt. Is here today for routine follow up. Pt. Would like to discuss shoulder injections, if there is anything else he can do for that condition and that he needs fluid to be drained from his lung again. Patient has been verbally educated on the need or importance of Immunizations: pneumonia, tdap, shingles and has declined topic(s). documented in this encounter Plan of Treatment Upcoming Encounters Date Type Department Care Team (Late st Contact Info) Description 09/13/2023 8:30 AM EDT Laboratory Laboratory Patient Service [place], [address] [place] [phone] [address] [place] [address] 09/14/2023 9:30 AM EDT Office Visit Hematology/Oncology Jamin Chung [place] [address] [facility] [place] [phone] Pearl Oviedo CRNP [address] [place] [id number] 09/14/2023 10:00 AM EDT Hem/Onc Treatment Hematology/Oncology Treatment, [place] [address] [place] [address] [place], Chair [address] [place] [address] 09/23/2023 10:20 AM EDT Office Visit Pulmonary Medicine, [facility] [address] [facility] [place] [id number] Vu Tapia MD [address] [facility] [place] [address] 09/29/2023 9:00 AM EDT Immunization/Injecti on [facility] [address] [place] [address] [place], Nurse [address] [address] 12/20/2023 10:00 AM EDT Office Visit [facility] [address] [place] [address] Pepe Beck MD [address] [place] [phone] Scheduled Orders Name Type Priority Associated Diagnoses Orde r Schedule ARTHROCENT ASP &/OR INJ MAJOR JX/BURSA W/O US Procedures Routine Chronic pain of both shoulders Ordered: 09/03/2023 Health Maintenance Due Date Last Done Comments [...] 06/01/2024 06/01/2023, 02/06 CKD PHOS USE SMARTSET [id number] 06/01/2024 06/01/2023, 0 03/04/2022 CKD HGB USE SMARTSET [id number] 08/15/202408/15, 08/16/2023, 08/04/2023, Additional history exists TSH [...] of this encounter Visit Diagnoses Diagnosis Chronic pain of both shoulders- Primary Pain in joint, shoulder region Cancer of upper lobe of right lung (HCC) Restrictive lung disease Other diseases of lung, not elsewhere classified COPD, group C, by GOLD 2017 classification (HCC) Acquired hypothyroidism Unspecified hypothyroidism Dyslipidemia, goal LDL below 70 Other and unspecified hyperlipidemia Chronic diastolic congestive heart failure (HCC) Chronic diastolic heart failure Coronary artery disease involving cap[place] grande band coronary artery of cap[place] band heart without angina pectoris Persistent atrial fibrillation (HCC) Atrial fibrillation Insomnia due to medical condition Insomnia due to medical condition classified elsewhere Need for pneumococcal vaccination Need for prophylactic vaccination against streptococcus pneumoniae (pneumococcus) Primary localized osteoarthrosis of shoulder region, unspecified laterality documented in this encounter Administered Medications Inactive Administered Medications - up to 3 most recent administrations Medication Order MAR Action Action Date Dose Rate Site dexAMETHasone Sodium Phosphate (Decadron) 4 MG/ML inj 4 mg 4 mg, Intra-Articular, ONCE, On Wed09/03/23 at 1300, For 1 dose, Protect from Light Given 09/03/2023 12:42 PM EDT 4 mg Shoulder Left dexAMETHasone Sodium Phosphate (Decadron) 4 MG/ML inj 4 mg 4 mg, Intra-Articular, ONCE, On Wed09/03/23 at 1300, For 1 dose, Protect from Light Given 09/03/2023 12:41 PM EDT 4 mg Shoulder Right lidocaine 1 % inj 10 mg 10 mg (1 mL), Intra-Articular, ONCE, On Wed09/03/23 at 1300, For 1 dose Given 09/03/2023 12:43 PM EDT 10 mg Shoulder Left lidocaine 1 % inj 10 mg 10 mg (1 mL), Intra-Articular, ONCE, On Wed09/03/23 at 1300, For 1 dose Given 09/03/2023 12:43 PM EDT 10 mg Shoulder Right Triamcinolone Acetonide (Kenalog) 40 MG/ML inj 40 mg 40 mg, Intra-Articular, ONCE, On Wed09/03/23 at 1300, For 1 dose Given 09/03/2023 12:40 PM EDT 40 mg Shoulder Left Triamcinolone Acetonide (Kenalog) 40 MG/ML inj 40 mg 40 mg, Intra-Articular, ONCE, On Wed09/03/23 at 1300, For 1 dose Given 09/03/2023 12:40 PM EDT 40 mg Shoulder Right documented in this encounter Advance Directives Latest Code Status on File Code Status Date Activated Date Inactivated Comments Full Code 05/13/2023 2:31 PM 05/18/2023 6:24 PM This order reflects the patients wishes and were consensually agreed upon. Question Answer Comments Discussion of Advance Directives occurred with: Patient Does the patient have a Living Will? No Does the patient have Health Care Power of Water Taxi Captain? No Care Teams Fast Food Fry Cook Relationship Specialty Start Date End Date Pepe Beck MD [address] [place] [id number] PCP - General Family Medicine 11/07/21 documented as of this encounter"
--- OUTSIDE RECORDS SUMMARY | 2023-10-26 09:57 | External Medical Summary | Summary of Care ---
Author Name Unknown Organization [facility] Address [address] [facility] [place] [address] Phone [phone] Care Team Providers Care Tool Profiling Machine Set Up Operator Name Role Phone Pepe Beck MD Primary Care P rovider Reason for Visit * Reason Comments Follow Up Here return pulm . 3 week follow up. Encounter Details Date Type Department Care Team (Late st Contact Info) Description 08/26/2023 10:00 AM EDT Office Visit Pulmonary Medicine, [facility] [address] [facility] [place] [id number] Vu Tapia MD [address] [facility] [place] [address] Recurrent pleural effusion on right* Allergies No known active allergiesdocumented as of this encounter (statuses as of 08/26/2023) Medications Medication Sig Dispensed Refills Start Date End Date Status Aspirin 81 MG Oral Tablet Delayed Release Take 1 Tablet by mouth every other day. 0 Active Albuterol Sulfate HFA 108 (90 Base) MCG/ACT Inhalation Aerosol Solution INHALE 2 PUFFS BY MOUTH EVERY 6 HOURS NEEDED 18 g 3 2 Active Torsemide 20 MG Oral Tablet (Demadex)Indicatio ns:Atherosclerosis of sokaogon artery of right lower extremity with intermittent [...] Oral Tablet (Cozaar)Indication s:Coronary artery disease involving sokaogon coronary artery of sokaogon heart without angina pectoris Take 0.5 Tablets [...] THE MORNING 90 Tablet 1 4 Active Mirtazapine 30 MG Oral Tablet (Remeron)Indicatio ns:Moderate episode of recurrent major depressive disorder (HCC) Take 1 Tablet by mouth at bedtime. 30 Tablet 5 4 Active amLODIPine Besylate 5 MG Oral Tablet (Norvasc)Indicatio ns:HTN, goal below 140/90 Take 1 Tablet by mouth in the morning. 30 Tablet 5 4 Active rOPINIRole HCl 0.5 MG Oral Tablet (Requip) TAKE 1 TABLET BY MOUTH ONCE DAILY AT BEDTIME 90 Tablet 1 4 Active HYDROcodone-Acetam inophen 10-325 MG Oral TabletIndications: Acute left-sided low back pain without sciatica,Cancer of upper lobe of right lung (HCC) Take 1 Tablet by mouth every 4 hours as needed for Pain, Severe. 60 Tablet 0 4 Active Azithromycin 250 MG Oral Tablet (Zithromax Z-Isaias) Please take 500 mg by mouth on day one, followed by 250 mg by mouth for four days. 6 Tablet 0 4 Active Nitroglycerin 0.4 MG Sublingual Tablet Sublingual (Nitrostat) 1 Tablet. 0 4 Active Sennosides-Docusat e Sodium 8.6-50 MG Oral Tablet (Senokot-S) at bedtime. 0 4 Active Incruse Ellipta 62.5 MCG/ACT Inhalation Aerosol Powder Breath ActivatedIndicatio ns:COPD, group C, by GOLD 2017 classification ([facility]) Inhale 1 Puff by mouth every evening. 30 Each 2 4 11/21/19 24 Active Ipratropium-Albute rol 0.5-2.5 (3) MG/3ML Inhalation Solution (Duoneb) Inhale 3 mL via nebulizer every 6 hours as needed for Cough, Shortness of Breath or Wheezing. 360 mL 5 4 Active Ipratropium-Albute rol 0.5-2.5 (3) MG/3ML Inhalation Solution (Duoneb) Inhale 3 mL via nebulizer every 6 hours as needed for Cough, Shortness of Breath or Wheezing. 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 10/23/2019 Hypothyroidism 03/28/2018 Hyponatremia 03/28/2018 Dyslipidemia, goal LDL below 70 03/28/2018 Edema of lower extremity 03/28/2018 Degeneration of lumbar intervertebral disc 03/28 Coronary artery disease invo lving sokaogon coronary artery of sokaogon heart without angina pectoris 03/28/2018 Benign prostatic hyperplasia 03/28/2018 Benign essential hypertension 03/28/2018 Carotid artery stenosis 03/28/2018 Osteoarthritis of ankle 03/29/2017 Peripheral vascular disease 11/03/2016 documented as of this encounter (statuses as of 08/26/2023) Resolved Problems Problem Noted Date Diagnosed Date Resolved Date EL (acute kidney injury) 05/17/2023 Lumbar radiculopathy 03/28/2018 023 Chronic obstructive pulmonary disease 03/28/2018 11/20/2021 Overview: Per COPD GOLD Classification documented as of this encounter (statuses as of 08/26/2023) Immunizations Name Administration Dates Next Due COVID-19 mRNA, LNP-s, No Pre serve, 2-Dose Series ([employer]) 05/05/2021,08/28/2020,08/07/2020 Covid-19, Mrna, Lnp-s, Pf, B ivalent, 30 Mcg, IM, 12 yrs and above ([employer]) 02/24/2022 Pneumococcal Conjugate Vacci ne, 20-valent ([id number]) 12/09/2021(Deferred: Had Clinical Disease) Pneumococcal Polysaccharide PPV23 [...] Sign Reading Time Taken Comments Blood Pressure 108/50 08/26/2023 9:56 AM EDT Pulse 75 08/26/2023 9:56 AM EDT Temperature 36.6 C (97.8 F) 08/26/2023 9:56 AM ED T Respiratory Rate 16 08/26/2023 9:56 AM EDT Oxygen Saturation 92% 08/26/2023 9:58 AM EDT ra=-amb Inhaled Oxygen Concentration - - Weight 66.2 kg (146 lb) 08/26/2023 9:56 AM EDT Height 170.2 cm (5' 7") 08/26/2023 9:56 AM EDT Body Mass Index 22.87 08/26/2023 9:56 AM EDT documented in this [...] Progress Notes * Vu Tapia MD - 08/26/2023 10:09 AM EDT 08/26/2023 Pulmonary Medicine, [address] [place] [id number] Manuel Yarbrough 1940 male 83 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 Recently completed CT scan chest showed new large right pleural effusion which was not present on May CT scan chest. Patient underwent IR thoracentesis at [facility]. Repeat CTscan chest done within last 48 hours shows partial reaccumulation of right pleural effusion. Patient describes stable respiratory status with episodic productive cough. Current bronchodilator regimen includes DuoNeb therapy. Patient did not get Incruse inhaler. Patient continues with maintenance apixaban therapy for [...] x-ray and historical CT scans were reviewed. Current CT scan findings show evidence of recurrent right pleural effusion. We would proceed with IR thoracentesis evaluation followed by repeat x-ray chest in 7 days. Currentbronchodilator regimen will be continued. Role of PleurX catheter placement was discussed in case recurrence of pleural effusion is noted requiring multiple episodes of thoracentesis. Pulmonary clinic follow-up recommended in 4 weeks. Patient was advised to contact the office with any change in respiratory symptoms status. Assessment Hx of Ca lung RUL COPD Rt Pleural effusion, s/p RT THX at [facility] RUL scarring elevated Rt Dome of diaphragm Chemo/Immunotherapy sytatus Current BD RX: DuoNeb, Albuterol Apixaban Therapy status Follow Up: Return in about 4 weeks (around 09/23/2023) for Clinic Visit, Video to Home, Video to Clinic. 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 Cancer Staging T2 N2 DATE OF DIAGNOSIS: 02/10/23 TREATMENT HISTORY: Combined chemotherapy with weekly Paclitaxel and carboplatin along with radiation treatment ( 04/01/2023-- 06/02/23) CURRENT TREATMENT: Durvalumab 1500 mg every 4 weekly for 1 year duration (06/08/23 - ) XR CHEST 2 VIEWS - 08/03/2023 10:21 am HISTORY: righ upper lobe NSCLC, increased SOB, on immunotherapy TECHNIQUE: PA and lateral chest x-ray COMPARISON: Chest x-ray and CT from 05/13/2023 FINDINGS: Catheters/tubes/devices/foreign bodies: None. Increased right upper lobe masslike consolidation. Increased right lung base elevation which is suspicious for a sub pulmonic effusion. No evidence of pneumothorax. Cardiomediastinal silhouette is within normal limits. Osseous structures are unremarkable. Sternotomy wires. IMPRESSION IMPRESSION: Increased right upper lobe masslike consolidation and new probable right sub pulmonic effusion (versus right hemidiaphragm elevation). CT chest without contrast (02/02/2023 ) -right [...] lymphadenopathy. No bone metastasis. T2 N2 M0 Subjective CC: Chief Complaint Patient presents with Follow Up Here return pulm . 3 week follow up. HPI: Nursing Notes: Megha Connell LPN 08/26/23 1001 Signed Chief Complaint Patient presents with Follow Up Here return pulm . 3 week follow up. Interm History/Respiratory Symptoms Cough: yes-yellow Hemoptysis: no Sinus Symptoms: no Hospitalizations: yes-08/28 [facility] Trips: no Triggers: no Nocturnal: sleeps in recliner CPAP/BiPAP/O2: o2 2L Flu Vaccine: 2021 Pneumovax: 2021 Prevnar: Deferred COVID 19: x4. [employer] Cat Question 08/26/2023 9:56 AM EDT - Filed by Patient When do you become breathless? (3) I stop for breath after walking about 100 yards or after a few minutes on level ground How frequently do you cough? (5) - I cough all the time Do you have phlegm in your chest? (4) Is your chest tight? (0) - My chest does not feel tight at all How breathless do you become when walking up a hill or steps? (5) - When I walk up a hill or one flight of stairs I am very breathless How limited are you doing activities at home? (0) - I am not limited doing any activities at home How confident are you leaving home with your lung condition? (0) - I am confident leaving my home despite my condition How soundly do you sleep? (3) How much energy do you have? (5) - I have no energy at all Total MMRC Score (range: 0 - 4) 3 Total CAT Score (range: 0 - 40) 22 Objective Filed Vitals: 08/26/23 0956 08/26/23 0958 BP: 108/50 Pulse: 75 Resp: 16 Temp: 36.6 C (97.8 F) TempSrc: Tympanic SpO2: 93% 92% Weight: 66.2 kg (146 lb) Height: 1.702 m (5' 7") Exam: [...] is normal. Tests reviewed with the patient: CT CHEST WO CONTRAST Result Date: 08/26/2023 [...] report is pending. COMMENTS: Consistent with the [employer]'s Incidental Findings Committee white [...] changes of the mid cervical spine with [id number] spinal stenosis and neural foraminal narrowing as [...] were discussed with the patient. HOME MEDICATIONS: Ipratropium-Albuterol 0.5-2.5 (3) MG/3ML Inhalation Solution (Duoneb) Incruse Ellipta 62.5 MCG/ACT Inhalation Aerosol Powder Breath Activated Nitroglycerin 0.4 MG Sublingual Tablet Sublingual (Nitrostat) Sennosides-Docusate Sodium 8.6-50 MG Oral Tablet (Senokot-S) Azithromycin 250 MG Oral Tablet (Zithromax Z-Isaias) HYDROcodone-Acetaminophen 10-325 MG Oral Tablet rOPINIRole HCl 0.5 MG Oral Tablet (Requip) amLODIPine Besylate 5 MG Oral Tablet (Norvasc) Mirtazapine 30 MG Oral Tablet (Remeron) FeroSul 325 (65 Fe) MG Oral Tablet Baclofen 10 MG Oral Tablet (Lioresal) Apixaban 2.5 MG Oral Tablet (Eliquis) Losartan Potassium 100 MG Oral Tablet (Cozaar) Vitamin B-12 1000 MCG Sublingual Tablet Sublingual Rosuvastatin Calcium 20 MG Oral Tablet (Crestor) Pantoprazole Sodium 40 MG Oral Tablet Delayed Release (Protonix) dexAMETHasone 4 MG Oral Tablet (Decadron) Tamsulosin HCl 0.4 MG Oral Capsule (Flomax) Levothyroxine Sodium 112 MCG Oral Tablet (Levoxyl) Ondansetron HCl 8 MG Oral Tablet (Zofran) Prochlorperazine Maleate 10 MG Oral Tablet (Compazine) Dutasteride 0.5 MG Oral Capsule (Avodart) Albuterol Sulfate HFA 108 (90 Base) MCG/ACT Inhalation Aerosol Solution Aspirin 81 MG Oral Tablet Delayed Release Torsemide 20 MG Oral Tablet (Demadex) vitamin b-12 (Cyanocobalamin) inj 1,000 mcg ROS: [...] performed [place]yson Alcal[place] [facility] [place] History Socioeconomic History Marital status: Tobacco Use Smoking status: Former Current packs/day: 0.00 Average packs/day: 1 pack/day for 45.0 years (45.0 ttl pk-yrs) Types: Cigarettes Start date: 1941 Quit date: 1986 Years since quittin.2 Smokeless tobacco: Never Vaping Use Vaping Use: Never used Substance and Sexual Activity Alcohol use: Never Drug use: Never Family History Problem Relation Age of Onset Heart failure Brother Review of patient's allergies indicates: No Known Allergies documented in this encounter Nursing Notes * Megha Connell LPN - 08/26/2023 9:58 AM EDT Chief Complaint Patient presents with Follow Up Here return pulm . 3 week follow up. Interm History/Respiratory Symptoms Cough: yes-yellow Hemoptysis: no Sinus Symptoms: no Hospitalizations: yes-08/28 [facility] ED Trips: no Triggers: no Nocturnal: sleeps in recliner CPAP/BiPAP/O2: o2 2L Flu Vaccine: 2021 Pneumovax: 2021 Prevnar: Deferred COVID 19: x4. [facility] Cat Question 08/26/2023 9:56 AM EDT - Filed by Patient When do you become breathless? (3) I stop for breath after walking about 100 yards or after a few minutes on level ground How frequently do you cough? (5) - I cough all the time Do you have phlegm in your chest? (4) Is your chest tight? (0) - My chest does not feel tight at all How breathless do you become when walking up a hill or steps? (5) - When I walk up a hill or one flight of stairs I am very breathless How limited are you doing activities at home? (0) - I am not limited doing any activities at home How confident are you leaving home with your lung condition? (0) - I am confident leaving my home despite my condition How soundly do you sleep? (3) How much energy do you have? (5) - I have no energy at all Total MMRC Score (range: 0 - 4) 3 Total CAT Score (range: 0 - 40) 22 documented in this encounter Plan of Treatment Upcoming Encounters Date Type Department Care Team (Late st Contact Info) Description 09/01/2023 9:00 AM EDT Nurse Only Ancillary [address] [phone] [facility] [address] [address] 09/13/2023 8:30 AM EDT Laboratory Laboratory [facility], [address] [phone] [place], Lab Lock [address] [place] [address] 09/14/2023 9:30 AM EDT Office Visit Hematology/Oncology [facility] [address] [facility] [place] [phone] Abel Oviedo CRNP [address] [place] [address] [place] [address] 09/14/2023 10:00 AM EDT Hem/Onc Treatment [facility] [place] [facility] [phone] Juliet, Chair 11 Hem Onc [address] [place] [id number] 09/23/2023 10:20 AM EDT Office Visit Pulmonary Medicine, [facility] [address] [facility] [place] [address] Vu Gilmore MD [address] [place] [id number] Scheduled Orders Name Type Priority Associated Diagnoses Orde r Schedule IR CHEST THORACENTESIS Medical Imaging Routine Recurrent pleural effusion on right Ordered: 08/26/2023 XR CHEST 2 VIEWS Medical Imaging Routine Recurrent pleural effusion on right Expected: 09/26/2023, Expires: 09/25/2024 Health Maintenance Due Date Last Done Comments [...] 06/01/2024 06/01/2023, 02/06 CKD PHOS USE SMARTSET 00405 06/01/2024 06/01/2023, 0 03/04/2022 CKD HGB USE SMARTSET 05707 08/15/202408/15, 08/16/2023, 08/04/2023, Additional history exists TSH [...] as of this encounter Visit Diagnoses Diagnosis Recurrent pleural effusion on right- Primary Unspecified pleural effusion [...] the patient have Health Care Power of Medical Research Associate? No Care Teams Tool Profiling Machine Set Up Operator Relationship Specialty Start Date End Date Pepe Beck MD [address] [place] [id number] PCP - General Family Medicine 11/07/21 documented as of this encounter
--- OUTSIDE RECORDS SUMMARY | 2023-10-26 09:58 | External Medical Summary | Summary of Care ---
Author Name Unknown Organization [facility] Address [address] [facility] [address] Phone [phone] Care Team Providers Care Security Incident Response Engineer Name Role Phone Pepe Beck MD Primary Care P rovider Reason for Visit * Reason Comments Chemotherapy Imfinzi. * Episode Based Medications (Routine) - Authorized Specialty Diagnoses / Procedures Referred By Contac t Referred To Contact Diagnoses Cancer of upper lobe of right lung (HCC) Encounter for antineoplastic chemotherapy Procedures LA INJ., DURVALUMAB, 10 MG Bear Love MD [address] [place] [address] Anc Hem/Onc Jamin Chung DEPT CLOSED - 04/20/23 [address] [place] [address] Referral ID Status Reason Start Date Expiration Date V isits Requested Visits Authorized [id number] Authorized 05/05/2023 11/03/[phone] Encounter Details Date Type Department Care Team (Latest Contact Info) Description 08/17/2023 9:15 AM EDT Hem/Onc Treatment Hematology/Oncolog y Treatment, [place] [address] [place] [address] Juliet, Chair 7 Hem Onc [place] [address] Cancer of upper lobe of right lung (HCC)*; Encounter for antineoplastic chemotherapy Allergies No known active allergiesdocumented as of this encounter (statuses as of 08/17/2023) Medications Medication Sig Dispensed Refills Start Date End Date Status Aspirin 81 MG Oral Tablet Delayed Release Take 1 Tablet by mouth every other day. 0 Active Albuterol Sulfate HFA 108 (90 Base) MCG/ACT Inhalation Aerosol Solution INHALE 2 PUFFS BY MOUTH EVERY 6 HOURS NEEDED 18 g 3 12/18/2021 Active Incruse Ellipta 62.5 MCG/ACT Inhalation Aerosol Powder Breath ActivatedIndications :COPD, group C, by GOLD 2017 classification ([facility]) Inhale 1 Puff by mouth in the morning. 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 Atherosclerosis of kiana ar erick of right lower extremity with intermittent claudication 10/23/2019 Hypothyroidism 03/28/2018 Hyponatremia 03/28/2018 Dyslipidemia, goal LDL below 70 03/28/2018 Edema of lower extremity 03/28/2018 Degeneration of lumbar intervertebral disc 03/28 Coronary artery disease invo lving kiana coronary artery of kiana heart without angina pectoris 03/28/2018 Benign prostatic hyperplasia 03/28/2018 Benign essential hypertension 03/28/2018 Carotid artery stenosis 03/28/2018 Osteoarthritis of ankle 03/29/2017 Peripheral vascular disease 11/03/2016 documented as of this encounter (statuses as of 08/17/2023) Resolved Problems Problem Noted Date Diagnosed Date Resolved Date EL (acute kidney injury) 05/17/2023 Lumbar radiculopathy 03/28/2018 023 Chronic obstructive pulmonary disease 03/28/2018 11/20/2021 Overview: Per COPD GOLD Classification documented as of this encounter (statuses as of 08/17/2023) Immunizations Name Administration Dates Next Due COVID-19 mRNA, LNP-s, No Pre serve, 2-Dose Series ([employer]) 05/05/2021,08/28/2020,08/07/2020 Covid-19, Mrna, Lnp-s, Pf, B ivalent, 30 Mcg, IM, 12 yrs and above ([employer]) 02/24/2022 Pneumococcal Conjugate Vacci ne, 20-valent ([id number]) 12/09/2021(Deferred: Had Clinical Disease) Pneumococcal Polysaccharide PPV23 [...] Sign Reading Time Taken Comments Blood Pressure 148/60 08/17/2023 9:02 AM EDT Pulse 94 08/17/2023 9:02 AM EDT Temperature 36.6 C (97.9 F) 08/17/2023 9:02 AM ED T Respiratory Rate 18 08/17/2023 9:02 AM EDT Oxygen Saturation 95% 08/17/2023 9:02 AM EDT Inhaled Oxygen Concentration - - Weight 67.2 kg (148 lb 3.2 oz) 08/17/2023 9:02 A M EDT Height - - Body Mass Index 23.21 08/12/2023 10:15 AM EST documented in this encounter Functional Status Functional [...] Nursing Notes * Estefanía Harrison RN - 08/17/2023 10:37 AM EDT Goals: Patient will remain free from injury. Possible barriers to meeting goals: Fall risk d/t ambulation with IV pole. Stability of the patient: Moderately unstable - medium risk of patient condition declining or worsening Summary regarding today's goals: Met: Patient remained free of injury. Patient tolerated infusion well. Discharged in stable condition. * Estefanía Harrison RN - 08/17/2023 9:44 AM EDT Chair 5. Patient arrived for imfinzi with no acute complaints. Patient states is feeling very well overall. Dr. Love came out to bedside to talk with patient. Patient ok for treatment. PIV established. Chemotherapy/Immunotherapy agents: Imfinzi. Consent for chemotherapy drug treatment complete, dated, and signed? yes, date - 05/11/23 Treatment lab parameters met? Yes Has treatment weight changed > than 10%? No Treatment preauthorized? Yes VITALS Filed Vitals: 08/17/23 0902 BP: 148/60 Pulse: 94 Resp: 18 Temp: 36.6 C (97.9 F) TempSrc: Tympanic SpO2: 95% Weight: 67.2 kg (148 lb 3.2 oz) Urine protein: N/A Patient education completed for treatment? Yes Blood transfusion consent signed and complete? NA Return appointment scheduled? Yes Patient had provider visit today? No - If no provider visit must complete Pretreatment Assessment Functional Status: Functional status at today's visit: [...] symptoms or adverse side effects during treatment. PRE-TREATMENT ASSESSMENT: NEURO: denies symptoms CV/RESP: denies symptoms GI/: decreased appetite: Patient states he sometimes has to make himself eat something because his appetite has been decreased but states its nothing new for him. OTHER: denies any additional symptoms PAIN: 0 Safety and Risk for Injury Patient will remain free from injury. Ensure appropriate safety devices are available. Provide and maintain safe environment. documented in this encounter Plan of Treatment Upcoming Encounters Date Type Department Care Team (Late st Contact Info) Description 08/24/2023 9:30 AM EDT PulmDiagnostic Pulmonary Function Lab, [facility] [address] [facility] [place] [address] [address], Pft 132 [facility] [place] [address] 08/24/2023 10:15 AM EDT [facility] [address] [facility] [place] [address] 08/26/2023 3:40 PM EDT Office Visit Pulmonary Medicine, [facility] [address] [facility] [place] [address] Vu Tapia MD [address] [facility] [address] 09/01/2023 9:00 AM EDT Nurse Only Ancillary [facility] [address] [place] [phone] [place], Nurse [address] [address] 09/13/2023 8:30 AM EDT [facility] [address] [place] [phone] Have, Lab Lock [address] [place] [address] 09/14/2023 9:30 AM EDT Office Visit Hematology/Oncology [facility] [address] [facility] [phone] Pealr Oviedo CRNP [address] [place] [address] [place] [address] 09/14/2023 10:00 AM EDT Hem/Onc Treatment Hematology/Oncology Treatment, [place] [address] [place] [address] Juliet, Chair 11 Hem Onc Scenery [address] [place], [place] [address] Health Maintenance Due Date Last Done Comments [...] 06/01/2024 06/01/2023, 02/06 CKD PHOS USE SMARTSET 58531 06/01/2024 06/01/2023, 0 03/04/2022 CKD HGB USE SMARTSET 87003 08/15/202408/15, 08/16/2023, 08/04/2023, Additional history exists TSH [...] ONCE PRN Other, Hypersensitivity Reaction, Starting on Wed08/17/23 at 0915, Until Wed08/18/23 at 0914, For 24 hours EPINEPHrine 1 MG/ML inj 0.3 mg 0.3 mg, Intramuscular, ONCE PRN Other, Hypersensitivity Reaction or Anaphylaxis, Starting on Wed08/17/23 at 0915, Until Wed08/18/23 at 0914, For 24 hours hEParin 100 UNIT/ML Lock Flush inj 500 Units 500 Units (5 mL), IV Lock, PRN Other, IV Flush, Starting on Wed08/17/23 at 0915, Until Wed08/18/23 at 0914, For 24 hours, Do not flush if lock, PICC, or central line not in place; IV infusing or unable to flush. Hydrocortisone Sod Suc (PF) (Solu-Cortef) inj 100 mg 100 mg, IV Push, ONCE PRN Other, Hypersensitivity Reaction, Starting on Wed08/17/23 at 0915, Until Wed08/18/23 at 0914, For 24 hours NSS infusion Intravenous, at 50 mL/hr, PRN, Starting on Wed08/17/23 at 1030, Until Discontinued, Maintenance line Start Infusion 08/17/2023 9:32 AM EDT 50 mL/hr oxygen GAS Inhalation, OXYGEN, First dose on Wed08/17/23 at 1000, Until Discontinued, Device/Managed by: Low Flow Device, [...] Push, PRN Other, IV Flush, Starting on Wed08/17/23 at 0915, Until Wed08/18/23 at 0914, For 24 hours, Do not flush if lock, PICC, or central line not in place; IV infusing or unable to flush. Inactive Administered Medications - up to 3 most recent administrations Medication Order MAR Action Action Date Dose Rate Site Durvalumab (Imfinzi) 1,500 mg in NSS 250 mL infusion 1,500 mg, IV Piggyback, ONCE, 1 dose, On Wed08/17/23 at 1100, Administer over 60 Minutes, Administer through a 0.22 micron filter, final concentration between 1-15mg/mL Start Infusion 08/17/2023 9:33 AM EDT 1,500 mg 250 mL/hr documented [...] the patient have Health Care Power of Director Of Outpatient Services? No Care Teams Security Incident Response Engineer Relationship Specialty Start Date End Date Pepe Beck MD [address] [place] [id number] PCP - General Family Medicine 11/07/21 documented as of this encounter
--- OUTSIDE RECORDS SUMMARY | 2023-10-26 09:58 | External Medical Summary | Summary of Care ---
Author Name Unknown Organization [facility] Address [address] [place] [facility] [place] [address] Phone [phone] Care Team Providers Care Hoop Punch And Coiler Operator Name Role Phone Pepe Beck MD Primary Care P roder Reason for Visit * Reason Onset Date Comments Scheduling 08/17/2023 Encounter Details Date Type Department Care Team (Late st Contact Info) Description 08/17/2023 Telephone Pulmonary Medicine Geoff Quintero [address] [place] [phone] Vu Tapia MD [address] [place] [phone] Scheduling Allergies No known active allergiesdocumented as of [...] :COPD, group C, by GOLD 2017 classification (HCC) Inhale 1 Puff by mouth in the morning. 90 Each 3 07/22/2022 Active Torsemide 20 MG Oral Tablet (Demadex)Indications :Atherosclerosis of twenty-nine palms artery of right lower [...] Oral Tablet (Cozaar)Indications: Coronary artery disease involving twenty-nine palms coronary artery [...] inj 1,000 mcgIndications:B12 deficiency 1000 mcg IM [id number] 05/06/2023 04/06/2024 Active documented as of this [...] mRNA, LNP-s, No Pre serve, 2-Dose Series ([employer]) 05/05/2021,08/28/2020,08/07/2020 Covid-19, Mrna, Lnp-s, Pf, B ivalent, 30 Mcg, IM, 12 yrs and above (Pfizer) 02/24/2022 Pneumococcal Conjugate Vacci ne, 20-valent ([id number]) 12/09/2021(Deferred: Had Clinical Disease) Pneumococcal Polysaccharide PPV23 [...] encounter Miscellaneous Notes * Telephone Encounter - Sheila Crum OSA - 08/17/2023 11:02 AM EDT Spoke to patients son Manuel and he had said that his Father Manuel JUÁREZ was admitted at [facility] where he had the Thoracentesis already. documented in this encounter Plan of Treatment Upcoming Encounters Date Type Department Care Team (Late st Contact Info) Description 08/24/2023 9:30 AM EDT PulmDiagnostic Pulmonary Function Lab, [facility] 132 [facility] [place] [address] [address], [address] [place] [address] 08/24/2023 10:15 AM EDT Imaging Radiology [facility] 1st [facility] [address] [place] [address] 08/26/2023 3:40 PM EDT Office Visit Pulmonary Medicine, [facility] [address] [facility] [place] [address] Vu Tapia MD [address] [place] [address] 09/01/2023 9:00 AM EDT Nurse Only Ancillary [address] [address] [place], Nurse [address] [place] [address] 09/13/2023 8:30 AM EDT Laboratory Laboratory Patient Service Center, [place] [address] [place] [phone] [place], Lab Lock [address] [place] [address] 09/14/2023 9:30 AM EDT Office Visit Hematology/Oncology [facility] 200 [place] [address] Pearl Oviedo CRNP [address] [place] [address] 09/14/2023 10:00 AM EDT Hem/Onc Treatment Hematology/Oncology Treatment, [place] 200 [place] [address] Juliet, Chair 11 Hem Onc [address] [place] [address] Health Maintenance Due Date Last Done Comments [...] 06/01/2024 06/01/2023, 02/06 CKD PHOS USE SMARTSET 75360 06/01/2024 06/01/2023, 0 03/04/2022 CKD HGB USE SMARTSET 14477 08/15/202408/15, 08/16/2023, 08/04/2023, Additional history exists TSH [...] the patient have Health Care Power of Recycling Coordinator? No Care Teams Hoop Punch And Coiler Operator Relationship Specialty Start Date End Date Pepe Beck MD [address] [place] [phone] PCP - General Family Medicine 11/07/21 documented as of this encounter
--- OUTSIDE RECORDS SUMMARY | 2023-10-26 09:58 | External Medical Summary | Summary of Care ---
Author Name Unknown Organization [facility] Address [address] [place] [address] Phone [phone] Care Team Providers Care Physician Office Clin Asst Name Role Phone Pepe Beck MD Primary Care P rovider Encounter Details Date Type Department Care Team (Late st Contact Info) Description 08/10/2023 Result Scan Unspecified Department Pepe Beck MD [address] [place] [phone] <No scans attached> Allergies No known active allergiesdocumented as of this encounter (statuses as of 08/16/2023) Medications Medication Sig Dispensed Refills Start Date [...] 20 MG Oral Tablet (Demadex)Indications :Atherosclerosis of cahuilla artery of right lower extremity with intermittent [...] Oral Tablet (Cozaar)Indications: Coronary artery disease involving cahuilla coronary artery of cahuilla heart without angina pectoris Take 0.5 Tablets [...] Active HYDROcodone-Acetamin ophen 10-325 MG Oral TabletIndications:Ac nuiqsut left-sided low back pain without sciatica,Cancer of [...] inj 1,000 mcgIndications:B12 deficiency 1000 mcg IM [id number] 05/06/2023 04/06/2024 Active documented as of this encounter (statuses as of 08/16/2023) Active Problems Problem Noted Date Diagnosed Date [...] 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 Atherosclerosis of cahuilla ar erick of right lower extremity with intermittent claudication 10/23/2019 Hypothyroidism 03/28/2018 Hyponatremia 03/28/2018 Dyslipidemia, goal LDL below 70 03/28/2018 Edema of lower extremity 03/28/2018 Degeneration of lumbar intervertebral disc 03/28 Coronary artery disease invo lving cahuilla coronary artery of cahuilla heart without angina pectoris 03/28/2018 Benign prostatic hyperplasia 03/28/2018 Benign essential hypertension 03/28/2018 Carotid artery stenosis 03/28/2018 Osteoarthritis of ankle 03/29/2017 Peripheral vascular disease 11/03/2016 documented as of this encounter (statuses as of 08/16/2023) Resolved Problems Problem Noted Date Diagnosed Date Resolved Date EL (acute kidney injury) 05/17/2023 Lumbar radiculopathy 03/28/2018 023 Chronic obstructive pulmonary disease 03/28/2018 11/20/2021 Overview: Per COPD GOLD Classification documented as of this encounter (statuses as of 08/16/2023) Immunizations Name Administration Dates Next Due COVID-19 mRNA, LNP-s, No Pre serve, 2-Dose Series ([employer]) 05/05/2021,08/28/2020,08/07/2020 Covid-19, Mrna, Lnp-s, Pf, B ivalent, 30 Mcg, IM, 12 yrs and above (Pfizer) 02/24/2022 Pneumococcal Conjugate Vacci ne, 20-valent ([id number]) 12/09/2021(Deferred: Had Clinical Disease) Pneumococcal Polysaccharide PPV23 (Pneumovax) 02/15/2020 Seasonal Influenza, Quadriva lent Hd (Fluzone Hd) 02/05/2023,03/04/2022 Seasonal Influenza, Recombin ant, RIV4, PF, ([employer]) 04/07/2021 Seasonal Influenza, Split, I IV3, With Preserve, Inj 03/13/2020,04/12/2019,03/21/2018,03/29,03/31/2016,04/30/2014,03/13/2013 ,05/14/2012,05/11/2012,04/24/2008,06/2005 documented as of this encounter Social History Tobacco Use Types Packs/Day Years Used Date Smoking Tobacco: Former Cigarettes 1 45 1 172 - 1987 Smokeless Tobacco: Never Alcohol Use [...] Team (Late st Contact Info) Description 08/17/2023 9:15 AM EDT Hem/Onc Treatment Hematology/Oncology Treatment, [place] [address] [place] [address] Juliet, Chair 7 Hem Onc Scenery [address] [place] [address] 08/24/2023 9:30 AM EDT PulmDiagnostic Pulmonary Function Lab, [facility] [address] [facility] [place] [address] [address], Pft [address] [facility] [place] [address] 08/24/2023 10:15 AM EDT Imaging Radiology [facility] [address] [facility] [place] [address] 08/26/2023 3:40 PM EDT Office Visit Pulmonary Medicine, [address] [place] [address] Vu Tapia MD [address] [place] [address] 09/01/2023 9:00 AM EDT Nurse Only Ancillary [address] [phone] [place], Nurse [address] [address] 09/06/2023 11:20 AM EDT Office Visit [facility] [address] [place] [phone] Pepe Beck MD [address] [place] [address] 09/07/2023 9:30 AM EDT Office Visit Hematology/Oncology [facility] [place] 200 [facility] [place], [place] [address] Pearl Oviedo CRNP [facility] [place] [address] 09/07/2023 10:00 AM EDT Hem/Onc Treatment Hematology/Oncology Treatment, [place] [facility] [phone] Juliet, Chair 10 Hem Onc [facility] 200 [place] [address] 09/13/2023 8:30 AM EDT Laboratory Laboratory Patient Service Center, [address] [phone] Have, Lab Lock [address] [place] [address] Health Maintenance Due Date Last Done Comments DTaP,Tdap,and Td Vaccines (1 - Tdap) 08[birth year]08/1959 Zoster Vaccines (1 of 2) 08[birth year]08/1959 Pneumococcal Vaccine: 65+ Years (2 of 2 - PCV) 02/14/2021 02/15/2020 *ADVANCE DIRECTIVE NOT ON FILE 03/13/2022 COVID-19 Vaccine (2022- season) 2023 02/24/2022, 05/05/2021, 08/28/2020, Additional history exists *NEPHROLOGY REFERRAL DUE TO RESISTANT HTN 08/15/2023 GFR 02/02/2024 08/04/2023, 07/09, 07/06/2023, Additional history exists O2 ASSESSMENT COMPLETED IN PAST YEAR FOR COPD 02/11/2024 02/10/2023 Depression Screening 05/10/2024 05/10/2023 Albumin/Creatinine Ratio 06/01/2024 06/01/2023, 02/06 CKD PHOS USE SMARTSET 65327 06/01/2024 06/01/2023, 0 03/04/2022 CKD HGB USE SMARTSET 95756 08/04/202408/04, 08/04/2023, 08/03/2023, Additional history exists TSH 08/04/2024 08/04/2023, 07/09, 07/06/2023, Additional history exists Alpha-1 Antitrypsin Completed 03/04/2022 [...] Procedure Name Priority Date/Time Associated Diagnosis Comments PATHOLOGY SCANNED RESULT 08/10/2023 documented in this encounter Results * PATHOLOGY SCANNED RESULT (08/10/2023) 08/10/2023 Pepe Navas MD PATHOLO GY documented in this encounter Advance Directives Latest Code Status on File Code Status Date Activated Date Inactivated Comments Full Code 05/13/2023 2:31 PM 05/18/2023 6:24 PM This order reflects the patients wishes and were consensually agreed upon. Question Answer Comments Discussion of Advance Directives occurred with: Patient Does the patient have a Living Will? No Does the patient have Health Care Power of Button Sewer Hand? No Care Teams Physician Office Clin Asst Relationship Specialty Start Date End Date Pepe Beck MD [address] [place] [address] PCP - General Family Medicine 11/07/21 documented as of this encounter
--- OUTSIDE RECORDS SUMMARY | 2023-10-26 09:58 | External Medical Summary | Summary of Care ---
Author Name Unknown Organization [facility] Address [address] [facility] [address] Phone [phone] Care Team Providers Care Wrecking Crane Engine Operator Name Role Phone Pepe Beck MD Primary Care P rovider Reason for Visit * Reason Onset Date Comments Advice 08/16/2023 Question re: upc oming Ct Chest Encounter Details Date Type Department Care Team (Late st Contact Info) Description 08/16/2023 Telephone Pulmonary Medicine, [facility] [address] [facility] [place] [address] Vu Tapia MD [address] [facility] [address] Advice (Question re: upcoming Ct Chest) Allergies No known active allergiesdocumented as of [...] group C, by GOLD 2017 classification ([facility]) Inhale 1 Puff by mouth in the morning. 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 Atherosclerosis of [place] ar erick of right lower extremity with intermittent claudication 10/23/2019 Hypothyroidism 03/28/2018 Hyponatremia 03/28/2018 Dyslipidemia, goal LDL below 70 03/28/2018 Edema of lower extremity 03/28/2018 Degeneration of lumbar intervertebral disc 03/28 Coronary artery disease invo lving [place] coronary artery of [place] heart without angina pectoris 03/28/2018 Benign prostatic [...] mRNA, LNP-s, No Pre serve, 2-Dose Series (Vitals ([email or web address])) 05/05/2021,08/28/2020,08/07/2020 Covid-19, Mrna, Lnp-s, Pf, B ivalent, 30 Mcg, IM, 12 yrs and above (Pfizer) 02/24/2022 Pneumococcal Conjugate Vacci ne, 20-valent ([id number]) 12/09/2021(Deferred: Had Clinical Disease) Pneumococcal Polysaccharide PPV23 [...] encounter Miscellaneous Notes * Telephone Encounter - Lupe Byrnes LPN - 08/17/2023 11:32 AM EDT Pt had Thoracentesis done at [facility]. Pt is currently in the hospitol * Telephone Encounter - Vu Tapia MD - 08/16/2023 9:40 PM EDT 08/24/2023 CT scan chest is not needed at this point. Recently completed CT scan chest shows new large right pleural effusion which was not present on May CT scan chest. A new order for IR guided thoracentesis has been placed for draining right pleural effusion. * Telephone Encounter - Michelle Mckenna LPN - 08/16/2023 9:00 AM EDT Please see pt's Ct Chest done 08/06/23 and advise whether or not he needs to have the one done that's scheduled for 08/24/23. * Telephone Encounter - Cori Chiu OSA - 08/16/2023 8:30 AM EDT Patients son Aaron called to inquire if his CT WO Contrast for Dr. Tapia on 08/23 is still needed. He advised he was recently in the hospital and had one completed there. Please contact Aaron at [phone] at your earliest convenience. Thank you. documented in this encounter Plan of Treatment Upcoming Encounters Date Type Department Care Team (Late st Contact Info) Description 08/24/2023 9:30 AM EDT PulmDiagnostic Pulmonary Function Lab, [facility] 132 [facility] [place] [address] [place], Pft [facility] [place] [address] 08/24/2023 10:15 AM EDT [facility] [address] [facility] [place] [address] 08/26/2023 3:40 PM EDT Office Visit Pulmonary Medicine, [facility] [address] [facility] [place] [address] Vu [facility] MD [address] [facility] [address] 09/01/2023 9:00 AM EDT Nurse Only Ancillary [address] [address] [place], Nurse [address] [address] 09/13/2023 8:30 AM EDT Laboratory [facility] [address] [place] Lab [address] [address] 09/14/2023 9:30 AM EDT Office Visit Hematology/Oncology [facility] 200 [place] [address] Pearl Oviedo, PEMA [address] [place] [address] 09/14/2023 10:00 AM EDT Hem/Onc Treatment Hematology/Oncology Treatment, [place] [address] [place], [place] [address] Juliet, Chair 11 Hem Onc Scenery [address] [place], [place] [address] Health Maintenance Due Date Last Done Comments [...] 06/01/2024 06/01/2023, 02/06 CKD PHOS USE SMARTSET 28162 06/01/2024 06/01/2023, 0 03/04/2022 CKD HGB USE SMARTSET 26319 08/15/202408/15, 08/16/2023, 08/04/2023, Additional history exists TSH [...] of this encounter Visit Diagnoses Diagnosis Pleural effusion [...] the patient have Health Care Power of Clay Structure Builder And Servicer? No Care Teams Wrecking Crane Engine Operator Relationship Specialty Start Date End Date Pepe Beck MD [address] [place] [address] PCP - General Family Medicine 11/07/21 documented as of this encounter
--- OUTSIDE RECORDS SUMMARY | 2023-10-26 09:58 | External Medical Summary | Summary of Care ---
Author Name Unknown Organization [facility] Address [address] [facility] [address] Phone [phone] Care Team Providers Care Aviation Project Engineer Name Role Phone Pepe Beck MD Primary Care P rovider Reason for Visit * Reason Onset Date Comments Advice 08/16/2023 Question re: upc oming Ct Chest Encounter Details Date Type Department Care Team (Late st Contact Info) Description 08/16/2023 Telephone Pulmonary Medicine, [facility] 132 [facility] [place] [address] Vu Tapia MD [address] [facility] [address] Advice (Question re: upcoming Ct Chest) [...] group C, by GOLD 2017 classification ([facility]) Inhale 1 Puff by mouth in the morning. 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 Atherosclerosis of tribal ar erick of right lower extremity with intermittent claudication 10/23/2019 Hypothyroidism 03/28/2018 Hyponatremia 03/28/2018 Dyslipidemia, goal LDL below 70 03/28/2018 Edema of lower extremity 03/28/2018 Degeneration of lumbar intervertebral disc 03/28 Coronary artery disease invo lving tribal coronary artery of tribal heart without angina pectoris 03/28/2018 Benign prostatic [...] mRNA, LNP-s, No Pre serve, 2-Dose Series (Urge) 05/05/2021,08/28/2020,08/07/2020 Covid-19, Mrna, Lnp-s, Pf, B ivalent, 30 Mcg, IM, 12 yrs and above (Pfizer) 02/24/2022 Pneumococcal Conjugate Vacci ne, 20-valent ([id number]) 12/09/2021(Deferred: Had Clinical Disease) Pneumococcal Polysaccharide PPV23 [...] encounter Miscellaneous Notes * Telephone Encounter - Vu Tapia MD [...] one completed there. Please contact Aaron at [phone] at your earliest convenience. Thank you. documented in this encounter Plan of Treatment Upcoming Encounters Date Type Department Care Team (Late st Contact Info) Description 08/17/2023 9:15 AM EDT Hem/Onc Treatment Hematology/Oncology Treatment, [place] [address] [place] [phone] [place], Chair 7 Hem Onc Scenery 200 [facility] [place] [address] 08/24/2023 9:30 AM EDT PulmDiagnostic Pulmonary Function Lab, [facility] 132 [facility] [place] [address] [place], Pft 132 [facility] [place] [address] 08/24/2023 10:15 AM EDT Imaging Radiology [facility] 1st [facility] 132 [facility] [place] [address] 08/26/2023 3:40 PM EDT Office Visit Pulmonary Medicine, [address] [place] [address] Vu Tapia MD [address] [place] [address] 09/01/2023 9:00 AM EDT Nurse Only Ancillary [address] [phone] [facility] [address] [address] 09/06/2023 11:20 AM EDT Office Visit Family [facility] [address] [place] [address] Pepe Beck MD [address] [place] [address] 09/07/2023 9:30 AM EDT Office Visit Hematology/Oncology [facility] [address] [place] [phone] Pearl Oviedo CRNP [address] [place] [address] 09/07/2023 10:00 AM EDT Hem/Onc Treatment Hematology/Oncology Treatment, [place] [address] [place] [address] Juliet, Chair 10 Hem Onc Scenery [address] [place] [address] 09/13/2023 8:30 AM EDT Laboratory [facility], [address] [address] [place], Lab Lock [address] [place] [address] Health Maintenance Due Date Last Done Comments [...] 06/01/2024 06/01/2023, 02/06 CKD PHOS USE SMARTSET 76757 06/01/2024 06/01/2023, 0 03/04/2022 TSH 08/04/2024 08/04/2023, 07/09, 07/06/2023, Additional history exists CKD HGB USE SMARTSET 33427 08/15/202408/15, 08/16/2023, 08/04/2023, Additional history exists Alpha-1 Antitrypsin Completed [...] the patient have Health Care Power of Sanitation Worker? No Care Teams Aviation Project Engineer Relationship Specialty Start Date End Date Pepe Beck MD [address] [place] [address] PCP - General Family Medicine 11/07/21 documented as of this encounter
--- OUTSIDE RECORDS SUMMARY | 2023-10-26 09:58 | External Medical Summary | Summary of Care ---
Author Name Unknown Organization [facility] Address [address] [place] [address] Phone [phone] Care Team Providers Care Twist Tester Name Role Phone Pepe Beck MD Primary Care P rovider Reason for Visit * Reason Comments eRx-Medication Refill Encounter Details Date Type Department Care Team (Late st Contact Info) Description 08/21/2023 Refill Pulmonary Medicine, [place] [address] [place] [address] Pepe Beck MD [address] [place] [address] COPD, group C, by GOLD 2017 classification ([facility]) Allergies No known active allergiesdocumented as of this encounter (statuses as of 08/23/2023) Medications Medication Sig Dispensed Refills Start Date End Date Status Aspirin 81 MG Oral Tablet Delayed Release Take 1 Tablet by mouth every other day. 0 Active Albuterol Sulfate HFA 108 (90 Base) MCG/ACT Inhalation Aerosol Solution INHALE 2 PUFFS BY MOUTH EVERY 6 HOURS NEEDED 18 g 3 2 Active Torsemide 20 MG Oral Tablet (Demadex)Indicatio ns:Atherosclerosis of [place] artery of right lower extremity with intermittent claudication (HCC),Persistent atrial fibrillation (HCC),BROWNE (dyspnea on exertion) TAKE 1 TABLET BY MOUTH ONCE DAILY IN THE MORNING 34 Tablet 11 3 Active Dutasteride 0.5 MG Oral Capsule (Avodart) Take 1 Capsule by mouth in the morning. 90 Capsule 3 3 Active Ipratropium-Albute rol 0.5-2.5 (3) MG/3ML Inhalation Solution (Duoneb) Inhale 3 mL via nebulizer every 6 hours as needed for Cough, Shortness of Breath or Wheezing. 75 mL 5 3 Active Ondansetron HCl 8 MG Oral [...] Oral Tablet (Cozaar)Indication s:Coronary artery disease involving [place] coronary artery of [place] heart without angina pectoris Take 0.5 Tablets [...] 30 Each 2 4 11/21/19 24 Active Incruse Ellipta 62.5 MCG/ACT Inhalation Aerosol Powder Breath ActivatedIndicatio ns:COPD, group C, by GOLD 2017 classification ([facility]) Inhale 1 Puff by mouth in the morning. 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 Atherosclerosis of [place] ar erick of right lower extremity with intermittent claudication 10/23/2019 Hypothyroidism 03/28/2018 Hyponatremia 03/28/2018 Dyslipidemia, goal LDL below 70 03/28/2018 Edema of lower extremity 03/28/2018 Degeneration of lumbar intervertebral disc 03/28 Coronary artery disease invo lving [place] coronary artery of [place] heart without angina pectoris 03/28/2018 Benign prostatic hyperplasia 03/28/2018 Benign essential hypertension 03/28/2018 Carotid artery stenosis 03/28/2018 Osteoarthritis of ankle 03/29/2017 Peripheral vascular disease 11/03/2016 documented as of this encounter (statuses as of 08/23/2023) Resolved Problems Problem Noted Date Diagnosed Date Resolved Date EL (acute kidney injury) 05/17/2023 Lumbar radiculopathy 03/28/2018 023 Chronic obstructive pulmonary disease 03/28/2018 11/20/2021 Overview: Per COPD GOLD Classification documented as of this encounter (statuses as of 08/23/2023) Immunizations Name Administration Dates Next Due COVID-19 mRNA, LNP-s, No Pre serve, 2-Dose Series (P[employer]ate [employer]) 05/05/2021,08/28/2020,08/07/2020 Covid-19, Mrna, Lnp-s, Pf, B ivalent, 30 Mcg, IM, 12 yrs and above ([employer]) 02/24/2022 Pneumococcal Conjugate Vacci ne, 20-valent ([id number]) 12/09/2021(Deferred: Had Clinical Disease) Pneumococcal Polysaccharide PPV23 [...] Miscellaneous Notes * Telephone Encounter - Vu Solis MD - 08/23/2023 1:01 PM EDT Signed Prescriptions: Disp Refills Incruse Ellipta 62.5 MCG/ACT Inhalation Ae*30 Each2 Sig: Inhale 1 Puff by mouth every evening. Authorizing Provider: VU SOLIS * Telephone Encounter - Marcela Menard OSA - 08/23/2023 8:28 AM EDTPending Prescriptions: Disp Refills Incruse Ellipta 62.5 MCG/ACT Inhalation Ae* 3 Sig: INHALE 1 PUFF BY MOUTH ONCE DAILY IN THE MORNING * Telephone Encounter - Marcela Menard OSA - 08/23/2023 8:26 AM EDT Pending Prescriptions: Disp Refills Incruse Ellipta 62.5 MCG/ACT Inhalation A* 3 Sig: INHALE 1 PUFF BY MOUTH ONCE DAILY IN THE MORNING Most Recent Office Visit Date:01/08/2022 (in office), Visit date not found (telemedicine) Next Scheduled Office Visit Date:Visit date not found If no future appointments scheduled, and last appointment is greater than a year ago, please schedule patient for a follow-up appointment Last date the medication was ordered: [id number] Pharmacy: [facility] [address] Please review and sign at your discretion. documented in this encounter Plan of Treatment Upcoming Encounters Date Type Department Care Team (Late st Contact Info) Description 08/24/2023 9:30 AM EDT PulmDiagnostic Pulmonary Function Lab, [facility] 132 [facility] [place] [address] [place], Pft 132 [facility] [place] [address] 08/24/2023 10:15 AM EDT Imaging Radiology [facility] 1st [facility] 132 [place] [address] 08/26/2023 10:00 AM EDT Office Visit Pulmonary Medicine, [facility] 132 [facility] [place] [address] Vu Solis MD [address] [place] [address] 09/01/2023 9:00 AM EDT Nurse Only Ancillary [address] [address] [place], Nurse [facility] [address] [place] [address] 09/13/2023 8:30 AM EDT Laboratory Laboratory Patient Service Center, [place] [address] [place] [phone] [place], Lab Lock [address] [place] [address] 09/14/2023 9:30 AM EDT Office Visit Hematology/Oncology [facility] 200 [place] [address] Pearl Oviedo CRNP 400 [place], [place] [phone] 09/14/2023 10:00 AM EDT Hem/Onc Treatment Hematology/Oncology Treatment, [place] 200 [place] [address] Juliet, Chair 11 Hem Onc [address] [place] [address] Health Maintenance Due Date Last Done Comments [...] 06/01/2024 06/01/2023, 02/06 CKD PHOS USE SMARTSET [address] 06/01/2024 06/01/2023, 0 03/04/2022 CKD HGB USE SMARTSET 95234 08/15/202408/15, 08/16/2023, 08/04/2023, Additional history exists TSH [...] group C, by GOLD 2017 classification (HCC) documented in this encounter Advance Directives [...] the patient have Health Care Power of Roll Panner? No Care Teams Twist Tester Relationship Specialty Start Date End Date Pepe Beck MD [address] [place] [address] PCP - General Family Medicine 11/07/21 documented as of this encounter
--- OUTSIDE RECORDS SUMMARY | 2023-10-26 09:58 | External Medical Summary | Summary of Care ---
Author Name Unknown Organization [facility] Address [address] [facility] [address] Phone [phone] Care Team Providers Care Stem Roller Operator Name Role Phone Pepe Beck MD Primary Care P rovider Reason for Visit * Reason Onset Date Comments Advice 08/16/2023 Encounter Details Date Type Department Care Team (Late st Contact Info) Description 08/16/2023 Telephone Pulmonary Medicine, [facility] 132 [facility] [place] [address] Vu Tapia MD [address] [place] [address] Advice Allergies No known active allergiesdocumented as of [...] 20 MG Oral Tablet (Demadex)Indications :Atherosclerosis of [place] artery of right lower extremity with intermittent [...] Oral Tablet (Cozaar)Indications: Coronary artery disease involving [place] coronary artery of [place] heart without angina pectoris Take 0.5 Tablets [...] inj 1,000 mcgIndications:B12 deficiency 1000 mcg IM [id number] 05/06/2023 04/06/2024 Active documented as of this [...] 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 Atherosclerosis of [place] ar erick of right lower extremity with intermittent claudication 10/23/2019 Hypothyroidism 03/28/2018 Hyponatremia 03/28/2018 Dyslipidemia, goal LDL below 70 03/28/2018 Edema of lower extremity 03/28/2018 Degeneration of lumbar intervertebral disc 03/28 Coronary artery disease invo lving [place] coronary artery of [place] heart without angina pectoris 03/28/2018 Benign prostatic [...] mRNA, LNP-s, No Pre serve, 2-Dose Series (Invrep) 05/05/2021,08/28/2020,08/07/2020 Covid-19, Mrna, Lnp-s, Pf, B ivalent, 30 Mcg, IM, 12 yrs and above (Pfizer) 02/24/2022 Pneumococcal Conjugate Vacci ne, 20-valent ([id number]) 12/09/2021(Deferred: Had Clinical Disease) Pneumococcal Polysaccharide PPV23 [...] encounter Miscellaneous Notes * Telephone Encounter - Michelle Mckenna LPN [...] one completed there. Please contact Aaron at [phone] at your earliest convenience. Thank you. documented in this encounter Plan of Treatment Upcoming Encounters Date Type Department Care Team (Late st Contact Info) Description 08/17/2023 9:15 AM EDT Hem/Onc Treatment Hematology/Oncology Treatment, [place] [address] [place] [address] [place], Chair 7 Hem Onc Scenery [address] [place] [address] 08/24/2023 9:30 AM EDT PulmDiagnostic Pulmonary Function Lab, [facility] 132 [facility] [place] [address] [place], Pft 132 [facility] [place] [address] 08/24/2023 10:15 AM EDT Imaging Radiology [facility] 1st [facility] 132 [facility] [place] [address] 08/26/2023 3:40 PM EDT Office Visit Pulmonary Medicine, [facility] 132 [facility] [place] [address] Vu Tapia MD [address] [facility] [address] 09/01/2023 9:00 AM EDT Nurse Only Ancillary [facility] [address] [place] [address] [place], Nurse [address] [address] 09/06/2023 11:20 AM EDT Office Visit Family [address] [phone] Pepe Beck MD [address] [place] [address] 09/07/2023 9:30 AM EDT Office Visit Hematology/Oncology [facility] 200 [place] [address] Pearl Oviedo CRNP 400 [facility] [place] [address] 09/07/2023 10:00 AM EDT Hem/Onc Treatment Hematology/Oncology Treatment, [place] [address] [place] [address] Juliet, Chair 10 Hem Onc [facility] 200 [place] [address] 09/13/2023 8:30 AM EDT Laboratory Laboratory Patient Service [place], [address] [address] [place], Lab Lock [address] [place] [address] Health Maintenance Due Date Last Done Comments [...] 06/01/2024 06/01/2023, 02/06 CKD PHOS USE SMARTSET [address]59[address] 06/01/2024 06/01/2023, 0 03/04/2022 CKD HGB USE SMARTSET [address] 08/04/202408/04, 08/04/2023, 08/03/2023, Additional history exists TSH [...] the patient have Health Care Power of Band Tier? No Care Teams Stem Roller Operator Relationship Specialty Start Date End Date Pepe Beck MD [address] [place] [address] PCP - General Family Medicine 11/07/21 documented as of this encounter
--- OUTSIDE RECORDS SUMMARY | 2023-10-26 09:58 | External Medical Summary | Summary of Care ---
Author Name Unknown Organization [facility] Address [address] [place] [address] Phone [phone] Care Team Providers Care Helicopter Specialist Name Role Phone Pepe Beck MD Primary Care P rovider Reason for Visit * Reason Comments Outpatient Testing Encounter Details Date Type Department Care Team ([facility] st Contact Info) Description 08/16/2023 8:30 AM EDT Laboratory Laboratory Patient Service [address] [address] Have, Lab Lock [address] [place] [address] Cancer of upper lobe of right lung [...] :COPD, group C, by GOLD 2017 classification ([facility]) Inhale 1 Puff by mouth in the morning. 90 Each 3 07/22/2022 Active Torsemide 20 MG Oral Tablet (Demadex)Indications :Atherosclerosis of [place] artery of right lower extremity with intermittent claudication ([facility]),Persistent atrial fibrillation ([facility]),BROWNE (dyspnea on exertion) TAKE 1 TABLET BY [...] Oral Tablet (Cozaar)Indications: Coronary artery disease involving [place] coronary artery of [place] heart without angina pectoris Take 0.5 Tablets [...] inj 1,000 mcgIndications:B12 deficiency 1000 mcg IM [id number] 05/06/2023 04/06/2024 Active documented as of this [...] 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 Atherosclerosis of [place] ar erick of right lower extremity with intermittent claudication 10/23/2019 Hypothyroidism 03/28/2018 Hyponatremia 03/28/2018 Dyslipidemia, goal LDL below 70 03/28/2018 Edema of lower extremity 03/28/2018 Degeneration of lumbar intervertebral disc 03/28 Coronary artery disease invo lving [place] coronary artery of [place] heart without angina pectoris 03/28/2018 Benign prostatic hyperplasia 03/28/2018 Benign essential hypertension 03/28/2018 Carotid artery stenosis 03/28/2018 Osteoarthritis of ankle 03/29/2017 Peripheral vascular disease 11/03/2016 documented as of this encounter (statuses as of 08/16/2023) Resolved Problems Problem Noted Date Diagnosed Date Resolved Date EL (acute kidney injury) 05/17/2023 Lumbar radiculopathy 03/28/2018 12/29/2 023 Chronic obstructive pulmonary disease 03/28/2018 11/20/2021 Overview: Per COPD GOLD Classification documented as of this encounter (statuses as of 08/16/2023) Immunizations Name Administration Dates Next Due COVID-19 mRNA, LNP-s, No Pre serve, 2-Dose Series ([employer]) 05/05/2021,08/28/2020,08/07/2020 Covid-19, Mrna, Lnp-s, Pf, B ivalent, 30 Mcg, IM, 12 yrs and above (Pfizer) 02/24/2022 Pneumococcal Conjugate Vacci ne, 20-valent ([id number]) 12/09/2021(Deferred: Had Clinical Disease) Pneumococcal Polysaccharide PPV23 [...] 9:15 AM EDT Hem/Onc Treatment Hematology/Oncology Treatment, [employer] [address] [place] [employer] [phone] [place], Chair 7 Hem Onc Scenery [address] [employer] [address] 08/24/2023 9:30 AM EDT PulmDiagnostic Pulmonary Function Lab, [facility] 132 [facility] [place] [address] West, Pft 132 [facility] [place] [address] 08/24/2023 10:15 AM EDT Imaging Radiology [facility] 1st [facility] 132 [facility] [place] [address] 08/26/2023 3:40 PM EDT Office Visit Pulmonary Medicine, [facility] 132 [facility] [place] [address] Vu Tapia MD [address] [place] [address] 09/01/2023 9:00 AM EDT Nurse Only Ancillary [facility], [place] 68 [facility] [place] [phone] [place], Nurse [address] [place] [address] 09/06/2023 11:20 AM EDT Office Visit [facility] 68 [place] [address] Pepe Beck MD [address] [place] [address] 09/07/2023 9:30 AM EDT Office Visit Hematology/Oncology [facility] [employer] 200 [facility] [phone] Pearl Oviedo CRNP [address] [place] [address] 09/07/2023 10:00 AM EDT Hem/Onc Treatment Hematology/Oncology Treatment, [employer] 200 [place] [address] [place], Chair 10 Hem Onc [address] [address] 09/13/2023 8:30 AM EDT Laboratory Laboratory Patient Service [address] [address] [address] Pending Results Name Type Priority Associated Diagnoses Date /Time CBC WITH WBC DIFFERENTIAL Lab STAT Cancer of upper lobe of right lung (HCC) 08/16/2023 9:17 AM EDT COMPREHENSIVE METABOLIC PANEL Lab STAT Cancer of upper lobe of right lung (HCC) 08/16/2023 9:17 AM EDT TSH WITH FREE T4 IF INDICATED Lab STAT Cancer of upper lobe of right lung (HCC) 08/16/2023 9:17 AM EDT CBC Lab STAT Cancer of upper lobe of right lung (HCC) 08/16/2023 9:17 AM EDT DIFFERENTIAL, AUTOMATED Lab STAT Cancer of upper lobe of right lung (HCC) 08/16/2023 9:17 AM EDT Health Maintenance Due Date Last [...] 06/01/2024 06/01/2023, 02/06 CKD PHOS USE SMARTSET 82302 06/01/2024 06/01/2023, 0 03/04/2022 CKD HGB USE SMARTSET 81769 08/04/202408/04, 08/04/2023, 08/03/2023, Additional history exists TSH [...] the patient have Health Care Power of Vessel Builder? No Care Teams Helicopter Specialist Relationship Specialty Start Date End Date Pepe Beck MD [address] [place] [address] PCP - General Family Medicine 11/07/21 documented as of this encounter
--- OUTSIDE RECORDS SUMMARY | 2023-10-26 09:58 | External Medical Summary | Summary of Care ---
Author Name Unknown Organization [facility] Address [address] [address] Phone [phone] Care Team Providers Care Adhesive Bandage Making Operator Name Role Phone Pepe Beck MD Primary Care P rovider Encounter Details Date Type Department Care Team (Late st Contact Info) Description 08/16/2023 Orders Only Pulmonary Medicine, [facility] 132 [facility] [place] [address] Vu Tapia [facility] [address] [facility] [address] Pleural effusion, right* Allergies No known active allergiesdocumented as [...] 20 MG Oral Tablet (Demadex)Indications :Atherosclerosis of [place] artery of right lower extremity with intermittent [...] Oral Tablet (Cozaar)Indications: Coronary artery disease involving ione coronary artery of ione heart without angina pectoris Take 0.5 Tablets [...] Active HYDROcodone-Acetamin ophen 10-325 MG Oral TabletIndications:Ac ili[place] left-sided low back pain without sciatica,Cancer of [...] inj 1,000 mcgIndications:B12 deficiency 1000 mcg IM [id number] 05/06/2023 04/06/2024 Active documented as of this [...] 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 Atherosclerosis of ione ar erick of right lower extremity with intermittent claudication 10/23/2019 Hypothyroidism 03/28/2018 Hyponatremia 03/28/2018 Dyslipidemia, goal LDL below 70 03/28/2018 Edema of lower extremity 03/28/2018 Degeneration of lumbar intervertebral disc 03/28 Coronary artery disease invo lving ione coronary artery of ione heart without angina pectoris 03/28/2018 Benign prostatic [...] mRNA, LNP-s, No Pre serve, 2-Dose Series ([employer]) 05/05/2021,08/28/2020,08/07/2020 Covid-19, Mrna, Lnp-s, Pf, B ivalent, 30 Mcg, IM, 12 yrs and above ([employer]) 02/24/2022 Pneumococcal Conjugate Vacci ne, 20-valent ([id number]) 12/09/2021(Deferred: Had Clinical Disease) Pneumococcal Polysaccharide PPV23 [...] 9:15 AM EDT Hem/Onc Treatment Hematology/Oncology Treatment, [place] [address] [place] [address] Juliet, Chair 7 Hem Onc Scenery [address] [place] [address] 08/24/2023 9:30 AM EDT PulmDiagnostic Pulmonary Function Lab, [facility] 132 [facility] [place]ACOCK [address] West, Pft 132 [facility] [place] [address] 08/24/2023 10:15 AM EDT Imaging Radiology [facility] 1st [facility] 132 [facility] [place] B[place] [address] 08/26/2023 3:40 PM EDT Office Visit Pulmonary Medicine, [facility] 132 [facility] [place] [address] Vu Taipa MD [address] [place] [address] 09/01/2023 9:00 AM EDT Nurse Only Ancillary [facility] 68 [place] [phone] [place], Nurse [address] [address] 09/06/2023 11:20 AM EDT Office Visit [facility] 68 [place] [address] Pepe Beck MD 68 [place] [address] 09/07/2023 9:30 AM EDT Office Visit Hematology/Oncology [facility] 200 [place] [phone] Pearl Oviedo CRNP 400 [facility] [place] [address] 09/07/2023 10:00 AM EDT Hem/Onc Treatment Hematology/Oncology Treatment, [place] 200 [place] [address] Juliet, Chair 10 Hem Onc [address] [address] 09/13/2023 8:30 AM EDT Laboratory Laboratory [facility], [address] [address] [address] Scheduled Orders Name Type Priority Associated Diagnoses Orde r Schedule IR CHEST THORACENTESIS Medical Imaging Routine Pleural effusion, right Ordered: 08/16/2023 Health Maintenance Due Date Last Done Comments [...] 06/01/2024 06/01/2023, 02/06 CKD PHOS USE SMARTSET 37419 06/01/2024 06/01/2023, 0 03/04/2022 TSH 08/04/2024 08/04/2023, 07/09, 07/06/2023, Additional history exists CKD HGB USE SMARTSET 60930 08/15/202408/15, 08/16/2023, 08/04/2023, Additional history exists Alpha-1 [...] of this encounter Visit Diagnoses Diagnosis Pleural effusion, right- Primary Unspecified pleural effusion documented in [...] the patient have Health Care Power of Dredge Mate? No Care Teams Adhesive Bandage Making Operator Relationship Specialty Start Date End Date Pepe Beck MD [address] [place] [address] PCP - General Family Medicine 11/07/21 documented as of this encounter
--- OUTSIDE RECORDS SUMMARY | 2023-10-26 09:59 | External Medical Summary | Summary of Care ---
Author Name Unknown Organization [facility] Address [address] [facility] [address] Phone [phone] Care Team Providers Care Physician Assistant Psychiatry Name Role Phone Pepe Beck MD Primary Care P rovider Reason for Visit * Reason Onset Date Comments Advice 08/16/2023 Question re: upc oming Ct Chest Encounter Details Date Type Department Care Team (Late st Contact Info) Description 08/16/2023 Telephone Pulmonary Medicine, [facility] 132 [facility] [place] [address] Vu Tapia MD [address] [facility] [address] Advice (Question re: upcoming Ct Chest) [...] [facility]) Inhale 1 Puff by mouth in the morning. 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 10/23/2019 Hypothyroidism 03/28/2018 Hyponatremia 03/28/2018 Dyslipidemia, goal LDL below 70 03/28/2018 Edema of lower extremity 03/28/2018 Degeneration of lumbar intervertebral disc 03/28 Coronary artery disease invo lving [place] coronary artery of [place] heart without angina pectoris 03/28/2018 Benign prostatic [...] mRNA, LNP-s, No Pre serve, 2-Dose Series ([employer]) 05/05/2021,08/28/2020,08/07/2020 Covid-19, Mrna, Lnp-s, Pf, B ivalent, 30 Mcg, IM, 12 yrs and above (Pfizer) 02/24/2022 Pneumococcal Conjugate Vacci ne, 20-valent ([id number]) 12/09/2021(Deferred: Had Clinical Disease) Pneumococcal Polysaccharide PPV23 [...] one completed there. Please contact Aaron at [phone] at your earliest convenience. Thank you. documented in this encounter Plan of Treatment Upcoming Encounters Date Type Department Care Team (Late st Contact Info) Description 08/17/2023 9:15 AM EDT Hem/Onc Treatment Hematology/Oncology Treatment, [place] [address] [place] [address] Juliet, Chair 7 Hem Onc Scenery [address] [place] [address] 08/24/2023 9:30 AM EDT PulmDiagnostic Pulmonary Function Lab, [facility] 132 [facility] [place] B[place]OP [address] West, Pft 132 [facility] Kelvin Pe[place]ock, [place] [address] 08/24/2023 10:15 AM EDT Imaging Radiology [facility] 1st [facility] 132 [facility] [place] B[place] [address] 08/26/2023 3:40 PM EDT Office Visit Pulmonary Medicine, [facility] 132 [facility] [place] [address] Vu Tapia MD [address] [facility] [place] [address] 09/01/2023 9:00 AM EDT Nurse Only Ancillary [address] [address] [facility] [address] [address] 09/06/2023 11:20 AM EDT Office Visit Family [address] [phone] Pepe Beck MD [address] [place] [address] 09/07/2023 9:30 AM EDT Office Visit Hematology/Oncology [facility] 200 [facility] [place] [address] Pearl Oviedo CRNP 400 [facility] [place]ARCO [address] 09/07/2023 10:00 AM EDT Hem/Onc Treatment Hematology/Oncology Treatment, [place] [address] [place] [address] Juliet, Chair 10 Hem Onc [address] [place] [address] 09/13/2023 8:30 AM EDT Laboratory Laboratory Patient Service Center, [address] [address] [place], Lab Lock [address] [place] [address] Health Maintenance Due Date Last Done Comments [...] 06/01/2024 06/01/2023, 02/06 CKD PHOS USE SMARTSET 47768 06/01/2024 06/01/2023, 0 03/04/2022 CKD HGB USE SMARTSET 469[address] 08/04/202408/04, 08/04/2023, 08/03/2023, Additional history exists TSH [...] the patient have Health Care Power of Veneer Manufacturer? No Care Teams Physician Assistant Psychiatry Relationship Specialty Start Date End Date Pepe Beck MD [address] [place] [address] PCP - General Family Medicine 11/07/21 documented as of this encounter
--- OUTSIDE RECORDS SUMMARY | 2023-10-26 09:59 | External Medical Summary ---
Author Name Unknown Address Unknown Organization K01:LABORATORY C - [address] [address] Laboratory Report Ordering Provider Test Date Status [place] 08/16/2023 09:17:05 Final Observation Date Value Abnormality Reference (Units ) Status T4, Free 08/16/2023 09:17:05 1.5 0.9-1.7 (n g/dL) Final Performing Location [facility]ORY [facility] - [address] [place] [address]
--- OUTSIDE RECORDS SUMMARY | 2023-10-26 09:59 | External Medical Summary ---
Author Name Unknown Address Unknown Organization K01:LABORATORY [facility] - [address] [facility] Raj [place] [address] Laboratory Report Ordering Provider Test Date Status [place] 08/16/2023 09:17:05 Final Observation Date Value Abnormality Reference (Units ) Status BUN 08/16/2023 09:17:05 15 6-20 (mg/dL) Final Creatinine 08/16/2023 09:17:05 1.1 0.6-1.2 (mg/dL) Final Glomerular filtration rate/1.73 sq M.predicted [Volume Rate/Area] in Serum, Plasma or Blood by Creatinine-based formula (CKD-EPI) 08/16/2023 09:17:05 70 >=60 (mL/min) Final eGFR is calculated based on the CKD-EPI 2020 equation SODIUM 08/16/2023 09:17:05 138 135-146 (m mol/L) Final Potassium 08/16/2023 09:17:05 3.7 3.5-5.1 (m mol/L) Final Cl 08/16/2023 09:17:05 99 98-107 (mm ol/L) Final CO2 08/16/2023 09:17:05 31 22-32 (mmo l/L) Final Anion gap 08/16/2023 09:17:05 8 7-15 (mmol /L) Final Glucose 08/16/2023 09:17:05 115 70-120 (mg /dL) Final Albumin 08/16/2023 09:17:05 3.5 Below low normal 3.8 -5.0 (g/dL) Final AST (Aspartate aminotransferase) 08/16/2023 09:17:05 18 10-50 (U/L) Fin al Alk Phos 08/16/2023 09:17:05 96 35-130 (U/ L) Final Bilirubin, Total 08/16/2023 09:17:05 0.4 <=1 .2 (mg/dL) Final Calcium 08/16/2023 09:17:05 8.8 8.4-10.2 ( mg/dL) Final Protein 08/16/2023 09:17:05 5.4 Below low normal 6.0 -8.3 (g/dL) Final ALT (Alanine aminotransferase) 08/16/2023 09:17:05 12 10-50 (U/L) Mann donis Performing Location LABORATORY [facility] - [place] [facility] N Rahul Klein. [facility] [place] [address]
--- OUTSIDE RECORDS SUMMARY | 2023-10-26 09:59 | External Medical Summary | Summary of Care ---
Author Name Unknown Organization [facility] Address [address] [place] [address] Phone [phone] Care Team Providers Care Printing Assistant Name Role Phone Pepe Beck MD Primary Care P rovider Reason for Visit * Reason Onset Date Comments Encounter Created in Error 08/16/2023 Encounter Details Date Type Department Care Team (Late st Contact Info) Description 08/16/2023 Telephone Access Center, [facility] 100 [address] [facility] *DO NOT REMOVE THIS DEPARTMENT* [place] [address] Services, Scheduling [address] [place] [address] Encounter Created in Error Allergies No known active allergiesdocumented as of [...] 20 MG Oral Tablet (Demadex)Indications :Atherosclerosis of [place] artery of right lower extremity with intermittent [...] Oral Tablet (Cozaar)Indications: Coronary artery disease involving [place] coronary artery of [place] heart without angina pectoris Take 0.5 Tablets [...] Active HYDROcodone-Acetamin ophen 10-325 MG Oral TabletIndications:Ac [place] left-sided low back pain without sciatica,Cancer of [...] inj 1,000 mcgIndications:B12 deficiency 1000 mcg IM [id number] 05/06/2023 04/06/2024 Active documented as of this [...] 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 10/23/2019 Hypothyroidism 03/28/2018 Hyponatremia 03/28/2018 Dyslipidemia, goal LDL below 70 03/28/2018 Edema of lower extremity 03/28/2018 Degeneration of lumbar intervertebral disc 03/28 Coronary artery disease invo lving [place] coronary artery of [place] heart without angina pectoris 03/28/2018 Benign prostatic [...] mRNA, LNP-s, No Pre serve, 2-Dose Series ([employer]) 05/05/2021,08/28/2020,08/07/2020 Covid-19, Mrna, Lnp-s, Pf, B ivalent, 30 Mcg, IM, 12 yrs and above ([employer]) 02/24/2022 Pneumococcal Conjugate Vacci ne, 20-valent ([id number]) 12/09/2021(Deferred: Had Clinical Disease) Pneumococcal Polysaccharide PPV23 [...] 9:15 AM EDT Hem/Onc Treatment Hematology/Oncology Treatment, [place] [address] [place] [address] Juliet, Chair 7 Hem Onc Scenery [address] [place] [address] 08/24/2023 9:30 AM EDT PulmDiagnostic Pulmonary Function Lab, [facility] 132 [facility] [place] BISHOP [address] West, Pft 132 [facility] [place] Bishop [address] 08/24/2023 10:15 AM EDT Imaging Radiology [facility] 1st [facility] 132 [facility] [place] B[place] [address] 08/26/2023 3:40 PM EDT Office Visit Pulmonary Medicine, [facility] 132 [facility] [place] [address] Vu Tapia MD [address] [place] [address] 09/01/2023 9:00 AM EDT Nurse Only Ancillary [facility], [place] [address] [place] [phone] [place], Nurse [address] [place] [address] 09/06/2023 11:20 AM EDT Office Visit [facility] 68 [place] [address] Pepe Beck MD 68 [place] [address] 09/07/2023 9:30 AM EDT Office Visit Hematology/Oncology [facility] 200 [facility] [place] [address] Pearl Oviedo CRNP 400 [facility] [place] [address] 09/07/2023 10:00 AM EDT Hem/Onc Treatment Hematology/Oncology Treatment, [place] [address] [facility] [place] [address] Juliet, Chair 10 Hem Onc [facility] 200 [facility] [address] 09/13/2023 8:30 AM EDT Laboratory Laboratory Patient Service Center, [place] [address] [place] [address] [place], [address] [address] Health Maintenance Due Date Last Done Comments [...] 06/01/2024 06/01/2023, 02/06 CKD PHOS USE SMARTSET [address] 06/01/2024 06/01/2023, 0 03/04/2022 CKD HGB USE SMARTSET 50887 08/04/202408/04, 08/04/2023, 08/03/2023, Additional history exists TSH [...] the patient have Health Care Power of Assembly Line Supervisor? No Care Teams Printing Assistant Relationship Specialty Start Date End Date Pepe Beck MD [address] [place] [address] PCP - General Family Medicine 11/07/21 documented as of this encounter
--- OUTSIDE RECORDS SUMMARY | 2023-10-26 09:59 | External Medical Summary ---
Author Name Unknown Address Unknown Organization K01:LABORATORY [facility] - 100 [facility] [place] [address] Laboratory Report Ordering Provider Test Date Status [place] 08/16/2023 09:17:05 Final Observation Date Value Abnormality Reference (Units ) Status SYNC LEUKOCYTES IN BLOOD BY AUTOMATED COUNT 08/16/2023 09:17:05 4.20 4.00-10.80 (K/uL) Final Segs 08/16/2023 09:17:05 64.2 40.0-75.0 (%) Final Lymphs % 08/16/2023 09:17:05 13.6 Below low normal 18.0-42.0 (%) Final Monos 08/16/2023 09:17:05 14.3 Above high normal 1.0-11.0 (%) Final Eosinophils 08/16/2023 09:17:05 6.7 Above high normal 0.0-6.0 (%) Final Basos 08/16/2023 09:17:05 1.0 0.0-2.0 (%) Final Immature Granulocyte, Percent 08/16/2023 09:17:05 0.2 0.0-2.0 (%) Final Absolute Segs 08/16/2023 09:17:05 2.70 1.80-7.70 (K/uL) Final Lymphs, absolute 08/16/2023 09:17:05 0.57 Below low normal 1.00-4.80 (K/ul) Final Monos, Abs 08/16/2023 09:17:05 0.60 0.00-1.10 (K/uL) Final Eos, Abs 08/16/2023 09:17:05 0.28 0.00-0.70 (K/uL) Final Basos, Abs 08/16/2023 09:17:05 0.04 0.00-0.20 (K/uL) Final Immature Granulocytes, Number 08/16/2023 09:17:05 0.01 0.00-0.20 (K/uL) Final Performing Location LABORATORY [facility] - [facility] [place] [address]
--- OUTSIDE RECORDS SUMMARY | 2023-10-26 09:59 | External Medical Summary | Summary of Care ---
Author Name Unknown Organization [facility] Address [address] [facility] [place] [address] Phone [phone] Care Team Providers Care Phototypesetter Operator Name Role Phone Pepe Beck MD Primary Care P rovider Reason for Visit * Reason Onset Date Comments Advice 08/16/2023 Encounter Details Date Type Department Care Team (Late st Contact Info) Description 08/16/2023 Telephone Pulmonary Medicine, [facility] [address] [facility] [place] [address] Vu Tapia MD [address] [place] [facility] [place] [address] Advice Allergies No known active allergiesdocumented [...] 20 MG Oral Tablet (Demadex)Indications :Atherosclerosis of [place] artery of right lower extremity with intermittent [...] Oral Tablet (Cozaar)Indications: Coronary artery disease involving [place] coronary artery of [place] heart without angina pectoris Take 0.5 Tablets [...] inj 1,000 mcgIndications:B12 deficiency 1000 mcg IM [id number] 05/06/2023 04/06/2024 Active documented as of this [...] 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 10/23/2019 Hypothyroidism 03/28/2018 Hyponatremia 03/28/2018 Dyslipidemia, goal LDL below 70 03/28/2018 Edema of lower extremity 03/28/2018 Degeneration of lumbar intervertebral disc 03/28 Coronary artery disease invo lving [place] coronary artery of [place] heart without angina pectoris 03/28/2018 Benign prostatic [...] mRNA, LNP-s, No Pre serve, 2-Dose Series (Cellceutix) 05/05/2021,08/28/2020,08/07/2020 Covid-19, Mrna, Lnp-s, Pf, B ivalent, 30 Mcg, IM, 12 yrs and above (Pfizer) 02/24/2022 Pneumococcal Conjugate Vacci ne, 20-valent ([id number]) 12/09/2021(Deferred: Had Clinical Disease) Pneumococcal Polysaccharide PPV23 [...] encounter Miscellaneous Notes * Telephone Encounter - Cori Chiu OSA - 08/16/2023 8:30 AM EDT Patients son Aaron called to inquire if his CT WO Contrast for Dr. Tapia on 08/23 is still needed. He advised he was recently in the hospital and had one completed there. Please contact Aaron at [phone] at your earliest convenience. Thank you. documented in this encounter Plan of Treatment Upcoming Encounters Date Type Department Care Team (Late st Contact Info) Description 08/17/2023 9:15 AM EDT Hem/Onc Treatment Hematology/Oncology Treatment, [place] [address] [place] [address] [place], Chair 7 Hem Onc Scenery [address] [place] [address] 08/24/2023 9:30 AM EDT PulmDiagnostic Pulmonary Function Lab, [facility] [address] [place] [address] [address], [address] [place] [address] 08/24/2023 10:15 AM EDT Imaging Radiology [facility] 1st [facility], [place] [address] [place] [address] 08/26/2023 3:40 PM EDT Office Visit Pulmonary Medicine, [facility] [address] [facility] [place] [address] Vu Tapia MD [address] [place] [address] 09/01/2023 9:00 AM EDT Nurse Only Ancillary [facility] [address] [place] [address] [facility] Nurse [address] [address] 09/06/2023 11:20 AM EDT Office Visit [facility] [address] [place] [address] Pepe Beck MD [address] [place] [address] 09/07/2023 9:30 AM EDT Office Visit Hematology/Oncology [address] [address] Pearl Oviedo CRNP [address] [place] [address] 09/07/2023 10:00 AM EDT Hem/Onc Treatment Hematology/Oncology Treatment, [address] [address] [place], Chair 10 Hem Onc [address] [place] [address] 09/13/2023 8:30 AM EDT Laboratory [facility] [place] [address] [place] [address] [place], Lab [address] [address] Health Maintenance Due Date Last [...] 06/01/2024 06/01/2023, 02/06 CKD PHOS USE SMARTSET 49586 06/01/2024 06/01/2023, 0 03/04/2022 CKD HGB USE SMARTSET 51148 08/04/202408/04, 08/04/2023, 08/03/2023, Additional history exists TSH [...] the patient have Health Care Power of Change Management? No Care Teams Phototypesetter Operator Relationship Specialty Start Date End Date Pepe Beck MD [address] [place] [address] [place] [address] PCP - General Family Medicine 11/07/21 documented as of this encounter
--- OUTSIDE RECORDS SUMMARY | 2023-10-26 09:59 | External Medical Summary ---
Author Name Unknown Address Unknown Organization K01:LABORATORY [facility] - [address] [facility] [address] [facility] [address] Laboratory Report Ordering Provider Test Date Status [place] 08/16/2023 09:17:05 Final Observation Date Value Abnormality Reference (Units ) Status WBC, Total 08/16/2023 09:17:05 4.20 4.00-10.80 (K/uL) Final RBC 08/16/2023 09:17:05 3.92 4.50-5.25 (M/uL) Final Hemoglobin 08/16/2023 09:17:05 10.9 Below low normal 14.0-16.8 (g/dL) Final HCT 08/16/2023 09:17:05 36.0 Below low normal 40.0-48.4 (%) Final MCV 08/16/2023 09:17:05 91.8 82.0-99.5 (fL) Final MCH 08/16/2023 09:17:05 27.8 27.0-34.0 (pg) Final MCHC 08/16/2023 09:17:05 30.3 32.0-36.0 (g/dL) Final RDW 08/16/2023 09:17:05 13.3 11.5-15.5 (%) Final Platelets 08/16/2023 09:17:05 187 140-400 (K/uL) Final MPV 08/16/2023 09:17:05 9.9 6.6-11.1 (fL) Final Nucleated erythrocytes/100 leukocytes [Ratio] in Blood by Automated count 08/16/2023 09:17:05 0 <=0 (/100 WBCs) Final Performing Location LABORATORY C - [address] [place] [address]
--- OUTSIDE RECORDS SUMMARY | 2023-10-26 09:59 | External Medical Summary ---
Author Name Unknown Address Unknown Organization K01:[facility] [place] [address] [place] [address] Laboratory Report Ordering Provider Test Date Status [place] 08/16/2023 09:17:05 Final Observation Date Value Abnormality Reference (Units ) Status TSH 08/16/2023 09:17:05 4.21 Above high normal 0. 27-4.20 (uIU/mL) Final Performing Location LABORATORY C - [address] [place] [address]
--- OUTSIDE RECORDS SUMMARY | 2023-10-26 10:00 | External Medical Summary | Summary of Care ---
Author Name Unknown Organization [facility] Address [address] [facility] [place] [address] Phone [phone] Care Team Providers Care [place]anau Support Worker Name Role Phone Pepe Beck MD Primary Care P rovider Reason for Visit * Reason Onset Date Comments Appointment 08/12/2023 Encounter Details Date Type Department Care Team (Late st Contact Info) Description 08/12/2023 Telephone Hematology/Oncology [facility] [address] [facility] [place] [address] Bear Love MD [address] [place] [address] Appointment Allergies No known active allergiesdocumented as of this encounter (statuses as of 08/12/2023) Medications Medication Sig Dispensed Refills Start Date [...] 20 MG Oral Tablet (Demadex)Indications :Atherosclerosis of [place] artery of right lower extremity with intermittent [...] Oral Tablet (Cozaar)Indications: Coronary artery disease involving [place] coronary artery of [place] heart without angina pectoris Take 0.5 Tablets [...] Active HYDROcodone-Acetamin ophen 10-325 MG Oral TabletIndications:Ac [place] left-sided low back pain without sciatica,Cancer of [...] inj 1,000 mcgIndications:B12 deficiency 1000 mcg IM [id number] 05/06/2023 04/06/2024 Active documented as of this encounter (statuses as of 08/12/2023) Active Problems Problem Noted Date Diagnosed Date [...] 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 10/23/2019 Hypothyroidism 03/28/2018 Hyponatremia 03/28/2018 Dyslipidemia, goal LDL below 70 03/28/2018 Edema of lower extremity 03/28/2018 Degeneration of lumbar intervertebral disc 03/28 Coronary artery disease invo lving [place] coronary artery of [place] heart without angina pectoris 03/28/2018 Benign prostatic hyperplasia 03/28/2018 Benign essential hypertension 03/28/2018 Carotid artery stenosis 03/28/2018 Osteoarthritis of ankle 03/29/2017 Peripheral vascular disease 11/03/2016 documented as of this encounter (statuses as of 08/12/2023) Resolved Problems Problem Noted Date Diagnosed Date Resolved Date EL (acute kidney injury) 05/17/2023 Lumbar radiculopathy 03/28/2018 023 Chronic obstructive pulmonary disease 03/28/2018 11/20/2021 Overview: Per COPD GOLD Classification documented as of this encounter (statuses as of 08/12/2023) Immunizations Name Administration Dates Next Due COVID-19 mRNA, LNP-s, No Pre serve, 2-Dose Series (Qualgenix) 05/05/2021,08/28/2020,08/07/2020 Covid-19, Mrna, Lnp-s, Pf, B ivalent, 30 Mcg, IM, 12 yrs and above (Qualgenix) 02/24/2022 Pneumococcal Conjugate Vacci ne, 20-valent ([id number]) 12/09/2021(Deferred: Had Clinical Disease) Pneumococcal Polysaccharide PPV23 [...] Telephone Encounter - Keiko Garcia RN - 08/12/2023 1:56 PM EST Per office note today: "I would like to resume durvalumab immunotherapy every 4 weekly as we planned next week and then every 4 weekly. " [facility] plan/ referral in place. Scheduling: ok to schedule for next week - labs "CBCd, CMP, TSH/T4" - ok to do day prior if patient prefers - 2 hour appt "C3D1 imfinzi" (Ivan) Thanks! * Telephone Encounter - Cielo Rene OSA - 08/12/2023 10:41 AM EST Patient came out asking about treatment being moved to next week Please advise if this can be changed and what it needs to be documented in this encounter Plan of Treatment Upcoming Encounters Date Type Department Care Team (Late st Contact Info) Description 08/24/2023 9:30 AM EDT PulmDiagnostic Pulmonary Function Lab, [facility] [address] [facility] [place] [address] [place], [address] [place] [address] 08/24/2023 10:15 AM EDT Imaging Radiology [facility]st [facility] [address] [place] [address] 08/26/2023 3:40 PM EDT Office Visit Pulmonary Medicine, [facility] [address] [place] [address] Vu Tapia MD [address] [place] [address] 08/31/2023 7:40 AM EDT Laboratory Laboratory [facility] [address] [place] [phone] [place], Lab [facility] [address] [facility] [place] [address] 08/31/2023 8:45 AM EDT Office Visit Hematology/Oncology [facility] [address] [place] [phone] Bear Love MD [address] [place] [address] 08/31/2023 9:15 AM EDT Hem/Onc Treatment Hematology/Oncology Treatment, [place] [address] [place] [address] [place], Chair 3 Hem Onc [address], [place] [address] 09/01/2023 9:00 AM EDT Nurse Only Ancillary [facility] [address] [place] [address] [place], Nurse [address] [address] 09/06/2023 11:20 AM EDT Office Visit [facility] [address] [place] [address] Pepe Beck MD 68 [place] [address] Health Maintenance Due Date Last Done Comments DTaP,Tdap,and Td Vaccines (1 - Tdap) [birth year]08/1959 Zoster Vaccines (1 of 2) [birth year]08/1959 Pneumococcal Vaccine: 65+ Years (2 of 2 - PCV) 02/14/2021 02/15/2020 *ADVANCE DIRECTIVE NOT ON FILE 03/13/2022 COVID-19 Vaccine ( season) 2023 02/24/2022, 05/05/2021, 08/28/2020, Additional history exists GFR 02/02/2024 08/04/2023, 07/09, 07/06/2023, Additional history exists O2 ASSESSMENT COMPLETED IN PAST YEAR FOR COPD 02/11/2024 02/10/2023 Depression Screening 05/10/2024 05/10/2023 Albumin/Creatinine Ratio 06/01/2024 06/01/2023, 02/06 CKD PHOS USE SMARTSET 51063 06/01/2024 06/01/2023, 0 03/04/2022 CKD HGB USE SMARTSET 09189 08/04/202408/04, 08/04/2023, 08/03/2023, Additional history exists TSH [...] the patient have Health Care Power of [place] Rider? No Care Teams [place]anau Support Worker Relationship Specialty Start Date End Date Pepe Beck MD [address] [place] [phone] PCP - General Family Medicine 11/07/21 documented as of this encounter
--- OUTSIDE RECORDS SUMMARY | 2023-10-26 10:00 | External Medical Summary | Summary of Care ---
Author Name Unknown Organization [facility] Address [address] [facility] [address] Phone [phone] Care Team Providers Care Fence Builder Name Role Phone Pepe Beck MD Primary Care P samuelder Reason for Visit * Reason Comments Follow Up Hospital follow up Encounter Details Date Type Department Care Team (Late st Contact Info) Description 08/12/2023 10:15 AM EST Office Visit Hematology/Oncology Jamin Chung [place] [address] [facility] [place] [phone] Bear Love [facility] [address] Cancer of upper lobe of right lung (HCC)* Allergies No known active allergiesdocumented as of [...] C, by GOLD 2017 classification ([facility]) Inhale 1 Puff by mouth in the morning. 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 ([facility]),Persistent atrial fibrillation (HCC),BROWNE (dyspnea on exertion) TAKE [...] Active HYDROcodone-Acetamin ophen 10-325 MG Oral TabletIndications:Ac [place] left-sided low back pain without sciatica,Cancer of [...] inj 1,000 mcgIndications:B12 deficiency 1000 mcg IM [id number] 05/06/2023 04/06/2024 Active documented as of this [...] mRNA, LNP-s, No Pre serve, 2-Dose Series ([employer]) 05/05/2021,08/28/2020,08/07/2020 Covid-19, Mrna, Lnp-s, Pf, B ivalent, 30 Mcg, IM, 12 yrs and above ([employer]) 02/24/2022 Pneumococcal Conjugate Vacci ne, 20-valent ([id number]) 12/09/2021(Deferred: Had Clinical Disease) Pneumococcal Polysaccharide PPV23 [...] Sign Reading Time Taken Comments Blood Pressure 160/62 08/12/2023 10:15 AM EST Pulse 78 08/12/2023 10:15 AM EST Temperature 36.8 C (98.2 F) 08/12/2023 1 0:15 AM EST Respiratory Rate 16 08/12/2023 10:1 5 AM EST Oxygen Saturation 88% 08/12/2023 10: 15 AM EST patient on home oxygen but tank is too big to haul around Inhaled Oxygen Concentration - - Weight 67.1 kg (147 lb 14.4 oz) 08/12/2023 10:15 AM EST Height 170.2 cm (5' 7") 08/12/2023 10:1 5 AM EST Body Mass Index 23.16 08/12/2023 10:15 AM EST documented in this [...] as of this encounter Progress Notes * Bear Love MD - 08/12/2023 10:15 AM EST Hematology/Oncology Outpatient Clinic note [address] [place] [address] Name: Manuel Yarbrough Date: 08/02/2023 CHIEF COMPLAINT: Manuel Yarbrough is a 82 year old male here today for f/u visit today. 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 Right-sided pleural effusion, S/P thoracocentesis on 08/10/2023, cytology negative for the malignancy. Cancer Staging T2 N2 DATE OF DIAGNOSIS: 02/10/23 TREATMENT HISTORY: Combined chemotherapy with weekly Paclitaxel and carboplatin along with radiation treatment ( 04/01/2023-- 06/02/23) CURRENT TREATMENT: Durvalumab 1500 mg every 4 weekly for 1 year duration (06/08/23 - ) DIAGNOSTIC WORKUP: Right carotid bruit, has been followed by vascular surgeon in [place]. CTA of the neck on 01/13/2023 showed [...] S/P CABG in the past Interval History: [facility] 05/13/23 - 05/18/23 (focused): Patient was initially brought to the ED in the afternoon of 05/13, for evaluation of confusion at home. He was found to be neutropenic with concerns of neutropenic fever. Workup was generally unremarkable including a negative CT head CT chest abdomen pelvis as well as a negative RVP, blood culturesalso with no growth to date. Patient was empirically treated with cefepime and monitor closely. A neurology consult was placed for rhythmic myoclonic jerks of upper extremities. The following day thepatient was doing okay however was not back to baseline. He was evaluated by Neurology who recommended MRI brain and C-spine with and without contrast - this was obtained on 05/14 this was obtained on 05/14 and showed chronic findings. The next morning the patient continued to slowly improved however again not quite back to baseline. On 05/15 it was noted that patient's hemoglobin continued to slowly trend down therefore apixaban was held and he was started on Protonix 40 mg twice daily. Patient was also given a 1 time dose of nivestym 300mcg to boost white blood cell count. Neurology continued to follow and recommended reduction of ropinirole at bedtime therefore it was reduced therefore it was reduced to 0.25mg @ HS. On 05/16 patient was noted to be back to baseline. It was noted that patient had an EL likely due to the nivestym therefore additional doses were held. On 05/17 his renal function continued to worsen and hemoglobin was 6.9 therefore held off on discharge. Patient was transfused with 1 unit of PRBC (post transfusion hgb 8.8) and nephro consult was placed. Nephro feels this is most likely ATN - agreed with holding losartan & obtaining renal ultrasound. They alsorecommended urology evaluation however per Dr. Nguyen, this can be followed up outpatient. Renal ultrasound was obtained on 05/17 and showed bilateral renal cyst. Patient was also seen by Cardiology on 05/17 for evaluation of bradycardia. They recommended discontinuing metoprolol and torsemide (recommended p.r.n. torsemide upon discharge). The patient's Eliquis was held upon discharge given anemia. This can be restarted at the discretionof PCP pending on patient's hemoglobin. CT C/A/P 05/13/23: IMPRESSION Right hilar/upper lobe [...] exam. Stable right lower lobe pulmonary nodule. HISTORY OF PRESENT ILLNESS: He has come the clinic for the follow-up, accompanied by his son and [id number] in the office. Recently he was admitted at [facility] for the symptomatic right pleural effusion, [...] PS 2. No abdominal symptoms. Good appetite. No past medical history on file. Past Surgical History: Procedure Laterality Date BRONCHOSCOPY, DIAGNOSTIC N/A 02/10/2023 BRONCHOSCOPY DIAGNOSTIC WITH OR WITHOUT WASHING performed by Madyson Alcala MD at [facility] Social History Socioeconomic History Marital status: Spouse name: Not on file Number of children: Not on file Years of education: Not on file Highest education level: Not on file Occupational History Not on file Tobacco Use Smoking status: Former Current packs/day: [...] EVERY 6 HOURS NEEDED 18 g 3 Incruse Ellipta 62.5 MCG/ACT Inhalation Aerosol Powder Breath Activated Inhale 1 Puff by mouth in the morning. 90 Each 3 Torsemide 20 MG Oral Tablet (Demadex) TAKE 1 TABLET BY MOUTH ONCE DAILY IN THE MORNING 34 Tablet 11 Dutasteride 0.5 MG Oral Capsule (Avodart) Take 1 Capsule by mouth in the morning. 90 Capsule 3 Ipratropium-Albuterol 0.5-2.5 (3) MG/3ML Inhalation Solution (Duoneb) Inhale 3 mL via nebulizer every 6 hours as needed for Cough, Shortness of Breath or Wheezing. 75 mL 5 Ondansetron HCl 8 MG Oral Tablet (Zofran) [...] DAILY IN THE MORNING 90 Tablet 1 Mirtazapine 30 MG Oral Tablet (Remeron) Take 1 Tablet by mouth at bedtime. 30 Tablet 5 amLODIPine Besylate 5 MG Oral Tablet (Norvasc) Take 1 Tablet by mouth in the morning. 30 Tablet 5 rOPINIRole HCl 0.5 MG Oral Tablet (Requip) TAKE 1 TABLET BY MOUTH ONCE DAILY AT BEDTIME 90 Tablet 1 HYDROcodone-Acetaminophen 10-325 MG Oral Tablet Take 1 Tablet by mouth every 4 hours as needed for Pain, Severe. 60 Tablet 0 Azithromycin 250 MG Oral Tablet (Zithromax Z-Isaias) Please take 500 mg by mouth on day one, followed by 250 mg by mouth for four days. 6 Tablet 0 Nitroglycerin 0.4 MG Sublingual Tablet Sublingual (Nitrostat) 1 Tablet. Sennosides-Docusate Sodium 8.6-50 MG Oral Tablet (Senokot-S) at bedtime. Current Facility-Administered Medications Medication Dose Route Frequency Provider Last Rate Last Admin vitamin b-12 (Cyanocobalamin) inj 1,000 mcg 1,000 mcg Intramuscular Q4 Weeks Shiraz Beck MD 1,000 mcg at 08/02/23 0851 REVIEW OF SYSTEMS: See HPI - otherwise negative OBJECTIVE: BP 160/62 (BP Site: Left Arm, BP Position: Sitting, BP Cuff Size: Regular) | Pulse 78 | Temp 36.8 C (98.2 F) (Tympanic) | Resp 16 | Ht 1.702 m (5' 7") | Wt 67.1 kg (147 lb 14.4 oz) | SpO2 88% Comment: patient on home oxygen but tank is too big to haul around | BMI 23.16 kg/m | BSA 1.78 m PHYSICAL EXAM: ECOG: Performance Status 1 = 80-90% Symptoms but nearly ambulatory General Appearance: No acute distress HEENT: +mild oral thrush Lymph Nodes: Normal - No palpable lymph nodes in the neck or supraclavicular areas Lungs/Thorax: significantly diminished in RLL Heart: Regular rate, irregular rhythm, no appreciable murmurs Extremities: +1 RLE edema, +trace LLE edema Neurologic: Normal - Grossly intact LABS: Reviewed [facility] blood workup. CT chest on 08/06/2023: -1. Interval developing large layering right pleural effusion and trace layering left pleural effusion. Consider diagnostic/therapeutic right thoracentesis if patient is dyspneic. 2. Worsening right upper lobe consolidation, consider lymphangitic spread. 3. Interval development patchy and somewhat consolidative right middle lobe and lower lobe infiltrates. Lesser geographic infiltrates left upper lobe. Findings may be infectious, immunotherapy related pneumonitis, lymphangitic spread of tumor, or combination. Atypical location for aspiration. [...] level of the narrowing. Limited assessment distally. 7. Biatrial dilatation, slightly worsened compared with previous. Consider ECHO if there has been a change in cardiac function clinically. 8. Right lower lobe pulmonary nodule obscured by the interval developing pneumonitis. 9. Mild developing splenomegaly. 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 He had increasing right pleural effusion,S/P thoracocentesis, cytology negative for malignant cells, currently he is on oxygen treatment at home, overall improvement of pulmonary symptoms noted, he feels well, not on steroid therapy, not onantibiotic treatment. Now he is back on Eliquis 2.5 mg twice a day. No new bleeding complications. I do not think current pulmonary symptoms are related to immunotherapy pneumonitis. I would like to resume durvalumab immunotherapy every 4 weekly as we planned next week and then every 4 weekly. If he is recurrence of pleural effusion, will consider for PleurX catheter placement. Once we start him on, will see her before the next treatment in [address] Bear Love Hem/Onc (This note was completed using the dictation program Fluency Direct. As such, there may be misspellings, word substitutions, or other variations that should not change the essence of the clinical content of this encounter note. If there is need for further clarification, please direct questions to the provider listed above.) documented in this encounter Nursing Notes * Eleanor Nick LPN - 08/12/2023 10:16 AM EST Patient identifed by name and birthdate Do [...] activate it for you? NO Filed Vitals: 08/12/23 1015 BP: 160/62 Pulse: 78 Resp: 16 Temp: 36.8 C (98.2 F) TempSrc: Tympanic SpO2: 88% Weight: 67.1 kg (147 lb 14.4 oz) Height: 1.702 m (5' 7") Patient was instructed to not get up [...] AM EDT PulmDiagnostic Pulmonary Function Lab, [facility] [address] [facility] [place] [address] [address], [address] [facility] [place] [address] 08/24/2023 10:15 AM EDT Imaging Radiology [facility] 1st [facility] [address] [facility] [place] [address] 08/26/2023 3:40 PM EDT Office Visit Pulmonary Medicine, [facility] [address] [facility] [place] [address] Vu Tapia MD [address] [place] [address] 08/31/2023 7:40 AM EDT Laboratory Laboratory [facility] [address] [place] [phone] Juliet, Lab [address] [facility] [place] [address] 08/31/2023 8:45 AM EDT Office Visit Hematology/Oncology [facility] [place] [address] [facility] [place] [phone] Bear Love MD [address] [place] [address] 08/31/2023 9:15 AM EDT Hem/Onc Treatment Hematology/Oncology Treatment, [place] [address] [place] [phone] Juliet, Chair 3 Hem Onc [place] [address] [place] [address] 09/01/2023 9:00 AM EDT Nurse Only Ancillary [address] [place] [phone] Alysia, Nurse g [address] [address] 09/06/2023 11:20 AM EDT Office Visit [address] [phone] Pepe Beck MD [address] [place] [address] Health Maintenance Due Date Last Done [...] 06/01/2024 06/01/2023, 02/06 CKD PHOS USE SMARTSET 05041 06/01/2024 06/01/2023, 0 03/04/2022 CKD HGB USE SMARTSET 55522 08/04/202408/04, 08/04/2023, 08/03/2023, Additional history exists TSH [...] upper lobe of right lung (HCC)- Primary documented in this encounter Advance Directives Latest Code Status on File Code Status Date Activated Date Inactivated Comments Full Code 05/13/2023 2:31 PM 05/18/2023 6:24 PM This order reflects the patients wishes and were consensually agreed upon. Question Answer Comments Discussion of Advance Directives occurred with: Patient Does the patient have a Living Will? No Does the patient have Health Care Power of Softball Umpire? No Care Teams Fence Builder Relationship Specialty Start Date End Date Pepe Beck MD [address] [place] [phone] PCP - General Family Medicine 11/07/21 documented as of this encounter
--- OUTSIDE RECORDS SUMMARY | 2023-10-26 10:00 | External Medical Summary | Summary of Care ---
Author Name Unknown Organization [facility] Address [address] [place] [place] [address] Phone [phone] Care Team Providers Care Senior Windows Engineer Name Role Phone Pepe Beck MD Primary Care P rovider Reason for Visit * Reason Onset Date Comments Appointment 08/12/2023 Encounter Details Date Type Department Care Team (Late st Contact Info) Description 08/12/2023 Telephone Hematology/Oncology [facility] 200 [facility] [place] [address] Bear Love MD 200 [place] [address] Appointment Allergies No known active allergiesdocumented as [...] 20 MG Oral Tablet (Demadex)Indications :Atherosclerosis of [place] artery of right lower extremity with intermittent [...] Oral Tablet (Cozaar)Indications: Coronary artery disease involving [place] coronary artery of [place] heart without angina pectoris Take 0.5 Tablets [...] Active HYDROcodone-Acetamin ophen 10-325 MG Oral TabletIndications:Ac [place] left-sided low back pain without sciatica,Cancer of [...] inj 1,000 mcgIndications:B12 deficiency 1000 mcg IM [id number] 05/06/2023 04/06/2024 Active documented as of this [...] 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 Atherosclerosis of [place] ar erick of right lower extremity with intermittent claudication 10/23/2019 Hypothyroidism 03/28/2018 Hyponatremia 03/28/2018 Dyslipidemia, goal LDL below 70 03/28/2018 Edema of lower extremity 03/28/2018 Degeneration of lumbar intervertebral disc 03/28 Coronary artery disease invo lving [place] coronary artery of [place] heart without angina pectoris 03/28/2018 Benign prostatic [...] mRNA, LNP-s, No Pre serve, 2-Dose Series ([email or web address]) 05/05/2021,08/28/2020,08/07/2020 Covid-19, Mrna, Lnp-s, Pf, B ivalent, 30 Mcg, IM, 12 yrs and above ([email or web address]) 02/24/2022 Pneumococcal Conjugate Vacci ne, 20-valent ([email or web address]) 12/09/2021(Deferred: Had Clinical Disease) Pneumococcal Polysaccharide PPV23 [...] Encounter - Cielo Rene OSA - 08/12/2023 2:08 PM EST Appts added for next week Appts on 08/30 cancel and rescheduled for 4 wks which would be 4/2 Pt is aware and has no other questions * Telephone Encounter - Keiko Garcia RN - 08/12/2023 1:56 PM EST Per office note today: "I would like to resume durvalumab immunotherapy every 4 weekly as we planned next week and then every 4 weekly. " [place] plan/ referral in place. Scheduling: ok to schedule for next week - labs "CBCd, CMP, TSH/T4" - ok to do day prior if patient prefers - 2 hour appt "C3D1 imfinzi" (Love) Appts 08/30 will need to be moved to 4 weeks after treatment next week. Thanks! * Telephone Encounter - Cielo Rene OSA - 08/12/2023 10:41 AM EST Patient came out asking about treatment being moved to next week Please advise if this can be changed and what it needs to be documented in this encounter Plan of Treatment Upcoming Encounters Date Type Department Care Team (Late st Contact Info) Description 08/16/2023 8:30 AM EDT Laboratory [facility] [place] [address] [place] [address] Alysia, Lab [address] [address] 08/17/2023 9:15 AM EDT Hem/Onc Treatment Hematology/Oncology Treatment, [place] [address] [place] [phone] Juliet, Chair 7 Hem Onc [address] [place] [address] 08/24/2023 9:30 AM EDT PulmDiagnostic Pulmonary Function Lab, [facility] 132 [facility] [place] [address] [address], [address] 132 [facility] [place] [address] 08/24/2023 10:15 AM EDT Imaging Radiology [facility]st [facility] 132 [facility] [place] [address] 08/26/2023 3:40 PM EDT Office Visit Pulmonary Medicine, [address] [place] [address] Vu Tapia MD [address] [place] [facility] [place] [address] 09/01/2023 9:00 AM EDT Nurse Only Ancillary [facility] [address] [place] [phone] Haveines, Nurse [address] [address] 09/06/2023 11:20 AM EDT Office Visit [facility] [address] [place] [address] Pepe Beck MD [address] [place] [address] 09/07/2023 9:30 AM EDT Office Visit Hematology/Oncology [facility] [place] [address] [place] [phone] Pearl [place], PEMA [address] [place] [address] 09/07/2023 10:00 AM EDT Hem/Onc Treatment Hematology/Oncology Treatment, [place] [address] [place] [address] Juliet, Chair 10 Hem Onc [facility] [address] [facility] [place] [address] 09/13/2023 8:30 AM EDT Laboratory [facility] [phone] [address] Health Maintenance Due Date Last Done Comments [...] 06/01/2024 06/01/2023, 02/06 CKD PHOS USE SMARTSET 83651 06/01/2024 06/01/2023, 0 03/04/2022 CKD HGB USE SMARTSET 23976 08/04/202408/04, 08/04/2023, 08/03/2023, Additional history exists TSH [...] the patient have Health Care Power of [employer] Set Up Technician? No Care Teams Senior Windows Engineer Relationship Specialty Start Date End Date Pepe Beck MD [address] [place] [phone] PCP - General Family Medicine 11/07/21 documented as of this encounter
--- OUTSIDE RECORDS SUMMARY | 2023-10-26 10:00 | External Medical Summary | Summary of Care ---
Author Name Unknown Organization [facility] Address [address] [place] [address] Phone [phone] Care Team Providers Care Clinical Rehabilitation Aide Name Role Phone Pepe Beck MD Primary Care P rovider Encounter Details Date Type Department Care Team (Late st Contact Info) Description 08/12/2023 Telephone Hematology/Oncology [facility] 200 [place] [address] Bear Love MD 200 [place] [address] Allergies No known active allergiesdocumented as of [...] 20 MG Oral Tablet (Demadex)Indications :Atherosclerosis of [place] artery of right lower extremity with [...] Oral Tablet (Cozaar)Indications: Coronary artery disease involving [place] coronary artery of [place] heart without angina pectoris Take 0.5 [...] inj 1,000 mcgIndications:B12 deficiency 1000 mcg IM [id number] 05/06/2023 04/06/2024 Active documented as of this [...] 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 Atherosclerosis of [place] ar erick of right lower extremity with intermittent claudication 10/23/2019 Hypothyroidism 03/28/2018 Hyponatremia 03/28/2018 Dyslipidemia, goal LDL below 70 03/28/2018 Edema of lower extremity 03/28/2018 Degeneration of lumbar intervertebral disc 03/28 Coronary artery disease invo lving [place] coronary artery of [place] heart without angina pectoris 03/28/2018 Benign [...] mRNA, LNP-s, No Pre serve, 2-Dose Series ([email or web address]) 05/05/2021,08/28/2020,08/07/2020 Covid-19, Mrna, Lnp-s, Pf, B ivalent, 30 Mcg, IM, 12 yrs and above ([email or web address]) 02/24/2022 Pneumococcal Conjugate Vacci ne, 20-valent ([id number]) 12/09/2021(Deferred: Had Clinical Disease) Pneumococcal Polysaccharide PPV23 [...] Lab, [facility] [address] [facility] [place] [address] West, Pft 132 [facility] [place] [address] 08/24/2023 10:15 AM EDT Imaging Radiology [facility] 1st [facility] [address] [place] [address] 08/26/2023 3:40 PM EDT Office Visit Pulmonary Medicine, [facility] 132 [facility] [place] [address] Vu Tapia MD [address] [place] [address] 08/31/2023 7:40 AM EDT Laboratory Laboratory [facility] [address] [place] [phone] Juliet, Lab [address] [place] [address] 08/31/2023 8:45 AM EDT Office Visit Hematology/Oncology [facility] [address] [place] [address] Bear Love MD [address] [place] [address] 08/31/2023 9:15 AM EDT Hem/Onc Treatment Hematology/Oncology Treatment, [place] [address] [place] [phone] Juliet, Chair 3 Hem Onc [address] [place] [address] 09/01/2023 9:00 AM EDT Nurse Only Ancillary [address] [phone] Haven, Nurse G[facility] [address] [address] 09/06/2023 11:20 AM EDT Office Visit Family [address] [address] Pepe Beck MD [address] [place] [address] Health Maintenance Due Date Last Done [...] 06/01/2024 06/01/2023, 02/06 CKD PHOS USE SMARTSET 236[address] 06/01/2024 06/01/2023, 0 03/04/2022 CKD HGB USE SMARTSET 27266 08/04/202408/04, 08/04/2023, 08/03/2023, Additional history exists TSH [...] patient have Health Care Power of Supervisor Knitting? No Care Teams Clinical Rehabilitation Aide Relationship Specialty Start Date End Date Pepe Beck MD [address] [place] [address] PCP - General Family Medicine 11/07/21 documented as of this encounter
--- OUTSIDE RECORDS SUMMARY | 2023-10-26 10:00 | External Medical Summary | Summary of Care ---
Author Name Unknown Organization [facility] Address [address] [facility] [address] Phone [phone] Care Team Providers Care L D Rn Name Role Phone Pepe Beck MD Primary Care P rovider Reason for Visit * Reason Onset Date Comments Appointment 08/12/2023 Encounter Details Date Type Department Care Team (Late st Contact Info) Description 08/12/2023 Telephone Hematology/Oncology [facility] 200 [facility] [place] [address] Bear Love MD 200 [place] [address] Appointment Allergies No known active allergiesdocumented as [...] 20 MG Oral Tablet (Demadex)Indications :Atherosclerosis of pechanga artery of right lower extremity with intermittent [...] Oral Tablet (Cozaar)Indications: Coronary artery disease involving pechanga coronary artery of pechanga heart without angina pectoris Take 0.5 Tablets [...] Active HYDROcodone-Acetamin ophen 10-325 MG Oral TabletIndications:Ac k[place] left-sided low back pain without sciatica,Cancer of [...] inj 1,000 mcgIndications:B12 deficiency 1000 mcg IM [id number] 05/06/2023 04/06/2024 Active documented as of this [...] 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 10/23/2019 Hypothyroidism 03/28/2018 Hyponatremia 03/28/2018 Dyslipidemia, goal LDL below 70 03/28/2018 Edema of lower extremity 03/28/2018 Degeneration of lumbar intervertebral disc 03/28 Coronary artery disease invo lving pechanga coronary artery of pechanga heart without angina pectoris 03/28/2018 Benign prostatic [...] mRNA, LNP-s, No Pre serve, 2-Dose Series (Airseed) 05/05/2021,08/28/2020,08/07/2020 Covid-19, Mrna, Lnp-s, Pf, B ivalent, 30 Mcg, IM, 12 yrs and above (Airseed) 02/24/2022 Pneumococcal Conjugate Vacci ne, 20-valent ([id number]) 12/09/2021(Deferred: Had Clinical Disease) Pneumococcal Polysaccharide PPV23 [...] week and then every 4 weekly. " [place] plan/ referral in place. Scheduling: ok to [...] 9:30 AM EDT PulmDiagnostic Pulmonary Function Lab, [facility] [address] [place] [address] [address], Pft 132 [facility] [place] [address] 08/24/2023 10:15 AM EDT Imaging Radiology [facility] 1[facility] 132 [facility] [place] [address] 08/26/2023 3:40 PM EDT Office Visit Pulmonary Medicine, [facility] [address] [facility] [place] [address] Vu Tapia MD [address] [place] [address] 08/31/2023 7:40 AM EDT Laboratory Laboratory [facility] [address] [place] [address] [place], Lab [facility] [address] [place] [address] 08/31/2023 8:45 AM EDT Office Visit Hematology/Oncology [facility] [address] [place] [address] Bear Love MD [address] [place] [address] 08/31/2023 9:15 AM EDT Hem/Onc Treatment Hematology/Oncology Treatment, [place] [address] [place], [place] [address] Juliet, Chair 3 Hem Onc [facility] 200 [facility] [place], [place] [address] 09/01/2023 9:00 AM EDT Nurse Only Ancillary [facility] [address] [place] [address] [place], Nurse [address] [address] 09/06/2023 11:20 AM EDT Office Visit [facility] [address] [place] [address] Pepe Beck MD 68 [place] [address] Health Maintenance Due Date Last [...] 06/01/2024 06/01/2023, 02/06 CKD PHOS USE SMARTSET 86193 06/01/2024 06/01/2023, 0 03/04/2022 CKD HGB USE SMARTSET 57703 08/04/202408/04, 08/04/2023, 08/03/2023, Additional history exists TSH [...] the patient have Health Care Power of X Ray Service Technician? No Care Teams L D Rn Relationship Specialty Start Date End Date Pepe Beck MD [address] [place] [id number] PCP - General Family Medicine 11/07/21 documented as of this encounter
--- OUTSIDE RECORDS SUMMARY | 2023-10-26 10:01 | External Medical Summary | Summary of Care ---
Author Name Unknown Organization [facility] Address [address] [place] [address] Phone [phone] Care Team Providers Care Freezer Tunnel Operator Name Role Phone Pepe Beck MD Primary Care P rovider Reason for Visit * Reason Onset Date Comments Encounter Created in Error 08/06/2023 Encounter Details Date Type Department Care Team (Late st Contact Info) Description 08/06/2023 Telephone Hematology/Oncology [facility] 200 [facility] [place] [address] Services, Scheduling [address] [place] [address] Encounter Created in Error Allergies No known active allergiesdocumented as of this encounter (statuses as of 08/06/2023) Medications Medication Sig Dispensed Refills Start Date [...] 20 MG Oral Tablet (Demadex)Indications :Atherosclerosis of rampart artery of right lower extremity with intermittent [...] Oral Tablet (Cozaar)Indications: Coronary artery disease involving rampart coronary artery of rampart heart without angina pectoris Take 0.5 Tablets [...] Active HYDROcodone-Acetamin ophen 10-325 MG Oral TabletIndications:Ac [place] left-sided low back pain without sciatica,Cancer of [...] inj 1,000 mcgIndications:B12 deficiency 1000 mcg IM [id number] 05/06/2023 04/06/2024 Active documented as of this encounter (statuses as of 08/06/2023) Active Problems Problem Noted Date Diagnosed Date Metastatic primary lung cancer 06/04/2023 Lumbar stenosis [...] 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 Atherosclerosis of rampart ar erick of right lower extremity with intermittent claudication 10/23/2019 Hypothyroidism 03/28/2018 Hyponatremia 03/28/2018 Dyslipidemia, goal LDL below 70 03/28/2018 Edema of lower extremity 03/28/2018 Degeneration of lumbar intervertebral disc 03/28 Coronary artery disease invo lving rampart coronary artery of rampart heart without angina pectoris 03/28/2018 Benign prostatic hyperplasia 03/28/2018 Benign essential hypertension 03/28/2018 Carotid artery stenosis 03/28/2018 Osteoarthritis of ankle 03/29/2017 Peripheral vascular disease 11/03/2016 documented as of this encounter (statuses as of 08/06/2023) Resolved Problems Problem Noted Date Diagnosed Date Resolved Date EL (acute kidney injury) 05/17/2023 Lumbar radiculopathy 03/28/2018 023 Chronic obstructive pulmonary disease 03/28/2018 11/20/2021 Overview: Per COPD GOLD Classification documented as of this encounter (statuses as of 08/06/2023) Immunizations Name Administration Dates Next Due COVID-19 mRNA, LNP-s, No Pre serve, 2-Dose Series ([employer]) 05/05/2021,08/28/2020,08/07/2020 Covid-19, Mrna, Lnp-s, Pf, B ivalent, 30 Mcg, IM, 12 yrs and above ([employer]) 02/24/2022 Pneumococcal Conjugate Vacci ne, 20-valent ([id number]) 12/09/2021(Deferred: Had Clinical Disease) Pneumococcal Polysaccharide PPV23 [...] Care Team (Late st Contact Info) Description 2023 9:00 AM EST Laboratory Laboratory [facility] [place] [address] [place] [phone] Gaurav Chung [facility] 200 [facility] [place] [address] 2023 9:30 AM EST Office Visit Hematology/Oncology [facility] [place] [address] [place] [phone] Pearl Oviedo CRNP [facility] [place] [id number] 2023 10:00 AM EST Hem/Onc Treatment Hematology/Oncology Treatment, [place] [address] [facility] [address] [place] [phone] 08/11/2023 8:30 AM EST Office Visit [facility] [address] [place] [address] Pepe Beck MD [address] [place] [address] 08/24/2023 9:30 AM EDT PulmDiagnostic Pulmonary Function Lab, [facility] 132 [facility] [place] [address] West, Pft 132 [facility] [place] [address] 08/24/2023 10:15 AM EDT Imaging Radiology [facility] 1st [facility] [address] [place] [address] 08/26/2023 3:40 PM EDT Office Visit Pulmonary Medicine, [facility] [address] [place] [address] Vu Tapia [facility] [address] [facility] [id number] 08/31/2023 7:40 AM EDT Laboratory Laboratory [facility] [place] [address] [place] [address] [place], Lab [address] [place], [place] [address] 08/31/2023 8:45 AM EDT Office Visit Hematology/Oncology [facility] [place] [address] [place] [phone] Bear Love MD [address] [place] [address] 08/31/2023 9:15 AM EDT Hem[facility] [address] [place], [place] [phone] [place], Chair 3 Hem Onc [facility] 200 [facility] [place], [place] [address] 09/01/2023 9:00 AM EDT Nurse Only Ancillary [address] [address] [place], Nurse [address] [address] Health Maintenance Due Date Last Done Comments DTaP,Tdap,and Td Vaccines (1 - Tdap) 08[birth year]08/1959 Zoster Vaccines (1 of 2) 08[birth year]08/1959 Pneumococcal Vaccine: 65+ Years (2 of 2 - PCV) 02/14/2021 02/15/2020 *ADVANCE DIRECTIVE NOT ON FILE 03/13/2022 COVID-19 Vaccine (2022- season) 2023 02/24/2022, 05/05/2021, 08/28/2020, Additional history exists *NEPHROLOGY REFERRAL DUE TO RESISTANT HTN 07/10/2023 GFR 02/02/2024 08/04/2023, 07/09, 07/06/2023, Additional history exists O2 ASSESSMENT COMPLETED IN PAST YEAR FOR COPD 02/11/2024 02/10/2023 Depression Screening 05/10/2024 05/10/2023 Albumin/Creatinine Ratio 06/01/2024 06/01/2023, 02/06 CKD PHOS USE SMARTSET 59889 06/01/2024 06/01/2023, 0 03/04/2022 CKD HGB USE SMARTSET 09681 08/04/202408/04, 08/04/2023, 08/03/2023, Additional history exists TSH [...] Code 05/13/2023 2:31 PM 05/18/2023 6:24 PM Thi s order reflects the patients wishes and were consensually agreed upon. Question Answer Comments Discussion of Advance Directives occurred with: Patient Does the patient have a Living Will? No Does the patient have Health Care Power of Jewelry Facer? No Care Teams Freezer Tunnel Operator Relationship Specialty Start Date End Date Pepe Beck MD [address] [place] [phone] PCP - General Family Medicine 11/07/21 documented as of this encounter
--- OUTSIDE RECORDS SUMMARY | 2023-10-26 10:01 | External Medical Summary | Summary of Care ---
Author Name Unknown Organization [facility] Address [address] [place] [address] Phone [phone] Care Team Providers Care Multiple Cut Off Saw Operator Name Role Phone Pepe Beck MD Primary Care P rovider Reason for Visit * Reason Onset Date Comments Test Results Imaging Study 08/06/2023 Encounter Details Date Type Department Care Team (Late st Contact Info) Description 08/06/2023 Telephone Hematology/Oncology [facility] 200 [facility] [place] [address] Pearl Oviedo CRNP [address] [place] [address] Test Results Imaging Study Allergies [...] 20 MG Oral Tablet (Demadex)Indications :Atherosclerosis of [place] artery of right lower extremity with intermittent [...] Oral Tablet (Cozaar)Indications: Coronary artery disease involving [place] coronary artery of [place] heart without angina pectoris Take 0.5 Tablets [...] Active HYDROcodone-Acetamin ophen 10-325 MG Oral TabletIndications:Ac [place] left-sided low back pain without sciatica,Cancer of [...] inj 1,000 mcgIndications:B12 deficiency 1000 mcg IM [id number] 05/06/2023 04/06/2024 Active documented as of this [...] 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 Atherosclerosis of [place] ar erick of right lower extremity with intermittent claudication 10/23/2019 Hypothyroidism 03/28/2018 Hyponatremia 03/28/2018 Dyslipidemia, goal LDL below 70 03/28/2018 Edema of lower extremity 03/28/2018 Degeneration of lumbar intervertebral disc 03/28 Coronary artery disease invo lving [place] coronary artery of [place] heart without angina pectoris 03/28/2018 Benign prostatic [...] mRNA, LNP-s, No Pre serve, 2-Dose Series (JouleX) 05/05/2021,08/28/2020,08/07/2020 Covid-19, Mrna, Lnp-s, Pf, B ivalent, 30 Mcg, IM, 12 yrs and above (Pfizer) 02/24/2022 Pneumococcal Conjugate Vacci ne, 20-valent ([id number]) 12/09/2021(Deferred: Had Clinical Disease) Pneumococcal Polysaccharide PPV23 (Pneumovax) 02/15/2020 Seasonal Influenza, Quadriva lent Hd (Fluzone Hd) 02/05/2023,03/04/2022 Seasonal Influenza, Recombin ant, RIV4, PF, (Flublock) 04/07/2021 Seasonal Influenza, Split, I IV3, With Preserve, Inj 03/13/2020,04/12/2019,03/21/2018,03/29,03/31/2016,04/30/2014,03/13/2013 ,05/14/2012,05/11/2012,04/24/2008,06/2005 documented as of this encounter Social History Tobacco Use Types Packs/Day Years Used Date Smoking Tobacco: Former Cigarettes 1 45 1 332 - 1987 Smokeless Tobacco: Never Alcohol Use [...] Telephone Encounter - Pearl Oviedo CRNP - 08/06/2023 4:[address] chest 08/06/23: IMPRESSION: 1. Interval developing large layering right [...] interval developing pneumonitis. 9. Mild developing splenomegaly. Patient is symptomatic. Recommend presenting to ED for diagnostic/therapeutic right thoracentesis for large right pleural effusion. Called patient's son, Aaron Yarbrough, to make aware. Will take patient to [facility]. Would also recommend ECHO be completed. If lower extremity swelling present recommend lower extremity venous doppler to r/o DVT. After thoracentesis is completed would recommend repeat CT Chest. If continues to be concerning forpneumonitis would consider for treatment with corticosteroids. Report called to [facility]. documented in this encounter Plan of Treatment Upcoming Encounters Date Type Department Care Team (Late st Contact Info) Description 2023 9:00 AM EST Laboratory Laboratory [facility] [place] [address] [place] [phone] Gaurav Chung [facility] 200 [facility] [place] [address] 2023 9:30 AM EST Office Visit Hematology/Oncology [facility] [place] [address] [place] [phone] Pearl Oviedo CRNP [address] [place] [address] [place] [address] 2023 10:00 AM EST Hem/Onc Treatment Hematology/Oncology Treatment, [address] [place] [phone] 08/11/2023 8:30 AM EST Office Visit [facility] [address] [place] [address] Pepe Beck MD [address] [place] [address] 08/24/2023 9:30 AM EDT PulmDiagnostic Pulmonary Function Lab, [facility] 132 [facility] [place] [address] West, Pft 132 [facility] [place] [address] 08/24/2023 10:15 AM EDT Imaging Radiology [facility] 1st [facility] 132 [facility] [place] [address] 08/26/2023 3:40 PM EDT Office Visit Pulmonary Medicine, [facility] 132 [facility] [place] [address] Vu Tapia MD [address] [place] [address] 08/31/2023 7:40 AM EDT Laboratory Laboratory [facility] [address] [place], [place] [phone] Juliet, Lab [address] 200 [facility] [place] [place] [address] 08/31/2023 8:45 AM EDT Office Visit Hematology/Oncology [facility] [place] [address] [place] [phone] Bear Love MD 200 [facility] [place] [address] 08/31/2023 9:15 AM EDT Hem[facility] [address] [place], [place] [phone] [place], Chair 3 Hem Onc [facility] 200 [place] [address] 09/01/2023 9:00 AM EDT Nurse Only Ancillary [address] [address] [place], Nurse [address] [address] Health Maintenance Due Date Last Done Comments [...] 06/01/2024 06/01/2023, 02/06 CKD PHOS USE SMARTSET [address] 06/01/2024 06/01/2023, 0 03/04/2022 CKD HGB USE SMARTSET 99004 08/04/202408/04, 08/04/2023, 08/03/2023, Additional history exists TSH [...] the patient have Health Care Power of Dock Associate? No Care Teams Multiple Cut Off Saw Operator Relationship Specialty Start Date End Date Pepe Beck MD [address] [place] [phone] PCP - General Family Medicine 11/07/21 documented as of this encounter
--- OUTSIDE RECORDS SUMMARY | 2023-10-26 10:01 | External Medical Summary | Summary of Care ---
Author Name Unknown Organization [facility] Address [address] [place] [address] Phone [phone] Care Team Providers Care Corn Sheller Operator Name Role Phone Pepe Beck MD Primary Care P rovider Reason for Visit * Reason Comments Follow Up Pt is here for a fol low up. He was recently at the hospital for retaining fluid. Pt's son has concerns that cancer could be back. Encounter Details Date Type Department Care Team ([facility] Contact Info) Description 08/11/2023 8:30 AM EST Office Visit [address] [address] Pepe Beck MD [address] [place] [id number] Hospital discharge follow-up*; Cancer of upper lobe of right lung (HCC); Persistent atrial fibrillation (HCC); Chronic diastolic congestive heart failure (HCC); Moderate episode of recurrent major depressive disorder (HCC); Hypertensive kidney disease with stage 3a chronic kidney disease (HCC) Allergies No known active allergiesdocumented as of this encounter (statuses as of 08/11/2023) Medications Medication Sig Dispensed Refills Start Date [...] group C, by GOLD 2017 classification ([facility]) Inhale 1 Puff by mouth in the morning. 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 10/23/2019 Hypothyroidism 03/28/2018 Hyponatremia 03/28/2018 Dyslipidemia, goal LDL below 70 03/28/2018 Edema of lower extremity 03/28/2018 Degeneration of lumbar intervertebral disc 03/28 Coronary artery disease invo lving quile[place] coronary artery of quile[place] heart without angina pectoris 03/28/2018 Benign prostatic hyperplasia 03/28/2018 Benign essential hypertension 03/28/2018 Carotid artery stenosis 03/28/2018 Osteoarthritis of ankle 03/29/2017 Peripheral vascular disease 11/03/2016 documented as of this encounter (statuses as of 08/11/2023) Resolved Problems Problem Noted Date Diagnosed Date Resolved Date EL (acute kidney injury) 05/17/2023 Lumbar radiculopathy 03/28/2018 023 Chronic obstructive pulmonary disease 03/28/2018 11/20/2021 Overview: Per COPD GOLD Classification documented as of this encounter (statuses as of 08/11/2023) Immunizations Name Administration Dates Next Due COVID-19 mRNA, LNP-s, No Pre serve, 2-Dose Series ([employer]) 05/05/2021,08/28/2020,08/07/2020 Covid-19, Mrna, Lnp-s, Pf, B ivalent, 30 Mcg, IM, 12 yrs and above ([employer]) 02/24/2022 Pneumococcal Conjugate Vacci ne, 20-valent ([id number]) 12/09/2021(Deferred: Had Clinical Disease) Pneumococcal Polysaccharide PPV23 [...] Sign Reading Time Taken Comments Blood Pressure 112/58 08/11/2023 8:18 AM EST Pulse 83 08/11/2023 8:18 AM EST Temperature 36.8 C (98.2 F) 08/11/2023 8:18 AM ES T Respiratory Rate 14 08/11/2023 8:18 AM EST Oxygen Saturation 97% 08/11/2023 8:18 AM EST Inhaled Oxygen Concentration - - Weight 66.1 kg (145 lb 12.8 oz) 08/11/2023 8:18 AM EST Height - - Body Mass Index 22.84 08/05/2023 9:46 AM EST documented in this encounter Functional [...] as of this encounter Progress Notes * Pepe Beck MD - 08/11/2023 8:47 AM EST Subjective: Manuel Yarbrough is a 83 year old male. Chief Complaint Patient presents with Follow Up Pt is here for a follow up. He was recently at the hospital for retaining fluid. Pt's son has concerns that cancer could be back. HPI: Patient is in the office to follow-up chronic medical problems. He was recently admitted to [facility] ED due to right-sided pleural effusion that required paracentesis. Studies are pending. He felt better after thoracentesis. He still have pain on the right thoracic back when he takes a deep breath. Denies any fevers or chills. Denies phlegm production. Currently taking torsemide 20 mg daily.He was seen by pulmonary medicine on 08/07/2023 on consult. Reports urinating well while taking dutasteride and tamsulosin daily. Son is concerned because patient has finish chemotherapy and radiation and is now receiving immunotherapy. Has received 2 treatments of immunotherapy. Son is concerned that the cancer is progressive and not improving. He heard said at the hospital on that the patient is 'stage IV". At home he still having dyspnea on exertion. Was started on oxygen and oxygen will be delivered to the house today. He has not using any oxygen at present, sats at 97% on RA today. He does have evidence of right upper lobe lung cancer Metastasized to hilar lymph nodes as a PET scan in February 2023. Discuss that with the son and the patient today. Patient does not have a living will. Handout on advanced directives discussed with patient and son And the son while take at homefor possible completion. Regarding atrial fibrillation: Anticoagulated with Eliquis 2.5 mg twice daily During this hospital stay patient reports tolerating it well. TSH 5.52. FT4 remains normal at 1.5. Serum creatinine 1.4, GFR 52. LFTs remain normal. Albumin and protein are low. Hemoglobin 10.6, hematocrit 34.1. Plateletsare normal WBCs are now normal. PMH: Patient Active Problem List Diagnosis Code Peripheral vascular disease ([facility]) I73.9 Osteoarthritis of ankle M19.079 Hypothyroidism E03.9 Hyponatremia E87.1 Dyslipidemia, goal LDL below 70 E78.5 Edema of lower extremity R60.0 Degeneration of lumbar intervertebral disc M51.36 Coronary artery disease involving [place] coronary artery of quile[place] heart without angina pectoris I25.10 Benign prostatic hyperplasia N40.0 Benign essential hypertension I10 Carotid artery stenosis I65.29 Atherosclerosis of [place] artery of right lower extremity with intermittent claudication ([facility]) I70.211 S/P CABG x 5 Z95.1 COPD, group C, by GOLD 2017 classification ([facility]) J44.9 Sleep disorder G47.9 Chronic diastolic congestive heart failure ([facility]) I50.32 Persistent atrial fibrillation ([facility]) I48.19 HTN, goal below 140/90 I10 Osteoarthritis [...] Beck MD 1,000 mcg at 08/02/23 0851 No past medical history on file. Past Surgical History: Procedure Laterality Date BRONCHOSCOPY, DIAGNOSTIC N/A 02/10/2023 BRONCHOSCOPY DIAGNOSTIC WITH OR WITHOUT WASHING performed by Madyson Alcal[place] [facility] [place] of patient's allergies indicates: No Known Allergies No family history on file. No family status information on file. Social History Socioeconomic History Marital status: Spouse [...] Housing Stability: Not on file Objective: BP 112/58 | Pulse 83 | Temp 36.8 C (98.2 F) | Resp 14 | Wt 66.1 kg (145 lb 12.8 oz) | SpO2 97% | BMI 22.84 kg/m | BSA 1.77 m Physical Exam [...] Effort: Pulmonary effort is normal. Breath sounds: Examination of the right-lower field reveals rales. Examination of the left-lower field reveals rales. Rales present. No wheezing or rhonchi. Abdominal: General: Bowel sounds are normal. Palpations: Abdomen is soft. Tenderness: There is no abdominal tenderness. Musculoskeletal: Cervical back: Normal range of motion. Right lower leg: Edema (Trace) present. Left lower leg: Edema (Trace) present. Lymphadenopathy: Cervical: No cervical adenopathy. Skin: General: Skin is warm and dry. Capillary Refill: Capillary refill takes less than 2 seconds. Findings: No rash. Neurological: General: No focal deficit present. Mental Status: He is alert and oriented to person, place, and time. Psychiatric: Mood and Affect: Mood normal. Behavior: Behavior normal. Thought Content: Thought content normal. Judgment: Judgment normal. ASSESSMENT: Hospital discharge follow-up (Primary) Cancer of upper lobe of right lung (HCC) Persistent atrial fibrillation (HCC) Chronic diastolic congestive heart failure (HCC) Moderate episode of recurrent major depressive disorder (HCC) Hypertensive kidney disease with stage 3a chronic kidney disease (HCC) Right pleural effusion is likely from his cancer. He is currently on immunotherapy and will continue to follow-up with [facility]. The prognosis is guarded. I discussed with the patient the fact that he might need thoracentesis again in the future. Son has multiple questions as far as how to proceed. Family is concerned. Continue current medications. Advanced against directives provided to the patient and the son today. They will review at home andbring the document to the office once completed. Son is familiar with the process as they completeda similar form in the past for mother that passed. Follow Up: Return in about 4 weeks (around 09/08/2023), or if symptoms worsen or fail to improve, forf/u chronic problems. | For: f/u chronic problems Pepe Chiang MD documented in this encounter Nursing Notes * Nikki Stewart LPN - 08/11/2023 8:17 AM EST The patient has been properly identified by confirmation of name and date of . Chief Complaint Patient presents with Follow Up Pt is here for a follow up. He was recently at the hospital for retaining fluid. Pt's son has concerns that cancer could be back. documented in this encounter Plan of Treatment Upcoming Encounters Date Type Department Care Team (Late st Contact Info) Description 08/12/2023 10:15 AM EST Office Visit Hematology/Oncology [address] [place], [place] [phone] Bear Love MD [address] [place], [place] [address] 08/24/2023 9:30 AM EDT PulmDiagnostic Pulmonary Function Lab, [facility] 132 [facility] [place] [address] West, Pft 132 [facility] [place] [address] 08/24/2023 10:15 AM EDT Imaging Radiology [facility] [address]st [facility] 132 [facility] [place] [address] 08/26/2023 3:40 PM EDT Office Visit Pulmonary Medicine, [facility] 132 [facility] [place] [address] Vu Tapia [facility] [address] [facility] [address] 08/31/2023 7:40 AM EDT Laboratory Laboratory [facility] [address] [place], [place] [phone] [place], Lab Scenery 200 [facility] [place], [place] [address] 08/31/2023 8:45 AM EDT Office Visit Hematology/Oncology [facility] [place] [address] [place], [place] [phone] Bear Love MD [address] [place], [place] [address] 08/31/2023 9:15 AM EDT Hem/Onc Treatment Hematology/Oncology Treatment, [place] [address] [place] [phone] [place], Chair 3 Hem Onc Scene [address] [place], [place] [address] 09/01/2023 9:00 AM EDT Nurse Only Ancillary [address] [phone] [place], Nurse G[facility] [address] [address] 09/06/2023 11:20 AM EDT Office Visit Family Practice [address] [phone] Pepe Beck MD [address] [place] [address] Health Maintenance Due Date Last Done [...] 06/01/2024 06/01/2023, 02/06 CKD PHOS USE SMARTSET 96768 06/01/2024 06/01/2023, 0 03/04/2022 CKD HGB USE SMARTSET 41438 08/04/202408/04, 08/04/2023, 08/03/2023, Additional history exists TSH [...] as of this encounter Visit Diagnoses Diagnosis Hospital discharge follow-up- Primary Other follow-up examination Cancer of upper lobe of right lung (HCC) Persistent atrial fibrillation (HCC) Atrial fibrillation Chronic diastolic congestive heart failure (HCC) Chronic diastolic heart failure Moderate episode of recurrent major depressive disorder (HCC) Hypertensive kidney disease with stage 3a chronic kidney disease (HCC) documented in this encounter Advance Directives [...] the patient have Health Care Power of Data Warehousing Engineer? No Care Teams Corn Sheller Operator Relationship Specialty Start Date End Date Pepe Beck MD [address] [place] [address] PCP - General Family Medicine 11/07/21 documented as of this encounter
--- OUTSIDE RECORDS SUMMARY | 2023-10-26 10:01 | External Medical Summary | Summary of Care ---
Author Name Unknown Organization [facility] Address [address] [place] [address] Phone [phone] Care Team Providers Care Food Safety Specialist Name Role Phone Pepe Beck MD Primary Care P roder Reason for Visit * Precert (Within 24 hrs (call dept; emergent)) - Authorized Specialty Diagnoses / Procedures Referred By Contac t Referred To Contact Radiology Diagnoses Cancer of upper lobe of right lung (HCC) Procedures CT CHEST W CONTRAST Pearl Oviedo CRNP [address] [place] [address] Referral ID Status Reason Start Date Expiration Date V isits Requested Visits Authorized [id number] Authorized 08/06/2023 02/02/2024 [id number] Encounter Details Date Type Department Care Team (Latest Contact Info) Description 08/06/2023 1:35 PM EST - 08/06/2023 11:59 PM EST Hospital Encounter Radiology, [address] [address] Arrived Discharge Disposition: Home - Self Care Allergies No known active allergiesdocumented as of this encounter (statuses as of 08/07/2023) Medications Medication Sig Dispensed Refills Start Date [...] :COPD, group C, by GOLD 2017 classification ([facility]) Inhale 1 Puff by mouth in the morning. 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 Atherosclerosis of [place] ar erick of right lower extremity with intermittent claudication 10/23/2019 Hypothyroidism 03/28/2018 Hyponatremia 03/28/2018 Dyslipidemia, goal LDL below 70 03/28/2018 Edema of lower extremity 03/28/2018 Degeneration of lumbar intervertebral disc 03/28 Coronary artery disease invo lving [place] coronary artery of [place] heart without angina pectoris 03/28/2018 Benign prostatic hyperplasia 03/28/2018 Benign essential hypertension 03/28/2018 Carotid artery stenosis 03/28/2018 Osteoarthritis of ankle 03/29/2017 Peripheral vascular disease 11/03/2016 documented as of this encounter (statuses as of 08/07/2023) Resolved Problems Problem Noted Date Diagnosed Date Resolved Date EL (acute kidney injury) 05/17/2023 Lumbar radiculopathy 03/28/2018 023 Chronic obstructive pulmonary disease 03/28/2018 11/20/2021 Overview: Per COPD GOLD Classification documented as of this encounter (statuses as of 08/07/2023) Immunizations Name Administration Dates Next Due COVID-19 mRNA, LNP-s, No Pre serve, 2-Dose Series ([employer]) 05/05/2021,08/28/2020,08/07/2020 Covid-19, Mrna, Lnp-s, Pf, B ivalent, 30 Mcg, IM, 12 yrs and above ([employer]) 02/24/2022 Pneumococcal Conjugate Vacci ne, 20-valent ([id number]) 12/09/2021(Deferred: Had Clinical Disease) Pneumococcal Polysaccharide PPV23 [...] Description 2023 9:00 AM EST Laboratory Laboratory [facility] 200 [facility] [place] [phone] [facility] 200 [facility] [place] [address] 2023 9:30 AM EST Office Visit Hematology/Oncology [facility] 200 [facility] [place] [phone] Pearl Oviedo CRNP [address] [place] [address] 2023 10:00 AM EST Hem/Onc Treatment Hematology/Oncology Treatment, [place] [address] [place] [phone] 08/11/2023 8:30 AM EST Office Visit [facility] [address] [place] [phone] Pepe Beck MD [address] [place] [address] [place] [address] 08/24/2023 9:30 AM EDT PulmDiagnostic Pulmonary Function Lab, [facility] 132 [facility] [place] [address] West, Pft [address] [place] [address] 08/24/2023 10:15 AM EDT Imaging Radiology [facility] 1st [facility] 132 [facility] [place] [address] 08/26/2023 3:40 PM EDT Office Visit Pulmonary Medicine, [facility] 132 [facility] [place] [address] Vu Tapia MD [address] [facility] [place] [address] 08/31/2023 7:40 AM EDT Laboratory Laboratory [facility] [address] [place] [phone] [place], Lab [facility] [address] [place] [address] 08/31/2023 8:45 AM EDT Office Visit Hematology/Oncology [facility] [place] [address] [place] [phone] Bear Love MD [address] [place] [address] 08/31/2023 9:15 AM EDT Hem/Onc Treatment Hematology/Oncology Treatment, [place] [address] [place], [place] [phone] Juliet, Chair 3 Hem Onc Scene 200 [facility] [place] [address] 09/01/2023 9:00 AM EDT Nurse Only Ancillary [address] [phone] [place], Nurse [address] [phone] Health Maintenance Due Date Last Done Comments [...] 06/01/2024 06/01/2023, 02/06 CKD PHOS USE SMARTSET 28867 06/01/2024 06/01/2023, 0 03/04/2022 CKD HGB USE SMARTSET 26466 08/04/202408/04, 08/04/2023, 08/03/2023, Additional history exists TSH [...] Procedure Name Priority Date/Time Associated Diagnosis Comments CT CHEST W CONTRAST STAT 08/06/2023 1 :59 PM EST Cancer of upper lobe of right lung (HCC) documented in this encounter Administered Medications Inactive Administered Medications - up to 3 most recent administrations Medication Order MAR Action Action Date Dose Rate Site Ioversol (Optiray 320) inj 100 mL 100 mL, Intravenous, ONCE, On Wed08/06/23 at 1402, For 1 dose, Radiology Medication Routing (Non-IR) Given 08/06/2023 2:00 PM EST 100 mL documented in this encounter Advance Directives Latest Code Status on File Code Status Date Activated Date Inactivated Comments Full Code 05/13/2023 2:31 PM 05/18/2023 6:24 PM This order reflects the patients wishes and were consensually agreed upon. Question Answer Comments Discussion of Advance Directives occurred with: Patient Does the patient have a Living Will? No Does the patient have Health Care Power of Power System Electrical Engineer? No Care Teams Food Safety Specialist Relationship Specialty Start Date End Date Pepe Beck MD [address] [place] [address] PCP - General Family Medicine 11/07/21 documented as of this encounter
--- OUTSIDE RECORDS SUMMARY | 2023-10-26 10:01 | External Medical Summary | Summary of Care ---
Author Name Unknown Organization [facility] Address [address] [place] [facility] [place] [address] Phone [phone] Care Team Providers Care Seed Tester Name Role Phone Pepe Beck MD Primary Care P rovider Reason for Visit * Reason Onset Date Comments Hospital Follow-Up 08/11/2023 EDEL Encounter Details Date Type Department Care Team (Late st Contact Info) Description 08/11/2023 Telephone Ancillary [facility] [place] [address] [place] [facility] [place] [address] Harleen Duncan, ROSALVA Hospital Follow-Up (EDEL) Allergies No known active allergiesdocumented as of [...] 20 MG Oral Tablet (Demadex)Indications :Atherosclerosis of [place] artery of right lower extremity with intermittent [...] Oral Tablet (Cozaar)Indications: Coronary artery disease involving [place] coronary artery of [place] heart without angina pectoris Take 0.5 Tablets [...] Active HYDROcodone-Acetamin ophen 10-325 MG Oral TabletIndications:Ac [place] left-sided low back pain without sciatica,Cancer of [...] inj 1,000 mcgIndications:B12 deficiency 1000 mcg IM [id number] 05/06/2023 04/06/2024 Active documented as of this [...] 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 Atherosclerosis of [place] ar erick of right lower extremity with intermittent claudication 10/23/2019 Hypothyroidism 03/28/2018 Hyponatremia 03/28/2018 Dyslipidemia, goal LDL below 70 03/28/2018 Edema of lower extremity 03/28/2018 Degeneration of lumbar intervertebral disc 03/28 Coronary artery disease invo lving [place] coronary artery of [place] heart without angina pectoris 03/28/2018 Benign prostatic [...] mRNA, LNP-s, No Pre serve, 2-Dose Series ([employer]) 05/05/2021,08/28/2020,08/07/2020 Covid-19, Mrna, Lnp-s, Pf, B ivalent, 30 Mcg, IM, 12 yrs and above ([employer]) 02/24/2022 Pneumococcal Conjugate Vacci ne, 20-valent ([id number]) 12/09/2021(Deferred: Had Clinical Disease) Pneumococcal Polysaccharide PPV23 [...] encounter Miscellaneous Notes * Telephone Encounter - Harleen Duncan, ROSALVA - 08/11/2023 10:22 AM EST Pt had appointment with PCP this AM and was seen documented in this encounter Plan of Treatment Upcoming Encounters Date Type Department Care Team (Late st Contact Info) Description 08/12/2023 10:15 AM EST Office Visit Hematology/Oncology [facility] 200 [facility] [place] [phone] Bear Love MD 200 [facility] [place] [address] 08/24/2023 9:30 AM EDT PulmDiagnostic Pulmonary Function Lab, [facility] 132 [facility] [place] [address] West, Pft 132 [facility] [place] [address] 08/24/2023 10:15 AM EDT Imaging Radiology [facility]st [facility] [address] [place] [address] 08/26/2023 3:40 PM EDT Office Visit Pulmonary Medicine, [facility] 132 [facility] [place] [address] Vu Tapia MD [address] [place] [address] 08/31/2023 7:40 AM EDT Laboratory Laboratory [facility] [place] [address] [place], [place] [address] [place], Lab [facility] 200 [facility] [place], [place] [address] 08/31/2023 8:45 AM EDT Office Visit Hematology/Oncology [facility] [place] [address] [place], [place] [phone] Bear Love MD 200 [facility] [place], [place] [address] 08/31/2023 9:15 AM EDT Hem[facility] [address] [place], [place] [phone] [place], Chair 3 Hem Onc [facility] 200 [facility] [place], [place] [address] 09/01/2023 9:00 AM EDT Nurse Only Ancillary [address] [phone] [place], Nurse [address] [address] 09/06/2023 11:20 AM EDT Office Visit [address] [phone] Pepe Bcek MD [address] [place] [address] Health Maintenance Due Date Last Done [...] 06/01/2024 06/01/2023, 02/06 CKD PHOS USE SMARTSET 86419 06/01/2024 06/01/2023, 0 03/04/2022 CKD HGB USE SMARTSET 91841 08/04/202408/04, 08/04/2023, 08/03/2023, Additional history exists TSH [...] the patient have Health Care Power of Housekeeper Nanny? No Care Teams Seed Tester Relationship Specialty Start Date End Date Pepe Beck MD [address] [place] [address] PCP - General Family Medicine 11/07/21 documented as of this encounter
--- OUTSIDE RECORDS SUMMARY | 2023-10-26 10:01 | External Medical Summary | Summary of Care ---
Author Name Unknown Organization [facility] Address [address] [place] [address] Phone [phone] Care Team Providers Care Wire Stitcher Machine Name Role Phone Pepe Beck MD Primary Care P rovider Reason for Visit * Reason Onset Date Comments Films 2023 Encounter Details Date Type Department Care Team (Late st Contact Info) Description 2023 Telephone Radiology Film File [address] [place] [address] Pearl Oviedo CRNP [address] [place], [place] [id number] Films Allergies No known active allergiesdocumented as of this encounter (statuses as of 2023) Medications Medication Sig Dispensed Refills Start Date [...] 20 MG Oral Tablet (Demadex)Indications :Atherosclerosis of [place] artery of right lower extremity with intermittent [...] Oral Tablet (Cozaar)Indications: Coronary artery disease involving [place] coronary artery of [place] heart without angina pectoris Take 0.5 Tablets [...] inj 1,000 mcgIndications:B12 deficiency 1000 mcg IM [id number] 05/06/2023 04/06/2024 Active documented as of this encounter (statuses as of 2023) Active Problems Problem Noted Date Diagnosed Date [...] 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 Atherosclerosis of [place] ar erick of right lower extremity with intermittent claudication 10/23/2019 Hypothyroidism 03/28/2018 Hyponatremia 03/28/2018 Dyslipidemia, goal LDL below 70 03/28/2018 Edema of lower extremity 03/28/2018 Degeneration of lumbar intervertebral disc 03/28 Coronary artery disease invo lving [place] coronary artery of [place] heart without angina pectoris 03/28/2018 Benign prostatic hyperplasia 03/28/2018 Benign essential hypertension 03/28/2018 Carotid artery stenosis 03/28/2018 Osteoarthritis of ankle 03/29/2017 Peripheral vascular disease 11/03/2016 documented as of this encounter (statuses as of 2023) Resolved Problems Problem Noted Date Diagnosed Date Resolved Date EL (acute kidney injury) 05/17/2023 Lumbar radiculopathy 03/28/2018 023 Chronic obstructive pulmonary disease 03/28/2018 11/20/2021 Overview: Per COPD GOLD Classification documented as of this encounter (statuses as of 2023) Immunizations Name Administration Dates Next Due COVID-19 mRNA, LNP-s, No Pre serve, 2-Dose Series (TalentClick) 05/05/2021,08/28/2020,08/07/2020 Covid-19, Mrna, Lnp-s, Pf, B ivalent, 30 Mcg, IM, 12 yrs and above (Pfizer) 02/24/2022 Pneumococcal Conjugate Vacci ne, 20-valent ([id number]) 12/09/2021(Deferred: Had Clinical Disease) Pneumococcal Polysaccharide PPV23 (Pneumovax) 02/15/2020 Seasonal Influenza, Quadriva lent Hd (Fluzone Hd) 02/05/2023,03/04/2022 Seasonal Influenza, Recombin ant, RIV4, PF, (Flublock) 04/07/2021 Seasonal Influenza, Split, I IV3, With Preserve, Inj 03/13/2020,04/12/2019,03/21/2018,03/29,03/31/2016,04/30/2014,03/13/2013 ,05/14/2012,05/11/2012,04/24/2008,06/2005 documented as of this encounter Social History Tobacco Use Types Packs/Day Years Used Date Smoking Tobacco: Former Cigarettes 1 45 1 242 - 1987 Smokeless Tobacco: Never Alcohol Use [...] encounter Miscellaneous Notes * Telephone Encounter - Erica López OSA - 2023 8:04 AM EST Received a phone call requesting the 08/06/23 CT images be shared with [facility]. [place] Authorization on file to release. Images sent by Ext to [facility]. documented in this encounter Plan of Treatment Upcoming Encounters Date Type Department Care Team (Late st Contact Info) Description 08/11/2023 8:30 AM EST Office Visit [address] [phone] Pepe Beck MD [address] [place] [phone] 08/24/2023 9:30 AM EDT PulmDiagnostic Pulmonary Function Lab, [facility] [address] [facility] [place] [address] [place], [address] [facility] [place] [address] 08/24/2023 10:15 AM EDT Imaging Radiology [address] [facility] [place] [address] 08/26/2023 3:40 PM EDT Office Visit Pulmonary Medicine, [facility] [address] [facility] [place] [address] Vu Tapia MD [address] [place] [address] 08/31/2023 7:40 AM EDT Laboratory Laboratory [facility] [address] [place] [phone] [facility] [address] [place] [address] 08/31/2023 8:45 AM EDT Office Visit Hematology/Oncology [facility] [place] [address] [place], [place] [phone] Bear Love MD [address] [facility] [place] [address] 08/31/2023 9:15 AM EDT Hem/Onc Treatment Hematology/Oncology Treatment, [place] [address] [place], [place] [phone] Juliet, Chair 3 Hem Onc [facility] [address] [facility] [place] [address] 09/01/2023 9:00 AM EDT Nurse Only Ancillary [address] [phone] [place], Nurse [facility] [address] [phone] Health Maintenance Due Date Last Done Comments [...] 06/01/2024 06/01/2023, 02/06 CKD PHOS USE SMARTSET 02347 06/01/2024 06/01/2023, 0 03/04/2022 CKD HGB USE SMARTSET 00025 08/04/202408/04, 08/04/2023, 08/03/2023, Additional history exists TSH [...] the patient have Health Care Power of Maintenance Machinist? No Care Teams Wire Stitcher Machine Relationship Specialty Start Date End Date Pepe Beck MD [address] [place] [phone] PCP - General Family Medicine 11/07/21 documented as of this encounter
[2023-10-26] MEDS: CEFEPIME 2,000 MG in SYRINGE 0 ML IV SCH (10:08)
[2023-10-26 10:41] LABS: Appearance Urine Clear (Clear); Bacteria Urine Automated None Seen (None Seen); Bilirubin Urine Negative (Negative); Blood Urine Negative (Negative); Color Urine Yellow; Epithelial Cell Urine Auto 0-2 /hpf (0-2); Glucose Urine UA Negative (Negative); Hyaline Casts Urine Present /lpf (None Presnt); Ketones Urine Trace (Negative); Leukocyte Esterase Urine Trace (Negative); Nitrite Urine Negative (Negative); Protein Urine Trace (Negative); RBC Urine Automated 0-2 /hpf (0-2); Urobilinogen Urine Negative (Negative); WBC Urine Automated 0-5 /hpf (0-5)
--- NOTE | 2023-10-26 15:50 | Communication Note ---
Date of Service: October 26, 2023 Patient is seen and examined at bedside. Admits to have cough with expectoration. Less dyspnea today. Saturating well on 2 L supplemental oxygen. Patient offers no other complaints. On exam patient is alert awake oriented, decreased hearing, breath sounds decreased, coarse, irregularly irregular, pedal edema,+ murmur, grossly no focal deficits. Patient currently being managed for acute respiratory failure with hypoxia secondary to pneumonia, COPD exacerbation + parainfluenza infection in setting of NSCLC sp chemoradiation ongoing immunotherapy .CXR today showed bilateral mid and lower lung opacities, possible aspiration pneumonitis. Continue doxycycline, cefepime. Also on nebs, prednisone. Blood cultures pending. Supplemental oxygen as needed. Aspiration precautions, speech eval. Afib with slow HR, Sinus bradycardia. Hold Requip. Avoid AV aspen blocking agents. Bradycardia also noted on prior admission. Consider cardiology evaluation if persistent. EL. Hold diuretics, losartan. Avoid nephrotoxic agents as able. Monitor renal function. Gentle IV fluids. Noted thrombocytopenia, troponin elevation. Patient denies chest pain. Troponin elevation likely demand ischemia. Monitor sodium levels given hyponatremia. Abnormal thyroid function test in setting of acute infection. Levothyroxine dose increased to 125 mcg daily by admitting physician. Will need further adjustment as outpatient.
--- NOTE | 2023-10-26 15:54 | Electrocardiogram Report ---
Test Reason : Blood Pressure : / mmHG Vent. Rate : 082 BPM Atrial Rate : 000 BPM P-R Int : 000 ms QRS Dur : 096 ms QT Int : 382 ms P-R-T Axes : 000 088 154 degrees QTc Int : 446 ms Atrial fibrillation Abnormal ECG When compared with ECG of 06-AUG-2023 17:20, Nonspecific T wave abnormality now evident in Inferior leads T wave inversion now evident in Lateral leads Confirmed by Italo Vega ([id number]) on 10/26/2023 3:53:32 PM Referred By: REFERRED SELF Confirmed By:Italo Vega
--- NOTE | 2023-10-26 15:56 | Electrocardiogram Report ---
Test Reason : Blood Pressure : / mmHG Vent. Rate : 048 BPM Atrial Rate : 000 BPM P-R Int : 000 ms QRS Dur : 096 ms QT Int : 522 ms P-R-T Axes : 000 034 033 degrees QTc Int : 466 ms Atrial fibrillation with slow ventricular response Nonspecific T wave abnormality Prolonged QT Abnormal ECG When compared with ECG of 25-OCT-2023 20:27, (unconfirmed) Vent. rate has decreased BY [address] no longer depressed in Lateral leads T wave inversion no longer evident in Lateral leads Confirmed by Italo Vega ([id number]) on 10/26/2023 3:56:22 PM Referred By: REFERRED SELF Confirmed By:Italo Vega
[2023-10-26] MEDS: DOCUSATE SODIUM/SENNA 50/8.6MG TAB PO SCH (20:41)
[2023-10-26] MEDS: MIRTAZAPINE TAB 15 MG TAB PO SCH (20:43)
[2023-10-26] MEDS: BACLOFEN 10 MG TAB PO SCH (20:43)
[2023-10-26] MEDS: DOXYCYCLINE HYCLATE 100 MG CAP PO SCH (20:43)
[2023-10-26] MEDS ORDERED: rOPINIRole HCL 0.25 MG TABLET PO SCH (21:00)
[2023-10-27 06:34] LABS: Hematocrit (blood only) 30.3 % (42.0-52.0); Hemoglobin 9.7 g/dl (14.0-18.0); Mean Corpuscular Hemoglobin 27.2 pg (25.0-34.0); Mean Corpuscular Volume 84.9 fL (80.0-100.0); Mean Platelet Volume 9.5 fL (9.4-12.4); Platelet Count 131 K/uL (130-400); RDW Coefficient of Variation 15.9 % (11.5-14.5); RDW Standard Deviation 49.8 fL (36.4-46.3); Red Blood Count 3.57 M/uL (4.70-6.10); White Blood Count 8.57 K/ul (4.8-10.8)
[2023-10-27 06:43] LABS: Calcium 8.6 mg/dl (8.6-10.3); Creatinine Clr Calc Pharmacy 46.3 ml/min; Est GFR (African American) 70.3 ml/min; Est GFR (Non-African American) 60.7 ml/min; Potassium 4.6 mmol/L (3.5-5.1)
[2023-10-27 06:51] LABS: Troponin I High Sensitivity 32.5 pg/ml (0-20)
[2023-10-27 07:20] LABS: Thyroid Stimulating Hormone 24.937 uIu/ml (0.300-4.500)
--- NOTE | 2023-10-27 07:22 | Hospitalist Progress Note ---
Date of Service October 27, 2023 Assessment & Plan (1) Acute hypoxemic respiratory failure: Plan: Mr. 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 Initial concern for superimposed bacterial pneumonia on COPD exacerbation; however, it appears respiratory failure has been progressive since initiation of immunotherapy with question of possible immunotherapy pneumonitis. Will consult pulm at this time. #Acute on chronic hypoxic respiratory failure #?Immunotherapy pneumonitis #COPD, ?exacerbation #Hemopytsis #RUL NSCLC, c/g squamous cell carcinoma follows Dr Ivan Sifuentes s/p paclitaxel/carboplatin, Durvalumab 1500mg [id number] as of 06/2023 There was discussion regarding pneumonitis given progressive need for o2 use last followed with Heme onc 10/09 Transition to IV steroid Pulm consult: Increase steroid dosing or additional management for pneumonitis? Mucinex Nebs Hemoptysis: likely iso eliquis, increasing cough; pulm to comment, TXA nebs? Consider repeat imaging with resp status stable #pulm hypertension #Acute on chronic Heart failure with preserved EF ECHO EF 55% Repeat ECHO Trial IV lasix on torsemide 20mg at home #Immunocompromised patient CS, cefepime, doxycycline for concern of pneumonia #Right pleural effusion #History recurrent right pleural effusion Completed repeat IR thoracentesis at [facility] on September 20, 2023, 500 mL of straw-colored fluid removed. Cytology negative for malignant cells. Small effusion on XRAY #Asymptomatic bradycardia noted at the ER *improved #Permanent Atrial fibrillation with slow ventricular response -Continue on Eliquis 2.5mg BID -Requip discontinued 2/2 bradycardia -Monitor on tele #Troponin elevation secondary to illness peaked at 58, improving with treatment of underlying illness #Hyponatremia POA Resolved #EL on CKD III Cr. 1.6 on admission Improved, slow introduction of home losartan #Chronic HFpEF, equivocal volume status, some congestion on x-ray, patient clinically dry #CAD status post CABG #valvular heart disease (moderate to severe MR, mild to moderate MR, TTE 2021) #hx PVD status post surgery * Right SFA atherectomy DCB angioplasty Right 11/2016 -Dr. 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, will need CT/MR in 2 years DVT prophylaxis with Eliquis Full code Admission and Anticipated Discharge Date Admission Date: October 26, 2023 Subjective Worsening O2 requirements this am Patient denies chest pain, but reports bloody sputum/streak with increase in productive cough Denies fevers chills; declines concerns--but visibly uncomfortable on exam Physical Exam Constitutional: weak, frail gentleman, conversational dyspnea Respiratory: notable expiratory rhonchi, diminished bibasilar breath sounds Cardiovascular: irregularly irregular Gastrointestinal (Abdomen): normal bowel sounds, soft, nontender, no hepatosplenomegaly Skin: trace edema, R>L lower extremity, reportedly chronic Results & Data Results & Data Vital Signs (Past 12 Hours) Vital Signs Temp Pulse Resp BP Pulse Ox O2 Del Method O2 Flow Rate 10/27/23 03:23 37.0 C 74 18 165/70 H 92 Nasal Cannula 2 10/26/23 23:13 36.6 C 69 18 155/60 H 95 Nasal Cannula 1 10/26/23 20:49 83 18 90 Nasal Cannula 1 10/26/23 20:45 Nasal Cannula 2 10/26/23 19:27 36.8 C 54 L 18 146/54 H 92 Nasal Cannula 1 Laboratory Results Short CBC 10/27/23 Range/Units 05:42 WBC 8.57 (4.8-10.8) K/ul Hgb 9.7 L (14.0-18.0) g/dl Hct 30.3 L (42.0-52.0) % Plt Count 131 (130-400) K/uL BMP 10/27/23 05:42 Sodium 136 Potassium 4.6 Chloride 101 Carbon Dioxide 30 BUN 30 H Creatinine 1.11 D Glucose 95 Calcium 8.6 Urine 10/26/23 Range/Units Unknown Urine Color Yellow Urine Appearance Clear (Clear) Urine pH 5.0 (4.5-7.5) Ur Specific Rector 1.020 (1.000-1.030) Urine Protein Trace H (Negative) Urine Glucose (UA) Negative (Negative) Diagnostic Findings OSH CT reviewed: EXAM: CT CHEST W CONTRAST DATE TIME: 10/19/2023 - 10/19/2023 11:54 am HISTORY 83 y/o M Rul nsclc, receiving immunotherapy, restaging scans, increased sh ortness of breath, f/u consolidative changes in the right upper and lower lobes TECHNIQUE CT chest was performed without IV contrast COMPARISON CT chest 08/24/2023. FINDINGS LUNGS AND LARGE AIRWAYS: Patent central airways. Previously occluded right upper lobe bronchus is now patent. Previously reported right perihilar/suprahilar mass is not well delineated due to adjacent consolidative changes but appears to measure approximately 3.0 x 2.2 cm, difficult to compare to the most recent noncontrast exam but slightly decreased in size compared to 08/06/2023 when it measured 3.2 x 2.6 cm (8, 128). Bandlike consolidative changes extend from the right hilum to the anterior/anterolateral right upper lobe pleural surface with associated bronchiectasis. Bandlike consolidative changes also extend into the right lower lobe with associated bronchiectasis. Overall, there is improved aeration in the right upper lobe compared to the prior exam, with mild residual right upper lobe ground-glass densities and mild interlobular septal thickening in the aerated portion of the right upper lobe. Additionally there is persistent consolidation in the anterior aspect of the right upper lobe (for example 8, 98). A left upper lobe nodule measures 5 millimeters, not significantly changed (8, 66). A medial right lower lobe nodule measures 3 millimeters, not significantly changed (8, 290). A subpleural right middle lobe nodule measures 3 millimeters, not significantly changed (8, 124). A left upper lobe nodule measures 3 millimeters, not significantly changed (8, 115). A left lower lobe nodule measures 3 millimeters, not significantly changed (8, 254). A left lower lobe nodule measures 3 millimeters, not significantly changed (8, 298). PLEURA: Small to moderate partially loculated right pleural effusion, decreased in size compared to the prior exam. VESSELS: Normal caliber thoracic aorta and main pulmonary artery. Atherosclerotic changes of the aorta. Status post CABG. HEART: Enlarged left atrium. No pericardial effusion. MEDIASTINUM AND GENESIS: Right perihilar/suprahilar mass as described above. A few prominent to mildly enlarged right upper paratracheal lymph nodes measure up to 12 millimeters in short axis, not significantly changed (8, 66). CHEST WALL AND LOWER NECK: Bilateral gynecomastia. VISUALIZED UPPER ABDOMEN: Small hepatic cyst. Additional subcentimeter hypodense hepatic foci are too small to characterize. Small bilateral renal cysts. A cystic pancreatic neck lesion measures 1 cm, not significantly changed dating back to 05/13/2023 when it measured approximately 0.8 cm (8, 362) No main pancreatic duct dilatation. BONES: Status post sternotomy. Degenerative changes of the spine. IMPRESSION IMPRESSION 1. Previously reported right perihilar/suprahilar mass is not well delineated due to adjacent consolidative changes but appears to measure approximately 3.0 x 2.2 cm, difficult to compare to the most recent noncontrast exam but slightly decreased in size compared to 08/06/2023 when it measured 3.2 x 2.6 cm. 2. Previously occluded right upper lobe bronchus is now patent. There is associated overall improved aeration of the right upper lobe compared to the prior exam, with mild residual right upper lobe ground-glass densities and mild interlobular septal thickening in the aerated portion of the right upper lobe. Additionally, there is persistent consolidation in the anterior right upper lobe. 3. Bandlike consolidative changes in the right upper and lower lobes with associated bronchiectasis are similar to the prior exam, likely reflecting post treatment changes per in 4. A few sub 6 mm pulmonary nodules are not significantly changed compared to the prior exam. 5. Small to moderate partially loculated right pleural effusion, decreased in size compared to the prior exam. 6. A few prominent to mildly enlarged right upper paratracheal lymph nodes measure up to 12 millimeters in short axis, not significantly changed. 7. A cystic pancreatic neck lesion measures 1 cm, not significantly changed dating back to 05/13/2023 when it measured approximately 0.8 cm. 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 Follow-up pancreas protocol CT or MR abdomen with and without contrast is recommended in 2 years for further evaluation. Medications Administered Home Medications Medication Instructions Recorded Confirmed Last Taken albuterol sulfate 90 mcg/actuation 2 puff inhalation Q6H PRN 03/11/23 10/26/23 Unknown aerosol inhaler Shortness Of Breath Or Wheezing dutasteride 0.5 mg capsule 0.5 mg PO DAILY 03/11/23 10/26/23 Unknown ipratropium 0.5 mg-albuterol 3 mg 3 ml inhalation Q6H PRN Shortness 03/11/23 10/26/23 Unknown (2.5 mg base)/3 mL nebulization Of Breath Or Wheezing soln levothyroxine 112 mcg capsule 112 mcg PO DAILY 03/11/23 10/26/23 Unknown mecobalamin (vitamin B12) 10,000 1,000 mcg IM MONTHLY 03/11/23 10/26/23 Unknown mcg solution for injection ondansetron HCl 8 mg tablet 8 mg PO Q8H PRN Nausea 03/11/23 10/26/23 Unknown prochlorperazine maleate 10 mg 10 mg PO Q6H PRN Nausea 03/11/23 10/26/23 Unknown tablet (Compazine) tamsulosin 0.4 mg capsule 0.4 mg PO BID 03/11/23 10/26/23 Unknown torsemide 20 mg tablet 20 mg PO DAILY 03/11/23 10/26/23 Unknown amlodipine 5 mg tablet 5 mg PO [facility] 08/06/23 10/26/23 Unknown apixaban 2.5 mg tablet (Eliquis) 2.5 mg PO BID 08/06/23 10/26/23 10/25/23 08:00 aspirin 81 mg tablet,delayed 81 mg PO MOWEFR 08/06/23 10/26/23 Unknown release baclofen 10 mg tablet 10 mg PO 08/06/23 10/26/23 Unknown mirtazapine 30 mg tablet 45 mg PO 08/06/23 10/26/23 Unknown nitroglycerin 0.4 mg sublingual 0.4 mg sublingual DIRECTED PRN 08/06/23 10/26/23 Unknown tablet (Nitrostat) .Ccest pain ropinirole 0.5 mg tablet 0.5 mg PO 08/06/23 10/26/23 Unknown sennosides 8.6 mg-docusate sodium 1 tab-cap PO 08/06/23 10/26/23 Unknown 50 mg tablet (Senna with Docusate Sodium) umeclidinium 62.5 mcg/actuation 1 inh inhalation QA 08/06/23 10/26/23 Unknown blister powder for inhalation (Incruse Ellipta) dexamethasone 4 mg tablet 4 mg PO DIRECTED .when gets 10/26/23 10/26/23 Unknown chemo duloxetine 30 mg capsule,delayed 30 mg PO QAM 10/26/23 10/26/23 Unknown release losartan 50 mg tablet 50 mg PO QAM 10/26/23 10/26/23 Unknown oxycodone 5 mg tablet 5 mg PO Q4 PRN .severe pain 10/26/23 10/26/23 Unknown pantoprazole 40 mg tablet,delayed 40 mg PO DAILY 10/26/23 10/26/23 Unknown release rosuvastatin 20 mg tablet 20 mg PO QAM 10/26/23 10/26/23 Unknown Active Medications Generic Name Dose Route Start Last Admin Trade Name Freq PRN Reason Stop Dose Admin Albuterol 3 ml 10/26/23 07:00 10/27/23 07:16 Albut/Ipratrop 3mg/0.5mg Neb 3 Ml Vial NEB 11/25/23 06:59 3 ml QIDR MARIZA Administration Protocol Amlodipine Besylate 5 mg 10/26/23 09:00 10/27/23 08:17 Amlodipine Besylate 5 Mg Tab PO 11/25/23 08:59 5 mg QAM MARIZA Administration Apixaban 2.5 mg 10/26/23 09:00 10/27/23 08:18 Apixaban 2.5 Mg Tab PO 11/25/23 08:59 2.5 mg BID MARIZA Administration Aspirin 81 mg 10/27/23 09:00 10/27/23 08:17 Aspirin 81 Mg Ectab PO 11/26/23 08:59 81 mg [id number] MARIZA Administration Baclofen 10 mg 10/26/23 21:00 10/26/23 20:43 Baclofen 10 Mg Tab PO 11/25/23 20:59 10 mg HS MARIZA Administration Doxycycline Hyclate 100 mg 10/26/23 21:00 10/27/23 08:18 Doxycycline Hyclate 100 Mg Cap PO 11/02/23 20:59 100 mg BID MARIZA Administration Duloxetine HCl 30 mg 10/26/23 09:00 10/27/23 08:17 Duloxetine Hcl 30 Mg Cap PO 11/25/23 08:59 30 mg QAM MARIZA Administration Finasteride 5 mg 10/26/23 09:00 10/27/23 08:17 Finasteride 5 Mg Tab PO 11/25/23 08:59 5 mg DAILY MARIZA Administration Guaifenesin 1,200 mg 10/27/23 09:00 10/27/23 08:16 Guaifenesin 600 Mg Tabcr PO 11/26/23 08:59 1,200 mg Q12 MARIZA Administration Cefepime HCl 2,000 mg/ Syringe 20 mls @ 5 mls/min 10/26/23 10:00 10/26/23 20:42 IV 11/02/23 09:59 5 mls/min Q12H MARIZA Administration Protocol Methylprednisolone 40 mg/ 0.64 mls @ 1.5 mls/min 10/27/23 09:00 10/27/23 08:17 Syringe IV 11/26/23 08:59 1.5 mls/min DAILY MARIZA Administration Levothyroxine Sodium 125 mcg 10/26/23 06:30 10/27/23 06:08 Levothyroxine Sodium 125 Mcg Tablet PO 11/25/23 06:29 125 mcg DAILYBB MARIZA Administration Mirtazapine 45 mg 10/26/23 21:00 10/26/23 20:43 Mirtazapine Tab 15 Mg Tab PO 11/25/23 20:59 45 mg HS MARIZA Administration Pantoprazole Sodium 40 mg 10/26/23 09:00 10/27/23 08:17 Pantoprazole 40 Mg Tab PO 11/25/23 08:59 40 mg DAILY MARIZA Administration Rosuvastatin Calcium 20 mg 10/26/23 09:00 10/27/23 08:17 Rosuvastatin Calcium 20 Mg Tab PO 11/25/23 08:59 20 mg QAM MARIZA Administration Senna/Docusate Sodium 1 tab 10/26/23 21:00 10/26/23 20:41 Docusate Sodium/Senna 50/8.6mg Tab PO 11/25/23 20:59 Not Given HS MARIZA Tamsulosin HCl 0.4 mg 10/26/23 09:00 10/27/23 08:17 Tamsulosin Hcl 0.4 Mg Cap PO 11/25/23 08:59 0.4 mg BID MARIZA Administration
[2023-10-27 08:03] LABS: T4 Free Thyroxine 0.98 ng/dl (0.61-1.60)
[2023-10-27] MEDS: guaiFENesin 600 MG TABCR PO SCH (08:16)
[2023-10-27] MEDS: FUROSEMIDE INJ 20 MG/2 ML VIAL IV ONE (08:16)
[2023-10-27] MEDS: methylPREDNISolone 40 MG in SYRINGE 0 ML IV SCH (08:17)
[2023-10-27] MEDS: ASPIRIN 81 MG ECTAB PO SCH (08:17)
[2023-10-27] MEDS ORDERED: methylPREDNISolone 125 MG/2 ML VIAL IV SCH (09:00)
[2023-10-27] MEDS ORDERED: predniSONE 20 MG TAB PO SCH (09:00)
[2023-10-27] MEDS: LOSARTAN POTASSIUM 25 MG TAB PO SCH (14:07)
--- NOTE | 2023-10-27 15:29 | Pulmonary Consultation ---
Date of Consultation October 27, 2023 Assessment & Plan (1) Shortness of breath on exertion: (2) Metastatic primary lung cancer: (3) Hemoptysis: Plan Impression: 82-year-old male with a past medical history of squamous cell carcinoma of the right upper lobe currently on immunotherapy through [employer]. He is admitted with shortness of breath hypoxemia and progressive pulmonary pulse rates and has medical technologist prn hemoptysis. Differential diagnosis would include pulmonary hemorrhage, checkpoint inhibitor pulmonary toxicity, pneumonia, or progression of malignancy. Recommendations: 1. Hemoptysis: Anticoagulation will be withheld at this point in time. He is pending a CT angiogram. Likelihood of clot appears low however as anticoagulation is good to be withheld in this patient given his hemoptysis, would like to get baseline study ensuring no thromboembolic disease. 2. Diffuse pulmonary infiltrates: Differential as noted above. The patient is too ill to consider bronchoscopy. His procalcitonin is normal and white blood cell count is unremarkable. Parainfluenza was identified on bio fire. Only therapy would be supportive care. Will proceed with CT scan which hopefully will give some insight into the pulmonary processes. This point time would treat all reversible causes. Increase Solu-Medrol to 125 mg every 8 hours for possible checkpoint inhibitor pulmonary toxicity. Continue antibiotics. Diuresis as tolerated. 3. Wean oxygen as tolerated. 4. The patient has met with palliative care previously. He does not have an advanced directive. I strongly encouraged the patient and his son to have those discussions as I think aggressive invasive procedures including intubation mechanical ventilation or CPR in this 83-year-old gentleman with metastatic squamous cell carcinoma are unlikely to significantly improve his quality of life. They have taken it under advisement. Low threshold for reengagement of palliative care Total of 35 minutes critical care time including discussion of end-of-life issues was spent with the patient and family. The patient is at risk for significant clinical decline and . History of Present Illness Attending Physician: Radha Campos MD History of Present Illness Asked by hospitalist to assist in evaluation management this patient with advanced non-small cell lung cancer on immunotherapy admitted with hypoxemic respiratory failure and pulmonary filtrates. History is obtained from discussion with the patient and his son at bedside as well as review of the electronic medical record. Patient is an 83-year-old male with history of squamous cell carcinoma of the lung status post chemo and radiation therapy now on immunotherapy. He was seen by our service about 2 months ago where he presented with a pleural effusion. He underwent thoracentesis at that time. He was brought to the emergency room 10/26/2023 with cough productive of dark to brown phlegm and subjective fevers prior to admission. In the emergency room he had a chest x-ray demonstrating diffuse pulmonary infiltrates. He was treated with cefepime. He was noted to be bradycardic. He was admitted to the hospitalist service. This morning he had increasing cough and some hemoptysis. Pulmonary was consulted for additional management. The patient does not have advanced directives. He and his family have not discussed end-of-life issues and he has no plan in place. CT scan has been ordered but not yet accomplished. He did receive 40 mg of Solu-Medrol by his primary admitting service. He is currently on high flow oxygen. Allergies Allergy/AdvReac Type Severity Reaction Status Date / Time No Known Allergies Allergy Unverified 10/26/23 00:36 Home Medications Medication Instructions Recorded Confirmed Type albuterol sulfate 90 mcg/actuation 2 puff inhalation Q6H PRN 03/11/23 10/26/23 History aerosol inhaler Shortness Of Breath Or Wheezing dutasteride 0.5 mg capsule 0.5 mg PO DAILY 03/11/23 10/26/23 History ipratropium 0.5 mg-albuterol 3 mg 3 ml inhalation Q6H PRN Shortness 03/11/23 10/26/23 History (2.5 mg base)/3 mL nebulization Of Breath Or Wheezing soln levothyroxine 112 mcg capsule 112 mcg PO DAILY 03/11/23 10/26/23 History mecobalamin (vitamin B12) 10,000 1,000 mcg IM MONTHLY 03/11/23 10/26/23 History mcg solution for injection ondansetron HCl 8 mg tablet 8 mg PO Q8H PRN Nausea 03/11/23 10/26/23 History prochlorperazine maleate 10 mg 10 mg PO Q6H PRN Nausea 03/11/23 10/26/23 History tablet (Compazine) tamsulosin 0.4 mg capsule 0.4 mg PO BID 03/11/23 10/26/23 History torsemide 20 mg tablet 20 mg PO DAILY 03/11/23 10/26/23 History amlodipine 5 mg tablet 5 mg PO QAM 08/06/23 10/26/23 History apixaban 2.5 mg tablet (Eliquis) 2.5 mg PO BID 08/06/23 10/26/23 History aspirin 81 mg tablet,delayed 81 mg PO MOWEFR 08/06/23 10/26/23 History release baclofen 10 mg tablet 10 mg PO HS 08/06/23 10/26/23 History mirtazapine 30 mg tablet 45 mg PO HS 08/06/23 10/26/23 History nitroglycerin 0.4 mg sublingual 0.4 mg sublingual DIRECTED PRN 08/06/23 10/26/23 History tablet (Nitrostat) .Ccest pain ropinirole 0.5 mg tablet 0.5 mg PO HS 08/06/23 10/26/23 History sennosides 8.6 mg-docusate sodium 1 tab-cap PO HS 08/06/23 10/26/23 History 50 mg tablet (Senna with Docusate Sodium) umeclidinium 62.5 mcg/actuation 1 inh inhalation QAM 08/06/23 10/26/23 History blister powder for inhalation (Incruse Ellipta) dexamethasone 4 mg tablet 4 mg PO DIRECTED .when gets 10/26/23 10/26/23 History chemo duloxetine 30 mg capsule,delayed 30 mg PO QAM 10/26/23 10/26/23 History release losartan 50 mg tablet 50 mg PO QAM 10/26/23 10/26/23 History oxycodone 5 mg tablet 5 mg PO Q4 PRN .severe pain 10/26/23 10/26/23 History pantoprazole 40 mg tablet,delayed 40 mg PO DAILY 10/26/23 10/26/23 History release rosuvastatin 20 mg tablet 20 mg PO QAM 10/26/23 10/26/23 History Patient History Medical History (Updated 10/27/23 @ 15:24 by Dmitriy Vance MD) Acute hypoxic respiratory failure Chronic kidney disease Atrial fibrillation Insomnia Diastolic CHF COPD (chronic obstructive pulmonary disease) Carotid artery stenosis Hypertension BPH (benign prostatic hyperplasia) Coronary artery disease DDD (degenerative disc disease), lumbar Edema, lower extremity Dyslipidemia Hyponatremia Hypothyroidism Lumbar radiculopathy Osteoarthritis Peripheral vascular disease Surgical History (Updated 03/11/23 @ 10:47 by Arin Aparicio RN) History of surgery Right ankle surgery History of carpal tunnel surgery Left History of surgery Lumbar spine surgery History of cataract surgery Bilateral S/P CABG x 5 S/P bronchoscopy 02/10/23 Family History (Updated 03/11/23 @ 10:15 by Arin Aparicio, RN) Mother , in her 50s MVA (motor vehicle accident) Depression Anxiety Father , 46yo Myocardial infarction Brother Heart disease during stress test Sister No problems noted. Sister Diabetes Sister Diabetes Sister Heart disease Son No problems noted. Son Stroke Son No problems noted. 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 No additions or deletions Physical Exam Constitutional: weak, frail gentleman, conversational dyspnea Respiratory: notable expiratory rhonchi, diminished bibasilar breath sounds Cardiovascular: irregularly irregular Gastrointestinal (Abdomen): normal bowel sounds, soft, nontender, no hepatosplenomegaly Skin: trace edema, R>L lower extremity, reportedly chronic Results & Data Results & Data Vital Signs (Past 12 Hours) Vital Signs Temp Pulse Resp BP Pulse Ox O2 Del Method O2 Flow Rate 10/27/23 11:22 36.6 C 79 22 172/87 H 90 High Flow Nasal Cannula 35 10/27/23 10:32 88 18 90 High Flow Nasal Cannula 35 10/27/23 08:15 91 H 28 H 95 High Flow Nasal Cannula 35 10/27/23 07:51 36.7 C 103 H 22 179/88 H 92 High Flow Nasal Cannula 10 10/27/23 07:20 High Flow Nasal Cannula 11 10/27/23 07:16 80 20 90 Nasal Cannula 8 10/27/23 03:23 37.0 C 74 18 165/70 H 92 Nasal Cannula 2 FiO2 10/27/23 11:22 60 10/27/23 10:32 55 10/27/23 08:15 60 10/27/23 07:51 10/27/23 07:20 10/27/23 07:16 10/27/23 03:23 Critical Care Results & Data Vital Signs (Past 12 Hours) Vital Signs Temp Pulse Resp BP Pulse Ox O2 Del Method O2 Flow Rate 10/27/23 11:22 36.6 C 79 22 172/87 H 90 High Flow Nasal Cannula 35 10/27/23 10:32 88 18 90 High Flow Nasal Cannula 35 10/27/23 08:15 91 H 28 H 95 High Flow Nasal Cannula 35 10/27/23 07:51 36.7 C 103 H 22 179/88 H 92 High Flow Nasal Cannula 10 10/27/23 07:20 High Flow Nasal Cannula 11 10/27/23 07:16 80 20 90 Nasal Cannula 8 FiO2 10/27/23 11:22 60 10/27/23 10:32 55 10/27/23 08:15 60 10/27/23 07:51 10/27/23 07:20 10/27/23 07:16 Lab & Micro Results (Past 24 Hours) RBC 3.57 M/uL (4.70-6.10) L 10/27/23 WBC 8.57 K/ul (4.8-10.8) 10/27/23 Hgb 9.7 g/dl (14.0-18.0) L 10/27/23 Hct 30.3 % (42.0-52.0) L 10/27/23 MCV 84.9 fL (80.0-100.0) 10/27/23 MCH 27.2 pg (25.0-34.0) 10/27/23 MCHC 32.0 g/dL (32.0-36.0) 10/27/23 RDW Standard Deviation 49.8 fL (36.4-46.3) H 10/27/23 RDW Coefficient of Variation 15.9 % (11.5-14.5) H 10/27/23 Plt Count 131 K/uL (130-400) 10/27/23 MPV 9.5 fL (9.4-12.4) 10/27/23 Na 136 mmol/L (136-145) 10/27/23 K 4.6 mmol/L (3.5-5.1) 10/27/23 Cl 101 mmol/L (98-107) 10/27/23 CO2 30 mmol/L (21-32) 10/27/23 Anion Gap 5 (3-11) 10/27/23 BUN 30 mg/dl (6-23) H 10/27/23 Creatinine 1.11 mg/dl (0.6-1.4) 10/27/23 Estimated GFR ( Amer) 70.3 ml/min 10/27/23 Estimated GFR (Non-Af Amer) 60.7 ml/min 10/27/23 BUN/Creatinine Ratio 27.0 (10-20) H 10/27/23 Glu 95 mg/dl (70-99(Fasting)) 10/27/23 Ca 8.6 mg/dl (8.6-10.3) 10/27/23 Calcium Level 8.6 mg/dl (8.6-10.3) 10/27/23 05:42 Microbiology 10/27/23 01:25 Gram Stain - Final Sputum, Expectorated 10/25/23 22:31 Aerobic Blood Culture - Preliminary Blood No growth in Aerobic bottle after 24 hours. Anaerobic Blood Culture - Preliminary No growth in Anaerobic bottle after 24 hours. 10/25/23 20:40 Aerobic Blood Culture - Preliminary Blood No growth in Aerobic bottle after 24 hours. Anaerobic Blood Culture - Preliminary No growth in Anaerobic bottle after 24 hours. I & O Totals 24 Hours 10/26/23 10/27/23 10/28/23 06:59 06:59 06:59 Intake Total 1200 / 1200 1000 / 1000 240 / 240 Output Total 300 / 300 Balance 1200 / 1200 1000 / 1000 -60 / -60 Cumulative 10/25/23 19:53 thru 10/27/23 14:27 Intake Total 2440 Output Total 300 Balance 2140 RT Ventilator Mngmt (Last Documented) Ventilator Ordered Settings Respiratory Rate 22 10/27/23 11:22 Fraction of Inspired Oxygen 60 10/27/23 11:22 Ventilator - PT Measurements Respiratory Rate 22 PG Care Time/CCT Total # of Minutes Spent Total Time Spent with Patient: Total time spent is greater than 50% in coordination of care (as documented) at patient's floor/unit and/or counseling patient: Coding Level of Care Code 15343 CRITICAL CARE 1ST 30-74M Diagnoses Shortness of breath on exertion R06.02 Metastatic primary lung cancer C34.90 Hemoptysis R04.2
[2023-10-27] MEDS: OPTIRAY 320 125ml IV ONE (16:35)
--- NOTE | 2023-10-27 16:37 | Electrocardiogram Report ---
Test Reason : Blood Pressure : / mmHG Vent. Rate : 074 BPM Atrial Rate : 312 BPM P-R Int : 000 ms QRS Dur : 102 ms QT Int : 390 ms P-R-T Axes : 000 101 -27 degrees QTc Int : 432 ms Atrial fibrillation Rightward axis Abnormal ECG When compared with ECG of 26-OCT-2023 03:34, Vent. rate has increased BY 26 BPM Questionable change in QRS axis T wave inversion now evident in Inferior leads Nonspecific T wave abnormality no longer evident in Anterolateral leads Confirmed by Italo Vega ([id number]) on 10/27/2023 4:36:42 PM Referred By: REFERRED SELF Confirmed By:Italo Vega
[2023-10-27] MEDS: methylPREDNISolone 125 MG in SYRINGE 0 ML IV SCH (16:52)
--- NOTE | 2023-10-27 17:03 | CT Scan Report ---
CT ANGIOGRAPHY OF THE CHEST, PULMONARY EMBOLUS PROTOCOL CLINICAL HISTORY: Dyspnea. Lung cancer. Evaluate for pulmonary embolus. COMPARISON STUDY: Chest radiograph October 25, 2023. PET/CT February 25, 2023. Chest CT August 06, 2023. TECHNIQUE: Following IV administration of Optiray, helical axial images of the chest were obtained ut ilizing the pulmonary embolus protocol. Maximal intensity projections and sagittal and coronal refor mats were viewed on an independent 3D workstation. IV contrast was administered without complication . Automated exposure control was utilized for the study. A dose lowering technique was utilized adh ering to the principles of ALARA. CT DOSE: 805.53 mGy.cm FINDINGS: No pulmonary emboli are identified. There is moderate cardiomegaly and coronary artery kenneth cification. There are median sternotomy wires and postoperative findings from bypass grafting. No per icardial effusion is present. A large right pleural effusion is noted. There is a small left pleural effusion. No pneumothorax is present. The previously identified right upper lobe mass is not well vis ualized on this exam. This suggests a treatment response. Right upper lobe volume loss with moderate airspace opacity is present. Right upper lobe aeration has improved since CT of August 06, 2023. Occlus ion of the right upper lobe bronchus has improved with residual narrowing. Several mildly enlarged ri ght upper mediastinal lymph nodes measure up to 1.5 x 1.3 cm. These are similar to prior CT. Extensiv e airspace opacities throughout the lungs are noted, including multifocal consolidation within the le ft upper and left lower lobes. No cavitation is present. No suspicious lesions within the bony thorax are noted. A medial segment left hepatic lobe cyst is incidentally noted. A right renal cyst is inci dentally noted IMPRESSION: 1. No pulmonary emboli identified. 2. Large right pleural effusion. Small left pleural effusion. 3. Extensive airspace opacities throughout the lungs. Pneumonia is favored however other potential et iologies include treatment related pneumonitis in the correct clinical setting, pulmonary edema or pu lmonary hemorrhage. 4. Decrease in size of the known right upper lobe mass with improvement in airway narrowing and right upper lobe aeration. 5. No change in several mildly enlarged right upper mediastinal lymph nodes. ACT 112: Negative or not required by law. Electronically signed by: Inocencio Villareal M.D. 10/27/2023 5:01 PM
[2023-10-28] MEDS: hydrALAZINE HCL 20 MG/ML VIAL IV STA (06:45)
[2023-10-28 06:51] LABS: Hematocrit (blood only) 28.9 % (42.0-52.0); Hemoglobin 9.4 g/dl (14.0-18.0); Mean Corpuscular Hemoglobin 27.5 pg (25.0-34.0); Mean Corpuscular Hgb Conc 32.5 g/dL (32.0-36.0); Mean Corpuscular Volume 84.5 fL (80.0-100.0); Platelet Count 127 K/uL (130-400); RDW Coefficient of Variation 15.9 % (11.5-14.5); RDW Standard Deviation 48.9 fL (36.4-46.3); Red Blood Count 3.42 M/uL (4.70-6.10); White Blood Count 6.36 K/ul (4.8-10.8)
[2023-10-28 07:00] LABS: Calcium 8.8 mg/dl (8.6-10.3); Creatinine Clr Calc Pharmacy 56.3 ml/min; Est GFR (African American) 90.6 ml/min; Est GFR (Non-African American) 78.2 ml/min; Magnesium 2.1 mg/dl (1.7-2.4); Phosphorus 3.1 mg/dl (2.5-4.9); Potassium 4.8 mmol/L (3.5-5.1)
[2023-10-28] MEDS: hydrALAZINE HCL 20 MG/ML VIAL IV PRN (08:07)
[2023-10-28] MEDS: FUROSEMIDE INJ 20 MG/2 ML VIAL IV SCH (08:07)
[2023-10-28] MEDS: LOSARTAN POTASSIUM 50 MG TAB PO SCH (08:10)
--- NOTE | 2023-10-28 10:00 | Palliative Care Consultation ---
Date of Consultation October 28, 2023 Assessment & Plan (1) Dyspnea and respiratory abnormalities: Rising HFNC needs, worsening resp dynamics (2) Weakness generalized: (3) Advanced care planning/counseling discussion: Face to face with pt at bedside for [address] Laboy/[facility] resident He is awake and alert but easily distracted he was able to recall events leading to admission - worsening SOB, oxygen needs, prior d/w OSH oncology re pneumonitis and initial CT at [facility], now worsening. He feels "ok" on current HFNC but was unaware the FiO2 was increasing and he has worsening resp status I asked him if he would want us to perform CPR/intubate him if things became wo rse as these complications from cancer/cancer therapy progress and he replied he would not want to be placed on machines and added "I wouldn't things to go that far, that's not going to do any good." Throughout the visit with pt, I revisited code status 3 separate times and he consistently chose DNR/DNI. He was able to recall conversation with [facility] oncology about the concern of lung toxicity from Imfinzi but he did not recall being told things were worsening. He also perceives "everything's fine now, I just need to get out of this bed and go home." He was not delirious but had trouble staying focused and tired easily. Mr. Yarbrough gave permission for his son to be contacted and updated. (4) Palliative care by specialist: Plan * I called his son Aaron Yarbrough and [facility] requesting call back. * Patient affirms a DNR/DNI election and while he is not delirious, I feel he is borderline for decisional capacity though he did repeatedly and consistently elect DNR/DNI when the questions were revisited throughout our visit. I would prefer we review these decisions with his son /SDM before formalizing code status change and I have asked son to call me urgently given patient's tenuous status. * Nursing and Dr Campos updated Thank you for allowing us to participate in the ongoing care of this patient. Please don't hesitate to call or page with any additional concerns. Dr. Katie Edmond DNP Director, Palliative Care History of Present Illness Reason for Consultation: goals of care Attending Physician: Radha Campos MD History of Present Illness Mr. 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 He presented from home with BROWNE, worsening SOB with reported hypoxia at home, SpO2's into the 80s. Imaging demonstrates worsening pneumonitis likely attributed to Imfinizi and +PNA he is now on HFNC with worsening oxygen needs and rising FiO2. He is seen bedside, no family present. PMH: chronic diastolic heart failure (55 to 59%, TTE 2021), CAD s/p CABG, valvular heart disease (moderate to severe MR, mild to moderate MR, TTE 2021), PVD s/p surgery, Afib/on Eliquis, PHTN, HLD, COPD/RLD; NSCLC s/p chemoradiation ongoing immunotherapy, recurrent right pleural effusion, pancreatic tumor, hypothyroidism, BPH, chronic anemia (baseline hemoglobin 9-10), mood disorder, former tobacco abuse. Allergies Allergy/AdvReac Type Severity Reaction Status Date / Time No Known Allergies Allergy Unverified 10/26/23 00:36 Home Medications Medication Instructions Recorded Confirmed Type albuterol sulfate 90 mcg/actuation 2 puff inhalation Q6H PRN 03/11/23 10/26/23 History aerosol inhaler Shortness Of Breath Or Wheezing dutasteride 0.5 mg capsule 0.5 mg PO DAILY 03/11/23 10/26/23 History ipratropium 0.5 mg-albuterol 3 mg 3 ml inhalation Q6H PRN Shortness 03/11/23 10/26/23 History (2.5 mg base)/3 mL nebulization Of Breath Or Wheezing soln levothyroxine 112 mcg capsule 112 mcg PO DAILY 03/11/23 10/26/23 History mecobalamin (vitamin B12) 10,000 1,000 mcg IM MONTHLY 03/11/23 10/26/23 History mcg solution for injection ondansetron HCl 8 mg tablet 8 mg PO Q8H PRN Nausea 03/11/23 10/26/23 History prochlorperazine maleate 10 mg 10 mg PO Q6H PRN Nausea 03/11/23 10/26/23 History tablet (Compazine) tamsulosin 0.4 mg capsule 0.4 mg PO BID 03/11/23 10/26/23 History torsemide 20 mg tablet 20 mg PO DAILY 03/11/23 10/26/23 History amlodipine 5 mg tablet 5 mg PO QAM 08/06/23 10/26/23 History apixaban 2.5 mg tablet (Eliquis) 2.5 mg PO BID 08/06/23 10/26/23 History aspirin 81 mg tablet,delayed 81 mg PO MOWEFR 08/06/23 10/26/23 History release baclofen 10 mg tablet 10 mg PO HS 08/06/23 10/26/23 History mirtazapine 30 mg tablet 45 mg PO HS 08/06/23 10/26/23 History nitroglycerin 0.4 mg sublingual 0.4 mg sublingual DIRECTED PRN 08/06/23 10/26/23 History tablet (Nitrostat) .Ccest pain ropinirole 0.5 mg tablet 0.5 mg PO HS 08/06/23 10/26/23 History sennosides 8.6 mg-docusate sodium 1 tab-cap PO HS 08/06/23 10/26/23 History 50 mg tablet (Senna with Docusate Sodium) umeclidinium 62.5 mcg/actuation 1 inh inhalation QA 08/06/23 10/26/23 History blister powder for inhalation (Incruse Ellipta) dexamethasone 4 mg tablet 4 mg PO DIRECTED .when gets 10/26/23 10/26/23 History chemo duloxetine 30 mg capsule,delayed 30 mg PO QAM 10/26/23 10/26/23 History release losartan 50 mg tablet 50 mg PO QAM 10/26/23 10/26/23 History oxycodone 5 mg tablet 5 mg PO Q4 PRN .severe pain 10/26/23 10/26/23 History pantoprazole 40 mg tablet,delayed 40 mg PO DAILY 10/26/23 10/26/23 History release rosuvastatin 20 mg tablet 20 mg PO QAM 10/26/23 10/26/23 History Patient History Medical History (Updated 10/27/23 @ 15:24 by Dmitriy Vance MD) Acute hypoxic respiratory failure Chronic kidney disease Atrial fibrillation Insomnia Diastolic CHF COPD (chronic obstructive pulmonary disease) Carotid artery stenosis Hypertension BPH (benign prostatic hyperplasia) Coronary artery disease DDD (degenerative disc disease), lumbar Edema, lower extremity Dyslipidemia Hyponatremia Hypothyroidism Lumbar radiculopathy Osteoarthritis Peripheral vascular disease Surgical History (Updated 10/05/23 @ 10:47 by Arin Aparicio RN) History of surgery Right ankle surgery History of carpal tunnel surgery Left History of surgery Lumbar spine surgery History of cataract surgery Bilateral S/P CABG x 5 S/P bronchoscopy 02/10/23 Family History (Updated 03/11/23 @ 10:15 by Arin Aparicio, RN) Mother , in her 50s MVA (motor vehicle accident) Depression Anxiety Father , 46yo Myocardial infarction Brother Heart disease during stress test Sister No problems noted. Sister Diabetes Sister Diabetes Sister Heart disease Son No problems noted. Son Stroke Son No problems noted. 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 How many Children do You have: 3 Feels Safe at Home: Yes Diet: regular caffeine: Yes (4 cups/day) during the past year weight has: remained stable Assistive Devices: Oxygen - Continuous Review of Systems Review of Systems: See HPI Physical Exam Constitutional: + ill appearing, + thin, + frail appeari ng, + in distress and + underweight Eyes: PERRL, conjunctivae normal, anicteric sclerae ENMT: HFNC in place MM dry Neck: normal visual inspection and trachea midline no stridor Respiratory: increased effort with use of accessory muscles, +conversational dyspnea diminished breath sounds, crackles throughout, faint wheezing Cardiovascular: tachy S1S2, faint murmur Gastrointestinal (Abdomen): BS+, softly distended, NTP Musculoskeletal: generalized weakness Skin: skin diaphoretic, cool to touch BLE trace edema to ankles No pretibial tenderness Neurologic: Awake and alert easily distracted Results & Data Vital Signs (Past 12 Hours) Vital Signs Temp Pulse Resp BP Pulse Ox O2 Del Method O2 Flow Rate 10/28/23 07:06 76 17 94 High Flow Nasal Cannula 30 10/28/23 06:27 186/93 H 10/28/23 02:55 36.6 C 51 L 20 171/77 H 100 BiPAP 30 10/28/23 02:52 59 L 18 90 High Flow Nasal Cannula 30 10/27/23 23:52 71 20 90 High Flow Nasal Cannula 35 10/27/23 22:38 36.8 C 81 18 158/79 H 93 High Flow Nasal Cannula FiO2 10/28/23 07:06 80 10/28/23 06:27 10/28/23 02:55 10/28/23 02:52 90 10/27/23 23:52 70 10/27/23 22:38 Laboratory Results 10/28/23 10/27/23 10/26/23 Range/Units 05:41 05:42 Unknown WBC 6.36 8.57 (4.8-10.8) K/ul RBC 3.42 L 3.57 L (4.70-6.10) M/uL Hgb 9.4 L 9.7 L (14.0-18.0) g/dl Hct 28.9 L 30.3 L (42.0-52.0) % MCV 84.5 84.9 (80.0-100.0) fL MCH 27.5 27.2 (25.0-34.0) pg MCHC 32.5 32.0 (32.0-36.0) g/dL RDW Std Deviation 48.9 H 49.8 H (36.4-46.3) fL RDW Coeff of Carlitos 15.9 H 15.9 H (11.5-14.5) % Plt Count 127 L 131 (130-400) K/uL MPV 9.0 L 9.5 (9.4-12.4) fL Immature Gran % (Auto) % Neut % (Auto) % Lymph % (Auto) % Dickenson % (Auto) % Eos % (Auto) % Baso % (Auto) % Neut # (Auto) (1.40-6.50) K/uL Lymph # (Auto) (1.20-3.40) K/uL Dickenson # (Auto) (0.11-0.59) K/uL Eos # (Auto) (0.00-0.50) K/uL Baso # (Auto) (0.00-0.20) K/uL Immature Gran # (Auto) (0.01-0.20) K/uL Ovalocytes PT (9.0-12.0) Seconds INR (0.9-1.1) VBG pH (7.36-7.41) VBG pCO2 (38-50) mmHg VBG pO2 mmHg VBG HCO3 mmol/L VBG O2 Saturation % VBG Base Excess mEq/L Sodium 135 L 136 (136-145) mmol/L Potassium 4.8 4.6 (3.5-5.1) mmol/L Chloride 102 101 (98-107) mmol/L Carbon Dioxide 28 30 (21-32) mmol/L Anion Gap 5 5 (3-11) BUN 27 H 30 H (6-23) mg/dl Creatinine 0.90 1.11 D (0.6-1.4) mg/dl Est Cr Clr Drug Dosing 56.3 46.3 ml/min Est GFR ( Amer) 90.6 70.3 ml/min Est GFR (Non-Af Amer) 78.2 60.7 ml/min BUN/Creatinine Ratio 30.0 H 27.0 H (10-20) Glucose 138 H 95 (70-99(Fasting)) mg/dl Estimat Average Glucose mg/dl Hemoglobin A1c (4.5-5.6) % Osmolality (280-300) mOsm/kg Lactate (0.4-2.0) mmol/L Calcium 8.8 8.6 (8.6-10.3) mg/dl Phosphorus 3.1 (2.5-4.9) mg/dl Magnesium 2.1 (1.7-2.4) mg/dl Total Bilirubin (0.2-1.0) mg/dl AST (13-39) U/L ALT (7-52) U/L Alkaline Phosphatase (34-104) U/L Troponin I High Sens 32.5 H D (0-20) pg/ml B-Natriuretic Peptide (0-100) pg/ml Total Protein (6.0-8.3) gm/dl Albumin (3.4-5.0) gm/dl Globulin (2.5-4.0) gm/dl Albumin/Globulin Ratio (0.9-2) Procalcitonin (0-0.5) ng/ml TSH 24.937 H (0.300-4.500) uIu/ml Free T4 0.98 (0.61-1.60) ng/dl Urine Color Yellow Urine Appearance Clear (Clear) Urine pH 5.0 (4.5-7.5) Ur Specific [place] 1.020 (1.000-1.030) Urine Protein Trace H (Negative) Urine Glucose (UA) Negative (Negative) Urine Ketones Trace H (Negative) Urine Blood Negative (Negative) Urine Nitrite Negative (Negative) Urine Bilirubin Negative (Negative) Urine Urobilinogen Negative (Negative) Ur Leukocyte Esterase Trace H (Negative) Urine WBC (Auto) 0-5 (0-5) /hpf Urine RBC (Auto) 0-2 (0-2) /hpf U Hyaline Cast (Auto) 3-5 H (0-2) /lpf U Epithel Cells (Auto) 0-2 (0-2) /hpf Urine Bacteria (Auto) None Seen (None Seen) Hyaline Casts Present A (None Presnt) /lpf Urine Osmolality 493 L (500-800) mOsm/kg Ur Random Sodium 12 mmol/L Nasal Screen MRSA (PCR) (Negative) Adenovirus (PCR) (NotDetected) B. pertussis DNA (PCR) (NotDetected) B.parapertussis DNA PCR (NotDetected) C. pneumoniae DNA (PCR) (NotDetected) Coronavirus OC43 (PCR) (NotDetected) Coronavirus HKU1 (PCR) (NotDetected) Coronavirus 229E (PCR) (NotDetected) SARS-CoV-2 (PCR) (NotDetected) Coronavirus NL63 (PCR) (NotDetected) Human Metapneumovir PCR (NotDetected) Influenza Type A (PCR) (NotDetected) Influenza Type B (PCR) (NotDetected) M. pneumoniae (PCR) (NotDetected) Parainfluenza 1 (PCR) (NotDetected) Parainfluenza 2 (PCR) (NotDetected) Parainfluenza 3 (PCR) (NotDetected) Parainfluenza 4 (PCR) (NotDetected) RSV (PCR) (NotDetected) Entero/Rhino (PCR) (NotDetected) 05/21/24 05/21/24 05/20/24 Range/Units 06:35 01:00 Unknown WBC 7.47 (4.8-10.8) K/ul RBC 3.43 L (4.70-6.10) M/uL Hgb 9.4 L (14.0-18.0) g/dl Hct 29.4 L (42.0-52.0) % MCV 85.7 (80.0-100.0) fL MCH 27.4 (25.0-34.0) pg MCHC 32.0 (32.0-36.0) g/dL RDW Std Deviation 49.3 H (36.4-46.3) fL RDW Coeff of Carlitos 15.8 H (11.5-14.5) % Plt Count 114 L (130-400) K/uL MPV 9.5 (9.4-12.4) fL Immature Gran % (Auto) 0.8 % Neut % (Auto) 91.7 % Lymph % (Auto) 3.7 % Dickenson % (Auto) 3.7 % Eos % (Auto) 0.0 % Baso % (Auto) 0.1 % Neut # (Auto) 6.84 H (1.40-6.50) K/uL Lymph # (Auto) 0.28 L (1.20-3.40) K/uL Dickenson # (Auto) 0.28 (0.11-0.59) K/uL Eos # (Auto) 0.00 (0.00-0.50) K/uL Baso # (Auto) 0.01 (0.00-0.20) K/uL Immature Gran # (Auto) 0.06 (0.01-0.20) K/uL Ovalocytes 1+ PT (9.0-12.0) Seconds INR (0.9-1.1) VBG pH (7.36-7.41) VBG pCO2 (38-50) mmHg VBG pO2 mmHg VBG HCO3 mmol/L VBG O2 Saturation % VBG Base Excess mEq/L Sodium 132 L (136-145) mmol/L Potassium 4.6 (3.5-5.1) mmol/L Chloride 98 (98-107) mmol/L Carbon Dioxide 29 (21-32) mmol/L Anion Gap 5 (3-11) BUN 39 H (6-23) mg/dl Creatinine 1.56 H (0.6-1.4) mg/dl Est Cr Clr Drug Dosing 33.0 ml/min Est GFR ( Amer) 46.6 ml/min Est GFR (Non-Af Amer) 40.2 ml/min BUN/Creatinine Ratio 25.0 H (10-20) Glucose 146 H (70-99(Fasting)) mg/dl Estimat Average Glucose 111 mg/dl Hemoglobin A1c 5.5 (4.5-5.6) % Osmolality (280-300) mOsm/kg Lactate (0.4-2.0) mmol/L Calcium 7.9 L (8.6-10.3) mg/dl Phosphorus (2.5-4.9) mg/dl Magnesium (1.7-2.4) mg/dl Total Bilirubin (0.2-1.0) mg/dl AST (13-39) U/L ALT (7-52) U/L Alkaline Phosphatase (34-104) U/L Troponin I High Sens 58.8 H* (0-20) pg/ml B-Natriuretic Peptide (0-100) pg/ml Total Protein (6.0-8.3) gm/dl Albumin (3.4-5.0) gm/dl Globulin (2.5-4.0) gm/dl Albumin/Globulin Ratio (0.9-2) Procalcitonin (0-0.5) ng/ml TSH (0.300-4.500) uIu/ml Free T4 (0.61-1.60) ng/dl Urine Color Urine Appearance (Clear) Urine pH (4.5-7.5) Ur Specific [place] (1.000-1.030) Urine Protein (Negative) Urine Glucose (UA) (Negative) Urine Ketones (Negative) Urine Blood (Negative) Urine Nitrite (Negative) Urine Bilirubin (Negative) Urine Urobilinogen (Negative) Ur Leukocyte Esterase (Negative) Urine WBC (Auto) (0-5) /hpf Urine RBC (Auto) (0-2) /hpf U Hyaline Cast (Auto) (0-2) /lpf U Epithel Cells (Auto) (0-2) /hpf Urine Bacteria (Auto) (None Seen) Hyaline Casts (None Presnt) /lpf Urine Osmolality (500-800) mOsm/kg Ur Random Sodium mmol/L Nasal Screen MRSA (PCR) Negative (Negative) Adenovirus (PCR) Not Detected (NotDetected) B. pertussis DNA (PCR) Not Detected (NotDetected) B.parapertussis DNA PCR Not Detected (NotDetected) C. pneumoniae DNA (PCR) Not Detected (NotDetected) Coronavirus OC43 (PCR) Not Detected (NotDetected) Coronavirus HKU1 (PCR) Not Detected (NotDetected) Coronavirus 229E (PCR) Not Detected (NotDetected) SARS-CoV-2 (PCR) Not Detected (NotDetected) Coronavirus NL63 (PCR) Not Detected (NotDetected) Human Metapneumovir PCR Not Detected (NotDetected) Influenza Type A (PCR) Not Detected (NotDetected) Influenza Type B (PCR) Not Detected (NotDetected) M. pneumoniae (PCR) Not Detected (NotDetected) Parainfluenza 1 (PCR) DETECTED A (NotDetected) Parainfluenza 2 (PCR) Not Detected (NotDetected) Parainfluenza 3 (PCR) Not Detected (NotDetected) Parainfluenza 4 (PCR) Not Detected (NotDetected) RSV (PCR) Not Detected (NotDetected) Entero/Rhino (PCR) Not Detected (NotDetected) 10/25/23 10/25/23 10/25/23 Range/Units 22:31 21:12 20:40 WBC 5.10 (4.8-10.8) K/ul RBC 3.69 L (4.70-6.10) M/uL Hgb 10.2 L (14.0-18.0) g/dl Hct 31.2 L (42.0-52.0) % MCV 84.6 (80.0-100.0) fL MCH 27.6 (25.0-34.0) pg MCHC 32.7 (32.0-36.0) g/dL RDW Std Deviation 48.1 H (36.4-46.3) fL RDW Coeff of Carlitos 15.5 H (11.5-14.5) % Plt Count 143 (130-400) K/uL MPV 9.1 L (9.4-12.4) fL Immature Gran % (Auto) 0.4 % Neut % (Auto) 89.0 % Lymph % (Auto) 3.1 % Dickenson % (Auto) 7.1 % Eos % (Auto) 0.2 % Baso % (Auto) 0.2 % Neut # (Auto) 4.54 (1.40-6.50) K/uL Lymph # (Auto) 0.16 L (1.20-3.40) K/uL Dickenson # (Auto) 0.36 (0.11-0.59) K/uL Eos # (Auto) 0.01 (0.00-0.50) K/uL Baso # (Auto) 0.01 (0.00-0.20) K/uL Immature Gran # (Auto) 0.02 (0.01-0.20) K/uL Ovalocytes PT 11.6 (9.0-12.0) Seconds INR 1.1 (0.9-1.1) VBG pH 7.38 (7.36-7.41) VBG pCO2 50 (38-50) mmHg VBG pO2 34 mmHg VBG HCO3 30 mmol/L VBG O2 Saturation < 60.0 % VBG Base Excess 3.4 mEq/L Sodium 132 L (136-145) mmol/L Potassium 4.7 (3.5-5.1) mmol/L Chloride 98 (98-107) mmol/L Carbon Dioxide 29 (21-32) mmol/L Anion Gap 5 (3-11) BUN 38 H (6-23) mg/dl Creatinine 1.60 H (0.6-1.4) mg/dl Est Cr Clr Drug Dosing 32.1 ml/min Est GFR ( Amer) 45.2 ml/min Est GFR (Non-Af Amer) 39.0 ml/min BUN/Creatinine Ratio 23.8 H (10-20) Glucose 125 H (70-99(Fasting)) mg/dl Estimat Average Glucose mg/dl Hemoglobin A1c (4.5-5.6) % Osmolality 282 (280-300) mOsm/kg Lactate 0.9 (0.4-2.0) mmol/L Calcium 7.8 L (8.6-10.3) mg/dl Phosphorus (2.5-4.9) mg/dl Magnesium 2.1 (1.7-2.4) mg/dl Total Bilirubin 0.4 (0.2-1.0) mg/dl AST 19 (13-39) U/L ALT 13 (7-52) U/L Alkaline Phosphatase 83 (34-104) U/L Troponin I High Sens 53.6 H* D 35.2 H (0-20) pg/ml B-Natriuretic Peptide 282 H (0-100) pg/ml Total Protein 5.6 L (6.0-8.3) gm/dl Albumin 3.2 L (3.4-5.0) gm/dl Globulin 2.4 L (2.5-4.0) gm/dl Albumin/Globulin Ratio 1.3 (0.9-2) Procalcitonin 0.33 (0-0.5) ng/ml TSH 16.100 H (0.300-4.500) uIu/ml Free T4 0.93 (0.61-1.60) ng/dl Urine Color Urine Appearance (Clear) Urine pH (4.5-7.5) Ur Specific [place] (1.000-1.030) Urine Protein (Negative) Urine Glucose (UA) (Negative) Urine Ketones (Negative) Urine Blood (Negative) Urine Nitrite (Negative) Urine Bilirubin (Negative) Urine Urobilinogen (Negative) Ur Leukocyte Esterase (Negative) Urine WBC (Auto) (0-5) /hpf Urine RBC (Auto) (0-2) /hpf U Hyaline Cast (Auto) (0-2) /lpf U Epithel Cells (Auto) (0-2) /hpf Urine Bacteria (Auto) (None Seen) Hyaline Casts (None Presnt) /lpf Urine Osmolality (500-800) mOsm/kg Ur Random Sodium mmol/L Nasal Screen MRSA (PCR) (Negative) Adenovirus (PCR) (NotDetected) B. pertussis DNA (PCR) (NotDetected) B.parapertussis DNA PCR (NotDetected) C. pneumoniae DNA (PCR) (NotDetected) Coronavirus OC43 (PCR) (NotDetected) Coronavirus HKU1 (PCR) (NotDetected) Coronavirus 229E (PCR) (NotDetected) SARS-CoV-2 (PCR) (NotDetected) Coronavirus NL63 (PCR) (NotDetected) Human Metapneumovir PCR (NotDetected) Influenza Type A (PCR) (NotDetected) Influenza Type B (PCR) (NotDetected) M. pneumoniae (PCR) (NotDetected) Parainfluenza 1 (PCR) (NotDetected) Parainfluenza 2 (PCR) (NotDetected) Parainfluenza 3 (PCR) (NotDetected) Parainfluenza 4 (PCR) (NotDetected) RSV (PCR) (NotDetected) Entero/Rhino (PCR) (NotDetected) Diagnostic Findings Chest CT 10/19/23 at [facility]: CT CHEST W CONTRAST DATE TIME: 10/19/2023 - 10/19/2023 11:54 am HISTORY 83 y/o M Rul nsclc, receiving immunotherapy, restaging scans, increased shortness of breath, f/u consolidative changes in the right upper and lower lobes TECHNIQUE CT chest was performed without IV contrast COMPARISON CT chest 08/24/2023. FINDINGS LUNGS AND LARGE AIRWAYS: Patent central airways. Previously occluded right upper lobe bronchus is now patent. Previously reported right perihilar/suprahilar mass is not well delineated due to adjacent consolidative changes but appears to measure approximately 3.0 x 2.2 cm, difficult to compare to the most recent noncontrast exam but slightly decreased in size compared to 08/06/2023 when it measured 3.2 x 2.6 cm (8, 128). Bandlike consolidative changes extend from the right hilum to the anterior/anterolateral right upper lobe pleural surface with associated bronchiectasis. Bandlike consolidative changes also extend into the right lower lobe with associated bronchiectasis. Overall, there is improved aeration in the right upper lobe compared to the prior exam, with mild residual right upper lobe ground-glass densities and mild interlobular septal thickening in the aerated portion of the right upper lobe. Additionally there is persistent consolidation in the anterior aspect of the right upper lobe (for example 8, 98). A left upper lobe nodule measures 5 millimeters, not significantly changed (8, 66). A medial right lower lobe nodule measures 3 millimeters, not significantly changed (8, 290). A subpleural right middle lobe nodule measures 3 millimeters, not significantly changed (8, 124). A left upper lobe nodule measures 3 millimeters, not significantly changed (8, 115). A left lower lobe nodule measures 3 millimeters, not significantly changed (8, 254). A left lower lobe nodule measures 3 millimeters, not significantly changed (8, 298). PLEURA: Small to moderate partially loculated right pleural effusion, decreased in size compared to the prior exam. VESSELS: Normal caliber thoracic aorta and main pulmonary artery. Atherosclerotic changes of the aorta. Status post CABG. HEART: Enlarged left atrium. No pericardial effusion. MEDIASTINUM AND GENESIS: Right perihilar/suprahilar mass as described above. A few prominent to mildly enlarged right upper paratracheal lymph nodes measure up to 12 millimeters in short axis, not significantly changed (8, 66). CHEST WALL AND LOWER NECK: Bilateral gynecomastia. VISUALIZED UPPER ABDOMEN: Small hepatic cyst. Additional subcentimeter hypodense hepatic foci are too small to characterize. Small bilateral renal cysts. A cystic pancreatic neck lesion measures 1 cm, not significantly changed dating back to 05/13/2023 when it measured approximately 0.8 cm (8, 362) No main pancreatic duct dilatation. BONES: Status post sternotomy. Degenerative changes of the spine. IMPRESSION IMPRESSION 1. Previously reported right perihilar/suprahilar mass is not well delineated due to adjacent consolidative changes but appears to measure approximately 3.0 x 2.2 cm, difficult to compare to the most recent noncontrast exam but slightly decreased in size compared to 08/06/2023 when it measured 3.2 x 2.6 cm. 2. Previously occluded right upper lobe bronchus is now patent. There is associated overall improved aeration of the right upper lobe compared to the prior exam, with mild residual right upper lobe ground-glass densities and mild interlobular septal thickening in the aerated portion of the right upper lobe. Additionally, there is persistent consolidation in the anterior right upper lobe. 3. Bandlike consolidative changes in the right upper and lower lobes with associated bronchiectasis are similar to the prior exam, likely reflecting post treatment changes per in 4. A few sub 6 mm pulmonary nodules are not significantly changed compared to the prior exam. 5. Small to moderate partially loculated right pleural effusion, decreased in size compared to the prior exam. 6. A few prominent to mildly enlarged right upper paratracheal lymph nodes measure up to 12 millimeters in short axis, not significantly changed. 7. A cystic pancreatic neck lesion measures 1 cm, not significantly changed dating back to 05/13/2023 when it measured approximately 0.8 cm. 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 Follow-up pancreas protocol CT or MR abdomen with and without contrast is recommended in 2 years for further evaluation. PG Care Time/CCT Total # of Minutes Spent Total Time Spent with Patient: Total time spent is greater than 50% in coordination of care (as documented) at patient's floor/unit and/or counseling patient: I spent 90 minutes overall addressing this case: 25 min in medical data review/discussion with referring provider(s) and/or preparation for the visit incl OSH data review 15 min in direct interaction with the patient/exam 25 min in Advance Care Planning/Goals of Care discussions as detailed above in note (must be >16min) 10 min in subsequent review and synthesis of assessment and plan 15 min communicating with other providers regarding the patient's case: Advanced Care Planning 95878 Advanced Care Planning 30 [place] [address] IN/OBS CONSULT LVL 5,80M Patient Type New History Comprehensive Exam Comprehensive Medical Decision Making High Complexity Diagnoses Dyspnea and respiratory abnormalities R06.00; R06.89 Weakness generalized R53.1 Advanced care planning/counseling discussion Z71.89 Palliative care by specialist Z51.5 Additional Codes Advanced Care Planning - 21057 Advanced Care Planning 30 Min: 67311 Advanced Care Planning 30 Min ([id number])
--- NOTE | 2023-10-28 15:10 | Pulmonology Progress Note ---
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 He is admitted with shortness of breath hypoxemia and progressive pulmonary pulse rates and has had hemoptysis. Differential diagnosis would include pulmonary hemorrhage, checkpoint inhibitor pulmonary toxicity, pneumonia, or progression of malignancy. CT scan shows a large pleural effusion with progressive pulmonary infiltrates concerning for ICI toxicity Recommendations: 1. Hemoptysis: Continue to hold anticoagulation. 2. Diffuse pulmonary infiltrates: Differential as noted above. The patient is too ill to consider bronchoscopy. His procalcitonin is normal and white blood cell count is unremarkable. Parainfluenza was identified on bio fire. Only therapy would be supportive care. Given the possibility of ICI toxicity, will continue high-dose Solu-Medrol. Immune therapy should be avoided in the future. This would be grade 4 toxicity with significant mortality and morbidity 3. Wean oxygen as tolerated. 4. Pleural effusion: Large on CT. Discussed with patient's options to include repeat thoracentesis versus placement of pigtail catheter versus placement of a Pleurx. Given the patient's frail state and recurrent nature of the effusion, I would favor a Pleurx catheter. After discussion of risks and benefits he is agreeable to proceed. Will continue to follow with you Admission and Anticipated Discharge Date Admission Date: October 26, 2023 Subjective Patient seen and examined. EMR reviewed. Discussed with bedside critical care nurse. The patient continues to have a high oxygen requirement. He completed the CT scan of the chest with results noted below. He is intermittently having some hemoptysis. No fevers or chills. He again is quite fixated on when he can go home. Patient did meet with palliative care. CODE STATUS has been appropriately readdressed and changed to DNR/DNI status. Review of Systems Review of Systems: All systems reviewed & are unremarkable except as noted in Subjective Results & Data Results & Data Vital Signs (Past 12 Hours) Vital Signs Temp Pulse Resp BP Pulse Ox O2 Del Method O2 Flow Rate 10/28/23 11:36 36.6 C 87 22 142/69 H 93 High Flow Nasal Cannula 30 10/28/23 11:12 69 21 99 High Flow Nasal Cannula 30 10/28/23 07:06 76 17 94 High Flow Nasal Cannula 30 10/28/23 06:27 186/93 H FiO2 10/28/23 11:36 80 10/28/23 11:12 80 10/28/23 07:06 80 10/28/23 06:27 Critical Care Results & Data Vital Signs (Past 12 Hours) Vital Signs Temp Pulse Resp BP Pulse Ox O2 Del Method O2 Flow Rate 10/28/23 11:36 36.6 C 87 22 142/69 H 93 High Flow Nasal Cannula 30 10/28/23 11:12 69 21 99 High Flow Nasal Cannula 30 10/28/23 07:06 76 17 94 High Flow Nasal Cannula 30 10/28/23 06:27 186/93 H FiO2 10/28/23 11:36 80 10/28/23 11:12 80 10/28/23 07:06 80 10/28/23 06:27 Lab & Micro Results (Past 24 Hours) RBC 3.42 M/uL (4.70-6.10) L 10/28/23 WBC 6.36 K/ul (4.8-10.8) 10/28/23 Hgb 9.4 g/dl (14.0-18.0) L 10/28/23 Hct 28.9 % (42.0-52.0) L 10/28/23 MCV 84.5 fL (80.0-100.0) 10/28/23 MCH 27.5 pg (25.0-34.0) 10/28/23 MCHC 32.5 g/dL (32.0-36.0) 10/28/23 RDW Standard Deviation 48.9 fL (36.4-46.3) H 10/28/23 RDW Coefficient of Variation 15.9 % (11.5-14.5) H 10/28/23 Plt Count 127 K/uL (130-400) L 10/28/23 MPV 9.0 fL (9.4-12.4) L 10/28/23 Na 135 mmol/L (136-145) L 10/28/23 K 4.8 mmol/L (3.5-5.1) 10/28/23 Cl 102 mmol/L (98-107) 10/28/23 CO2 28 mmol/L (21-32) 10/28/23 Anion Gap 5 (3-11) 10/28/23 BUN 27 mg/dl (6-23) H 10/28/23 Creatinine 0.90 mg/dl (0.6-1.4) 10/28/23 Estimated GFR ( Amer) 90.6 ml/min 10/28/23 Estimated GFR (Non-Af Amer) 78.2 ml/min 10/28/23 BUN/Creatinine Ratio 30.0 (10-20) H 10/28/23 Glu 138 mg/dl (70-99(Fasting)) H 10/28/23 Ca 8.8 mg/dl (8.6-10.3) 10/28/23 Phosphorus Level 3.1 mg/dl (2.5-4.9) 10/28/23 Mg 2.1 mg/dl (1.7-2.4) 10/28/23 05:41 Calcium Level 8.8 mg/dl (8.6-10.3) 10/28/23 05:41 Microbiology 10/27/23 01:25 Gram Stain - Final Sputum, Expectorated Sputum Culture - Preliminary Moderate normal jeffry present, final report to follow. 10/25/23 22:31 Aerobic Blood Culture - Preliminary Blood No growth in Aerobic bottle after 48 hours. Anaerobic Blood Culture - Preliminary No growth in Anaerobic bottle after 48 hours. 10/25/23 20:40 Aerobic Blood Culture - Preliminary Blood No growth in Aerobic bottle after 48 hours. Anaerobic Blood Culture - Preliminary No growth in Anaerobic bottle after 48 hours. Diagnostic Findings (Past 24 Hours) Chest CTA 10/27/23 12:05 CT ANGIOGRAPHY OF THE CHEST, PULMONARY EMBOLUS PROTOCOL CLINICAL HISTORY: Dyspnea. Lung cancer. Evaluate for pulmonary embolus. COMPARISON STUDY: Chest radiograph October 25, 2023. PET/CT February 25, 2023. Chest CT August 06, 2023. TECHNIQUE: Following IV administration of Optiray, helical axial images of the chest were obtained utilizing the pulmonary embolus protocol. Maximal intensity projections and sagittal and coronal reformats were viewed on an independent 3D workstation. IV contrast was administered without complication. Automated exposure control was utilized for the study. A dose lowering technique was utilized adhering to the principles of ALARA. CT DOSE: 805.53 mGy.cm FINDINGS: No pulmonary emboli are identified. There is moderate cardiomegaly and coronary artery calcification. There are median sternotomy wires and postoperative findings from bypass grafting. No pericardial effusion is present. A large right pleural effusion is noted. There is a small left pleural effusion. No pneumothorax is present. The previously identified right upper lobe mass is not well visualized on this exam. This suggests a treatment response. Right upper lobe volume loss with moderate airspace opacity is present. Right upper lobe aeration has improved since CT of August 06, 2023. Occlusion of the right upper lobe bronchus has improved with residual narrowing. Several mildly enlarged right upper mediastinal lymph nodes measure up to 1.5 x 1.3 cm. These are similar to prior CT. Extensive airspace opacities throughout the lungs are noted, including multifocal consolidation within the left upper and left lower lobes. No cavitation is present. No suspicious lesions within the bony thorax are noted. A medial segment left hepatic lobe cyst is incidentally noted. A right renal cyst is incidentally noted IMPRESSION: 1. No pulmonary emboli identified. 2. Large right pleural effusion. Small left pleural effusion. 3. Extensive airspace opacities throughout the lungs. Pneumonia is favored however other potential etiologies include treatment related pneumonitis in the correct clinical setting, pulmonary edema or pulmonary hemorrhage. 4. Decrease in size of the known right upper lobe mass with improvement in airway narrowing and right upper lobe aeration. 5. No change in several mildly enlarged right upper mediastinal lymph nodes. ACT 112: Negative or not required by law. Electronically signed by: Inocencio Villareal M.D. 10/27/2023 5:01 PM I & O Totals 24 Hours 10/27/23 10/28/23 10/29/23 06:59 06:59 06:59 Intake Total 1000 / 1000 240 / 240 Output Total 600 / 600 450 / 450 Balance 1000 / 1000 -360 / -360 -450 / -450 Cumulative 10/25/23 19:53 thru 10/28/23 10:39 Intake Total 2440 Output Total 1050 Balance 1390 RT Ventilator Mngmt (Last Documented) Ventilator Ordered Settings Respiratory Rate 22 10/28/23 11:36 Fraction of Inspired Oxygen 80 10/28/23 11:36 Ventilator - PT Measurements Respiratory Rate 22 PG Care Time/CCT Total # of Minutes Spent Total Time Spent with Patient: Total time spent is greater than 50% in coordination of care (as documented) at patient's floor/unit and/or counseling patient: Coding Level of Care Code 02949 SUB INP/OBS CARE 3/50MIN Diagnoses Shortness of breath on exertion R06.02 Metastatic primary lung cancer C34.90 Hemoptysis R04.2
--- NOTE | 2023-10-28 15:23 | Procedure Note ---
Procedure Note Date of Service October 28, 2023 Note Procedure: Ultrasound guided right Pleurx catheter placement. Indication: Recurrent para effusion Consent: Signed by patient and verified with timeout prior to procedure. Anesthesia: 15 mL's 1% lidocaine without epinephrine locally. Reaming Machine Operator: Dr. Dmitriy Vance Procedure: The patient was brought to the sedation unit. Standard monitoring was applied. Appropriate radiographic films had been reviewed prior to commencement of the procedure. Risks and benefits were again discussed with patient consent was verified. The patient was placed in the right side up lateral decubitus position. Limited thoracic ultrasound was performed which revealed a large effusion with compressive atelectasis. Site appropriate for the pleurotomy was marked. Skin was prepped and draped in normal sterile fashion. Using 1% lidocaine, the skin and soft tissues down to the pleura were anesthetized. A tract extending approximately 8 to 10 cm anteriorly from the pleurotomy site was also infiltrated and a site appropriate for the exit of the Pleurx catheter was marked. A 1 cm skin doug was made at the posterior site. The catheter over the needle apparatus was advanced into the pleural space with pleural fluid easily aspirated. A wire was passed through the catheter after the needle was removed. The Pleurx catheter was then loaded on the tunneling device. A 1cm skin incision was made at the anterior catheter exit site. The tunneling device with the attached Pleurx catheter were passed from the anterior incision back to the posterior incision until the cuff of the Pleurx catheter resided within the subcutaneous tissues. The catheter was palpated along its course and no kinking was identified. Serial dilatation was then performed over the wire with the pull-away catheter being left in place. The Pleurx was removed from the t unneling mechanism and advanced through the peel-away catheter. The catheter sheath was then peeled back as the Pleurx catheter was advanced into the pleural space. The Pleurx catheter course was palpated and no kinks were felt. It was attached to wall suction and a total of 1400 mL's was removed. Using 1-0 silk, 2 stitches were placed at the exit Pleurx site and the catheter secured in place. 2 small Vicryl sutures were used to close the posterior incision. A sterile dressing was applied. The patient tolerated the procedure well without obvious complication. Post procedure x-ray is pending. Fluid was resent for cytology Estimated blood loss: Less than 10 mL's Coding CPT Codes Pulmonary/Thoracic - Pulmonary and Thoracic: 15642 Insert pleural cathereter w/cuff ([id number]) Pulmonary/Thoracic - Pulmonary and Thoracic: 44091 US, Chest, real time with imaging documentation ([id number]) [facility] Procedure Codes (Charges) Pulmonary/Thoracic Procedure 1: Pulmonary and Thoracic: 97689 Insert pleural cathereter w/cuff Procedure 2: Pulmonary and Thoracic: 02652 US, Chest, real time with imaging documentation
[2023-10-28] MEDS: LIDOCAINE 2% LOCAL 50 ML VIAL ONE (15:34)
--- NOTE | 2023-10-28 15:39 | Communication Note ---
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 we spoke about pt wishes and his consistently expressed wish for DNR/DNI. Aaron is in agreement, noting that he is seeing the decline. he asked about l ikelihood of dying in the hospital vs getting pt home. I shared I am worried pt is declining in spite of escalating oxygen support and with his medical issues these are signs he is worsening/may not be able to leave hospital and is transitioning from a process of living to a process of dying. Aaron verbalized agreement. He was very emotional and tearful. He will be here tomorrow for bedside family ACP discussion. He asked he be called anytime for any acute changes or if pt is actively dying, he wants to be here with pt. Dr Campos and nursing notified. Thank you for allowing us to participate in the ongoing care of this patient. Please don't hesitate to call or page with any additional concerns. Dr. Katie Edmond DNP Director, Palliative Care
--- NOTE | 2023-10-28 16:07 | XRay Report ---
SINGLE VIEW CHEST CLINICAL HISTORY: Pleural catheter placement. FINDINGS: An AP, portable, upright chest radiograph is compared to study dated 10/25/2023 and correlat ed with chest CT dated 10/27/2023. The patient is status post midline sternotomy. The heart is enlarge d noting atherosclerotic calcification of the thoracic aorta. The pulmonary vasculature is noncongest ed. Emphysema and chronic interstitial thickening is similar to previous. A right-sided pleural peng ter has been placed. The tip projects of the paravertebral right mid lung. Suspect a trace right apic al pneumothorax. There are layering pleural effusions. Airspace consolidation throughout the left ann marie g is likely unchanged to progressed as compared to the 10/27/[address] Mild consolidation is also seen at the right lung base. A right upper lobe mass with atelectasis/consolidation of the right upp er lung was better assessed on the recent CT scan. No left-sided pneumothorax is seen. The skeletal s tructures are osteopenic. There are chronic/healed right-sided rib fractures. IMPRESSION: 1. A right-sided pleural catheter has been placed as above. Suspect a trace right apical pneumothorax . 2. Cardiomegaly and emphysema. 3. Layering pleural effusions. 4. Airspace consolidation throughout the left lung is unchanged to somewhat worsened as compared to b e 10/27/[address] 5. Additional chronic changes as above. ACT 112: Negative or not required by law. Electronically signed by: Albert Quiroga M.D. 10/28/2023 4:05 PM
--- NOTE | 2023-10-28 17:19 | Hospitalist Progress Note ---
Date of Service October 28, 2023 Assessment & Plan (1) Acute hypoxemic respiratory failure: Plan: Mr. 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 Initial concern for superimposed bacterial pneumonia on COPD exacerbation; however, it appears respiratory failure has been progressive since initiation of immunotherapy with question of possible immunotherapy pneumonitis. Pulm consulted given concern for ICI toxcitiy who suspects the same and started high dose solumedrol. #Acute on chronic hypoxic respiratory failure #?Immunotherapy pneumonitis #COPD, ?exacerbation #Parainfluenza virus #Subacute pulm embolism 09/2023 #Hemopytsis #RUL NSCLC, c/g squamous cell carcinoma follows Dr Ivan Sifuentes s/p paclitaxel/carboplatin, Durvalumab 1500mg [id number] as of 06/2023 There was discussion regarding pneumonitis given progressive need for o2 use last followed with Heme onc 10/09 Transition to IV steroid Pulm consult: continue high dose solumedrol Mucinex Nebs Hemoptysis: likely iso Eliquis, increasing cough; pulm to comment, TXA nebs? -Eliquis discontinued Consider repeat imaging with resp status stable Wean o2 as able Palliative consult--family meeting in am, DNR/DNI after Palliative discussion with son Droplet precautions #pulm hypertension #Acute on chronic Heart failure with preserved EF ECHO EF 55% Repeat ECHO Trial IV lasix on torsemide 20mg at home--continue IV lasix #Immunocompromised patient CS, discontinued antibiotics at this time, low concern for superimposed normal procal, supportive care #Right pleural effusion #History recurrent right pleural effusion Completed repeat IR thoracentesis at [facility] on September 20, 2023, 500 mL of straw-colored fluid removed. Cytology negative for malignant cells. Small effusion on XRAY; large effusion on CT -s/p pluerx cath placement by Dr. Vance #Asymptomatic bradycardia noted at the ER *improved #Permanent Atrial fibrillation with slow ventricular response -Discontinue Eliquis 2.5mg BID -Requip discontinued 2/2 bradycardia -Monitor on tele #Troponin elevation secondary to illness peaked at 58, improving with treatment of underlying illness #Hyponatremia POA Resolved #EL on CKD III resolved Cr. 1.6 on admission Improved, slow introduction of home losartan #Chronic HFpEF, equivocal volume status, some congestion on x-ray, patient clinically dry #CAD status post CABG #valvular heart disease (moderate to severe MR, mild to moderate MR, TTE 2021) Continue losartan IV lasix #hx PVD status post surgery * Right SFA atherectomy DCB angioplasty Right 11/2016 -Dr. 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, will need CT/MR in 2 years DVT prophylaxis with scds DNR DNI Admission and Anticipated Discharge Date Admission Date: October 26, 2023 Subjective Patient still with high oxygen requirements, adamant that he feels fine and wishes to go home Physical Exam Constitutional: WD/WN, vitals as above Respiratory: diffuse rhonchi Gastrointestinal (Abdomen): normal bowel sounds, soft, nontender, no hepatosplenomegaly Results & Data Results & Data Vital Signs (Past 12 Hours) Vital Signs Temp Pulse Resp BP Pulse Ox O2 Del Method O2 Flow Rate 10/28/23 15:16 36.6 C 59 L 16 140/52 L 98 CPAP 10/28/23 15:10 56 L 24 99 High Flow Nasal Cannula 30 10/28/23 11:36 36.6 C 87 22 142/69 H 93 High Flow Nasal Cannula 30 10/28/23 11:12 69 21 99 High Flow Nasal Cannula 30 10/28/23 07:06 76 17 94 High Flow Nasal Cannula 30 10/28/23 06:27 186/93 H FiO2 10/28/23 15:16 10/28/23 15:10 75 10/28/23 11:36 80 10/28/23 11:12 80 10/28/23 07:06 80 10/28/23 06:27 Laboratory Results Short CBC 10/28/23 Range/Units 05:41 WBC 6.36 (4.8-10.8) K/ul Hgb 9.4 L (14.0-18.0) g/dl Hct 28.9 L (42.0-52.0) % Plt Count 127 L (130-400) K/uL BMP 10/28/23 05:41 Sodium 135 L Potassium 4.8 Chloride 102 Carbon Dioxide 28 BUN 27 H Creatinine 0.90 Glucose 138 H Calcium 8.8 Diagnostic Findings CTA reviewed 1. No pulmonary emboli identified. 2. Large right pleural effusion. Small left pleural effusion. 3. Extensive airspace opacities throughout the lungs. Pneumonia is favored however other potential etiologies include treatment related pneumonitis in the correct clinical setting, pulmonary edema or pulmonary hemorrhage. 4. Decrease in size of the known right upper lobe mass with improvement in airway narrowing and right upper lobe aeration. 5. No change in several mildly enlarged right upper mediastinal lymph nodes. Medications Administered Home Medications Medication Instructions Recorded Confirmed Last Taken albuterol sulfate 90 mcg/actuation 2 puff inhalation Q6H PRN 03/11/23 10/26/23 Unknown aerosol inhaler Shortness Of Breath Or Wheezing dutasteride 0.5 mg capsule 0.5 mg PO DAILY 03/11/23 10/26/23 Unknown ipratropium 0.5 mg-albuterol 3 mg 3 ml inhalation Q6H PRN Shortness 03/11/23 10/26/23 Unknown (2.5 mg base)/3 mL nebulization Of Breath Or Wheezing soln levothyroxine 112 mcg capsule 112 mcg PO DAILY 03/11/23 10/26/23 Unknown mecobalamin (vitamin B12) 10,000 1,000 mcg IM MONTHLY 03/11/23 10/26/23 Unknown mcg solution for injection ondansetron HCl 8 mg tablet 8 mg PO Q8H PRN Nausea 03/11/23 10/26/23 Unknown prochlorperazine maleate 10 mg 10 mg PO Q6H PRN Nausea 03/11/23 10/26/23 Unknown tablet (Compazine) tamsulosin 0.4 mg capsule 0.4 mg PO BID 03/11/23 10/26/23 Unknown torsemide 20 mg tablet 20 mg PO DAILY 03/11/23 10/26/23 Unknown amlodipine 5 mg tablet 5 mg PO QAM 08/06/23 10/26/23 Unknown apixaban 2.5 mg tablet (Eliquis) 2.5 mg PO BID 08/06/23 10/26/23 10/25/23 08:00 aspirin 81 mg tablet,delayed 81 mg PO MOWEFR 08/06/23 10/26/23 Unknown release baclofen 10 mg tablet 10 mg PO HS 08/06/23 10/26/23 Unknown mirtazapine 30 mg tablet 45 mg PO HS 08/06/23 10/26/23 Unknown nitroglycerin 0.4 mg sublingual 0.4 mg sublingual DIRECTED PRN 08/06/23 10/26/23 Unknown tablet (Nitrostat) .Ccest pain ropinirole 0.5 mg tablet 0.5 mg PO HS 08/06/23 10/26/23 Unknown sennosides 8.6 mg-docusate sodium 1 tab-cap PO HS 08/06/23 10/26/23 Unknown 50 mg tablet (Senna with Docusate Sodium) umeclidinium 62.5 mcg/actuation 1 inh inhalation QA 08/06/23 10/26/23 Unknown blister powder for inhalation (Incruse Ellipta) dexamethasone 4 mg tablet 4 mg PO DIRECTED .when gets 10/26/23 10/26/23 Unknown chemo duloxetine 30 mg capsule,delayed 30 mg PO QA 10/26/23 10/26/23 Unknown release losartan 50 mg tablet 50 mg PO QA 10/26/23 10/26/23 Unknown oxycodone 5 mg tablet 5 mg PO Q4 PRN .severe pain 10/26/23 10/26/23 Unknown pantoprazole 40 mg tablet,delayed 40 mg PO DAILY 10/26/23 10/26/23 Unknown release rosuvastatin 20 mg tablet 20 mg PO QA 10/26/23 10/26/23 Unknown Active Medications Generic Name Dose Route Start Last Admin Trade Name Freq PRN Reason Stop Dose Admin Albuterol 3 ml 10/26/23 07:00 10/28/23 15:09 Albut/Ipratrop 3mg/0.5mg Neb 3 Ml Vial NEB 11/25/23 06:59 3 ml QIDR MARIZA Administration Protocol Amlodipine Besylate 5 mg 10/26/23 09:00 10/28/23 08:08 Amlodipine Besylate 5 Mg Tab PO 11/25/23 08:59 5 mg QAM MARIZA Administration Aspirin 81 mg 10/27/23 09:00 10/27/23 08:17 Aspirin 81 Mg Ectab PO 11/26/23 08:59 81 mg [id number] MARIZA Administration Baclofen 10 mg 10/26/23 21:00 10/27/23 20:49 Baclofen 10 Mg Tab PO 11/25/23 20:59 10 mg HS MARIZA Administration Doxycycline Hyclate 100 mg 10/26/23 21:00 10/28/23 08:08 Doxycycline Hyclate 100 Mg Cap PO 11/02/23 20:59 100 mg BID MARIZA Administration Duloxetine HCl 30 mg 10/26/23 09:00 10/28/23 08:09 Duloxetine Hcl 30 Mg Cap PO 11/25/23 08:59 30 mg QAM MARIZA Administration Finasteride 5 mg 10/26/23 09:00 10/28/23 08:08 Finasteride 5 Mg Tab PO 11/25/23 08:59 5 mg DAILY MARIZA Administration Furosemide 20 mg 10/28/23 09:00 10/28/23 08:07 Furosemide Inj 20 Mg/2 Ml Vial IV 11/27/23 08:59 20 mg DAILY MARIZA Administration Guaifenesin 1,200 mg 10/27/23 09:00 10/28/23 08:08 Guaifenesin 600 Mg Tabcr PO 11/26/23 08:59 1,200 mg Q12 MARIZA Administration Hydralazine HCl 5 mg 10/28/23 07:15 10/28/23 08:07 Hydralazine Hcl 20 Mg/Ml Vial IV 11/27/23 07:14 5 mg Q4H PRN Administration systolic bp >180 Cefepime HCl 2,000 mg/ Syringe 20 mls @ 5 mls/min 10/26/23 10:00 10/28/23 10:33 IV 11/02/23 09:59 5 mls/min Q12H MARIZA Administration Protocol Methylprednisolone 125 mg/ 2 mls @ 1.5 mls/min 10/27/23 15:30 10/28/23 15:30 Syringe IV 11/26/23 15:29 1.5 mls/min Q8H MARIZA Administration Levothyroxine Sodium 125 mcg 10/26/23 06:30 10/28/23 06:26 Levothyroxine Sodium 125 Mcg Tablet PO 11/25/23 06:29 125 mcg DAILYBB MARIZA Administration Losartan Potassium 50 mg 10/28/23 09:00 10/28/23 08:10 Losartan Potassium 50 Mg Tab PO 11/27/23 08:59 50 mg QAM MARIZA Administration Mirtazapine 45 mg 10/26/23 21:00 10/27/23 20:47 Mirtazapine Tab 15 Mg Tab PO 11/25/23 20:59 45 mg HS MARIZA Administration Pantoprazole Sodium 40 mg 10/26/23 09:00 10/28/23 08:08 Pantoprazole 40 Mg Tab PO 11/25/23 08:59 40 mg DAILY MARIZA Administration Rosuvastatin Calcium 20 mg 10/26/23 09:00 10/28/23 08:08 Rosuvastatin Calcium 20 Mg Tab PO 11/25/23 08:59 20 mg QAM MARIZA Administration Senna/Docusate Sodium 1 tab 10/26/23 21:00 10/27/23 20:48 Docusate Sodium/Senna 50/8.6mg Tab PO 11/25/23 20:59 Not Given HS MARIZA Tamsulosin HCl 0.4 mg 10/26/23 09:00 10/28/23 08:08 Tamsulosin Hcl 0.4 Mg Cap PO 11/25/23 08:59 0.4 mg BID MARIZA Administration
[2023-10-29 06:56] LABS: Hemoglobin 10.5 g/dl (14.0-18.0); Mean Corpuscular Hemoglobin 27.8 pg (25.0-34.0); Mean Corpuscular Hgb Conc 32.8 g/dL (32.0-36.0); Mean Corpuscular Volume 84.7 fL (80.0-100.0); Mean Platelet Volume 9.4 fL (9.4-12.4); Platelet Count 150 K/uL (130-400); RDW Coefficient of Variation 16.2 % (11.5-14.5); RDW Standard Deviation 50.2 fL (36.4-46.3); Red Blood Count 3.78 M/uL (4.70-6.10); White Blood Count 9.94 K/ul (4.8-10.8)
[2023-10-29 07:27] LABS: BUN Creatinine Ratio 28.6 (10-20); Calcium 8.6 mg/dl (8.6-10.3); Creatinine Clr Calc Pharmacy 45.1 ml/min; Est GFR (African American) 69.5 ml/min; Magnesium 2.1 mg/dl (1.7-2.4); Phosphorus 2.8 mg/dl (2.5-4.9); Potassium 4.3 mmol/L (3.5-5.1)
--- NOTE | 2023-10-29 07:57 | Pulmonology Progress Note ---
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 He is admitted with shortness of breath hypoxemia and progressive pulmonary pulse rates and has had hemoptysis. Differential diagnosis would include pulmonary hemorrhage, checkpoint inhibitor pulmonary toxicity, pneumonia, or progression of malignancy. CT scan shows a large pleural effusion with progressive pulmonary infiltrates concerning for ICI toxicity Recommendations: 1. Hemoptysis: Continue to hold anticoagulation. 2. Diffuse pulmonary infiltrates: Broad differential as noted above. Patient tested positive for parainfluenza with certainly could be contributing as well. That being said, findings certainly would be more concerning for immune checkpoint inhibitor toxicity. Patient is currently on aggressive steroids at this time. He has had a moderate decline in his FiO2 requirement which certainly could lend itself to this diagnosis especially after initiating treatment. Again, would avoid immunotherapy moving forward. As previously noted, this would define a grade 4 toxicity with significant more vitamin D and mortality. 3. Wean oxygen as tolerated - Patient down to 5 L nasal cannula at this time 4. Pleural effusion: Patient underwent Pleurx catheter placement yesterday with moderate output. Will plan on daily draining for now and certainly this can be backed off as we establish but moving forward. Pleurx catheter paperwork was filled out and provided to case management. Thank you for allowing us to participate in the care of this patient. Pulmonary medicine will continue to follow along. Admission and Anticipated Discharge Date Admission Date: October 26, 2023 Subjective Patient was seen and evaluated at bedside. His family was present as well. He reports feeling better today and as though he is can take deeper breaths. He has improved on his oxygen requirement as well. Plan is for the patient to enter a residential facility upon discharge. Review of Systems Review of Systems: Please refer to admission H&P. No additions or deletions Physical Exam Physical Exam: VITAL SIGNS - Vital signs and nursing notes were reviewed. GENERAL - 83-year-old male appearing his stated age who is in no acute distress. Communicates well with provider and answers questions appropriately. SKIN -RIGHT-sided Pleurx catheter site in place and clean, dry, and intact. LUNGS - Auscultation reveals RIGHT-sided basilar Rales. CARDIAC - RRR with S1/S2. No murmur, rubs, or gallops appreciated. PSYCH - A&Ox3 and cooperates fully with examiner. Pt is very pleasant and interacts well with examiner. Results & Data Results & Data Vital Signs (Past 12 Hours) Vital Signs Temp Pulse Resp BP Pulse Ox Pulse Ox O2 Del Method 10/29/23 07:02 60 18 98 Nasal Cannula 10/29/23 04:10 82 L 10/29/23 03:00 91 10/29/23 02:30 37 C 83 18 156/70 H 93 High Flow Nasal Cannula 10/28/23 22:58 37 C 64 18 150/65 H 94 High Flow Nasal Cannula 10/28/23 21:00 Nasal Cannula 10/28/23 20:03 61 22 85 L Nasal Cannula O2 Del Method O2 Flow Rate O2 Flow Rate 10/29/23 07:02 6 10/29/23 04:10 High Flow Nasal Cannula 8 10/29/23 03:00 Nasal Cannula 6 10/29/23 02:30 10/28/23 22:58 10/28/23 21:00 5 10/28/23 20:03 3 PG Care Time/CCT Total # of Minutes Spent Total Time Spent with Patient: Total time spent is greater than 50% in coordination of care (as documented) at patient's floor/unit and/or counseling patient: Coding Level of Care Code 14866 SUB INP/OBS CARE 2/35MIN Diagnoses Shortness of breath on exertion R06.02 Metastatic primary lung cancer C34.90 Hemoptysis R04.2
--- NOTE | 2023-10-29 16:53 | Hospitalist Progress Note ---
Date of Service October 29, 2023 Assessment & Plan (1) Acute hypoxemic respiratory failure: Plan: Mr. 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 Initial concern for superimposed bacterial pneumonia on COPD exacerbation; however, it appears respiratory failure has been progressive since initiation of immunotherapy with question of possible immunotherapy pneumonitis. Pulm consulted given concern for ICI toxicity who suspects the same and started high dose solumedrol with notable reduction in oxygen requirement. #Acute on chronic hypoxic respiratory failure #?Immunotherapy pneumonitis #COPD, ?exacerbation #Parainfluenza virus #Hemopytsis #RUL NSCLC, c/g squamous cell carcinoma follows Dr Ivan Sifuentes s/p paclitaxel/carboplatin, Durvalumab 1500mg [id number] as of 06/2023 There was discussion regarding pneumonitis given progressive need for o2 use last followed with Heme onc 10/09 Transition to IV steroid Pulm consult: continue high dose solumedrol; taper Mucinex Nebs Hemoptysis: likely iso Eliquis, increasing cough; pulm to comment, TXA nebs? -Eliquis discontinued at this time Wean o2 as able Palliative consult-- DNR/DNI after Palliative discussion with son, family meeting held today, trial of SNF Droplet precautions #pulm hypertension #Acute on chronic Heart failure with preserved EF ECHO EF 55%OP Repeat ECHO EF 60-65%, LVH, RVP overload on imaging, regurg, pHTN 55mhg d/c IV lasix resume torsemide #Immunocompromised patient CS, discontinued antibiotics at this time, low concern for superimposed normal procal, supportive care #Right pleural effusion #History recurrent right pleural effusion Completed repeat IR thoracentesis at [facility] on September 20, 2023, 500 mL of straw-colored fluid removed. Cytology negative for malignant cells. Small effusion on XRAY; large effusion on CT -s/p pluerx cath placement by Dr. Vance #Asymptomatic bradycardia noted at the ER *improved #Permanent Atrial fibrillation with slow ventricular response -Discontinue Eliquis 2.5mg BID -Requip discontinued 2/2 bradycardia -Monitor on tele #Troponin elevation secondary to illness peaked at 58, improving with treatment of underlying illness #Hyponatremia POA Resolved #EL on CKD III resolved Cr. 1.6 on admission Improved, slow introduction of home losartan #Chronic HFpEF, equivocal volume status, some congestion on x-ray, patient clinically dry #CAD status post CABG #valvular heart disease (moderate to severe MR, mild to moderate MR, TTE 2021) Continue losartan IV lasix #hx PVD status post surgery * Right SFA atherectomy DCB angioplasty Right 11/2016 -Dr. 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, will need CT/MR in 2 years DVT prophylaxis with scds PT/OT ordered DNR DNI Admission and Anticipated Discharge Date Admission Date: October 26, 2023 Subjective Patient evaluated at bedside after family meeting Patient continues to report "feeling great" and wants to "go home" Notably improved oxygen requirement Physical Exam Constitutional: WD/WN, vitals as above Respiratory: coarse/rhonchi bilaterally Cardiovascular: RRR, no murmur, no edema Results & Data Results & Data Vital Signs (Past 12 Hours) Vital Signs Temp Pulse Resp BP Pulse Ox O2 Del Method O2 Flow Rate 10/29/23 15:34 36.6 C 68 16 159/65 H 99 Nasal Cannula 3 10/29/23 14:50 53 L 18 97 Nasal Cannula 5 10/29/23 11:16 65 14 89 L Nasal Cannula 5 10/29/23 11:13 36.6 C 65 20 168/63 H 89 L Nasal Cannula 5.0 10/29/23 08:00 36.9 C 85 20 151/63 H 96 High Flow Nasal Cannula, Other 10/29/23 07:02 60 18 98 Nasal Cannula 6 Laboratory Results Short CBC 10/29/23 Range/Units 06:04 WBC 9.94 (4.8-10.8) K/ul Hgb 10.5 L (14.0-18.0) g/dl Hct 32.0 L (42.0-52.0) % Plt Count 150 (130-400) K/uL BMP 10/29/23 06:13 Sodium 134 L Potassium 4.3 Chloride 100 Carbon Dioxide 27 BUN 32 H Creatinine 1.12 Glucose 113 H Calcium 8.6 Medications Administered Home Medications Medication Instructions Recorded Confirmed Last Taken albuterol sulfate 90 mcg/actuation 2 puff inhalation Q6H PRN 03/11/23 10/26/23 Unknown aerosol inhaler Shortness Of Breath Or Wheezing dutasteride 0.5 mg capsule 0.5 mg PO DAILY 03/11/23 10/26/23 Unknown ipratropium 0.5 mg-albuterol 3 mg 3 ml inhalation Q6H PRN Shortness 03/11/23 10/26/23 Unknown (2.5 mg base)/3 mL nebulization Of Breath Or Wheezing soln levothyroxine 112 mcg capsule 112 mcg PO DAILY 03/11/23 10/26/23 Unknown mecobalamin (vitamin B12) 10,000 1,000 mcg IM MONTHLY 03/11/23 10/26/23 Unknown mcg solution for injection ondansetron HCl 8 mg tablet 8 mg PO Q8H PRN Nausea 03/11/23 10/26/23 Unknown prochlorperazine maleate 10 mg 10 mg PO Q6H PRN Nausea 03/11/23 10/26/23 Unknown tablet (Compazine) tamsulosin 0.4 mg capsule 0.4 mg PO BID 03/11/23 10/26/23 Unknown torsemide 20 mg tablet 20 mg PO DAILY 03/11/23 10/26/23 Unknown amlodipine 5 mg tablet 5 mg PO QAM 08/06/23 10/26/23 Unknown apixaban 2.5 mg tablet (Eliquis) 2.5 mg PO BID 08/06/23 10/26/23 10/25/23 08:00 aspirin 81 mg tablet,delayed 81 mg PO MOWEFR 08/06/23 10/26/23 Unknown release baclofen 10 mg tablet 10 mg PO HS 08/06/23 10/26/23 Unknown mirtazapine 30 mg tablet 45 mg PO HS 08/06/23 10/26/23 Unknown nitroglycerin 0.4 mg sublingual 0.4 mg sublingual DIRECTED PRN 08/06/23 10/26/23 Unknown tablet (Nitrostat) .Ccest pain ropinirole 0.5 mg tablet 0.5 mg PO HS 08/06/23 10/26/23 Unknown sennosides 8.6 mg-docusate sodium 1 tab-cap PO HS 08/06/23 10/26/23 Unknown 50 mg tablet (Senna with Docusate Sodium) umeclidinium 62.5 mcg/actuation 1 inh inhalation QAM 08/06/23 10/26/23 Unknown blister powder for inhalation (Incruse Ellipta) dexamethasone 4 mg tablet 4 mg PO DIRECTED .when gets 10/26/23 10/26/23 Unknown chemo duloxetine 30 mg capsule,delayed 30 mg PO QAM 10/26/23 10/26/23 Unknown release losartan 50 mg tablet 50 mg PO QAM 10/26/23 10/26/23 Unknown oxycodone 5 mg tablet 5 mg PO Q4 PRN .severe pain 10/26/23 10/26/23 Unknown pantoprazole 40 mg tablet,delayed 40 mg PO DAILY 10/26/23 10/26/23 Unknown release rosuvastatin 20 mg tablet 20 mg PO QA 10/26/23 10/26/23 Unknown Active Medications Generic Name Dose Route Start Last Admin Trade Name Freq PRN Reason Stop Dose Admin Albuterol 3 ml 10/26/23 07:00 10/29/23 14:50 Albut/Ipratrop 3mg/0.5mg Neb 3 Ml Vial NEB 11/25/23 06:59 3 ml QIDR MARIZA Administration Protocol Amlodipine Besylate 5 mg 10/26/23 09:00 10/29/23 08:44 Amlodipine Besylate 5 Mg Tab PO 11/25/23 08:59 5 mg QAM MARIZA Administration Aspirin 81 mg 10/27/23 09:00 10/29/23 08:44 Aspirin 81 Mg Ectab PO 11/26/23 08:59 81 mg [id number] MARIZA Administration Baclofen 10 mg 10/26/23 21:00 10/28/23 21:03 Baclofen 10 Mg Tab PO 11/25/23 20:59 10 mg HS MARIZA Administration Duloxetine HCl 30 mg 10/26/23 09:00 10/29/23 08:43 Duloxetine Hcl 30 Mg Cap PO 11/25/23 08:59 30 mg QAM MARIZA Administration Finasteride 5 mg 10/26/23 09:00 10/29/23 08:43 Finasteride 5 Mg Tab PO 11/25/23 08:59 5 mg DAILY MARIZA Administration Furosemide 20 mg 10/28/23 09:00 10/29/23 08:44 Furosemide Inj 20 Mg/2 Ml Vial IV 11/27/23 08:59 20 mg DAILY MARIZA Administration Guaifenesin 1,200 mg 10/27/23 09:00 10/29/23 08:45 Guaifenesin 600 Mg Tabcr PO 11/26/23 08:59 1,200 mg Q12 MARIZA Administration Hydralazine HCl 5 mg 10/28/23 07:15 10/28/23 08:07 Hydralazine Hcl 20 Mg/Ml Vial IV 11/27/23 07:14 5 mg Q4H PRN Administration systolic bp >180 Methylprednisolone 125 mg/ 2 mls @ 1.5 mls/min 10/27/23 15:30 10/29/23 16:22 Syringe IV 11/26/23 15:29 1.5 mls/min Q8H MARIZA Administration Levothyroxine Sodium 125 mcg 10/26/23 06:30 10/29/23 05:58 Levothyroxine Sodium 125 Mcg Tablet PO 11/25/23 06:29 125 mcg DAILYBB MARIZA Administration Losartan Potassium 50 mg 10/28/23 09:00 10/29/23 08:44 Losartan Potassium 50 Mg Tab PO 11/27/23 08:59 50 mg QAM MARIZA Administration Mirtazapine 45 mg 10/26/23 21:00 10/28/23 21:05 Mirtazapine Tab 15 Mg Tab PO 11/25/23 20:59 45 mg HS MARIZA Administration Pantoprazole Sodium 40 mg 10/26/23 09:00 10/29/23 08:44 Pantoprazole 40 Mg Tab PO 11/25/23 08:59 40 mg DAILY MARIZA Administration Rosuvastatin Calcium 20 mg 10/26/23 09:00 10/29/23 08:43 Rosuvastatin Calcium 20 Mg Tab PO 11/25/23 08:59 20 mg QAM MARIZA Administration Senna/Docusate Sodium 1 tab 10/26/23 21:00 10/28/23 20:58 Docusate Sodium/Senna 50/8.6mg Tab PO 11/25/23 20:59 Not Given HS MARIZA Tamsulosin HCl 0.4 mg 10/26/23 09:00 10/29/23 08:45 Tamsulosin Hcl 0.4 Mg Cap PO 11/25/23 08:59 0.4 mg BID MARIZA Administration
--- NOTE | 2023-10-29 18:57 | Palliative Family Discussion ---
Date of Service October 29, 2023 Patient Directed Conference Time of [id number] Participants: Katie Edmond DNP Patient participation: yes Patient Support System: son and dtr in law Other Healthcare Provider Participation: None Meeting Location: bedside Advanced Directive available: pt reaffirms DNR/DNI The patient's surrogate medical decision maker participated: son A face to face ACP meeting was held for ADRIANA KHAN. This meeting was necessary for determining the appropriate course of treatment. Signif improvement with thoracentesis and now has pleurx. Frustrated being in hospital and mood is declining, has been used to having a lot of freedom and mobility, finds these limitations very distressing. Topics of Discussion Topics of Discussion: 1. S/p thoracentesis and now pleurx. Draining well. Improved resp dynamics and has been able to tolerate HFNC de-escalation to NC 3-4LPM. 2. Advanced smoking related COPD, PNA, immunotherapy mediated pneumonitis, recurrent pleural effusion. Declining PS. Son feels pt is getting depressed and frustrated. 3. Son worries that restarting cancer therapy now may be more harm than benefits and pt states he wants to follow up with oncology to see what is option. Son very realistic that issues are becoming terminal but pt wants to hold onto hope this can be cured and verbalizes he was not told otherwise. Pt is willing to go to rehab after acute admission then f/u with onc. Other Content of Meetin. Opportunity given for participants to speak and ask questions. 2. Participants were assured of attention to patient comfort. 3. Reassurance provided. Son would like psychology support to allow pt a neutral place to vent his concerns and feelings, offered additional counter checker support which dtr in law states pt would decline. 4. Support was provided for informed, good-anahi decisions. 5. Emotions expressed by family were acknowledged and addressed. 6. Follow-up Outpatient: offered, pt will consider 7. Plan of Care: optimize for dc to SNF rehab then f/u with onc in a few weeks. Options for cancer directed therapy can be discussed w/oncology in follow up. SOn expressed SNF prefs to CM Time Involved in Meeting: I spent 125 minutes overall addressing this case: 15 in medical data review/discussion with referring provider(s) and/or preparation for the visit - OSH oncology, pulm, nursing, care mgt 10 in direct interaction with the patient [] 60 Advance Care Planning/Goals of Care discussions as detailed above in note (must be >16min) 15 in subsequent review and synthesis of assessment and plan 15 in communicating with other providers regarding the patient's case: pulm, onc, nursing, primary team, care mgt
--- NOTE | 2023-10-30 07:36 | Hospitalist Progress Note ---
Date of Service October 30, 2023 Assessment & Plan (1) Acute hypoxemic respiratory failure: Plan: Mr. 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 Initial concern for superimposed bacterial pneumonia on COPD exacerbation; however, it appears respiratory failure has been progressive since initiation of immunotherapy with question of possible immunotherapy pneumonitis. Pulm consulted given concern for ICI toxicity who suspects the same and started high dose solumedrol with notable reduction in oxygen requirement. Patient also s/p pleurx placement. #Acute on chronic hypoxic respiratory failure #?Immunotherapy pneumonitis #COPD, ?exacerbation #Parainfluenza virus #Hemopytsis #RUL NSCLC, c/g squamous cell carcinoma follows Dr Ivan Sifuentes s/p paclitaxel/carboplatin, Durvalumab 1500mg [id number] as of 06/2023 There was discussion regarding pneumonitis given progressive need for o2 use last followed with Heme onc 10/09 Transition to IV steroid Pulm consult: continue high dose solumedrol; taper to q 12 tomorrow contingent on progress, with plans to transition to 40mg PO daily over 6 weeks Mucinex Nebs Hemoptysis: likely iso Eliquis, increasing cough; pulm to comment, TXA nebs? -Eliquis discontinued at this time Wean o2 as able Palliative consult-- DNR/DNI after Palliative discussion with son, family chii arslan held today, trial of SNF Droplet precautions Pleurx drained EOD #pulm hypertension #Acute on chronic Heart failure with preserved EF ECHO EF 55%OP Repeat ECHO EF 60-65%, LVH, RVP overload on imaging, regurg, pHTN 55mhg d/c IV lasix Continue torsemide #Immunocompromised patient CS, discontinued antibiotics at this time, low concern for superimposed normal procal, supportive care #Right pleural effusion #History recurrent right pleural effusion Completed repeat IR thoracentesis at [facility] on September 20, 2023, 500 mL of straw-colored fluid removed. Cytology negative for malignant cells. Small effusion on XRAY; large effusion on CT -s/p pluerx cath placement by Dr. Vance #Asymptomatic bradycardia noted at the ER *improved #Permanent Atrial fibrillation with slow ventricular response -Discontinue Eliquis 2.5mg BID -Requip discontinued 2/2 bradycardia -Monitor on tele #Troponin elevation secondary to illness peaked at 58, improving with treatment of underlying illness #Hyponatremia POA Resolved #EL on CKD III resolved Cr. 1.6 on admission Improved, resumed home losartan #Chronic HFpEF, equivocal volume status, some congestion on x-ray, patient clinically dry #CAD status post CABG #valvular heart disease (moderate to severe MR, mild to moderate MR, TTE 2021) Continue losartan continue home torsemide #hx PVD status post surgery * Right SFA atherectomy DCB angioplasty Right 11/2016 -Dr. 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, will need CT/MR in 2 years DVT prophylaxis with scds PT/OT ordered DNR DNI Admission and Anticipated Discharge Date Admission Date: October 26, 2023 Subjective NAEO Reports imrpovement in breathing, eager to work with PT Physical Exam Constitutional: WD/WN, vitals as above Respiratory: improvement in rhonchi Cardiovascular: RRR, no murmur, no edema Gastrointestinal (Abdomen): normal bowel sounds, soft, nontender, no hepatosplenomegaly Results & Data Results & Data Vital Signs (Past 12 Hours) Vital Signs Temp Pulse Pulse Resp BP Pulse Ox O2 Del Method 10/30/23 07:06 75 18 93 Nasal Cannula 10/30/23 02:51 36.6 C 86 18 142/71 H 95 Nasal Cannula 10/29/23 22:57 36.7 C 72 18 161/61 H 94 Nasal Cannula 10/29/23 21:57 73 10/29/23 21:45 High Flow Nasal Cannula 10/29/23 19:37 58 L 18 94 Nasal Cannula O2 Flow Rate 10/30/23 07:06 3 10/30/23 02:51 10/29/23 22:57 10/29/23 21:57 10/29/23 21:45 3 10/29/23 19:37 3 Laboratory Results Short CBC 10/30/23 Range/Units 07:28 WBC 7.51 (4.8-10.8) K/ul Hgb 9.8 L (14.0-18.0) g/dl Hct 30.0 L (42.0-52.0) % Plt Count 142 (130-400) K/uL BMP 10/30/23 07:28 Sodium 136 Potassium 4.4 Chloride 99 Carbon Dioxide 29 BUN 30 H Creatinine 1.08 Glucose 119 H Calcium 8.7 Medications Administered Home Medications Medication Instructions Recorded Confirmed Last Taken albuterol sulfate 90 mcg/actuation 2 puff inhalation Q6H PRN 03/11/23 10/26/23 Unknown aerosol inhaler Shortness Of Breath Or Wheezing dutasteride 0.5 mg capsule 0.5 mg PO DAILY 03/11/23 10/26/23 Unknown ipratropium 0.5 mg-albuterol 3 mg 3 ml inhalation Q6H PRN Shortness 03/11/23 10/26/23 Unknown (2.5 mg base)/3 mL nebulization Of Breath Or Wheezing soln levothyroxine 112 mcg capsule 112 mcg PO DAILY 03/11/23 10/26/23 Unknown mecobalamin (vitamin B12) 10,000 1,000 mcg IM MONTHLY 03/11/23 10/26/23 Unknown mcg solution for injection ondansetron HCl 8 mg tablet 8 mg PO Q8H PRN Nausea 03/11/23 10/26/23 Unknown prochlorperazine maleate 10 mg 10 mg PO Q6H PRN Nausea 03/11/23 10/26/23 Unknown tablet (Compazine) tamsulosin 0.4 mg capsule 0.4 mg PO BID 03/11/23 10/26/23 Unknown torsemide 20 mg tablet 20 mg PO DAILY 03/11/23 10/26/23 Unknown amlodipine 5 mg tablet 5 mg PO QAM 08/06/23 10/26/23 Unknown apixaban 2.5 mg tablet (Eliquis) 2.5 mg PO BID 08/06/23 10/26/23 10/25/23 08:00 aspirin 81 mg tablet,delayed 81 mg PO MOWEFR 08/06/23 10/26/23 Unknown release baclofen 10 mg tablet 10 mg PO HS 08/06/23 10/26/23 Unknown mirtazapine 30 mg tablet 45 mg PO HS 08/06/23 10/26/23 Unknown nitroglycerin 0.4 mg sublingual 0.4 mg sublingual DIRECTED PRN 08/06/23 10/26/23 Unknown tablet (Nitrostat) .Ccest pain ropinirole 0.5 mg tablet 0.5 mg PO HS 08/06/23 10/26/23 Unknown sennosides 8.6 mg-docusate sodium 1 tab-cap PO HS 08/06/23 10/26/23 Unknown 50 mg tablet (Senna with Docusate Sodium) umeclidinium 62.5 mcg/actuation 1 inh inhalation QAM 08/06/23 10/26/23 Unknown blister powder for inhalation (Incruse Ellipta) dexamethasone 4 mg tablet 4 mg PO DIRECTED .when gets 10/26/23 10/26/23 Unknown chemo duloxetine 30 mg capsule,delayed 30 mg PO QA 10/26/23 10/26/23 Unknown release losartan 50 mg tablet 50 mg PO [facility] 10/26/23 10/26/23 Unknown oxycodone 5 mg tablet 5 mg PO Q4 PRN .severe pain 10/26/23 10/26/23 Unknown pantoprazole 40 mg tablet,delayed 40 mg PO DAILY 10/26/23 10/26/23 Unknown release rosuvastatin 20 mg tablet 20 mg PO QA 10/26/23 10/26/23 Unknown Active Medications Generic Name Dose Route Start Last Admin Trade Name Freq PRN Reason Stop Dose Admin Albuterol 3 ml 10/26/23 07:00 10/30/23 07:06 Albut/Ipratrop 3mg/0.5mg Neb 3 Ml Vial NEB 11/25/23 06:59 3 ml QIDR [facility] Administration Protocol Amlodipine Besylate 5 mg 10/26/23 09:00 10/30/23 09:00 Amlodipine Besylate 5 Mg Tab PO 11/25/23 08:59 5 mg QAM MARIZA Administration Aspirin 81 mg 10/27/23 09:00 10/29/23 08:44 Aspirin 81 Mg Ectab PO 11/26/23 08:59 81 mg [email or web address] MARIZA Administration Baclofen 10 mg 10/26/23 21:00 10/29/23 21:55 Baclofen 10 Mg Tab PO 11/25/23 20:59 10 mg HS MARIZA Administration Duloxetine HCl 30 mg 10/26/23 09:00 10/30/23 09:01 Duloxetine Hcl 30 Mg Cap PO 11/25/23 08:59 30 mg QAM MARIZA Administration Finasteride 5 mg 10/26/23 09:00 10/30/23 09:01 Finasteride 5 Mg Tab PO 11/25/23 08:59 5 mg DAILY MARIZA Administration Guaifenesin 1,200 mg 10/27/23 09:00 10/30/23 09:00 Guaifenesin 600 Mg Tabcr PO 11/26/23 08:59 1,200 mg Q12 MARIZA Administration Hydralazine HCl 5 mg 10/28/23 07:15 10/28/23 08:07 Hydralazine Hcl 20 Mg/Ml Vial IV 11/27/23 07:14 5 mg Q4H PRN Administration systolic bp >180 Methylprednisolone 125 mg/ 2 mls @ 1.5 mls/min 10/27/23 15:30 10/30/23 08:59 Syringe IV 11/26/23 15:29 1.5 mls/min Q8H MARIZA Administration Levothyroxine Sodium 125 mcg 10/26/23 06:30 10/30/23 05:55 Levothyroxine Sodium 125 Mcg Tablet PO 11/25/23 06:29 125 mcg DAILYBB MARIZA Administration Losartan Potassium 50 mg 10/28/23 09:00 10/30/23 09:01 Losartan Potassium 50 Mg Tab PO 11/27/23 08:59 50 mg QAM MARIZA Administration Mirtazapine 45 mg 10/26/23 21:00 10/29/23 21:57 Mirtazapine Tab 15 Mg Tab PO 11/25/23 20:59 45 mg HS MARIZA Administration Pantoprazole Sodium 40 mg 10/26/23 09:00 10/30/23 09:01 Pantoprazole 40 Mg Tab PO 11/25/23 08:59 40 mg DAILY MARIZA Administration Rosuvastatin Calcium 20 mg 10/26/23 09:00 10/30/23 09:02 Rosuvastatin Calcium 20 Mg Tab PO 11/25/23 08:59 20 mg QAM MARIZA Administration Senna/Docusate Sodium 1 tab 10/26/23 21:00 10/29/23 21:58 Docusate Sodium/Senna 50/8.6mg Tab PO 11/25/23 20:59 1 tab HS MARIZA Administration Tamsulosin HCl 0.4 mg 10/26/23 09:00 10/30/23 09:00 Tamsulosin Hcl 0.4 Mg Cap PO 11/25/23 08:59 0.4 mg BID MARIZA Administration Torsemide 20 mg 10/30/23 09:00 10/30/23 09:01 Torsemide 20 Mg Tab PO 11/29/23 08:59 20 mg QAM MARIZA Administration
[2023-10-30 07:52] LABS: Hemoglobin 9.8 g/dl (14.0-18.0); Mean Corpuscular Hemoglobin 27.1 pg (25.0-34.0); Mean Corpuscular Hgb Conc 32.7 g/dL (32.0-36.0); Mean Corpuscular Volume 82.9 fL (80.0-100.0); Mean Platelet Volume 9.4 fL (9.4-12.4); Platelet Count 142 K/uL (130-400); RDW Coefficient of Variation 16.2 % (11.5-14.5); RDW Standard Deviation 49.2 fL (36.4-46.3); Red Blood Count 3.62 M/uL (4.70-6.10); White Blood Count 7.51 K/ul (4.8-10.8)
[2023-10-30 08:04] LABS: BUN Creatinine Ratio 27.8 (10-20); Calcium 8.7 mg/dl (8.6-10.3); Creatinine Clr Calc Pharmacy 46.9 ml/min; Est GFR (African American) 72.7 ml/min; Est GFR (Non-African American) 62.7 ml/min; Magnesium 2.1 mg/dl (1.7-2.4); Potassium 4.4 mmol/L (3.5-5.1)
--- NOTE | 2023-10-30 08:30 | Pulmonology Progress Note ---
Date of Service October 30, 2023 Assessment & Plan (1) Shortness of breath on exertion: (2) Metastatic primary lung cancer: (3) Hemoptysis: Plan Impression: 82-year-old male with a past medical history of squamous cell carcinoma of the right upper lobe currently on immunotherapy through [employer]. He is admitted with shortness of breath hypoxemia and progressive pulmonary infiltrates with hemoptysis. Differential diagnosis would include pulmonary hemorrhage, checkpoint inhibitor pulmonary toxicity, pneumonia, or progression of malignancy. CT scan shows a large pleural effusion with progressive pulmonary infiltrates concerning for ICI toxicity. Patient is status post Pleurx catheter placement with removal of about 1.5 L of fluid and improvement in respiratory status Recommendations: 1. Hemoptysis: Continue to hold anticoagulation. 2. Diffuse pulmonary infiltrates: Differential as noted above. Empirically being treated for ICI toxicity and given the possibility of ICI toxicity, will continue high-dose Solu-Medrol. Immune therapy should be avoided in the future. This would be grade 4 toxicity with significant mortality and morbidity 3. Wean oxygen as tolerated. Out of bed to chair as tolerated. PT and OT. Ambulate as tolerated. 4. Pleural effusion: Status post Pleurx. Continue to drain on an every other day basis. Repeat chest x-ray in a.m. Cytology pending. Placement per primary service. Will follow-up with chest x-ray in a.m. Admission and Anticipated Discharge Date Admission Date: October 26, 2023 Subjective Patient seen and examined. EMR reviewed. Patient reports his breathing is better. His oxygen requirement significantly improved. He is not coughing wheezing or expectorating phlegm. He is not having any pain at the Pleurx insertion site. Review of Systems 2 Review of Systems: All systems reviewed & are unremarkable except as noted in Subjective Physical Exam 2 Constitutional: WD/WN, vitals as above Neck: trachea midline, no thyromegaly Respiratory: no respiratory distress, no labored breathing, no cough and not tachypneic Auscultation: + crackles and + rhonchi Cardiovascular: RRR, no murmur, no edema Chest (Breasts): Additional Comments: Pleurx catheter site dressed Gastrointestinal (Abdomen): normal bowel sounds, soft, nontender, no hepatosplenomegaly Musculoskeletal: Extremities: extremities normal to inspection Skin: no rashes, warm and dry Neurologic: Nonfocal exam Lymphatic: no cervical lymphadenopathy Results & Data Results & Data Vital Signs (Past 12 Hours) Vital Signs Temp Pulse Pulse Resp BP Pulse Ox O2 Del Method 10/30/23 08:14 36.8 C 89 29 H 163/82 H 90 Nasal Cannula 10/30/23 07:06 75 18 93 Nasal Cannula 10/30/23 02:51 36.6 C 86 18 142/71 H 95 Nasal Cannula 10/29/23 22:57 36.7 C 72 18 161/61 H 94 Nasal Cannula 10/29/23 21:57 73 10/29/23 21:45 High Flow Nasal Cannula O2 Flow Rate 10/30/23 08:14 10/30/23 07:06 3 10/30/23 02:51 10/29/23 22:57 10/29/23 21:57 10/29/23 21:45 3 Laboratory Results 10/30/23 07:28 10/30/23 07:28 Diagnostic Findings Pleural fluid cytology pending. No new films PG Care Time/CCT Total # of Minutes Spent Total Time Spent with Patient: Total time spent is greater than 50% in coordination of care (as documented) at patient's floor/unit and/or counseling patient: Coding Level of Care Code 27756 SUB INP/OBS CARE 2/35MIN Diagnoses Shortness of breath on exertion R06.02 Metastatic primary lung cancer C34.90 Hemoptysis R04.2
[2023-10-30] MEDS: TORSEMIDE 20 MG TAB PO SCH (09:01)
[2023-10-30] MEDS: MELATONIN 3 MG TAB PO PRN (21:53)
[2023-10-31 06:30] LABS: Hemoglobin 9.1 g/dl (14.0-18.0); Mean Corpuscular Hemoglobin 27.4 pg (25.0-34.0); Mean Corpuscular Hgb Conc 32.5 g/dL (32.0-36.0); Mean Corpuscular Volume 84.3 fL (80.0-100.0); Mean Platelet Volume 9.7 fL (9.4-12.4); Platelet Count 136 K/uL (130-400); RDW Coefficient of Variation 16.1 % (11.5-14.5); RDW Standard Deviation 50.2 fL (36.4-46.3); Red Blood Count 3.32 M/uL (4.70-6.10); White Blood Count 5.31 K/ul (4.8-10.8)
--- NOTE | 2023-10-31 06:53 | Hospitalist Progress Note ---
Date of Service October 31, 2023 Assessment & Plan (1) Acute hypoxemic respiratory failure: Plan: Mr. 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 Initial concern for superimposed bacterial pneumonia on COPD exacerbation; however, it appears respiratory failure has been progressive since initiation of immunotherapy with question of possible immunotherapy pneumonitis. Pulm consulted given concern for ICI toxicity who suspects the same and started high dose solumedrol with notable reduction in oxygen requirement. Patient also s/p pleurx placement. #Acute on chronic hypoxic respiratory failure #?Immunotherapy pneumonitis #COPD, ?exacerbation #Parainfluenza virus #Hemopytsis #RUL NSCLC, c/g squamous cell carcinoma follows Dr Ivan Sifuentes s/p paclitaxel/carboplatin, Durvalumab 1500mg [id number] as of 06/2023 There was discussion regarding pneumonitis given progressive need for o2 use last followed with Heme onc 10/09 Transition to IV steroid Pulm consult: continue high dose solumedrol; transition to 40mg PO prednisone daily over 4- 6 weeks Bactrim PPX MWF Mucinex Nebs Hemoptysis: likely iso Eliquis, increasing cough; pulm to comment, TXA nebs? -Eliquis discontinued Wean o2 as able Palliative consult-- DNR/DNI after Palliative discussion with son, family meeting held today, trial of SNF Droplet precautions Pleurx drained EOD #pulm hypertension #Acute on chronic Heart failure with preserved EF ECHO EF 55%OP Repeat ECHO EF 60-65%, LVH, RVP overload on imaging, regurg, pHTN 55mhg d/c IV lasix Continue torsemide #Immunocompromised patient CS, discontinued antibiotics at this time, low concern for superimposed normal procal, supportive care #Right pleural effusion #History recurrent right pleural effusion Completed repeat IR thoracentesis at [facility] on September 20, 2023, 500 mL of straw-colored fluid removed. Cytology negative for malignant cells. Small effusion on XRAY; large effusion on CT -s/p pluerx cath placement by Dr. Vance #Asymptomatic bradycardia noted at the ER *improved #Permanent Atrial fibrillation with slow ventricular response -Discontinue Eliquis 2.5mg BID -Requip discontinued 2/2 bradycardia -Monitor on tele #Troponin elevation secondary to illness peaked at 58, improving with treatment of underlying illness #Hyponatremia POA Resolved #EL on CKD III resolved Cr. 1.6 on admission Improved, resumed home losartan #Chronic HFpEF, equivocal volume status, some congestion on x-ray, patient clinically dry #CAD status post CABG #valvular heart disease (moderate to severe MR, mild to moderate MR, TTE 2021) Continue losartan continue home torsemide #hx PVD status post surgery * Right SFA atherectomy DCB angioplasty Right 11/2016 -Dr. 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, will need CT/MR in 2 years DVT prophylaxis with scds PT/OT ordered DNR DNI Admission and Anticipated Discharge Date Admission Date: October 26, 2023 Subjective NAEO Continues to report improvement, notes some dyspnea on exertion, but feels motivated Physical Exam Constitutional: WD/WN, vitals as above Neck: bilateral rhonchi, significantly improved Cardiovascular: RRR, no murmur, no edema Gastrointestinal (Abdomen): normal bowel sounds, soft, nontender, no hepatosplenomegaly Results & Data Results & Data Vital Signs (Past 12 Hours) Vital Signs Temp Pulse Pulse Resp BP Pulse Ox Pulse Ox 10/31/23 04:00 96 10/31/23 02:52 36.8 C 81 18 162/75 H 96 10/30/23 22:31 36.7 C 68 18 158/56 H 94 10/30/23 21:56 71 10/30/23 20:15 10/30/23 19:25 61 18 92 10/30/23 19:21 36.6 C 75 18 151/55 H 94 O2 Del Method O2 Del Method O2 Flow Rate O2 Flow Rate 10/31/23 04:00 High Flow Nasal Cannula 6 10/31/23 02:52 High Flow Nasal Cannula 10/30/23 22:31 High Flow Nasal Cannula 10/30/23 21:56 10/30/23 20:15 High Flow Nasal Cannula 3 10/30/23 19:25 Nasal Cannula 3 10/30/23 19:21 Nasal Cannula Laboratory Results Short CBC 10/30/23 10/31/23 Range/Units 07:28 05:37 WBC 7.51 5.31 (4.8-10.8) K/ul Hgb 9.8 L 9.1 L (14.0-18.0) g/dl Hct 30.0 L 28.0 L (42.0-52.0) % Plt Count 142 136 (130-400) K/uL BMP 10/30/23 07:28 Sodium 136 Potassium 4.4 Chloride 99 Carbon Dioxide 29 BUN 30 H Creatinine 1.08 Glucose 119 H Calcium 8.7 Medications Administered Home Medications Medication Instructions Recorded Confirmed Last Taken albuterol sulfate 90 mcg/actuation 2 puff inhalation Q6H PRN 03/11/23 10/26/23 Unknown aerosol inhaler Shortness Of Breath Or Wheezing dutasteride 0.5 mg capsule 0.5 mg PO DAILY 03/11/23 10/26/23 Unknown ipratropium 0.5 mg-albuterol 3 mg 3 ml inhalation Q6H PRN Shortness 03/11/23 10/26/23 Unknown (2.5 mg base)/3 mL nebulization Of Breath Or Wheezing soln levothyroxine 112 mcg capsule 112 mcg PO DAILY 03/11/23 10/26/23 Unknown mecobalamin (vitamin B12) 10,000 1,000 mcg IM MONTHLY 03/11/23 10/26/23 Unknown mcg solution for injection ondansetron HCl 8 mg tablet 8 mg PO Q8H PRN Nausea 03/11/23 10/26/23 Unknown prochlorperazine maleate 10 mg 10 mg PO Q6H PRN Nausea 03/11/23 10/26/23 Unknown tablet (Compazine) tamsulosin 0.4 mg capsule 0.4 mg PO BID 03/11/23 10/26/23 Unknown torsemide 20 mg tablet 20 mg PO DAILY 03/11/23 10/26/23 Unknown amlodipine 5 mg tablet 5 mg PO QAM 08/06/23 10/26/23 Unknown apixaban 2.5 mg tablet (Eliquis) 2.5 mg PO BID 08/06/23 10/26/23 10/25/23 08:00 aspirin 81 mg tablet,delayed 81 mg PO MOWEFR 08/06/23 10/26/23 Unknown release baclofen 10 mg tablet 10 mg PO HS 08/06/23 10/26/23 Unknown mirtazapine 30 mg tablet 45 mg PO HS 08/06/23 10/26/23 Unknown nitroglycerin 0.4 mg sublingual 0.4 mg sublingual DIRECTED PRN 08/06/23 10/26/23 Unknown tablet (Nitrostat) .Ccest pain ropinirole 0.5 mg tablet 0.5 mg PO HS 08/06/23 10/26/23 Unknown sennosides 8.6 mg-docusate sodium 1 tab-cap PO 08/06/23 10/26/23 Unknown 50 mg tablet (Senna with Docusate Sodium) umeclidinium 62.5 mcg/actuation 1 inh inhalation QA 08/06/23 10/26/23 Unknown blister powder for inhalation (Incruse Ellipta) dexamethasone 4 mg tablet 4 mg PO DIRECTED .when gets 10/26/23 10/26/23 Unknown chemo duloxetine 30 mg capsule,delayed 30 mg PO QA 10/26/23 10/26/23 Unknown release losartan 50 mg tablet 50 mg PO QA 10/26/23 10/26/23 Unknown oxycodone 5 mg tablet 5 mg PO Q4 PRN .severe pain 10/26/23 10/26/23 Unknown pantoprazole 40 mg tablet,delayed 40 mg PO DAILY 10/26/23 10/26/23 Unknown release rosuvastatin 20 mg tablet 20 mg PO QA 10/26/23 10/26/23 Unknown Active Medications Generic Name Dose Route Start Last Admin Trade Name Freq PRN Reason Stop Dose Admin Albuterol 3 ml 10/26/23 07:00 10/30/23 19:24 Albut/Ipratrop 3mg/0.5mg Neb 3 Ml Vial NEB 11/25/23 06:59 3 ml QIDR [facility] Administration Protocol Amlodipine Besylate 5 mg 10/26/23 09:00 10/30/23 09:00 Amlodipine Besylate 5 Mg Tab PO 11/25/23 08:59 5 mg QAM MARIZA Administration Aspirin 81 mg 10/27/23 09:00 10/29/23 08:44 Aspirin 81 Mg Ectab PO 11/26/23 08:59 81 mg [email or web address] MARIZA Administration Baclofen 10 mg 10/26/23 21:00 10/30/23 20:28 Baclofen 10 Mg Tab PO 11/25/23 20:59 10 mg HS MARIZA Administration Duloxetine HCl 30 mg 10/26/23 09:00 10/30/23 09:01 Duloxetine Hcl 30 Mg Cap PO 11/25/23 08:59 30 mg QAM MARIZA Administration Finasteride 5 mg 10/26/23 09:00 10/30/23 09:01 Finasteride 5 Mg Tab PO 11/25/23 08:59 5 mg DAILY MARIZA Administration Guaifenesin 1,200 mg 10/27/23 09:00 10/30/23 20:28 Guaifenesin 600 Mg Tabcr PO 11/26/23 08:59 1,200 mg Q12 MARIZA Administration Hydralazine HCl 5 mg 10/28/23 07:15 10/28/23 08:07 Hydralazine Hcl 20 Mg/Ml Vial IV 11/27/23 07:14 5 mg Q4H PRN Administration systolic bp >180 Levothyroxine Sodium 125 mcg 10/26/23 06:30 10/31/23 05:42 Levothyroxine Sodium 125 Mcg Tablet PO 11/25/23 06:29 125 mcg DAILYBB MARIZA Administration Losartan Potassium 50 mg 10/28/23 09:00 10/30/23 09:01 Losartan Potassium 50 Mg Tab PO 11/27/23 08:59 50 mg QAM MARIZA Administration Melatonin 3 mg 10/30/23 21:31 10/30/23 21:53 Melatonin 3 Mg Tab PO 11/29/23 21:30 3 mg HS PRN Administration Sleep Mirtazapine 45 mg 10/26/23 21:00 10/30/23 20:29 Mirtazapine Tab 15 Mg Tab PO 11/25/23 20:59 45 mg HS MARIZA Administration Pantoprazole Sodium 40 mg 10/26/23 09:00 10/30/23 09:01 Pantoprazole 40 Mg Tab PO 11/25/23 08:59 40 mg DAILY MARIZA Administration Rosuvastatin Calcium 20 mg 10/26/23 09:00 10/30/23 09:02 Rosuvastatin Calcium 20 Mg Tab PO 11/25/23 08:59 20 mg QAM MARIZA Administration Senna/Docusate Sodium 1 tab 10/26/23 21:00 10/30/23 20:32 Docusate Sodium/Senna 50/8.6mg Tab PO 11/25/23 20:59 1 tab HS MARIZA Administration Tamsulosin HCl 0.4 mg 10/26/23 09:00 10/30/23 20:28 Tamsulosin Hcl 0.4 Mg Cap PO 11/25/23 08:59 0.4 mg BID MARIZA Administration Torsemide 20 mg 10/30/23 09:00 10/30/23 09:01 Torsemide 20 Mg Tab PO 11/29/23 08:59 20 mg QAM MARIZA Administration
[2023-10-31 06:55] LABS: BUN Creatinine Ratio 29.2 (10-20); Calcium 7.9 mg/dl (8.6-10.3); Creatinine Clr Calc Pharmacy 44.7 ml/min; Est GFR (African American) 68.8 ml/min; Est GFR (Non-African American) 59.4 ml/min; Magnesium 1.8 mg/dl (1.7-2.4); Phosphorus 3.1 mg/dl (2.5-4.9); Potassium 3.8 mmol/L (3.5-5.1)
[2023-10-31] MEDS: methylPREDNISolone 125 MG in SYRINGE 0 ML IV SCH (08:56)
--- NOTE | 2023-10-31 09:25 | Pulmonology Progress Note ---
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 He is admitted with shortness of breath hypoxemia and progressive pulmonary infiltrates with hemoptysis. Differential diagnosis would include pulmonary hemorrhage, checkpoint inhibitor pulmonary toxicity, pneumonia, or progression of malignancy. CT scan shows a large pleural effusion with progressive pulmonary infiltrates concerning for ICI toxicity. Patient is status post Pleurx catheter placement with removal of about 1.5 L of fluid and improvement in respiratory status. He has been started on empiric steroids for potential ICI pulmonary toxicity Recommendations: 1. Hemoptysis: Resolved at this point in time. Continue to hold anticoagulation. If hemoptysis remains resolved, could consider restarting anticoagulation in the next 2 to 3 days 2. Diffuse pulmonary infiltrates: Differential as noted above. Empirically being treated for ICI toxicity. Immune therapy should be avoided in the future. Okay to transition to prednisone 40 mg a day for the next 3 to 4 weeks. Would follow-up chest x-ray at that point in time and PFTs and if continuing to improve, could consider taper of steroids over the next 4 to 6 weeks. Given need for long-term steroids will place empirically on PJP prophylaxis with Bactrim every Wednesday and Wednesday 3. Wean oxygen as tolerated. Out of bed to chair as tolerated. PT and OT. Ambulate as tolerated. 4. Pleural effusion: Pleural fluid cytology pending. Status post Pleurx. Continue to drain on an every other day basis. Placement per primary service. Will continue to follow Admission and Anticipated Discharge Date Admission Date: October 26, 2023 Subjective Patient seen and examined. EMR reviewed and. He states he is doing well. He has no respiratory complaints. His cough is significantly better. He is not experiencing any additional hemoptysis. He has not had fevers or chills. His oxygen requirement has decreased significantly. His Pleurx was accessed and drained yesterday for 500 cc and the patient reported improvement in his respiratory symptoms Review of Systems 2 Review of Systems: All systems reviewed & are unremarkable except as noted in Subjective Physical Exam 2 Constitutional: WD/WN, vitals as above Neck: trachea midline, no thyromegaly Respiratory: no respiratory distress, no labored breathing, no cough and not tachypneic Auscultation: + crackles and + rhonchi Cardiovascular: RRR, no murmur, no edema Gastrointestinal (Abdomen): normal bowel sounds, soft, nontender, no hepatosplenomegaly Musculoskeletal: Extremities: extremities normal to inspection Skin: no rashes, warm and dry Lymphatic: no cervical lymphadenopathy Results & Data Results & Data Vital Signs (Past 12 Hours) Vital Signs Temp Pulse Pulse Resp BP Pulse Ox Pulse Ox 10/31/23 07:32 36.8 C 86 14 155/55 H 92 10/31/23 07:22 60 16 94 10/31/23 04:00 96 10/31/23 02:52 36.8 C 81 18 162/75 H 96 10/30/23 22:31 36.7 C 68 18 158/56 H 94 10/30/23 21:56 71 O2 Del Method O2 Del Method O2 Flow Rate O2 Flow Rate 10/31/23 07:32 High Flow Nasal Cannula 10/31/23 07:22 Nasal Cannula 6 10/31/23 04:00 High Flow Nasal Cannula 6 10/31/23 02:52 High Flow Nasal Cannula 10/30/23 22:31 High Flow Nasal Cannula 10/30/23 21:56 Laboratory Results 10/31/23 05:37 10/31/23 05:37 Diagnostic Findings Chest x-ray today was independently reviewed. The airspace opacities identified in the left lung show improvement today. The Pleurx catheter is in good position. There are patchy parenchymal infiltrates on the right as well. No significant effusion PG Care Time/CCT Total # of Minutes Spent Total Time Spent with Patient: Total time spent is greater than 50% in coordination of care (as documented) at patient's floor/unit and/or counseling patient: Coding Level of Care Code 49699 SUB INP/OBS CARE 2/35MIN Diagnoses Shortness of breath on exertion R06.02 Metastatic primary lung cancer C34.90 Hemoptysis R04.2
--- NOTE | 2023-10-31 09:45 | XRay Report ---
XR chest 1V portable CLINICAL HISTORY: resp failure TECHNIQUE: Single frontal radiograph of the chest was obtained. Comparison: Comparison is made to chest radiograph 10/28/2023 FINDINGS: Median sternotomy wires are unchanged. Stable right pleural catheter. Cardiomegaly is noted. The aort ic arch is calcified. Interval improvement in multifocal airspace opacities. Partial visualization of right upper lobe mass/scarring. Trace right pleural effusion. No pneumothorax. Right-sided healed ri b fractures are seen. IMPRESSION: Interval improvement of multifocal airspace opacities. Stable right pleural catheter. ACT 112: Negative or not required by law. Electronically signed by: Blake Madden M.D. 10/31/2023 9:43 AM
[2023-11-01 05:56] LABS: Hematocrit (blood only) 29.9 % (42.0-52.0); Hemoglobin 9.6 g/dl (14.0-18.0); Mean Corpuscular Hgb Conc 32.1 g/dL (32.0-36.0); Mean Corpuscular Volume 84.2 fL (80.0-100.0); Mean Platelet Volume 9.4 fL (9.4-12.4); Platelet Count 147 K/uL (130-400); RDW Standard Deviation 49.8 fL (36.4-46.3); Red Blood Count 3.55 M/uL (4.70-6.10); White Blood Count 6.09 K/ul (4.8-10.8)
[2023-11-01 06:11] LABS: Calcium 7.7 mg/dl (8.6-10.3); Creatinine Clr Calc Pharmacy 49.1 ml/min; Est GFR (Non-African American) 66.4 ml/min; Magnesium 1.7 mg/dl (1.7-2.4); Phosphorus 2.8 mg/dl (2.5-4.9); Potassium 3.2 mmol/L (3.5-5.1)
--- NOTE | 2023-11-01 06:50 | Hospitalist Progress Note ---
Date of Service November 01, 2023 Assessment & Plan (1) Acute hypoxemic respiratory failure: Plan: Mr. 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 Initial concern for superimposed bacterial pneumonia on COPD exacerbation; however, it appears respiratory failure has been progressive since initiation of immunotherapy with question of possible immunotherapy pneumonitis. Pulm consulted given concern for ICI toxicity who suspects the same and started high dose solumedrol with notable reduction in oxygen requirement. Patient also s/p pleurx placement. Pending placement to SNF #Constipation Aggressive bowel regimen #Fever Multiple etiologies for fever, trend fever curve: parainfluenza, malignancy, constipation Low threshold for repeat infectious work up #Acute on chronic hypoxic respiratory failure #?Immunotherapy pneumonitis #COPD, ?exacerbation #Parainfluenza virus #Hemopytsis #RUL NSCLC, c/g squamous cell carcinoma follows Dr Ivan Sifuentes s/p paclitaxel/carboplatin, Durvalumab 1500mg [id number] as of 06/2023 There was discussion regarding pneumonitis given progressive need for o2 use last followed with Heme onc 10/09 Transition to IV steroid Pulm consult: discontinue high dose solumedrol; continue 40mg PO prednisone daily over 4- 6 weeks Bactrim PJP PPX MWF Mucinex Nebs Hemoptysis: Eliquis discontinued Wean o2 as able Palliative consult-- DNR/DNI after Palliative discussion with son, family meeting held today, trial of SNF Droplet precautions Pleurx drained EOD #pulm hypertension #Acute on chronic Heart failure with preserved EF ECHO EF 55%OP Repeat ECHO EF 60-65%, LVH, RVP overload on imaging, regurg, pHTN 55mhg d/c IV lasix Continue torsemide #Immunocompromised patient CS, discontinued antibiotics at this time, low concern for superimposed normal procal, supportive care #Right pleural effusion #History recurrent right pleural effusion Completed repeat IR thoracentesis at [facility] on September 20, 2023, 500 mL of straw-colored fluid removed. Cytology negative for malignant cells. Small effusion on XRAY; large effusion on CT -s/p pluerx cath placement by Dr. Vance #Asymptomatic bradycardia noted at the ER *improved #Permanent Atrial fibrillation with slow ventricular response -Discontinue Eliquis 2.5mg BID -Requip discontinued 2/2 bradycardia -Monitor on tele #Troponin elevation secondary to illness peaked at 58, improving with treatment of underlying illness #Hyponatremia POA Resolved #EL on CKD III resolved Cr. 1.6 on admission Improved, resumed home losartan #Chronic HFpEF, equivocal volume status, some congestion on x-ray, patient clinically dry #CAD status post CABG #valvular heart disease (moderate to severe MR, mild to moderate MR, TTE 2021) Continue losartan continue home torsemide #hx PVD status post surgery * Right SFA atherectomy DCB angioplasty Right 11/2016 -Dr. 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 follows vascular #hypothyroidism TSH elevated with normal free T4, repeat ordered iso acute illness Recently increased Synthroid 112-->125mcg, continued #chronic normocytic anemia hemoglobin at baseline takes b12 and iron #HLD Crestor 20mg daily #Chronic neck pain #Cervical spinal stenosis -oxycodone 5mg q 4 hours, hold as able -Duloxetine 30mg daily #Hyperglycemia 10/25 A1C 5.1 #IPMN stable Noted on 10/[address], [address] CT/MR in 2 years DVT prophylaxis with scds PT/OT recommend rehab Pending placement, referal to [facility] DNR DNI Admission and Anticipated Discharge Date Admission Date: October 26, 2023 Subjective NAEO Patient continues to report feeling well. Reports improved cough. Endorses feeling "warm" but no urinary symptoms or other localizing issues Physical Exam Constitutional: WD/WN, vitals as above Respiratory: diminshed R lowerlung, scattered crackles, notably improved Cardiovascular: RRR, no murmur, no edema Gastrointestinal (Abdomen): normal bowel sounds, soft, nontender, no hepatosplenomegaly Results & Data Results & Data Vital Signs (Past 12 Hours) Vital Signs Temp Pulse Resp BP Pulse Ox Pulse Ox O2 Del Method 11/01/23 04:00 96 11/01/23 03:09 36.8 C 76 20 170/80 H 97 High Flow Nasal Cannula 10/31/23 22:13 36.8 C 56 L 24 146/97 H 92 High Flow Nasal Cannula 10/31/23 20:00 Nasal Cannula 10/31/23 19:54 37.0 C 61 18 156/61 H 95 Nasal Cannula, High Flow Nasal Cannula 10/31/23 19:45 58 L 16 94 Nasal Cannula O2 Del Method O2 Flow Rate O2 Flow Rate 11/01/23 04:00 High Flow Nasal Cannula 6 11/01/23 03:09 3.0 10/31/23 22:13 3.0 10/31/23 20:00 3 10/31/23 19:54 3.0 10/31/23 19:45 3 Laboratory Results Short CBC 11/01/23 Range/Units 05:31 WBC 6.09 (4.8-10.8) K/ul Hgb 9.6 L (14.0-18.0) g/dl Hct 29.9 L (42.0-52.0) % Plt Count 147 (130-400) K/uL BMP 11/01/23 05:31 Sodium 141 Potassium 3.2 L Chloride 100 Carbon Dioxide 36 H BUN 34 H Creatinine 1.03 Glucose 92 Calcium 7.7 L Medications Administered Home Medications Medication Instructions Recorded Confirmed Last Taken albuterol sulfate 90 mcg/actuation 2 puff inhalation Q6H PRN 03/11/23 10/26/23 Unknown aerosol inhaler Shortness Of Breath Or Wheezing dutasteride 0.5 mg capsule 0.5 mg PO DAILY 03/11/23 10/26/23 Unknown ipratropium 0.5 mg-albuterol 3 mg 3 ml inhalation Q6H PRN Shortness 03/11/23 10/26/23 Unknown (2.5 mg base)/3 mL nebulization Of Breath Or Wheezing soln levothyroxine 112 mcg capsule 112 mcg PO DAILY 03/11/23 10/26/23 Unknown mecobalamin (vitamin B12) 10,000 1,000 mcg IM MONTHLY 03/11/23 10/26/23 Unknown mcg solution for injection ondansetron HCl 8 mg tablet 8 mg PO Q8H PRN Nausea 03/11/23 10/26/23 Unknown prochlorperazine maleate 10 mg 10 mg PO Q6H PRN Nausea 03/11/23 10/26/23 Unknown tablet (Compazine) tamsulosin 0.4 mg capsule 0.4 mg PO BID 03/11/23 10/26/23 Unknown torsemide 20 mg tablet 20 mg PO DAILY 03/11/23 10/26/23 Unknown amlodipine 5 mg tablet 5 mg PO QAM 08/06/23 10/26/23 Unknown apixaban 2.5 mg tablet (Eliquis) 2.5 mg PO BID 08/06/23 10/26/23 10/25/23 08:00 aspirin 81 mg tablet,delayed 81 mg PO MOWEFR 08/06/23 10/26/23 Unknown release baclofen 10 mg tablet 10 mg PO HS 08/06/23 10/26/23 Unknown mirtazapine 30 mg tablet 45 mg PO HS 08/06/23 10/26/23 Unknown nitroglycerin 0.4 mg sublingual 0.4 mg sublingual DIRECTED PRN 08/06/23 10/26/23 Unknown tablet (Nitrostat) .Ccest pain ropinirole 0.5 mg tablet 0.5 mg PO HS 08/06/23 10/26/23 Unknown sennosides 8.6 mg-docusate sodium 1 tab-cap PO 08/06/23 10/26/23 Unknown 50 mg tablet (Senna with Docusate Sodium) umeclidinium 62.5 mcg/actuation 1 inh inhalation QA 08/06/23 10/26/23 Unknown blister powder for inhalation (Incruse Ellipta) dexamethasone 4 mg tablet 4 mg PO DIRECTED .when gets 10/26/23 10/26/23 Unknown chemo duloxetine 30 mg capsule,delayed 30 mg PO QA 10/26/23 10/26/23 Unknown release losartan 50 mg tablet 50 mg PO QA 10/26/23 10/26/23 Unknown oxycodone 5 mg tablet 5 mg PO Q4 PRN .severe pain 10/26/23 10/26/23 Unknown pantoprazole 40 mg tablet,delayed 40 mg PO DAILY 10/26/23 10/26/23 Unknown release rosuvastatin 20 mg tablet 20 mg PO QA 10/26/23 10/26/23 Unknown Active Medications Generic Name Dose Route Start Last Admin Trade Name Freq PRN Reason Stop Dose Admin Albuterol 3 ml 10/26/23 07:00 11/01/23 10:58 Albut/Ipratrop 3mg/0.5mg Neb 3 Ml Vial NEB 11/25/23 06:59 3 ml QIDR MARIZA Administration Protocol Amlodipine Besylate 10 mg 11/01/23 09:00 11/01/23 08:59 Amlodipine Besylate 5 Mg Tab PO 12/01/23 08:59 10 mg QAM MARIZA Administration Aspirin 81 mg 10/27/23 09:00 11/01/23 08:57 Aspirin 81 Mg Ectab PO 11/26/23 08:59 81 mg [id number] MARIZA Administration Baclofen 10 mg 10/26/23 21:00 10/31/23 20:14 Baclofen 10 Mg Tab PO 11/25/23 20:59 10 mg HS MARIZA Administration Calcium/Vitamin D 1 tab 11/01/23 09:00 11/01/23 08:52 Calcium 600mg + Vit D 400 Iu Tab PO 12/01/23 08:59 1 tab BID MARIZA Administration Duloxetine HCl 30 mg 10/26/23 09:00 11/01/23 08:56 Duloxetine Hcl 30 Mg Cap PO 11/25/23 08:59 30 mg QAM MARIZA Administration Finasteride 5 mg 10/26/23 09:00 11/01/23 09:00 Finasteride 5 Mg Tab PO 11/25/23 08:59 5 mg DAILY MARIZA Administration Guaifenesin 1,200 mg 10/27/23 09:00 11/01/23 08:53 Guaifenesin 600 Mg Tabcr PO 11/26/23 08:59 1,200 mg Q12 MARIZA Administration Hydralazine HCl 5 mg 10/28/23 07:15 10/28/23 08:07 Hydralazine Hcl 20 Mg/Ml Vial IV 11/27/23 07:14 5 mg Q4H PRN Administration systolic bp >180 Levothyroxine Sodium 125 mcg 10/26/23 06:30 11/01/23 05:55 Levothyroxine Sodium 125 Mcg Tablet PO 11/25/23 06:29 125 mcg DAILYBB MARIZA Administration Losartan Potassium 50 mg 10/28/23 09:00 11/01/23 08:53 Losartan Potassium 50 Mg Tab PO 11/27/23 08:59 50 mg QAM MARIZA Administration Melatonin 3 mg 10/30/23 21:31 10/30/23 21:53 Melatonin 3 Mg Tab PO 11/29/23 21:30 3 mg HS PRN Administration Sleep Mirtazapine 45 mg 10/26/23 21:00 10/31/23 20:13 Mirtazapine Tab 15 Mg Tab PO 11/25/23 20:59 45 mg HS MARIZA Administration Oxycodone HCl 5 mg 10/28/23 17:15 11/01/23 09:32 Oxycodone Hcl Ir 5 Mg Tab (Immediate Release) PO 11/11/23 17:14 5 mg Q8H PRN Administration Severe Pain (Scale 7, 8, 9,10) Pantoprazole Sodium 40 mg 10/26/23 09:00 11/01/23 08:56 Pantoprazole 40 Mg Tab PO 11/25/23 08:59 40 mg DAILY MARIZA Administration Polyethylene Glycol 17 gm 11/01/23 09:00 11/01/23 09:21 Polyethylene (Miralax) 17 Gm Pack PO 12/01/23 08:59 17 gm DAILY MARIZA Administration Potassium Chloride 40 meq 11/01/23 09:00 11/01/23 08:51 Potassium Chloride Pwd 20 Meq Pack PO 12/01/23 08:59 40 meq QAM MARIZA Administration Prednisone 40 mg 11/01/23 09:00 11/01/23 08:54 Prednisone 20 Mg Tab PO 12/01/23 08:59 40 mg DAILY MARIZA Administration Rosuvastatin Calcium 20 mg 10/26/23 09:00 11/01/23 09:00 Rosuvastatin Calcium 20 Mg Tab PO 11/25/23 08:59 20 mg QAM MARIZA Administration Senna/Docusate Sodium 1 tab 10/26/23 21:00 10/31/23 20:14 Docusate Sodium/Senna 50/8.6mg Tab PO 11/25/23 20:59 1 tab HS MARIZA Administration Tamsulosin HCl 0.4 mg 10/26/23 09:00 11/01/23 08:59 Tamsulosin Hcl 0.4 Mg Cap PO 11/25/23 08:59 0.4 mg BID MARIZA Administration Torsemide 20 mg 10/30/23 09:00 11/01/23 09:00 Torsemide 20 Mg Tab PO 11/29/23 08:59 20 mg QAM MARIZA Administration
[2023-11-01] MEDS: POTASSIUM CHLORIDE PWD 20 MEQ PACK PO SCH (08:51)
[2023-11-01] MEDS: amLODIPine BESYLATE 5 MG TAB PO SCH (08:52)
[2023-11-01] MEDS: CALCIUM 600MG + VIT D 400 IU TAB PO SCH (08:52)
[2023-11-01] MEDS: predniSONE 20 MG TAB PO SCH (08:54)
[2023-11-01] MEDS: SULFAMETHOXAZOLE/TRIMETHOPRIM DS 800/160MG TAB PO ONE (08:56)
[2023-11-01] MEDS: POLYETHYLENE (MIRALAX) 17 GM PACK PO SCH (09:21)
[2023-11-01] MEDS: bisacodyL 5 MG TABEC PO ONE (09:21)
[2023-11-01] MEDS: oxyCODONE HCL IR 5 MG TAB (IMMEDIATE RELEASE) PO PRN (09:32)
--- NOTE | 2023-11-01 10:44 | Pulmonology Progress Note ---
Date of Service November 01, 2023 Assessment & Plan (1) Shortness of breath on exertion: (2) Metastatic primary lung cancer: (3) Hemoptysis: (4) Chest x-ray abnormality: Plan Impression: 82-year-old male with a past medical history of squamous cell carcinoma of the right upper lobe currently on immunotherapy through [employer]. He is admitted with shortness of breath hypoxemia and progressive pulmonary infiltrates with hemoptysis. Differential diagnosis would include pulmonary hemorrhage, checkpoint inhibitor pulmonary toxicity, pneumonia, or progression of malignancy. CT scan shows a large pleural effusion with progressive pulmonary infiltrates concerning for ICI toxicity. Patient is status post Pleurx catheter placement with removal of about 1.5 L of fluid and improvement in respiratory status. He has been started on empiric steroids for potential ICI pulmonary toxicity Recommendations: 1. Hemoptysis: Resolved at this point in time. Continue to hold anticoagulation. If hemoptysis remains resolved, could consider restarting anticoagulation in the next 1 to 2 days. 2. Diffuse pulmonary infiltrates: Differential as noted above. Empirically being treated for ICI toxicity. Immune therapy should be avoided in the future. Okay to transition to prednisone 40 mg a day for the next 3 to 4 weeks. Would follow-up chest x-ray at that point in time and PFTs and if continuing to improve, could consider taper of steroids over the next 4 to 6 weeks. Given n eed for long-term steroids recommend PJP prophylaxis with Bactrim every Wednesday and Wednesday 3. Wean oxygen as tolerated. Out of bed to chair as tolerated. PT and OT. Ambulate as tolerated. 4. Pleural effusion: Pleural fluid cytology pending. Status post Pleurx. Continue to drain on an every other day basis. Recommend ongoing palliative care discussion given advanced malignancy and poor performance status. Pulmonary to sign off at this time. Thank you for the consult. Please call questions. Admission and Anticipated Discharge Date Admission Date: October 26, 2023 Subjective Patient denies any major complaints today. Shortness of breath and cough improved. He is eager to leave the hospital. Discussed with bedside RN. Review of Systems Review of Systems: All systems reviewed & are unremarkable except as noted in HPI & below Physical Exam Constitutional: WD/WN, vitals as above Neck: trachea midline, no thyromegaly Respiratory: no respiratory distress, no labored breathing, no cough and not tachypneic Auscultation: + crackles and + rhonchi Cardiovascular: RRR, no murmur, no edema Gastrointestinal (Abdomen): normal bowel sounds, soft, nontender, no hepatosplenomegaly Musculoskeletal: Extremities: extremities normal to inspection Skin: no rashes, warm and dry Lymphatic: no cervical lymphadenopathy Results & Data Results & Data Vital Signs (Past 12 Hours) Vital Signs Temp Pulse Resp BP Pulse Ox Pulse Ox O2 Del Method 11/01/23 07:46 80 18 96 Nasal Cannula 11/01/23 07:35 38.0 C H 74 21 164/71 H 95 High Flow Nasal Cannula 11/01/23 04:00 96 11/01/23 03:09 36.8 C 76 20 170/80 H 97 High Flow Nasal Cannula O2 Del Method O2 Flow Rate O2 Flow Rate 11/01/23 07:46 4 11/01/23 07:35 11/01/23 04:00 High Flow Nasal Cannula 6 11/01/23 03:09 3.0 PG Care Time/CCT Total # of Minutes Spent Total Time Spent with Patient: Total time spent is greater than 50% in coordination of care (as documented) at patient's floor/unit and/or counseling patient: Coding Level of Care Code 38371 SUB INP/OBS CARE 2/35MIN Diagnoses Shortness of breath on exertion R06.02 Metastatic primary lung cancer C34.90 Hemoptysis R04.2 Chest x-ray abnormality R93.89
[2023-11-02 06:40] LABS: Hematocrit (blood only) 30.5 % (42.0-52.0); Hemoglobin 9.6 g/dl (14.0-18.0); Mean Corpuscular Hemoglobin 26.8 pg (25.0-34.0); Mean Corpuscular Hgb Conc 31.5 g/dL (32.0-36.0); Mean Corpuscular Volume 85.2 fL (80.0-100.0); Mean Platelet Volume 9.8 fL (9.4-12.4); Platelet Count 137 K/uL (130-400); RDW Coefficient of Variation 15.9 % (11.5-14.5); RDW Standard Deviation 49.9 fL (36.4-46.3); Red Blood Count 3.58 M/uL (4.70-6.10); White Blood Count 3.95 K/ul (4.8-10.8)
[2023-11-02 06:57] LABS: BUN Creatinine Ratio 34.3 (10-20); Calcium 7.8 mg/dl (8.6-10.3); Creatinine Clr Calc Pharmacy 45.6 ml/min; Est GFR (African American) 77.9 ml/min; Est GFR (Non-African American) 67.2 ml/min; Potassium 4.3 mmol/L (3.5-5.1)
[2023-11-02] MEDS: LOSARTAN POTASSIUM 25 MG TAB PO SCH (08:40)
[2023-11-02] MEDS ORDERED: SODIUM CHLORIDE 0.65% NA SOLN 45 ML (OCEAN) PRN (13:25)
--- NOTE | 2023-11-02 13:29 | Hospitalist Progress Note ---
Date of Service November 02, 2023 Assessment & Plan (1) Acute hypoxemic respiratory failure: Plan: Mr. 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 Initial concern for superimposed bacterial pneumonia on COPD exacerbation; however, it appears respiratory failure has been progressive since initiation of immunotherapy with question of possible immunotherapy pneumonitis. Pulm consulted given concern for ICI toxicity who suspects the same and started high dose solumedrol with notable reduction in oxygen requirement. Patient also s/p pleurx placement. Pending placement to SNF; however, on 11/01 patient was ambulating around room without difficulty and reports feeling "great" in comparison to days prior. He states he no longer wishes to go to rehab. He wishes for home health nursing and to return home. Care management working on services. #Constipation Aggressive bowel regimen #Fever *resolved Multiple etiologies for fever, trend fever curve: parainfluenza, malignancy, constipation Low threshold for repeat infectious work up #Acute on chronic hypoxic respiratory failure #?Immunotherapy pneumonitis #COPD, ?exacerbation #Parainfluenza virus #Hemopytsis #RUL NSCLC, c/g squamous cell carcinoma follows Dr Ivan Sifuentes s/p paclitaxel/carboplatin, Durvalumab 1500mg [id number] as of 06/2023 There was discussion regarding pneumonitis given progressive need for o2 use last followed with Heme onc 10/09 Transition to IV steroid Pulm consult: discontinue high dose solumedrol; continue 40mg PO prednisone daily over 4- 6 weeks Bactrim PJP PPX MWF Mucinex Nebs Hemoptysis: [place] discontinued Wean o2 as able Palliative consult-- DNR/DNI after Palliative discussion with son, family meeting held today, trial of SNF (patient now wishes to return home) Droplet precautions Pleurx drained EOD #pulm hypertension #Acute on chronic Heart failure with preserved EF *improved ECHO EF 55%OP Repeat ECHO EF 60-65%, LVH, RVP overload on imaging, regurg, pHTN 55mhg d/c IV lasix Continue torsemide #Immunocompromised patient CS, discontinued antibiotics at this time, low concern for superimposed normal procal, supportive care #Right pleural effusion #History recurrent right pleural effusion Completed repeat IR thoracentesis at [facility] on September 20, 2023, 500 mL of straw-colored fluid removed. Cytology negative for malignant cells. Small effusion on XRAY; large effusion on CT -s/p pluerx cath placement by Dr. Vance #Asymptomatic bradycardia noted at the ER *improved #Permanent Atrial fibrillation with slow ventricular response -Discontinue Eliquis 2.5mg BID -Requip discontinued 2/2 bradycardia -Monitor on tele #Troponin elevation secondary to illness peaked at 58, improving with treatment of underlying illness #Hyponatremia POA Resolved #EL on CKD III resolved Cr. 1.6 on admission Improved, resumed home losartan #Chronic HFpEF, equivocal volume status, some congestion on x-ray, patient clinically dry #CAD status post CABG #valvular heart disease (moderate to severe MR, mild to moderate MR, TTE 2021) Continue losartan continue home torsemide #hx PVD status post surgery * Right SFA atherectomy DCB angioplasty Right 11/2016 -Dr. 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 follows vascular #hypothyroidism TSH elevated with normal free T4, repeat ordered iso acute illness Recently increased Synthroid 112-->125mcg, continued #chronic normocytic anemia hemoglobin at baseline takes b12 and iron #HLD Crestor 20mg daily #Chronic neck pain #Cervical spinal stenosis -oxycodone 5mg q 4 hours, hold as able -Duloxetine 30mg daily #Hyperglycemia 10/25 A1C 5.1 #IPMN stable Noted on 10/[address], [address] CT/MR in 2 years DVT prophylaxis with scds PT/OT recommend rehab Pending placement, referal to [facility] DNR DNI Admission and Anticipated Discharge Date Admission Date: October 26, 2023 Subjective NAEO Patient reports feeling great; sitting in bedside chair, reports ambulating around room Denies any nausea, vomting chest pain or other acute concerns Physical Exam Constitutional: WD/WN, vitals as above Respiratory: trace rhonchi, good airway movement, able to take deeper inhalation without cough Cardiovascular: RRR, no murmur, no edema Musculoskeletal: no cyanosis or clubbing, extremities motor strength 5/5 Results & Data Results & Data Vital Signs (Past 12 Hours) Vital Signs Temp Pulse Pulse Resp BP Pulse Ox Pulse Ox 11/02/23 11:45 11/02/23 11:35 36.5 C 97 H 16 158/75 H 96 11/02/23 11:03 70 18 95 11/02/23 07:52 94 H 20 90 11/02/23 07:35 36.5 C 96 H 18 162/79 H 95 11/02/23 03:10 60 91 11/02/23 02:55 11/02/23 02:18 36.6 C 97 H 19 178/89 H 91 Pulse Ox O2 Del Method O2 Del Method O2 Del Method O2 Flow Rate O2 Flow Rate O2 Flow Rate 11/02/23 11:45 Nasal Cannula 1 11/02/23 11:35 Nasal Cannula 2 11/02/23 11:03 Nasal Cannula 2 11/02/23 07:52 Nasal Cannula 2 11/02/23 07:35 Nasal Cannula 2 11/02/23 03:10 Nasal Cannula 2 11/02/23 02:55 98 Nasal Cannula 2 11/02/23 02:18 Nasal Cannula 2.0 Laboratory Results Short CBC 11/02/23 Range/Units 06:13 WBC 3.95 L (4.8-10.8) K/ul Hgb 9.6 L (14.0-18.0) g/dl Hct 30.5 L (42.0-52.0) % Plt Count 137 (130-400) K/uL BMP 11/02/23 06:13 Sodium 141 Potassium 4.3 D Chloride 99 Carbon Dioxide 38 H BUN 35 H Creatinine 1.02 Glucose 114 H Calcium 7.8 L Medications Administered Home Medications Medication Instructions Recorded Confirmed Last Taken albuterol sulfate 90 mcg/actuation 2 puff inhalation Q6H PRN 03/11/23 10/26/23 Unknown aerosol inhaler Shortness Of Breath Or Wheezing dutasteride 0.5 mg capsule 0.5 mg PO DAILY 03/11/23 10/26/23 Unknown ipratropium 0.5 mg-albuterol 3 mg 3 ml inhalation Q6H PRN Shortness 03/11/23 10/26/23 Unknown (2.5 mg base)/3 mL nebulization Of Breath Or Wheezing soln levothyroxine 112 mcg capsule 112 mcg PO DAILY 03/11/23 10/26/23 Unknown mecobalamin (vitamin B12) 10,000 1,000 mcg IM MONTHLY 03/11/23 10/26/23 Unknown mcg solution for injection ondansetron HCl 8 mg tablet 8 mg PO Q8H PRN Nausea 03/11/23 10/26/23 Unknown prochlorperazine maleate 10 mg 10 mg PO Q6H PRN Nausea 03/11/23 10/26/23 Unknown tablet (Compazine) tamsulosin 0.4 mg capsule 0.4 mg PO BID 03/11/23 10/26/23 Unknown torsemide 20 mg tablet 20 mg PO DAILY 03/11/23 10/26/23 Unknown amlodipine 5 mg tablet 5 mg PO QAM 08/06/23 10/26/23 Unknown apixaban 2.5 mg tablet (Eliquis) 2.5 mg PO BID 08/06/23 10/26/23 10/25/23 08:00 aspirin 81 mg tablet,delayed 81 mg PO MOWEFR 08/06/23 10/26/23 Unknown release baclofen 10 mg tablet 10 mg PO HS 08/06/23 10/26/23 Unknown mirtazapine 30 mg tablet 45 mg PO HS 08/06/23 10/26/23 Unknown nitroglycerin 0.4 mg sublingual 0.4 mg sublingual DIRECTED PRN 08/06/23 10/26/23 Unknown tablet (Nitrostat) .Ccest pain ropinirole 0.5 mg tablet 0.5 mg PO HS 08/06/23 10/26/23 Unknown sennosides 8.6 mg-docusate sodium 1 tab-cap PO HS 08/06/23 10/26/23 Unknown 50 mg tablet (Senna with Docusate Sodium) umeclidinium 62.5 mcg/actuation 1 inh inhalation QA 08/06/23 10/26/23 Unknown blister powder for inhalation (Incruse Ellipta) dexamethasone 4 mg tablet 4 mg PO DIRECTED .when gets 10/26/23 10/26/23 Unknown chemo duloxetine 30 mg capsule,delayed 30 mg PO QAM 10/26/23 10/26/23 Unknown release losartan 50 mg tablet 50 mg PO QA 10/26/23 10/26/23 Unknown oxycodone 5 mg tablet 5 mg PO Q4 PRN .severe pain 10/26/23 10/26/23 Unknown pantoprazole 40 mg tablet,delayed 40 mg PO DAILY 10/26/23 10/26/23 Unknown release rosuvastatin 20 mg tablet 20 mg PO QA 10/26/23 10/26/23 Unknown Active Medications Generic Name Dose Route Start Last Admin Trade Name Anthony PRN Reason Stop Dose Admin Albuterol 3 ml 10/26/23 07:00 11/02/23 11:02 Albut/Ipratrop 3mg/0.5mg Neb 3 Ml Vial NEB 11/25/23 06:59 3 ml QIDR MARIZA Administration Protocol Amlodipine Besylate 10 mg 11/01/23 09:00 11/01/23 08:59 Amlodipine Besylate 5 Mg Tab PO 12/01/23 08:59 10 mg QAM MARIZA Administration Aspirin 81 mg 10/27/23 09:00 11/01/23 08:57 Aspirin 81 Mg Ectab PO 11/26/23 08:59 81 mg [id number] MARIZA Administration Baclofen 10 mg 10/26/23 21:00 11/01/23 20:11 Baclofen 10 Mg Tab PO 11/25/23 20:59 10 mg HS MARIZA Administration Calcium/Vitamin D 1 tab 11/01/23 09:00 11/02/23 08:31 Calcium 600mg + Vit D 400 Iu Tab PO 12/01/23 08:59 1 tab BID MARIZA Administration Duloxetine HCl 30 mg 10/26/23 09:00 11/02/23 08:31 Duloxetine Hcl 30 Mg Cap PO 11/25/23 08:59 30 mg QAM MARIZA Administration Finasteride 5 mg 10/26/23 09:00 11/02/23 08:31 Finasteride 5 Mg Tab PO 11/25/23 08:59 5 mg DAILY MARIZA Administration Guaifenesin 1,200 mg 10/27/23 09:00 11/02/23 08:30 Guaifenesin 600 Mg Tabcr PO 11/26/23 08:59 1,200 mg Q12 MARIZA Administration Hydralazine HCl 5 mg 10/28/23 07:15 10/28/23 08:07 Hydralazine Hcl 20 Mg/Ml Vial IV 11/27/23 07:14 5 mg Q4H PRN Administration systolic bp >180 Levothyroxine Sodium 125 mcg 10/26/23 06:30 11/02/23 05:04 Levothyroxine Sodium 125 Mcg Tablet PO 11/25/23 06:29 125 mcg DAILYBB MARIZA Administration Losartan Potassium 75 mg 11/02/23 09:00 11/02/23 08:40 Losartan Potassium 25 Mg Tab PO 12/02/23 08:59 75 mg QAM MARIZA Administration Melatonin 3 mg 10/30/23 21:31 10/30/23 21:53 Melatonin 3 Mg Tab PO 11/29/23 21:30 3 mg HS PRN Administration Sleep Mirtazapine 45 mg 10/26/23 21:00 11/01/23 20:11 Mirtazapine Tab 15 Mg Tab PO 11/25/23 20:59 45 mg HS MARIZA Administration Oxycodone HCl 5 mg 10/28/23 17:15 11/01/23 09:32 Oxycodone Hcl Ir 5 Mg Tab (Immediate Release) PO 11/11/23 17:14 5 mg Q8H PRN Administration Severe Pain (Scale 7, 8, 9,10) Pantoprazole Sodium 40 mg 10/26/23 09:00 11/02/23 08:31 Pantoprazole 40 Mg Tab PO 11/25/23 08:59 40 mg DAILY MARIZA Administration Polyethylene Glycol 17 gm 11/01/23 09:00 11/02/23 08:32 Polyethylene (Miralax) 17 Gm Pack PO 12/01/23 08:59 17 gm DAILY MARIZA Administration Potassium Chloride 40 meq 11/01/23 09:00 11/02/23 08:33 Potassium Chloride Pwd 20 Meq Pack PO 12/01/23 08:59 40 meq QAM MARIZA Administration Prednisone 40 mg 11/01/23 09:00 11/02/23 08:31 Prednisone 20 Mg Tab PO 12/01/23 08:59 40 mg DAILY MARIZA Administration Rosuvastatin Calcium 20 mg 10/26/23 09:00 11/02/23 08:31 Rosuvastatin Calcium 20 Mg Tab PO 11/25/23 08:59 20 mg QAM MARIZA Administration Senna/Docusate Sodium 1 tab 10/26/23 21:00 11/01/23 20:11 Docusate Sodium/Senna 50/8.6mg Tab PO 11/25/23 20:59 1 tab HS MARIZA Administration Tamsulosin HCl 0.4 mg 10/26/23 09:00 11/02/23 08:31 Tamsulosin Hcl 0.4 Mg Cap PO 11/25/23 08:59 0.4 mg BID MARIZA Administration Torsemide 20 mg 10/30/23 09:00 11/02/23 08:31 Torsemide 20 Mg Tab PO 11/29/23 08:59 20 mg QAM MARIZA Administration
[2023-11-02] MEDS: SODIUM CHLORIDE 0.65% NA SOLN 45 ML (OCEAN) ONE (16:43)
[2023-11-03 06:38] LABS: Hematocrit (blood only) 29.9 % (42.0-52.0); Hemoglobin 9.7 g/dl (14.0-18.0); Mean Corpuscular Hemoglobin 27.4 pg (25.0-34.0); Mean Corpuscular Hgb Conc 32.4 g/dL (32.0-36.0); Mean Corpuscular Volume 84.5 fL (80.0-100.0); Mean Platelet Volume 9.4 fL (9.4-12.4); Platelet Count 144 K/uL (130-400); RDW Coefficient of Variation 15.8 % (11.5-14.5); RDW Standard Deviation 48.9 fL (36.4-46.3); Red Blood Count 3.54 M/uL (4.70-6.10); White Blood Count 6.08 K/ul (4.8-10.8)
[2023-11-03 06:51] LABS: BUN Creatinine Ratio 33.3 (10-20); Calcium 7.8 mg/dl (8.6-10.3); Creatinine Clr Calc Pharmacy 47.2 ml/min; Est GFR (African American) 80.7 ml/min; Est GFR (Non-African American) 69.6 ml/min; Potassium 3.8 mmol/L (3.5-5.1)
[2023-11-03] MEDS: SULFAMETHOXAZOLE/TRIMETHOPRIM DS 800/160MG TAB PO SCH (09:12)
[2023-11-03] MEDS ORDERED: ALBUT/IPRATROP 3MG/0.5MG NEB 3 ML VIAL NEB PRN (14:39)
--- NOTE | 2023-11-03 17:45 | Hospitalist Progress Note ---
Date of Service November 03, 2023 Assessment & Plan (1) Acute hypoxemic respiratory failure: Plan: Per prior attending with addendum: Mr. 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 Initial concern for superimposed bacterial pneumonia on COPD exacerbation; however, it appears respiratory failure has been progressive since initiation of immunotherapy with question of possible immunotherapy pneumonitis. Pulm consulted given concern for ICI toxicity who suspects the same and started high dose solumedrol with notable reduction in oxygen requirement. Patient also s/p pleurx placement. Pending placement to SNF; however, on 11/01 patient was ambulating around room without difficulty and reports feeling "great" in comparison to days prior. He states he no longer wishes to go to rehab. He wishes for home health nursing and to return home. Care management working on services. #Constipation Aggressive bowel regimen #Fever *resolved Multiple etiologies for fever, trend fever curve: parainfluenza, malignancy, constipation Low threshold for repeat infectious work up #Acute on chronic hypoxic respiratory failure #?Immunotherapy pneumonitis #COPD, ?exacerbation #Parainfluenza virus #Hemopytsis #RUL NSCLC, c/g squamous cell carcinoma follows Dr Ivan Sifuentes s/p paclitaxel/carboplatin, Durvalumab 1500mg [id number] as of 06/2023 There was discussion regarding pneumonitis given progressive need for o2 use last followed with Heme onc 10/09 Transition to IV steroid Pulm consult: discontinue high dose solumedrol; continue 40mg PO prednisone daily over 4- 6 weeks Bactrim PJP PPX MWF Mucinex Nebs Hemoptysis: Eliquis discontinued Wean o2 as able Palliative consult-- DNR/DNI after Palliative discussion with son, family meeting held today, trial of SNF (patient now wishes to return home) Droplet precautions Pleurx drained EOD #pulm hypertension #Acute on chronic Heart failure with preserved EF *improved ECHO EF 55%OP Repeat ECHO EF 60-65%, LVH, RVP overload on imaging, regurg, pHTN 55mhg d/c IV lasix Continue torsemide #Immunocompromised patient CS, discontinued antibiotics at this time, low concern for superimposed normal procal, supportive care #Right pleural effusion #History recurrent right pleural effusion Completed repeat IR thoracentesis at [facility] on September 20, 2023, 500 mL of straw-colored fluid removed. Cytology negative for malignant cells. Small effusion on XRAY; large effusion on CT -s/p pluerx cath placement by Dr. Vance #Asymptomatic bradycardia noted at the ER *improved #Permanent Atrial fibrillation with slow ventricular response -Discontinue Eliquis 2.5mg BID -Requip discontinued 2/2 bradycardia -Monitor on tele #Troponin elevation secondary to illness peaked at 58, improving with treatment of underlying illness #Hyponatremia POA Resolved #EL on CKD III resolved Cr. 1.6 on admission Improved, resumed home losartan #Chronic HFpEF, equivocal volume status, some congestion on x-ray, patient clinically dry #CAD status post CABG #valvular heart disease (moderate to severe MR, mild to moderate MR, TTE 2021) Continue losartan continue home torsemide #hx PVD status post surgery * Right SFA atherectomy DCB angioplasty Right 11/2016 -Dr. 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 follows vascular #hypothyroidism TSH elevated with normal free T4, repeat ordered iso acute illness Recently increased Synthroid 112-->125mcg, continued #chronic normocytic anemia hemoglobin at baseline takes b12 and iron #HLD Crestor 20mg daily #Chronic neck pain #Cervical spinal stenosis -oxycodone 5mg q 4 hours, hold as able -Duloxetine 30mg daily #Hyperglycemia 10/25 A1C 5.1 #IPMN stable Noted on 10/[address], [address] CT/MR in 2 years DVT prophylaxis with scds PT/OT recommend rehab Pending placement, [facility]eral to [facility] DNR DNI Addendum 11/03/2023: Patient was seen and examined at bedside as a follow-up of dyspnea on exertion, metastatic primary lung cancer, diffuse pulmonary infiltrate likely immunotherapy related toxicity. Patient has been evaluated by pulmonology, patient on prednisone 40 mg daily for next 3 to 4 weeks with repeat chest x-ray and PFT in about a month time, tapering of his steroid over the following next 4 to 6 weeks. Given long-term steroid, PJP prophylaxis with Bactrim every Wednesday started. Patient reports feeling great and is needing 2 L oxygen at present. Patient's son would like to take him home tomorrow, patient would like to go home with home health and would not want to go to rehab. CM is assisting w/ dc plan. Continue palliative follow-up as an outpatient. Admission and Anticipated Discharge Date Admission Date: October 26, 2023 Subjective Patient was seen and examined at bedside. Patient reports feeling better, reports eating okay and moving bowels okay. Denies any nausea, vomiting or chest pain or febrile illness. Patient's neighbor at bedside. Patient reports ambulating around okay. Physical Exam Physical Exam: GENERAL: Comfortable, slightly hard of hearing, no respiratory distress SKIN: Pallor, warm HEENT: Alopecia, pale palpebral conjunctivae, no ptosis, moist buccal mucosa, nasal cannula in place NECK : Supple, no tenderness CHEST : Decreased breath sounds, scattered expiratory wheezes, no tenderness Rt chest pleurex cath noted. HEART : Bradycardic, irregular, systolic murmur ABDOMEN: Some distention, nontender EXTREMITIES : Minimal LE swelling, no LE tenderness, no other conspicuous deformities noted NEUROLOGIC : Coherent, no facial asymmetry, slightly hard of hearing, gait and stance not assessed Results & Data Results & Data Vital Signs (Past 12 Hours) Vital Signs Temp Pulse Pulse Resp BP Pulse Ox O2 Del Method 11/03/23 13:59 72 20 95 Nasal Cannula 11/03/23 12:00 36.7 C 98 H 18 155/75 H 96 Nasal Cannula 11/03/23 10:38 71 20 94 Nasal Cannula 11/03/23 08:00 36.8 C 87 16 169/82 H 97 Nasal Cannula 11/03/23 07:08 80 16 96 Nasal Cannula 11/03/23 07:00 67 O2 Flow Rate 11/03/23 13:59 2 11/03/23 12:00 2 11/03/23 10:38 2 11/03/23 08:00 2 11/03/23 07:08 2 11/03/23 07:00
[2023-11-04 07:37] LABS: Hematocrit (blood only) 30.9 % (42.0-52.0); Mean Corpuscular Hemoglobin 27.2 pg (25.0-34.0); Mean Corpuscular Hgb Conc 32.4 g/dL (32.0-36.0); Mean Corpuscular Volume 84.2 fL (80.0-100.0); Mean Platelet Volume 9.4 fL (9.4-12.4); Platelet Count 152 K/uL (130-400); RDW Coefficient of Variation 15.6 % (11.5-14.5); RDW Standard Deviation 48.3 fL (36.4-46.3); Red Blood Count 3.67 M/uL (4.70-6.10); White Blood Count 8.52 K/ul (4.8-10.8)
[2023-11-04 07:46] LABS: BUN Creatinine Ratio 33.3 (10-20); Calcium 7.7 mg/dl (8.6-10.3); Creatinine Clr Calc Pharmacy 50.1 ml/min; Est GFR (African American) 87.1 ml/min; Est GFR (Non-African American) 75.1 ml/min; Potassium 3.9 mmol/L (3.5-5.1)
--- NOTE | 2023-11-04 17:38 | Hospitalist Progress Note ---
Date of Service November 04, 2023 Assessment & Plan (1) Acute hypoxemic respiratory failure: Plan: Per prior attending with addendum: Mr. 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 Initial concern for superimposed bacterial pneumonia on COPD exacerbation; however, it appears respiratory failure has been progressive since initiation of immunotherapy with question of possible immunotherapy pneumonitis. Pulm consulted given concern for ICI toxicity who suspects the same and started high dose solumedrol with notable reduction in oxygen requirement. Patient also s/p pleurx placement. Pending placement to SNF; however, on 11/01 patient was ambulating around room without difficulty and reports feeling "great" in comparison to days prior. He states he no longer wishes to go to rehab. He wishes for home health nursing and to return home. Care management working on services. #Constipation Aggressive bowel regimen #Fever *resolved Multiple etiologies for fever, trend fever curve: parainfluenza, malignancy, constipation Low threshold for repeat infectious work up #Acute on chronic hypoxic respiratory failure #?Immunotherapy pneumonitis #COPD, ?exacerbation #Parainfluenza virus #Hemopytsis #RUL NSCLC, c/g squamous cell carcinoma follows Dr Ivan Sifuentes s/p paclitaxel/carboplatin, Durvalumab 1500mg [id number] as of 06/2023 There was discussion regarding pneumonitis given progressive need for o2 use last followed with Heme onc 10/09 Transition to IV steroid Pulm consult: discontinue high dose solumedrol; continue 40mg PO prednisone daily over 4- 6 weeks Bactrim PJP PPX MWF Mucinex Nebs Hemoptysis: Eliquis discontinued Wean o2 as able Palliative consult-- DNR/DNI after Palliative discussion with son, family meeting held today, trial of SNF (patient now wishes to return home) Droplet precautions Pleurx drained EOD #pulm hypertension #Acute on chronic Heart failure with preserved EF *improved ECHO EF 55%OP Repeat ECHO EF 60-65%, LVH, RVP overload on imaging, regurg, pHTN 55mhg d/c IV lasix Continue torsemide #Immunocompromised patient CS, discontinued antibiotics at this time, low concern for superimposed normal procal, supportive care #Right pleural effusion #History recurrent right pleural effusion Completed repeat IR thoracentesis at [facility] on September 20, 2023, 500 mL of straw-colored fluid removed. Cytology negative for malignant cells. Small effusion on XRAY; large effusion on CT -s/p pluerx cath placement by Dr. Vance #Asymptomatic bradycardia noted at the ER *improved #Permanent Atrial fibrillation with slow ventricular response -Discontinue Eliquis 2.5mg BID -Requip discontinued 2/2 bradycardia -Monitor on tele #Troponin elevation secondary to illness peaked at 58, improving with treatment of underlying illness #Hyponatremia POA Resolved #EL on CKD III resolved Cr. 1.6 on admission Improved, resumed home losartan #Chronic HFpEF, equivocal volume status, some congestion on x-ray, patient clinically dry #CAD status post CABG #valvular heart disease (moderate to severe MR, mild to moderate MR, TTE 2021) Continue losartan continue home torsemide #hx PVD status post surgery * Right SFA atherectomy DCB angioplasty Right 11/2016 -Dr. 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 follows vascular #hypothyroidism TSH elevated with normal free T4, repeat ordered iso acute illness Recently increased Synthroid 112-->125mcg, continued #chronic normocytic anemia hemoglobin at baseline takes b12 and iron #HLD Crestor 20mg daily #Chronic neck pain #Cervical spinal stenosis -oxycodone 5mg q 4 hours, hold as able -Duloxetine 30mg daily #Hyperglycemia 10/25 A1C 5.1 #IPMN stable Noted on 10/[address], [address] CT/MR in 2 years DVT prophylaxis with scds PT/OT recommend rehab Pending placement, [facility] to [facility] DNR DNI Addendum 11/03/2023: Patient was seen and examined at bedside as a follow-up of dyspnea on exertion, metastatic primary lung cancer, diffuse pulmonary infiltrate likely immunotherapy related toxicity. Patient has been evaluated by pulmonology, patient on prednisone 40 mg daily for next 3 to 4 weeks with repeat chest x-ray and PFT in about a month time, tapering of his steroid over the following next 4 to 6 weeks. Given long-term steroid, PJP prophylaxis with Bactrim every Wednesday started. Patient reports feeling great and is needing 2 L oxygen at present. Complex social issues, CM is assisting w/ dc plan. Continue palliative follow-up as an outpatient. Admission and Anticipated Discharge Date Admission Date: October 26, 2023 Subjective Patient was seen and examined at bedside. Patient reports feeling better, reports eating okay and moving bowels okay. Denies any nausea, vomiting or chest pain or febrile illness. Patient's son at bedside who was updated on plan of care, answered all his questions. Patient reports ambulating around okay. Physical Exam Physical Exam: GENERAL: Comfortable, slightly hard of hearing, no respiratory distress SKIN: Pallor, warm HEENT: Alopecia, pale palpebral conjunctivae, no ptosis, moist buccal mucosa, nasal cannula in place NECK : Supple, no tenderness CHEST : Decreased breath sounds, scattered expiratory wheezes, no tenderness Rt chest pleurex cath noted. HEART : irregular, systolic murmur ABDOMEN: Some distention, nontender EXTREMITIES : Minimal LE swelling, no LE tenderness, no other conspicuous deformities noted NEUROLOGIC : Coherent, no facial asymmetry, slightly hard of hearing, gait and stance not assessed Results & Data Results & Data Vital Signs (Past 12 Hours) Vital Signs Temp Pulse Resp BP Pulse Ox O2 Del Method O2 Flow Rate 11/04/23 15:24 36.8 C 85 22 103/51 L 99 Nasal Cannula 2 11/04/23 11:16 36.6 C 83 21 141/87 H 100 Nasal Cannula 2 11/04/23 08:30 37.1 C 64 19 151/62 H 100 Nasal Cannula 2 11/04/23 08:00 Nasal Cannula 2
[2023-11-04] MEDS: FIRST - Mouthwash BLM 119 ML PO PRN (23:27)
[2023-11-05] MEDS: NYSTATIN SUSP 500,000 U/5 ML UDC PO SCH (11:37)
[2023-11-05] MEDS: CHLORASEPTIC (PHENOL) 1.4% SOLN 180 ML BTL MT PRN (11:37)
--- NOTE | 2023-11-05 17:09 | Hospitalist Progress Note ---
Date of Service November 05, 2023 Assessment & Plan (1) Acute hypoxemic respiratory failure: Plan: Per prior attending with addendum: Mr. 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 Initial concern for superimposed bacterial pneumonia on COPD exacerbation; however, it appears respiratory failure has been progressive since initiation of immunotherapy with question of possible immunotherapy pneumonitis. Pulm consulted given concern for ICI toxicity who suspects the same and started high dose solumedrol with notable reduction in oxygen requirement. Patient also s/p pleurx placement. Pending placement to SNF; however, on 11/01 patient was ambulating around room without difficulty and reports feeling "great" in comparison to days prior. He states he no longer wishes to go to rehab. He wishes for home health nursing and to return home. Care management working on services. #Constipation Aggressive bowel regimen #Fever *resolved Multiple etiologies for fever, trend fever curve: parainfluenza, malignancy, constipation Low threshold for repeat infectious work up #Acute on chronic hypoxic respiratory failure #?Immunotherapy pneumonitis #COPD, ?exacerbation #Parainfluenza virus #Hemopytsis #RUL NSCLC, c/g squamous cell carcinoma follows Dr Ivan Sifuentes s/p paclitaxel/carboplatin, Durvalumab 1500mg [id number] as of 06/2023 There was discussion regarding pneumonitis given progressive need for o2 use last followed with Heme onc 10/09 Transition to IV steroid Pulm consult: discontinue high dose solumedrol; continue 40mg PO prednisone daily over 4- 6 weeks Bactrim PJP PPX MWF Mucinex Nebs Hemoptysis: Eliquis discontinued Wean o2 as able Palliative consult-- DNR/DNI after Palliative discussion with son, family meeting held today, trial of SNF (patient now wishes to return home) Droplet precautions Pleurx drained EOD #pulm hypertension #Acute on chronic Heart failure with preserved EF *improved ECHO EF 55%OP Repeat ECHO EF 60-65%, LVH, RVP overload on imaging, regurg, pHTN 55mhg d/c IV lasix Continue torsemide #Immunocompromised patient CS, discontinued antibiotics at this time, low concern for superimposed normal procal, supportive care #Right pleural effusion #History recurrent right pleural effusion Completed repeat IR thoracentesis at [facility] on September 20, 2023, 500 mL of straw-colored fluid removed. Cytology negative for malignant cells. Small effusion on XRAY; large effusion on CT -s/p pluerx cath placement by Dr. Vance #Asymptomatic bradycardia noted at the ER *improved #Permanent Atrial fibrillation with slow ventricular response -Discontinue Eliquis 2.5mg BID -Requip discontinued 2/2 bradycardia -Monitor on tele #Troponin elevation secondary to illness peaked at 58, improving with treatment of underlying illness #Hyponatremia POA Resolved #LE on CKD III resolved Cr. 1.6 on admission Improved, resumed home losartan #Chronic HFpEF, equivocal volume status, some congestion on x-ray, patient clinically dry #CAD status post CABG #valvular heart disease (moderate to severe MR, mild to moderate MR, TTE 2021) Continue losartan continue home torsemide #hx PVD status post surgery * Right SFA atherectomy DCB angioplasty Right 11/2016 -Dr. 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 follows vascular #hypothyroidism TSH elevated with normal free T4, repeat ordered iso acute illness Recently increased Synthroid 112-->125mcg, continued #chronic normocytic anemia hemoglobin at baseline takes b12 and iron #HLD Crestor 20mg daily #Chronic neck pain #Cervical spinal stenosis -oxycodone 5mg q 4 hours, hold as able -Duloxetine 30mg daily #Hyperglycemia 10/25 A1C 5.1 #IPMN stable Noted on 10/[address], [address] CT/MR in 2 years DVT prophylaxis with scds PT/OT recommend rehab Pending placement, referal to [facility] DNR DNI Addendum 11/03/2023: Patient was seen and examined at bedside as a follow-up of dyspnea on exertion, metastatic primary lung cancer, diffuse pulmonary infiltrate likely immunotherapy related toxicity. Patient has been evaluated by pulmonology, patient on prednisone 40 mg daily for next 3 to 4 weeks with repeat chest x-ray and PFT in about a month time, tapering of his steroid over the following next 4 to 6 weeks. Given long-term steroid, PJP prophylaxis with Bactrim every Wednesday started. Patient reports feeling great and is needing 2 L oxygen at present. Complex social issues, CM is assisting w/ dc plan. Continue palliative follow-up as an outpatient. Nystatin swish and swallow for oral thrush. Admission and Anticipated Discharge Date Admission Date: October 26, 2023 Subjective Patient was seen and examined at bedside. Patient reports feeling better, reports eating okay and moving bowels okay. Denies any nausea, vomiting or chest pain or febrile illness. Oral thrush noted today, nystatin swish and swallow ordered, will follow. Patient reports ambulating around okay. Physical Exam Physical Exam: GENERAL: Comfortable, slightly hard of hearing, no respiratory distress SKIN: Pallor, warm HEENT: Alopecia, pale palpebral conjunctivae, no ptosis, moist buccal mucosa, nasal cannula in place. Oral thrush noted. NECK : Supple, no tenderness CHEST : Decreased breath sounds, scattered expiratory wheezes, no tenderness Rt chest pleurex cath noted. HEART : irregular, systolic murmur ABDOMEN: Some distention, nontender EXTREMITIES : Minimal LE swelling, no LE tenderness, no other conspicuous deformities noted NEUROLOGIC : Coherent, no facial asymmetry, slightly hard of hearing, gait and stance not assessed Results & Data Results & Data Vital Signs (Past 12 Hours) Vital Signs Temp Pulse Pulse Resp BP Pulse Ox O2 Del Method 11/05/23 16:00 Nasal Cannula 11/05/23 15:51 36.6 C 79 20 116/66 100 Nasal Cannula 11/05/23 10:26 36.4 C L 62 21 122/63 92 Nasal Cannula 11/05/23 08:00 56 L 11/05/23 08:00 Nasal Cannula 11/05/23 07:34 36.4 C L 95 H 19 160/70 H 95 Nasal Cannula O2 Flow Rate 11/05/23 16:00 2 11/05/23 15:51 2 11/05/23 10:26 2 11/05/23 08:00 11/05/23 08:00 2 11/05/23 07:34 2
--- NOTE | 2023-11-06 12:21 | Discharge Summary ---
Date of Service November 06, 2023 Admission HPI Per Admitting Provider History obtained from patient and records. Medical history significant for chronic diastolic heart failure (55 to 59%, TTE 2021), CAD status post CABG, valvular heart disease (moderate to severe MR, mild to moderate MR, TTE 2021), PVD status post surgery, A-fib on Eliquis, pulmonary hypertension, hyperlipidemia, COPD/RLD as per records, non-small cell lung cancer status post chemoradiation ongoing immunotherapy, recurrent right pleural effusion, pancreatic tumor, hypothyroidism, BPH, chronic anemia (baseline hemoglobin 9-10), mood disorder, past tobacco abuse. Recent confinement August 2023 for right pleural effusion status post thoracentesis. Pleural fluid negative for malignancy. Few days history of worsening junky cough symptoms with shortness of breath. Denies aspiration. Not sure about sick contacts. Denies fluid retention. No headache or abdominal pain. Patient brought by family to ER. IV cefepime administered at the ER. Bradycardic episode noted at the ER. Heart rate 30s. Patient asymptomatic during event. 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 Admission Exam Per Admitting Provider GENERAL: Comfortable, slightly hard of hearing, no respiratory distress SKIN: Pallor, warm HEENT: Alopecia, pale palpebral conjunctivae, no ptosis, dry buccal mucosa, nasal cannula in place NECK : Supple, no tenderness CHEST : Decreased breath sounds, scattered expiratory wheezes, no tenderness HEART : Bradycardic, irregular, systolic murmur ABDOMEN: Some distention, nontender EXTREMITIES : Minimal LE swelling, no LE tenderness, no other conspicuous deformities noted NEUROLOGIC : Coherent, no facial asymmetry, slightly hard of hearing, gait and stance not assessed Principal Diagnosis Acute hypoxemic respiratory failure, likely immunotherapy related pulmonary toxicity Discharge Exam GENERAL: Comfortable, slightly hard of hearing, no respiratory distress SKIN: Pallor, warm HEENT: Alopecia, pale palpebral conjunctivae, no ptosis, moist buccal mucosa, nasal cannula in place. Oral thrush noted- improving NECK : Supple, no tenderness CHEST : Decreased breath sounds, scattered expiratory wheezes, no tenderness Rt chest pleurex cath noted. HEART : irregular, systolic murmur ABDOMEN: Some distention, nontender EXTREMITIES : Minimal LE swelling, no LE tenderness, no other conspicuous deformities noted NEUROLOGIC : Coherent, no facial asymmetry, slightly hard of hearing, gait and stance not assessed Discharge Data Allergies Allergy/AdvReac Type Severity Reaction Status Date / Time No Known Allergies Allergy Unverified 10/26/23 00:36 Consultations 10/25/23 22:50 ED Decision to Admit Stat 10/27/23 09:53 Consult Pulmonology Routine 10/27/23 19:34 Consult Palliative Care Routine 10/30/23 07:00 Consult Behavioral Health Liaison Routine Ordered Studies 10/27/23 12:05 CT angio chest PE protocol Urgent Hospital Course (1) Acute hypoxemic respiratory failure: Per prior attending with addendum: Mr. 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 Initial concern for superimposed bacterial pneumonia on COPD exacerbation; however, it appears respiratory failure has been progressive since initiation of immunotherapy with question of possible immunotherapy pneumonitis. Pulm consulted given concern for ICI toxicity who suspects the same and started high dose solumedrol with notable reduction in oxygen requirement. Patient also s/p pleurx placement. Pending placement to SNF; however, on 11/01 patient was ambulating around room without difficulty and reports feeling "great" in comparison to days prior. He states he no longer wishes to go to rehab. He wishes for home health nursing and to return home. Care management working on services. #Constipation Aggressive bowel regimen #Fever *resolved Multiple etiologies for fever, trend fever curve: parainfluenza, malignancy, constipation Low threshold for repeat infectious work up #Acute on chronic hypoxic respiratory failure #?Immunotherapy pneumonitis #COPD, ?exacerbation #Parainfluenza virus #Hemopytsis #RUL NSCLC, c/g squamous cell carcinoma follows Dr Ivan Sifuentes s/p paclitaxel/carboplatin, Durvalumab 1500mg [id number] as of 06/2023 There was discussion regarding pneumonitis given progressive need for o2 use last followed with Heme onc 10/09 Transition to IV steroid Pulm consult: discontinue high dose solumedrol; continue 40mg PO prednisone daily over 4- 6 weeks Bactrim PJP PPX MWF Mucinex Nebs Hemoptysis: Eliquis discontinued Wean o2 as able Palliative consult-- DNR/DNI after Palliative discussion with son, family meeting held today, trial of SNF (patient now wishes to return home) Droplet precautions Pleurx drained EOD #pulm hypertension #Acute on chronic Heart failure with preserved EF *improved ECHO EF 55%OP Repeat ECHO EF 60-65%, LVH, RVP overload on imaging, regurg, pHTN 55mhg d/c IV lasix Continue torsemide #Immunocompromised patient CS, discontinued antibiotics at this time, low concern for superimposed normal procal, supportive care #Right pleural effusion #History recurrent right pleural effusion Completed repeat IR thoracentesis at [facility] on September 20, 2023, 500 mL of straw-colored fluid removed. Cytology negative for malignant cells. Small effusion on XRAY; large effusion on CT -s/p pluerx cath placement by Dr. Vance #Asymptomatic bradycardia noted at the ER *improved #Permanent Atrial fibrillation with slow ventricular response -Discontinue Eliquis 2.5mg BID -Requip discontinued 2/2 bradycardia -Monitor on tele #Troponin elevation secondary to illness peaked at 58, improving with treatment of underlying illness #Hyponatremia POA Resolved #EL on CKD III resolved Cr. 1.6 on admission Improved, resumed home losartan #Chronic HFpEF, equivocal volume status, some congestion on x-ray, patient clinically dry #CAD status post CABG #valvular heart disease (moderate to severe MR, mild to moderate MR, TTE 2021) Continue losartan continue home torsemide #hx PVD status post surgery * Right SFA atherectomy DCB angioplasty Right 11/2016 -Dr. 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 follows vascular #hypothyroidism TSH elevated with normal free T4, repeat ordered iso acute illness Recently increased Synthroid 112-->125mcg, continued #chronic normocytic anemia hemoglobin at baseline takes b12 and iron #HLD Crestor 20mg daily #Chronic neck pain #Cervical spinal stenosis -oxycodone 5mg q 4 hours, hold as able -Duloxetine 30mg daily #Hyperglycemia 10/25 A1C 5.1 #IPMN stable Noted on 10/[address], [address]/MR in 2 years DVT prophylaxis with scds PT/OT recommend rehab Pending placement, referal to [facility] DNR DNI Addendum 11/03/2023: Patient was seen and examined at bedside as a follow-up of dyspnea on exertion, metastatic primary lung cancer, diffuse pulmonary infiltrate likely immunotherapy related toxicity. Patient has been evaluated by pulmonology, patient on prednisone 40 mg daily for next 4 weeks with repeat chest x-ray and PFT in about a month time, tapering of his steroid over the following next 4 to 6 weeks. Given long-term steroid, PJP prophylaxis with Bactrim every Wednesday started. Patient reports feeling great and is needing 2 L oxygen at present. Complex social issues, CM is assisting w/ dc plan. Continue palliative follow-up as an outpatient. Nystatin swish and sw allow for oral thrush. Levothyroxine increased this admission. F/u w/ pulm on dc. Follow-up with your primary care physician within a week time and likely you will need labs CBC/CMP/magnesium/phosphorus. You likely have immunotherapy related lung toxicity, you will be discharged on prolonged course of a steroid and Bactrim. You will be given a steroid for 30 days, after 30 days it needs to be tapered down over the course of next 1 to 2 months, coordinate with your PCP office for further doses and recommendation. You will be discharged on Bactrim every Wednesday/Wednesday/Wednesday to prevent opportunistic infection while on steroid. It needs to continue for the duration of steroid use. Since your blood in the sputum has improved, you could restart your blood thin ner Eliquis. Continue to follow-up with your PCP office for ongoing risks and benefit discussion. For your oral thrush you will be given nystatin swish and swallow for about 7 days, continue to follow-up with your PCP office for ongoing evaluation/management. Recommend that you establish with palliative care/continue to follow-up with palliative care as an outpatient. Coordinate with your PCP office to set up the referral if it has not been done yet. You will need repeat chest x-ray and lung function test in about a month time, coordinate with your PCP office to set up the test. Follow-up with pulmonology upon discharge, coordinate with your PCP office for referral. You will need repeat thyroid function test in about 6 weeks time, coordinate with your PCP office to set up the test. Take your medications as prescribed. Please make sure that you are able to get your medications today by calling your pharmacy before you leave the hospital so that your treatment continuity is not broken. Home Health Attestation I certify that this patient is under my care and that I, or a physicians head start assistant teacher working with me, had a face to-face encounter that meets the home health [id number] encounter requirements with this patient. The encounter with the patient was in whole, or in part, for the following medical condition, which is the primary reason for home health care (list medical condition): Lung Cance, PleurX Catheter I certify that, based on my findings, the following services are medically necessary home health services: My clinical findings support the need for the above services because: Caregiver Instruct Med Mgmt, Safety, Disease Process, Signs to Report Daily Weights Home Safety Assessment Hydration / Nutrition Medication Compliance and Monitoring Effective of New Medications Oxygen Safety and Management Safety Skilled Nsg Assessment Skilled Nsg Assessment Surgical Incision / Wound Skilled Nsg Assess and Instruct on Diet Skilled Nsg Instruction New Medications Skilled Nsg Assess Pt Illness, Disease and Sx Monitoring S/S to Report to Provider Teach on Disease Management and Interventions Vital Signs Further, I certify that my clinical findings support that this patient is homebound (i.e. absences from home require considerable and taxing effort and are for medical reasons or restoration services or infrequently or of short duration when for other reasons) because: Supportive Aid - Walker Transportation Assistance/Unable to Leave Home Unassisted Certification for Home Health Services: Based on the above findings, I certify that this patient is confined to the home and needs intermittent alf care, physical therapy and/or speech therapy or continues to need occupational therapy. The patient is under my care, and I have initiated the establishment of the plan of care. This patient will be followed by a physician who will periodically review the plan of care. Total Time Total Time Spent Total Time Spent (In Minutes): 45 Discharge Plan Discharge Items Patient Disposition: Home - Home Health Services Reason For Visit: RESP FAILURE, BRADYCARDIA Discharge Diagnosis: Acute hypoxemic respiratory failure, likely immunotherapy related pulmonary toxicity Activity: Resume your previous activity Non-emergency contact: Primary Care Provider Call non-emergency contact if: you have any medication questions Follow-up/Referrals: Vu Tapia MD [Outside Practitioners] - (Date & Time 11/17/2023 12:20 PM Provider Vu Tapia MD Department Pulmonary Medicine, [facility] ) Pepe Chiang MD [Primary Care Provider] - (Date & Time 11/11/2023 11:50 AM Provider Pepe Beck MD Department [facility] ) Diet: Heart Healthy Addtl Attending Provider Instructions: Follow-up with your primary care physician within a week time and likely you will need labs CBC/CMP/magnesium/phosphorus. You likely have immunotherapy related lung toxicity, you will be discharged on prolonged course of a steroid and Bactrim. You will be given a steroid for 30 days, after 30 days it needs to be tapered down over the course of next 1 to 2 months, coordinate with your PCP office for further doses and recommendation. You will be discharged on Bactrim every Wednesday/Wednesday/Wednesday to prevent opportunistic infection while on steroid. It needs to continue for the duration of steroid use. Since your blood in the sputum has improved, you could restart your blood thinner Eliquis. Continue to follow-up with your PCP office for ongoing risks and benefit discussion. For your oral thrush you will be given nystatin swish and swallow for about 7 da ys, continue to follow-up with your PCP office for ongoing evaluation/management. Recommend that you establish with palliative care/continue to follow-up with palliative care as an outpatient. Coordinate with your PCP office to set up the referral if it has not been done yet. You will need repeat chest x-ray and lung function test in about a month time, coordinate with your PCP office to set up the test. Follow-up with pulmonology upon discharge, coordinate with your PCP office for referral. You will need repeat thyroid function test in about 6 weeks time, coordinate with your PCP office to set up the test. Take your medications as prescribed. Please make sure that you are able to get your medications today by calling your pharmacy before you leave the hospital so that your treatment continuity is not broken. Pending Studies at Discharge: No Stand-Alone Forms: My [employer], Smoking Cessation Medications and DC Order Prescriptions: New nystatin 100,000 unit/mL Suspension 5 ml PO QID 7 Days Qty: 200 0RF sulfamethoxazole-trimethoprim [Bactrim DS] 800-160 mg Tablet 1 tab PO MoWeFr@0900 Qty: 20 0RF amlodipine 10 mg tablet 10 mg PO DAILY Qty: 30 0RF losartan 25 mg Tablet 75 mg PO QAM Qty: 90 0RF levothyroxine [Synthroid] 125 mcg Tablet 125 mcg PO DAILYBB Qty: 30 0RF prednisone 20 mg Tablet 40 mg PO DAILY Qty: 60 0RF potassium chloride 20 mEq tablet extended release 20 meq PO DAILY Qty: 30 0RF Continued albuterol sulfate 90 mcg/actuation HFA aerosol inhaler 2 puff inhalation Q6H PRN (Reason: Shortness Of Breath Or Wheezing) tamsulosin 0.4 mg capsule 0.4 mg PO BID torsemide 20 mg tablet 20 mg PO DAILY dutasteride 0.5 mg capsule 0.5 mg PO DAILY ipratropium-albuterol 0.5 mg-3 mg(2.5 mg base)/3 mL solution for nebulization 3 ml inhalation Q6H PRN (Reason: Shortness Of Breath Or Wheezing) mecobalamin (vitamin B12) 10,000 mcg recon soln 1,000 mcg IM MONTHLY prochlorperazine maleate [Compazine] 10 mg tablet 10 mg PO Q6H PRN (Reason: Nausea) ondansetron HCl 8 mg tablet 8 mg PO Q8H PRN (Reason: Nausea) pantoprazole 40 mg Tablet,Delayed Release (Dr/Ec) 40 mg PO DAILY dexamethasone 4 mg Tablet 4 mg PO DIRECTED oxycodone 5 mg tablet 5 mg PO Q4 PRN (Reason: .severe pain) rosuvastatin 20 mg tablet 20 mg PO QAM duloxetine 30 mg capsule,delayed release(DR/EC) 30 mg PO QAM sennosides-docusate sodium [Senna with Docusate Sodium] 8.6-50 mg Tablet 1 tab-cap PO HS aspirin 81 mg Tablet,Delayed Release (Dr/Ec) 81 mg PO MOWEFR mirtazapine 30 mg tablet 45 mg PO HS nitroglycerin [Nitrostat] 0.4 mg Tablet, Sublingual 0.4 mg sublingual DIRECTED PRN (Reason: .Ccest pain) Incruse Ellipta 62.5 mcg/actuation blister with device 1 inh INHALATION QAM ropinirole 0.5 mg tablet 0.5 mg PO HS Eliquis 2.5 mg tablet 2.5 mg PO BID Rx Instructions: Son says he gets this held for 2 days before he gets chest drained. baclofen 10 mg tablet 10 mg PO HS Discontinued levothyroxine 112 mcg capsule 112 mcg PO DAILY losartan 50 mg tablet 50 mg PO QAM amlodipine 5 mg tablet 5 mg PO QAM Discharge Orders: Discharge Order (Routine); Ordered 11/06/23 Ordered By: Analilia Quintanilla Admission Data Admit Date/Time: 10/26/23 01:23 Attending Provider: Analilia Quintanilla Admit Provider: Neeraj Camacho Primary Care Provider: Pepe Chiang Other Providers: Neeraj Camacho; Dmitriy Vance; Katie Edmond; [facility],Rehab; [facility]; [facility]
== END 2023-11-06 13:49 | disposition home health service (06) | DRG 917 ==
LOC: ED 20:20 → EDINP 10-26 01:23 → SUATTDRO 10-26 01:23 → 2E 10-26 02:59
DX: I73.9 Peripheral vascular disease, unspecified; Z87.891 Personal history of nicotine dependence; C34.90 Malignant neoplasm of unspecified part of unspecified bronchus or lung; I50.33 Acute on chronic diastolic (congestive) heart failure; B34.8 Other viral infections of unspecified site; D84.9 Immunodeficiency, unspecified; Z66 Do not resuscitate; J96.21 Acute and chronic respiratory failure with hypoxia; I27.20 Pulmonary hypertension, unspecified; I08.1 Rheumatic disorders of both mitral and tricuspid valves; Z79.620 Long term (current) use of immunosuppressive biologic; R73.9 Hyperglycemia, unspecified; I25.10 Atherosclerotic heart disease of native coronary artery without angina pectoris; E87.1 Hypo-osmolality and hyponatremia; M48.02 Spinal stenosis, cervical region; E03.9 Hypothyroidism, unspecified; J68.0 Bronchitis and pneumonitis due to chemicals, gases, fumes and vapors; Z95.1 Presence of aortocoronary bypass graft; I48.21 Permanent atrial fibrillation; Z79.01 Long term (current) use of anticoagulants; K59.00 Constipation, unspecified; I48.91 Unspecified atrial fibrillation; Z79.890 Hormone replacement therapy; J44.0 Chronic obstructive pulmonary disease with (acute) lower respiratory infection; T45.1X1A Poisoning by antineoplastic and immunosuppressive drugs, accidental (unintentional), initial encounter; Z92.3 Personal history of irradiation; Y92.019 Unspecified place in single-family (private) house as the place of occurrence of the external cause; D64.9 Anemia, unspecified; J44.1 Chronic obstructive pulmonary disease with (acute) exacerbation; R00.1 Bradycardia, unspecified; J90 Pleural effusion, not elsewhere classified; N18.30 Chronic kidney disease, stage 3 unspecified